=== PATIENT | female | born 1955 | race American Indian/Alaskan Native ===

== ENCOUNTER 2017-12-22 17:10 | Emergency (ER) | payer OTHER ==
[2017-12-22] MEDS ORDERED: ASPIRIN PO ONE (17:39)
[2017-12-22 17:43] VITALS: BP 216/93
[2017-12-22 18:08] LABS: Basophils # (Auto) 0.1 K/mm3 (0.0-0.1); Basophils % (Auto) 1.4 % (0.0-1.8); Eosinophils # (Auto) 0.1 K/mm3 (0.0-0.4); Eosinophils % (Auto) 1.8 % (0.0-4.3); Hematocrit 32.2 % (30.3-42.9); Hemoglobin 10.6 gm/dl (10.1-14.3); Lymphocytes # (Auto) 1.7 K/mm3 (1.2-5.4); Lymphocytes % (Auto) 33.8 % (13.4-35.0); Mean Corpuscular HGB Conc 33 % (30-34); Mean Corpuscular Hemoglobin 28 pg (28-32); Mean Corpuscular Volume 86 fl (79-97); Monocytes # (Auto) 0.5 K/mm3 (0.0-0.8); Monocytes % (Auto) 9.8 % (0.0-7.3); Platelet Count 282 K/mm3 (140-440); Red Blood Count 3.75 M/mm3 (3.65-5.03); Red Cell Distribution Width 16.8 % (13.2-15.2)
[2017-12-22 18:19] LABS: BUN/Creatinine Ratio 14; Blood Urea Nitrogen 19 mg/dL (7-17); Calcium 9.1 mg/dL (8.4-10.2); Hemolysis Index 19
[2017-12-22] MEDS ORDERED: CATAPRES PO ONE (18:42)
[2017-12-22 19:23] LABS: Alanine Aminotransferase 9 units/L (7-56)
[2017-12-22 19:31] LABS: Bilirubin,Direct < 0.2 mg/dL (0-0.2)
--- NOTE | 2017-12-22 19:33 | XRay Report ---
FINAL REPORT EXAM: XR CHEST ROUTINE 2V HISTORY: hypertension TECHNIQUE: Two view chest PA and lateral PRIORS: None. FINDINGS: Cardiac and mediastinal contours are unremarkable. No focal pulmonary infiltrate is identified. No pleural fluid collection seen. Pulmonary vasculature is unremarkable. IMPRESSION: Negative two-view chest
--- NOTE | 2017-12-22 21:24 | Emergency Department Report ---
ED General Adult HPI - General Chief complaint: High BP Stated complaint: HIGH BLOOD PRESSURE Time Seen by Provider: 12/22/17 21:01 Source: patient Mode of arrival: Ambulatory Limitations: No Limitations - History of Present Illness Initial comments: Patient presents to emergency department with a chief complaint of high blood pressure. Patient states she was at her primary care physician's office today had an appointment around 4:30 for routine follow-up when they noticed her blood pressure was 230/100. Patient states normally her blood pressure is 180/ 90. One of her blood pressure medications was recently stopped secondary to the recall on that medication specifically thus the reason the patient thinks her blood pressure was elevated today. Patient denies any chest pain, abdominal pain, headache, blurred vision, weakness. Radiation: non-radiation Severity scale (0 -10): 0 Improves with: none Associated Symptoms: denies other symptoms Treatments Prior to Arrival: none - Related Data Allergies Allergy/AdvReac Type Severity Reaction Status Date / Time No Known Allergies Allergy Verified 12/22/17 17:38 ED Review of Systems ROS: Stated complaint: HIGH BLOOD PRESSURE Other details as noted in HPI Comment: All other systems reviewed and negative Constitutional: denies: chills, fever Eyes: denies: eye pain, eye discharge, vision change ENT: denies: ear pain, throat pain Respiratory: denies: cough, shortness of breath, wheezing Cardiovascular: denies: chest pain, palpitations Endocrine: no symptoms reported Gastrointestinal: denies: abdominal pain, nausea, diarrhea Genitourinary: denies: urgency, dysuria, discharge Musculoskeletal: denies: back pain, joint swelling, arthralgia Skin: denies: rash, lesions Neurological: denies: headache, weakness, paresthesias Psychiatric: denies: anxiety, depression Hematological/Lymphatic: denies: easy bleeding, easy bruising ED Past Medical Hx - Past Medical History Hx Hypertension: Yes - Surgical History Past Surgical History?: No - Social History Smoking Status: Never Smoker Substance Use Type: None ED Physical Exam - General Limitations: No Limitations General appearance: alert, in no apparent distress - Head Head exam: Present: atraumatic, normocephalic - Eye Eye exam: Present: normal appearance - ENT ENT exam: Present: mucous membranes moist - Neck Neck exam: Present: normal inspection - Respiratory Respiratory exam: Present: normal lung sounds bilaterally. Absent: respiratory distress, wheezes, rales, rhonchi - Cardiovascular Cardiovascular Exam: Present: regular rate, normal rhythm. Absent: systolic murmur, diastolic murmur, rubs, gallop - GI/Abdominal GI/Abdominal exam: Present: soft, normal bowel sounds. Absent: distended, tenderness - Extremities Exam Extremities exam: Present: normal inspection - Back Exam Back exam: Present: normal inspection - Neurological Exam Neurological exam: Present: alert, oriented X3, CN II-XII intact, normal gait. Absent: motor sensory deficit - Psychiatric Psychiatric exam: Present: normal affect, normal mood - Skin Skin exam: Present: warm, dry, intact, normal color. Absent: rash ED Course Vital Signs 12/22/17 12/22/17 17:39 18:47 Temperature 97.7 F Pulse Rate 73 73 Respiratory 16 Rate Blood Pressure 216/93 216/93 O2 Sat by Pulse 96 Oximetry ED Medical Decision Making - Lab Data Result diagrams: 12/22/17 17:52 12/22/17 17:52 - EKG Data -: EKG Interpreted by Me EKG shows normal: sinus rhythm - EKG Data Interpretation: no acute changes, normal EKG - Medical Decision Making Discussed with patient since she was not have any symptoms and was just started on a third medication for BP it would be best for her to follow up with her primary care physician or see a certified driver examiner Critical care attestation.: If time is entered above; I have spent that time in minutes in the direct care of this critically ill patient, excluding procedure time. ED Disposition Clinical Impression: Hypertension Disposition: - TO HOME OR SELFCARE Is pt being admited?: No Does the pt Need Aspirin: No Condition: Stable Instructions: Hypertension (ED) Referrals: MALAIKA DIANE MD [Staff Physician] - 3-5 Days EMMANUEL DEMPSEY MD [Referring] - 3-5 Days RENATO RUSSELL MD [Staff Physician] - 3-5 Days Time of Disposition: 21:25
== END 2017-12-22 21:47 | disposition home or self-care (01) ==
LOC: ED 17:10
DX: I10 Essential (primary) hypertension (principal)
CPT/HCPCS: 36415; 71046; 80048; 80074; 83880; 84484; 85025; 93005; 93010

== ENCOUNTER 2021-01-04 16:11 | Inpatient (IN) | payer OTHER ==
[2021-01-04] MEDS ORDERED: cloNIDine 0.2 MG TAB PO ONE (19:04)
--- NOTE | 2021-01-04 22:03 | Emergency Department Report ---
HPI - General Chief Complaint: High BP Time Seen by Provider: 01/04/21 21:25 - HPI HPI: This is a 65-year-old -Chinese female presents to the emergency department, sent in by her PCP Dr. Mendiola, for evaluation of hypertensive issues and acute kidney injury. The patient does have a history of hypertension and was previously on losartan 100 mg, labetalol 200 mg twice daily, and nifedipine. The patient says that she was switched from nifedipine to hydralazine about 1 month ago by her software support technician, Dr. Vidal. Patient says that over that time her blood pressure has continued to elevate and be uncontrolled. When the patient went in to see Dr. Mendiola today regarding her hypertensive issues, she had taken her labetalol and her hydralazine, but was still found to have extremely elevated blood pressure. Patient was found to have a blood pressure of 263/127 in triage. 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 Patient denies any chest pain, headache, but does admit to some shortness of breath that occurs with exertion. There was a note sent by Dr. Mendiola requesting that the patient be admitted to the hospital for evaluation of her hypertensive crisis, and he would like the patient to have a nephrology and cardiology evaluation. His note states that the patient is to be seen by Dr. Barr and the patient concurs that they are switching nephrology services. Her creatinine went from 0.9 up to 2.77 over the last 2 months. For cardiology, the note asks for an evaluation from Dr. Schrader, or [facility] cardiology. ED Past Medical Hx - Past Medical History Previous Medical History?: Yes Hx Hypertension: Yes Hx Diabetes: Yes - Surgical History Past Surgical History?: Yes Additional Surgical History: gastric bypass - Social History Smoking Status: Never Smoker Substance Use Type: None ED Review of Systems ROS: Stated complaint: HYPERTENSIVE Other details as noted in HPI Comment: All other systems reviewed and negative Constitutional: denies: fever Eyes: denies: eye pain, vision change ENT: denies: ear pain, throat pain Respiratory: SOB with exertion. denies: cough Cardiovascular: denies: chest pain, edema Gastrointestinal: denies: abdominal pain, vomiting Genitourinary: denies: dysuria, discharge Musculoskeletal: denies: back pain, arthralgia Skin: denies: rash, lesions Neurological: denies: headache, weakness Physical Exam - Physical Exam Vital Signs: Vital Signs 01/04/21 16:45 Temperature 98.3 F Pulse Rate 84 Respiratory 18 Rate Blood Pressure 263/127 [Right] O2 Sat by Pulse 98 Oximetry Physical Exam: GENERAL: The patient is well-developed well-nourished. HENT: Normocephalic. Atraumatic. Patient has moist mucous membranes. EYES: Extraocular motions are intact. NECK: Supple. Trachea is midline. CHEST/LUNGS: Coarse breath sounds. No tachypnea or accessory muscle use. There is no respiratory distress noted. HEART/CARDIOVASCULAR: Regular. There is no tachycardia. There is no murmur. ABDOMEN: Abdomen is soft, nontender. Patient has normal bowel sounds. Morbidly obese habitus. SKIN: Skin is warm and dry. NEURO: The patient is awake, alert, and oriented. The patient is cooperative. The patient has no focal neurologic deficits. Normal speech. MUSCULOSKELETAL: There is no tenderness or deformity. There is no limitation range of motion. ED Course Vital Signs 01/04/21 16:45 Temperature 98.3 F Pulse Rate 84 Respiratory 18 Rate Blood Pressure 263/127 [Right] O2 Sat by Pulse 98 Oximetry ED Medical Decision Making - Lab Data Result diagrams: 01/04/21 22:00 01/04/21 22:00 Lab Results 01/04/21 01/04/21 Range/Units 22:00 22:00 WBC 4.4 L (4.5-11.0) K/mm3 RBC 2.97 L (3.65-5.03) M/mm3 Hgb 8.9 L (10.1-14.3) gm/dl Hct 27.5 L (30.3-42.9) % MCV 93 (79-97) fl MCH 30 (28-32) pg MCHC 32 (30-34) % RDW 20.4 H (13.2-15.2) % Plt Count 190 (140-440) K/mm3 Lymph % (Auto) 29.8 (13.4-35.0) % [place] % (Auto) 13.5 H (0.0-7.3) % Eos % (Auto) 3.5 (0.0-4.3) % Baso % (Auto) 1.9 H (0.0-1.8) % Lymph # (Auto) 1.3 (1.2-5.4) K/mm3 [place] # (Auto) 0.6 (0.0-0.8) K/mm3 Eos # (Auto) 0.2 (0.0-0.4) K/mm3 Baso # (Auto) 0.1 (0.0-0.1) K/mm3 Seg Neutrophils % 51.3 (40.0-70.0) % Seg Neutrophils # 2.3 (1.8-7.7) K/mm3 Sodium 143 (137-145) mmol/L Potassium 3.9 (3.6-5.0) mmol/L Chloride 108.0 H (98-107) mmol/L Carbon Dioxide 18 L (22-30) mmol/L Anion Gap 21 mmol/L BUN 24 H (7-17) mg/dL Creatinine 3.0 H (0.6-1.2) mg/dL Estimated GFR 19 ml/min BUN/Creatinine Ratio 8 % Glucose 102 H (65-100) mg/dL Calcium 8.7 (8.4-10.2) mg/dL Total Bilirubin 0.20 (0.1-1.2) mg/dL AST 16 (5-40) units/L ALT 7 (7-56) units/L Alkaline Phosphatase 71 (35-129) units/L Troponin T < 0.010 (0.00-0.029) ng/mL NT-Pro-B Natriuret Pep 5093 H (0-900) pg/mL Total Protein 6.1 L (6.3-8.2) g/dL Albumin 3.7 L (3.9-5) g/dL Albumin/Globulin Ratio 1.5 % - EKG Data -: EKG Interpreted by Ri EKG shows normal: sinus rhythm, axis, intervals, QRS complexes, ST-T waves Rate: normal - EKG Data When compared to previous EKG there are: previous EKG unavailable Interpretation: normal EKG - Radiology Data Radiology results: report reviewed CHEST 1 VIEW 01/04/2021 10:05 PM INDICATION / CLINICAL INFORMATION: SOB. COMPARISON: 12/22/2017 FINDINGS: SUPPORT DEVICES: None. HEART / MEDIASTINUM: There is mild cardiomegaly. LUNGS / PLEURA: No focal lung consolidation. Bilateral small pleural effusions. No pneumothorax. ADDITIONAL FINDINGS: No significant additional findings. IMPRESSION: 1. Cardiomegaly. 2 Bilateral small pleural effusions. - Medical Decision Making This patient was sent in by her PCP for evaluation of accelerated and uncontrolled blood pressure and renal insufficiency/failure. The patient prese nts with a systolic blood pressure of 263. She complains of some shortness of breath with exertion that has been going on over the past few weeks. EKG does not show any morphology consistent with ST elevation myocardial infarction. Chest x-ray shows cardiomegaly with small bilateral pleural effusions. Patient's labs shows anemia with hemoglobin of 8.9, renal insufficiency/failure with a creatinine of 3 and GFR of 19, and elevated proBNP of greater than 5000. With the cardiomegaly, pleural effusions, elevated proBNP, there is concern the patient has developed CHF. She was given Catapres 0.2 mg, 20 mg of hydralazine, and 20 mg of labetalol, with almost no improvement in her blood pressure. For this reason she has been placed on a Cardene drip. At the request of her PCP, Dr. Mendiola, a nephrology consult has been placed for Dr. Barr and a cardiology consult has been placed for [facility]. The patient has been accepted for admission by the hospitalist, Dr. Salmeron. Critical Care Time: Yes Critical care time in (mins) excluding proc time.: 35 Critical care attestation.: If time is entered above; I have spent that time in minutes in the direct care of this critically ill patient, excluding procedure time. Critical care time was spent on this patient in doing her initial evaluation, multiple reeval uations, ordering and interpretation of labs and imaging, multiple antihypertensive medications given followed by a drip, and multiple discussions with the patient. Critical Care Time: 35 minutes ED Disposition Clinical Impression: Accelerated hypertension CHF (congestive heart failure) Qualifiers: Heart failure type: unspecified Heart failure chronicity: unspecified Qualified Code(s): I50.9 - Heart failure, unspecified Acute renal failure Qualifiers: Acute renal failure type: unspecified Qualified Code(s): N17.9 - Acute kidney failure, unspecified Disposition: OP ADMIT IP TO THIS HOSP Is pt being admited?: Yes Condition: Serious Time of Disposition: 00:32
[2021-01-04 22:10] LABS: Basophils # (Auto) 0.1 K/mm3 (0.0-0.1); Basophils % (Auto) 1.9 % (0.0-1.8); Eosinophils # (Auto) 0.2 K/mm3 (0.0-0.4); Eosinophils % (Auto) 3.5 % (0.0-4.3); Hematocrit 27.5 % (30.3-42.9); Hemoglobin 8.9 gm/dl (10.1-14.3); Lymphocytes # (Auto) 1.3 K/mm3 (1.2-5.4); Lymphocytes % (Auto) 29.8 % (13.4-35.0); Mean Corpuscular HGB Conc 32 % (30-34); Mean Corpuscular Volume 93 fl (79-97); Monocytes # (Auto) 0.6 K/mm3 (0.0-0.8); Monocytes % (Auto) 13.5 % (0.0-7.3); Platelet Count 190 K/mm3 (140-440); Red Blood Count 2.97 M/mm3 (3.65-5.03); Red Cell Distribution Width 20.4 % (13.2-15.2)
[2021-01-04] MEDS ORDERED: hydrALAZINE 20 MG/1 ML INJ IV ONE ×2 (22:10→23:05)
--- NOTE | 2021-01-04 22:10 | XRay Report ---
CHEST 1 VIEW 01/04/2021 10:05 PM INDICATION / CLINICAL INFORMATION: SOB. COMPARISON: 12/22/2017 FINDINGS: SUPPORT DEVICES: None. HEART / MEDIASTINUM: There is mild cardiomegaly. LUNGS / PLEURA: No focal lung consolidation. Bilateral small pleural effusions. No pneumothorax. ADDITIONAL FINDINGS: No significant additional findings. IMPRESSION: 1. Cardiomegaly. 2 Bilateral small pleural effusions. Signer Name: Stephen Schaffer MD Signed: 01/04/2021 10:06 PM Workstation Name: [id number]
[2021-01-04 22:43] LABS: Alanine Aminotransferase 7 units/L (7-56); Albumin 3.7 g/dL (3.9-5); BUN/Creatinine Ratio 8; Blood Urea Nitrogen 24 mg/dL (7-17); Calcium 8.7 mg/dL (8.4-10.2); Hemolysis Index 35
[2021-01-05] MEDS ORDERED: niCARdipine 50 MG in SODIUM CHLORIDE 0.9% 250ML 230 ML IV SCH (01:00)
[2021-01-05] MEDS ORDERED: ALBUTEROL 2.5 MG/3 ML NEBU IH PRN (02:13)
[2021-01-05] MEDS ORDERED: ACETAMINOPHEN 325 MG TAB PO PRN (02:13)
[2021-01-05] MEDS ORDERED: oxyCODONE /ACETAMINOPHEN 5-325MG TAB PO PRN (02:13)
[2021-01-05] MEDS ORDERED: HYDROmorphone 1 MG/1 ML INJ IV PRN (02:13)
[2021-01-05] MEDS ORDERED: DEXTROSE 50% IN WATER (25GM) 50 ML SYRINGE IV PRN (02:13)
[2021-01-05] MEDS ORDERED: ONDANSETRON 4 MG/2 ML INJ IV PRN (02:13)
[2021-01-05] MEDS ORDERED: NITROGLYCERIN 0.4 MG TAB SUBL SL PRN (02:18)
--- NOTE | 2021-01-05 02:25 | History and Physical Report ---
History of Present Illness Date of examination: 01/05/21 Date of admission: 01/05/21 00:34 Chief complaint: Accelerated hypertension History of present illness: 65-year-old female with past medical history of hypertension, diabetes and DVT was sent to the emergency room by PCP Dr. Mendiola because of high blood pressure, BP was 256/83 and kidney injury. The patient has history of hypertension and was previously on losartan 100 mg, labetalol 200 mg twice daily, and nifedipine. The patient says that she was switched from nifedipine to hydralazine about 1 month ago by her security advisor, Dr. Vidal. Patient says that over that time her blood pressure has continued to elevate and be uncontrolled. When the patient went in to see Dr. Mendiola today regarding her hypertensive issues, she had taken her labetalol and her hydralazine, but was still found to have extremely elevated blood pressure. Patient was found to have a blood pressure of 263/127 in triage. The patient also has a past medical history of pwn-zilfyzl-wonegrwlz diabetes, and a history of DVT for which she is anticoagulated on Eliquis. Patient denies any chest pain, headache, but does admit to some shortness of breath that occurs with exertion. There was a note sent by Dr. Mendiola requesting that the patient be admitted to the hospital for evaluation of her hypertensive crisis, and he would like the patient to have a nephrology and cardiology evaluation. His note states that the patient is to be seen by Dr. Barr and the patient concurs that they are switching nephrology services. Her creatinine went from 0.9 up to 2.77 over the last 2 months. For cardiology, the note asks for an evaluation from Dr. Schrader, or [facility] cardiology. In the ER patient is found to have BUN of 24 and creatinine 3.0, proBNP 5093 and troponin 0 0.010. Patient chest x-ray showed cardiomegaly bilateral small pleural effusion. Please do the med rec when available Past History Past Medical History: diabetes, DVT, hypertension Medications and Allergies Allergies Allergy/AdvReac Type Severity Reaction Status Date / Time No Known Allergies Allergy Verified 12/22/17 17:38 Active Meds: Active Medications Acetaminophen (Acetaminophen 325 Mg Tab) 650 mg PO Q4H PRN PRN Reason: Pain MILD(1-3)/Fever >100.5/ALVARADO Albuterol (Albuterol 2.5 Mg/3 Ml Nebu) 2.5 mg IH Q4HRT PRN PRN Reason: Shortness Of Breath Albuterol/Ipratropium (Ipratropium/Albuterol Sulfate 3 Ml Ampul.Neb) 1 ampul IH Q6HRT FLOR Dextrose (Dextrose 50% In Water (25gm) 50 Ml Syringe) 50 ml IV Q30MIN PRN; Protocol PRN Reason: Hypoglycemia Famotidine (Famotidine 20 Mg Tab) 20 mg PO BID FLOR Hydralazine HCl (Hydralazine 20 Mg/1 Ml Inj) 10 mg IV Q6H PRN PRN Reason: Blood Pressure Hydralazine HCl (Hydralazine 25 Mg Tab) 50 mg PO BID FLOR Hydromorphone HCl (Hydromorphone 1 Mg/1 Ml Inj) 0.5 mg IV Q3H PRN PRN Reason: Pain , Severe (7-10) Nicardipine HCl 50 mg/ Sodium (Chloride) 250 mls @ 25 mls/hr IV TITR FLOR; Protocol Last Titration: 01/05/21 01:19 Dose: 7.5 mg/hr, 37.5 mls/hr Documented by: Insulin Human Lispro (Insulin Lispro 100 Unit/Ml) 0 unit SUB-Q ACHS FLOR; Protocol Nitroglycerin (Nitroglycerin 0.4 Mg Tab Subl) 0.4 mg SL .Q5MIN PRN PRN Reason: Chest Pain Ondansetron HCl (Ondansetron 4 Mg/2 Ml Inj) 4 mg IV Q8H PRN PRN Reason: Nausea And Vomiting Oxycodone/Acetaminophen (Oxycodone /Acetaminophen 5-325mg Tab) 1 tab PO Q6H PRN PRN Reason: Pain, Moderate (4-6) Sodium Chloride (Sodium Chloride 0.9% 10 Ml Flush Syringe) 10 ml IV BID FLOR Sodium Chloride (Sodium Chloride 0.9% 10 Ml Flush Syringe) 10 ml IV PRN PRN PRN Reason: LINE FLUSH Review of Systems Cardiovascular: shortness of breath, dyspnea on exertion Respiratory: shortness of breath, dyspnea on exertion Exam - Constitutional Vitals: Temp Pulse Resp BP Pulse Ox 98.3 F 87 19 190/65 97 01/04/21 16:45 01/05/21 02:01 01/05/21 02:01 01/05/21 02:01 01/05/21 02:01 General appearance: Present: no acute distress, well-nourished - EENT Eyes: Present: PERRL ENT: hearing intact, clear oral mucosa - Neck Neck: Present: supple, normal ROM - Respiratory Respiratory effort: normal Respiratory: bilateral: diminished - Cardiovascular Heart Sounds: Present: S1 & S2. Absent: rub, click - Extremities Extremities: pulses symmetrical Extremity abnormal: edema Peripheral Pulses: within normal limits - Abdominal General gastrointestinal: Present: soft, non-tender, non-distended, normal bowel sounds Female genitourinary: Present: normal - Integumentary Integumentary: Present: clear, warm, dry - Musculoskeletal Musculoskeletal: gait normal, strength equal bilaterally - Psychiatric Psychiatric: appropriate mood/affect, intact judgment & insight - Neurologic Neurologic: CNII-XII intact, moves all extremities HEART Score - HEART Score Troponin: Troponin T < 0.010 ng/mL (0.00-0.029) 01/04/21 22:00 Results - Labs CBC & Chem 7: 01/04/21 22:00 01/04/21 22:00 Labs: Laboratory Last Values WBC 4.4 K/mm3 (4.5-11.0) L 01/04/21 22:00 RBC 2.97 M/mm3 (3.65-5.03) L 01/04/21 22:00 Hgb 8.9 gm/dl (10.1-14.3) L 01/04/21 22:00 Hct 27.5 % (30.3-42.9) L 01/04/21 22:00 MCV 93 fl (79-97) 01/04/21 22:00 MCH 30 pg (28-32) 01/04/21 22:00 MCHC 32 % (30-34) 01/04/21 22:00 RDW 20.4 % (13.2-15.2) H 01/04/21 22:00 Plt Count 190 K/mm3 (140-440) 01/04/21 22:00 Lymph % (Auto) 29.8 % (13.4-35.0) 01/04/21 22:00 [place] % (Auto) 13.5 % (0.0-7.3) H 01/04/21 22:00 Eos % (Auto) 3.5 % (0.0-4.3) 01/04/21 22:00 Baso % (Auto) 1.9 % (0.0-1.8) H 01/04/21 22:00 Lymph # (Auto) 1.3 K/mm3 (1.2-5.4) 01/04/21 22:00 [place] # (Auto) 0.6 K/mm3 (0.0-0.8) 01/04/21 22:00 Eos # (Auto) 0.2 K/mm3 (0.0-0.4) 01/04/21 22:00 Baso # (Auto) 0.1 K/mm3 (0.0-0.1) 01/04/21 22:00 Seg Neutrophils % 51.3 % (40.0-70.0) 01/04/21 22:00 Seg Neutrophils # 2.3 K/mm3 (1.8-7.7) 01/04/21 22:00 Sodium 143 mmol/L (137-145) 01/04/21 22:00 Potassium 3.9 mmol/L (3.6-5.0) 01/04/21 22:00 Chloride 108.0 mmol/L (98-107) H 01/04/21 22:00 Carbon Dioxide 18 mmol/L (22-30) L 01/04/21 22:00 Anion Gap 21 mmol/L 01/04/21 22:00 BUN 24 mg/dL (7-17) H 01/04/21 22:00 Creatinine 3.0 mg/dL (0.6-1.2) H 01/04/21 22:00 Estimated GFR 19 ml/min 01/04/21 22:00 BUN/Creatinine Ratio 8 % 01/04/21 22:00 Glucose 102 mg/dL (65-100) H 01/04/21 22:00 Calcium 8.7 mg/dL (8.4-10.2) 01/04/21 22:00 Total Bilirubin 0.20 mg/dL (0.1-1.2) 01/04/21 22:00 AST 16 units/L (5-40) 01/04/21 22:00 ALT 7 units/L (7-56) 01/04/21 22:00 Alkaline Phosphatase 71 units/L (35-129) 01/04/21 22:00 Troponin T < 0.010 ng/mL (0.00-0.029) 01/04/21 22:00 NT-Pro-B Natriuret Pep 5093 pg/mL (0-900) H 01/04/21 22:00 Total Protein 6.1 g/dL (6.3-8.2) L 01/04/21 22:00 Albumin 3.7 g/dL (3.9-5) L 01/04/21 22:00 Albumin/Globulin Ratio 1.5 % 01/04/21 22:00 - Imaging and Cardiology Chest x-ray: report reviewed Assessment and Plan VTE prophylaxis?: Mechanical Plan of care discussed with patient/family: Yes - Patient Problems (1) Accelerated hypertension Current Visit: Yes Status: Acute Plan to address problem: Admit the patient to the ICU. Cardene drip as per protocol. Hydralazine 10 mg IV every 6 hours as needed. Hydralazine 50 mg p.o. twice daily. We will continue the home medication. We also do echocardiogram. Will consult nephrology as well as cardiology for evaluation. Recheck CBC BMP in the morning (2) Acute renal failure Current Visit: Yes Status: Acute Qualifiers: Acute renal failure type: unspecified Qualified Code(s): N17.9 - Acute kidney failure, unspecified Plan to address problem: Avoid nephrotoxic drug. Renally dose medication. Renal ultrasound. consult and notified nephrology for evaluation. Recheck CBC BMP in the morning. (3) CHF (congestive heart failure) Current Visit: Yes Status: Acute Qualifiers: Heart failure type: unspecified Heart failure chronicity: unspecified Qualified Code(s): I50.9 - Heart failure, unspecified Plan to address problem: Fluid restriction. Maintain input output. Daily weight. Avoid RICK inhibitor because of renal failure. Echocardiogram. Lasix 20 milligrams IV x1 dose. Echocardiogram. Will consult cardiology and nephrology for evaluation. (4) Diabetes Current Visit: Yes Status: Acute Plan to address problem: We will put the patient on 1800 kcal ADA diet. Humalog sliding scale Accu-Chek before meals and at bedtime with moderate dose coverage. Diabetic education. (5) DVT prophylaxis Current Visit: Yes Status: Acute Plan to address problem: SCD for DVT prophylaxis because of high blood pressure. We continue the home medication. Pepcid 20 mg p.o. twice daily for GI prophylaxis. Patient is a full code
[2021-01-05] MEDS ORDERED: FUROSEMIDE 20 MG/2 ML INJ IV ONE (02:29)
[2021-01-05] MEDS: INSULIN LISPRO 100 UNIT/ML SUB-Q SCH ×4 (07:55→22:27)
[2021-01-05] MEDS: IPRATROPIUM/ALBUTEROL SULFATE 3 ML AMPUL.NEB IH SCH ×3 (08:32→20:55)
[2021-01-05 09:19] LABS: Hemoglobin 8.6 gm/dl (10.1-14.3); Mean Corpuscular HGB Conc 33 % (30-34); Mean Corpuscular Volume 91 fl (79-97); Platelet Count 189 K/mm3 (140-440); Red Blood Count 2.87 M/mm3 (3.65-5.03)
[2021-01-05 09:40] LABS: Red Cell Distribution Width 20.3 % (13.2-15.2)
[2021-01-05 09:41] LABS: Calcium 8.8 mg/dL (8.4-10.2)
[2021-01-05] MEDS ORDERED: FAMOTIDINE 20 MG TAB PO SCH (10:00)
[2021-01-05] MEDS ORDERED: hydrALAZINE 25 MG TAB PO SCH ×3 (10:00→14:00)
--- NOTE | 2021-01-05 10:12 | Electrocardiograph Report ---
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
--- NOTE | 2021-01-05 11:15 | Consultation ---
History of Present Illness - Reason for Consult Consult date: 01/05/21 acute renal failure, accelerated hypertension Requesting physician: HILL JAIMES - History of Present Illness This is a 65 yo F with past medical history of Hypertension, Type 2 DM, h/o DVT on anticoagulation, who presents to ER after sent by Dr Mendiola for uncontrolled hypertension. BP in ER was as high as 265/173mmHg, pt was initiated on cardene gtt. Labs showed elevated BUN/Cr at 26/3.1mg/dl. Renal consult was requested for management of THANH/uncontrolled HTN. As per pt she has been treated with losartan 100 mg, labetalol 200 mg twice daily, and nifedipine, then nifedipine was switched to hydralazine without significant response of BP. Reportedly pt's Cr freddie from 0.9mg/dl to 2.77mg/dl within last 2 months, pt was seen by another telephone switchboard operator prior to this admission and was initiated on some THANH work up. Pt does not know results of the work up at this time. She did not have renal biopsy in the past. Denies recent NSAIDs use or IV contrast exposure. Past History Past Medical History: diabetes, DVT, hypertension Medications and Allergies Allergies Allergy/AdvReac Type Severity Reaction Status Date / Time No Known Allergies Allergy Verified 12/22/17 17:38 Home Medications Medication Instructions Recorded Confirmed Last Taken Type Apixaban [Eliquis] 5 mg PO BID 01/05/21 01/05/21 Unknown History Ferrous Sulfate [Iron 325 MG] 325 mg PO BID 01/05/21 01/05/21 Unknown History Losartan [Cozaar] 100 mg PO QDAY 01/05/21 01/05/21 Unknown History Pravastatin [Pravachol] 40 mg PO QHS 01/05/21 01/05/21 Unknown History glipiZIDE [Glucotrol] 5 mg PO QDAY 01/05/21 01/05/21 Unknown History labetaloL [Labetalol 200mg TAB] 200 mg PO BID 01/05/21 01/05/21 Unknown History Active Meds: Active Medications Acetaminophen (Acetaminophen 325 Mg Tab) 650 mg PO Q4H PRN PRN Reason: Pain MILD(1-3)/Fever >100.5/ALVARADO Albuterol (Albuterol 2.5 Mg/3 Ml Nebu) 2.5 mg IH Q4HRT PRN PRN Reason: Shortness Of Breath Albuterol/Ipratropium (Ipratropium/Albuterol Sulfate 3 Ml Ampul.Neb) 1 ampul IH Q6HRT [facility] Last Admin: 01/05/21 08:32 Dose: 1 ampul Documented by: Dextrose (Dextrose 50% In Water (25gm) 50 Ml Syringe) 50 ml IV Q30MIN PRN; Protocol PRN Reason: Hypoglycemia Famotidine (Famotidine 10 Mg Tab) 10 mg PO BID [facility] Hydralazine HCl (Hydralazine 20 Mg/1 Ml Inj) 10 mg IV Q6H PRN PRN Reason: SBP >/=165; DBP >/=100 Hydralazine HCl (Hydralazine 100 Mg Tab) 100 mg PO Q8HR [facility] Hydromorphone HCl (Hydromorphone 1 Mg/1 Ml Inj) 0.5 mg IV Q3H PRN PRN Reason: Pain , Severe (7-10) Nicardipine HCl 50 mg/ Sodium (Chloride) 250 mls @ 25 mls/hr IV TITR [facility]; Protocol Last Titration: 01/05/21 04:56 Dose: 5 mg/hr, 25 mls/hr Documented by: Insulin Human Lispro (Insulin Lispro 100 Unit/Ml) 0 unit SUB-Q ACHS [facility]; Protocol Last Admin: 01/05/21 07:55 Dose: Not Given Documented by: Labetalol HCl (Labetalol 100 Mg Tab) 300 mg PO BID [facility] Nitroglycerin (Nitroglycerin 0.4 Mg Tab Subl) 0.4 mg SL .Q5MIN PRN PRN Reason: Chest Pain Ondansetron HCl (Ondansetron 4 Mg/2 Ml Inj) 4 mg IV Q8H PRN PRN Reason: Nausea And Vomiting Oxycodone/Acetaminophen (Oxycodone /Acetaminophen 5-325mg Tab) 1 tab PO Q6H PRN PRN Reason: Pain, Moderate (4-6) Sodium Chloride (Sodium Chloride 0.9% 10 Ml Flush Syringe) 10 ml IV BID [facility] Sodium Chloride (Sodium Chloride 0.9% 10 Ml Flush Syringe) 10 ml IV PRN PRN PRN Reason: LINE FLUSH Spironolactone (Spironolactone 25 Mg Tab) 25 mg PO BID [facility] Review of Systems All systems: negative Constitutional: fatigue, weakness, malaise Exam - Vital Signs Vital signs: Vital Signs Temp Pulse Resp BP Pulse Ox 98.3 F 84 18 263/127 98 01/04/21 16:45 01/04/21 16:45 01/04/21 16:45 01/04/21 16:45 01/04/21 16:45 - General Appearance General appearance: well-developed, well-nourished, appears stated age EENT: ATNC, PERRL, mucous membranes moist Neck: Present: neck supple Respiratory: Clear to Ascultation Heart: regular, S1S2 Gastrointestinal: Present: normoactive bowel sounds Integumentary: no rash, other (no edema ) Neurologic: no focal deficit, alert and oriented x3, strength 5/5, CN 3-12 intact Psychiatric: mood/affect appropriate, cooperative Results - Lab Results 01/05/21 09:05 01/05/21 09:05 Most recent lab results Calcium 8.8 mg/dL (8.4-10.2) 01/05/21 09:05 Phosphorus 4.70 mg/dL (2.5-4.5) H 01/05/21 09:05 Magnesium 1.90 mg/dL (1.7-2.3) 01/05/21 09:05 Assessment and Plan - Patient Problems (1) Hypertensive emergency Current Visit: Yes Status: Acute Plan to address problem: cont BP control with cardene, target < 160/80mmHg within 6hr and normotension within 24hr. Transition to po BP meds, pt initiated on hydralazine 100mg po tid and labetalol 300mg bid, will add spironolactone 25mg po bid for treatment of resistant hypertension. hold RICK-I/ARB in the setting of THANH. Check TSH, cortisol, Donaldo/plasma renin activity (2) Acute renal failure Current Visit: Yes Status: Acute Qualifiers: Acute renal failure type: unspecified Qualified Code(s): N17.9 - Acute kidney failure, unspecified Plan to address problem: suspect THANH secondary to malignant hypertension, to rule out thrombotic microangiopathy in the setting of hypertensive emergency. Will check UA, urine lytes and urine P/Cr ratio, if significant proteinuria/hematuria is present and progressive decline in eGFR is noted, will consider renal biopsy. Cont supportive care for THANH avoid ,nephrotoxins, NSAIDs, IV contrast (3) Metabolic acidosis Current Visit: Yes Status: Acute Plan to address problem: hyperchloremic met acidosis in the setting of THANH. If serum CO2 continues to decline and BP is better controlled, will consider po Na bicarb (4) Type 2 diabetes mellitus with diabetic chronic kidney disease Current Visit: Yes Status: Acute Plan to address problem: DM management as per primary attending
[2021-01-05] MEDS: FAMOTIDINE 10 MG TAB PO SCH ×2 (11:33→22:22)
--- NOTE | 2021-01-05 12:19 | Consultation ---
History of Present Illness - Reason for Consult Consult date: 01/05/21 Hypertensive Urgency/Emergency Requesting physician: HILL JAIMES - History of Present Illness 65 y/o female sent to the ED via Dr. Mendiola from his office for BP control and to change renal providers. Despite multiple changes to therapy BP still not controlled and patient states that she is compliant with therapy. She also has worsening renal function. Past History Past Medical History: diabetes, DVT, hypertension Medications and Allergies Allergies Allergy/AdvReac Type Severity Reaction Status Date / Time No Known Allergies Allergy Verified 12/22/17 17:38 Home Medications Medication Instructions Recorded Confirmed Last Taken Type Apixaban [Eliquis] 5 mg PO BID 01/05/21 01/05/21 Unknown History Ferrous Sulfate [Iron 325 MG] 325 mg PO BID 01/05/21 01/05/21 Unknown History Losartan [Cozaar] 100 mg PO QDAY 01/05/21 01/05/21 Unknown History Pravastatin [Pravachol] 40 mg PO QHS 01/05/21 01/05/21 Unknown History glipiZIDE [Glucotrol] 5 mg PO QDAY 01/05/21 01/05/21 Unknown History labetaloL [Labetalol 200mg TAB] 200 mg PO BID 01/05/21 01/05/21 Unknown History Active Meds: Active Medications Acetaminophen (Acetaminophen 325 Mg Tab) 650 mg PO Q4H PRN PRN Reason: Pain MILD(1-3)/Fever >100.5/ALVARADO Albuterol (Albuterol 2.5 Mg/3 Ml Nebu) 2.5 mg IH Q4HRT PRN PRN Reason: Shortness Of Breath Albuterol/Ipratropium (Ipratropium/Albuterol Sulfate 3 Ml Ampul.Neb) 1 ampul IH Q6HRT [facility] Last Admin: 01/05/21 08:32 Dose: 1 ampul Documented by: Dextrose (Dextrose 50% In Water (25gm) 50 Ml Syringe) 50 ml IV Q30MIN PRN; Protocol PRN Reason: Hypoglycemia Famotidine (Famotidine 10 Mg Tab) 10 mg PO BID [facility] Last Admin: 01/05/21 11:33 Dose: 10 mg Documented by: Ferrous Sulfate (Ferrous Sulfate 325 Mg Tab) 325 mg PO BID [facility] Hydralazine HCl (Hydralazine 20 Mg/1 Ml Inj) 10 mg IV Q6H PRN PRN Reason: SBP >/=165; DBP >/=100 Hydralazine HCl (Hydralazine 100 Mg Tab) 100 mg PO Q8HR [facility] Hydromorphone HCl (Hydromorphone 1 Mg/1 Ml Inj) 0.5 mg IV Q3H PRN PRN Reason: Pain , Severe (7-10) Nicardipine HCl 50 mg/ Sodium (Chloride) 250 mls @ 25 mls/hr IV TITR [facility]; Protocol Last Titration: 01/05/21 04:56 Dose: 5 mg/hr, 25 mls/hr Documented by: Insulin Human Lispro (Insulin Lispro 100 Unit/Ml) 0 unit SUB-Q ACHS [facility]; Protocol Last Admin: 01/05/21 07:55 Dose: Not Given Documented by: Labetalol HCl (Labetalol 100 Mg Tab) 300 mg PO BID [facility] Last Admin: 01/05/21 11:32 Dose: 300 mg Documented by: Nitroglycerin (Nitroglycerin 0.4 Mg Tab Subl) 0.4 mg SL .Q5MIN PRN PRN Reason: Chest Pain Ondansetron HCl (Ondansetron 4 Mg/2 Ml Inj) 4 mg IV Q8H PRN PRN Reason: Nausea And Vomiting Oxycodone/Acetaminophen (Oxycodone /Acetaminophen 5-325mg Tab) 1 tab PO Q6H PRN PRN Reason: Pain, Moderate (4-6) Pravastatin Sodium (Pravastatin 40 Mg Tab) 40 mg PO QHS [facility] Sodium Chloride (Sodium Chloride 0.9% 10 Ml Flush Syringe) 10 ml IV BID [facility] Last Admin: 01/05/21 11:37 Dose: 10 ml Documented by: Sodium Chloride (Sodium Chloride 0.9% 10 Ml Flush Syringe) 10 ml IV PRN PRN PRN Reason: LINE FLUSH Spironolactone (Spironolactone 25 Mg Tab) 25 mg PO BID [facility] Exam - Constitutional Vitals: Temp Pulse Resp BP Pulse Ox 98.3 F 80 16 173/64 96 01/04/21 16:45 01/05/21 11:32 01/05/21 10:01 01/05/21 11:32 01/05/21 10:01 Results - Labs CBC & Chem 7: 01/06/21 10:46 01/06/21 04:33 Labs: Abnormal lab results 01/04/21 01/04/21 01/05/21 Range/Units 22:00 22:00 09:05 WBC 4.4 L (4.5-11.0) K/mm3 RBC 2.97 L 2.87 L (3.65-5.03) M/mm3 Hgb 8.9 L 8.6 L (10.1-14.3) gm/dl Hct 27.5 L 26.0 L (30.3-42.9) % RDW 20.4 H 20.3 H (13.2-15.2) % [place] % (Auto) 13.5 H (0.0-7.3) % Baso % (Auto) 1.9 H (0.0-1.8) % Sodium (137-145) mmol/L Chloride 108.0 H (98-107) mmol/L Carbon Dioxide 18 L (22-30) mmol/L BUN 24 H (7-17) mg/dL Creatinine 3.0 H (0.6-1.2) mg/dL Glucose 102 H (65-100) mg/dL Phosphorus (2.5-4.5) mg/dL NT-Pro-B Natriuret Pep 5093 H (0-900) pg/mL Total Protein 6.1 L (6.3-8.2) g/dL Albumin 3.7 L (3.9-5) g/dL 01/05/21 Range/Units 09:05 WBC (4.5-11.0) K/mm3 RBC (3.65-5.03) M/mm3 Hgb (10.1-14.3) gm/dl Hct (30.3-42.9) % RDW (13.2-15.2) % [place] % (Auto) (0.0-7.3) % Baso % (Auto) (0.0-1.8) % Sodium 147 H (137-145) mmol/L Chloride 110.1 H (98-107) mmol/L Carbon Dioxide 19 L (22-30) mmol/L BUN 26 H (7-17) mg/dL Creatinine 3.1 H (0.6-1.2) mg/dL Glucose (65-100) mg/dL Phosphorus 4.70 H (2.5-4.5) mg/dL NT-Pro-B Natriuret Pep (0-900) pg/mL Total Protein (6.3-8.2) g/dL Albumin (3.9-5) g/dL - Imaging and Cardiology Chest x-ray: image reviewed (cardiomegaly with small bilateral pleural effusions) Assessment and Plan 65 y/o obese female with known HTN admitted with Hypertensive Urgency and worsening renal disease 1. Agree with cardene drip 2. Await new renal evaluation so that oral therapy can be started to help control BP with hopes of weaning drip off 3. Anticoagulation for prior history of VTE 4. Weight loss CCT 31 minutes.
[2021-01-05] MEDS: SPIRONOLACTONE 25 MG TAB PO SCH ×2 (12:59→22:21)
--- NOTE | 2021-01-05 13:01 | Consultation ---
History of Present Illness Consult date: 01/05/21 Consult reason: hypertension History of present illness: Patient is 65 y/o female with pmhx of HTN, DM, HFpEF and renal insufficiency who came to the ED after for hypertensive issues after being sent by her PCP, Dr. Mendiola. The patient reports that her nephrologists switched from nifedipine to hydralazine about one month ago. She reports since that time her BP has been elevated and that she has noticed swelling in her legs. In the ED the patient was found to have a BP of 263/127 and patient was started on a nicardipine gtt. Patient denies chest pain, headache, nausea, vomiting, diaphoresis. She admits to SOB with exertion. Cardiology is consulted for the hypertension. Past History Past Medical History: diabetes, DVT, hypertension Past Surgical History: Other (gastric bypass) Social history: denies: smoking, alcohol abuse Family history: no significant family history Medications and Allergies Allergies Allergy/AdvReac Type Severity Reaction Status Date / Time No Known Allergies Allergy Verified 12/22/17 17:38 Home Medications Medication Instructions Recorded Confirmed Last Taken Type Apixaban [Eliquis] 5 mg PO BID 01/05/21 01/05/21 Unknown History Ferrous Sulfate [Iron 325 MG] 325 mg PO BID 01/05/21 01/05/21 Unknown History Losartan [Cozaar] 100 mg PO QDAY 01/05/21 01/05/21 Unknown History Pravastatin [Pravachol] 40 mg PO QHS 01/05/21 01/05/21 Unknown History glipiZIDE [Glucotrol] 5 mg PO QDAY 01/05/21 01/05/21 Unknown History labetaloL [Labetalol 200mg TAB] 200 mg PO BID 01/05/21 01/05/21 Unknown History Active Meds: Active Medications Acetaminophen (Acetaminophen 325 Mg Tab) 650 mg PO Q4H PRN PRN Reason: Pain MILD(1-3)/Fever >100.5/ALVARADO Albuterol (Albuterol 2.5 Mg/3 Ml Nebu) 2.5 mg IH Q4HRT PRN PRN Reason: Shortness Of Breath Albuterol/Ipratropium (Ipratropium/Albuterol Sulfate 3 Ml Ampul.Neb) 1 ampul IH Q6HRT [facility] Last Admin: 01/05/21 08:32 Dose: 1 ampul Documented by: Dextrose (Dextrose 50% In Water (25gm) 50 Ml Syringe) 50 ml IV Q30MIN PRN; Protocol PRN Reason: Hypoglycemia Famotidine (Famotidine 10 Mg Tab) 10 mg PO BID [facility] Last Admin: 01/05/21 11:33 Dose: 10 mg Documented by: Ferrous Sulfate (Ferrous Sulfate 325 Mg Tab) 325 mg PO BID [facility] Hydralazine HCl (Hydralazine 20 Mg/1 Ml Inj) 10 mg IV Q6H PRN PRN Reason: SBP >/=165; DBP >/=100 Hydralazine HCl (Hydralazine 100 Mg Tab) 100 mg PO Q8HR [facility] Hydromorphone HCl (Hydromorphone 1 Mg/1 Ml Inj) 0.5 mg IV Q3H PRN PRN Reason: Pain , Severe (7-10) Nicardipine HCl 50 mg/ Sodium (Chloride) 250 mls @ 25 mls/hr IV TITR [facility]; Protocol Last Titration: 01/05/21 04:56 Dose: 5 mg/hr, 25 mls/hr Documented by: Insulin Human Lispro (Insulin Lispro 100 Unit/Ml) 0 unit SUB-Q ACHS [facility]; Protocol Last Admin: 01/05/21 11:46 Dose: Not Given Documented by: Labetalol HCl (Labetalol 100 Mg Tab) 300 mg PO BID [facility] Last Admin: 01/05/21 11:32 Dose: 300 mg Documented by: Nitroglycerin (Nitroglycerin 0.4 Mg Tab Subl) 0.4 mg SL .Q5MIN PRN PRN Reason: Chest Pain Ondansetron HCl (Ondansetron 4 Mg/2 Ml Inj) 4 mg IV Q8H PRN PRN Reason: Nausea And Vomiting Oxycodone/Acetaminophen (Oxycodone /Acetaminophen 5-325mg Tab) 1 tab PO Q6H PRN PRN Reason: Pain, Moderate (4-6) Pravastatin Sodium (Pravastatin 40 Mg Tab) 40 mg PO QHS [facility] Sodium Chloride (Sodium Chloride 0.9% 10 Ml Flush Syringe) 10 ml IV BID [facility] Last Admin: 01/05/21 11:37 Dose: 10 ml Documented by: Sodium Chloride (Sodium Chloride 0.9% 10 Ml Flush Syringe) 10 ml IV PRN PRN PRN Reason: LINE FLUSH Spironolactone (Spironolactone 25 Mg Tab) 25 mg PO BID [facility] Review of Systems All systems: negative Constitutional: no weight loss, no weight gain, no fever, no chills, no sweats Ears, nose, mouth and throat: no nasal congestion, no nasal discharge, no sinus pressure, no sinus pain Cardiovascular: edema, shortness of breath, dyspnea on exertion, no chest pain, no orthopnea, no palpitations, no rapid/irregular heart beat, no syncope Respiratory: shortness of breath, dyspnea on exertion, no cough, no cough with sputum, no excessive sputum, no hemoptysis Gastrointestinal: no abdominal pain, no nausea, no vomiting, no diarrhea Musculoskeletal: no neck stiffness, no neck pain, no shooting arm pain, no arm numbness/tingling, no low back pain Integumentary: no rash, no pruritis, no redness Neurological: no head injury, no transient paralysis, no paralysis, no weakness Psychiatric: no anxiety, no memory loss Endocrine: no cold intolerance, no heat intolerance Hematologic/Lymphatic: no easy bruising, no easy bleeding Physical Examination Last Vital Signs Temp 98.3 F 01/04/21 16:45 Pulse 76 01/05/21 12:59 Resp 20 01/05/21 12:01 BP 184/74 01/05/21 12:01 Pulse Ox 98 01/05/21 12:01 General appearance: no acute distress HEENT: Positive: PERRL Neck: Positive: neck supple, trachea midline Cardiac: Positive: Reg Rate and Rhythm, S1/S2 Lungs: Positive: clear to auscultation, Normal Breath Sounds Neuro: Positive: Grossly Intact Abdomen: Positive: Soft, Active Bowel Sounds Extremities: Present: upper extr. pulses, lower extr. pulses. Absent: edema Results 01/05/21 09:05 01/05/21 09:05 Cardiac Enzymes 01/04/21 Range/Units 22:00 AST 16 (5-40) units/L CBC 01/04/21 01/05/21 Range/Units 22:00 09:05 WBC 4.4 L 5.6 (4.5-11.0) K/mm3 RBC 2.97 L 2.87 L (3.65-5.03) M/mm3 Hgb 8.9 L 8.6 L (10.1-14.3) gm/dl Hct 27.5 L 26.0 L (30.3-42.9) % Plt Count 190 189 (140-440) K/mm3 Lymph # (Auto) 1.3 (1.2-5.4) K/mm3 [place] # (Auto) 0.6 (0.0-0.8) K/mm3 Eos # (Auto) 0.2 (0.0-0.4) K/mm3 Baso # (Auto) 0.1 (0.0-0.1) K/mm3 Comprehensive Metabolic Panel 01/04/21 01/05/21 Range/Units 22:00 09:05 Sodium 143 147 H (137-145) mmol/L Potassium 3.9 3.8 (3.6-5.0) mmol/L Chloride 108.0 H 110.1 H (98-107) mmol/L Carbon Dioxide 18 L 19 L (22-30) mmol/L BUN 24 H 26 H (7-17) mg/dL Creatinine 3.0 H 3.1 H (0.6-1.2) mg/dL Glucose 102 H 96 (65-100) mg/dL Calcium 8.7 8.8 (8.4-10.2) mg/dL AST 16 (5-40) units/L ALT 7 (7-56) units/L Alkaline Phosphatase 71 (35-129) units/L Total Protein 6.1 L (6.3-8.2) g/dL Albumin 3.7 L (3.9-5) g/dL - Imaging and Cardiology Echo: report reviewed EKG: report reviewed, image reviewed EKG interpretations - Telemetry EKG Rhythm: Sinus Rhythm - EKG Sinus rhythms and dysrhythmias: sinus rhythm Assessment and Plan Hypertensive Emergency * EKG sinus 76. Trops negative x1 patient denies chest pain, diaphoresis, nausea vomiting * Patient sinus 90 on monitor * Optimize hypertensive regimen: increase hydralazine 100mg PO q8, initiate labetolol 300mg PO BID. Recommend weaning nicardipine gtt. * Echo 01/05/2021-EF 55 to 60%, mild left ventricular hypertrophy, mild diastolic dysfunction. Rule right ventricular systolic function is normal. Left atrium is mildly dilated, right atrium is normal in size. THANH Renal Insufficiency * Patient has history of renal insufficiency and recently changed BP meds. Creatinine=3.0->3.1 * Nephrology consulted HFpEF * BNP is 5093, patient is near Euvolemia with mild BLE edmea, no crackles or rhales upon auscultattion, no orthopnea. * GDMT: BB, ASA, Statin, RICK/ARB. Hold RICK/ARB due to THANH. Patient seen in conjunction with Dr. Schrader who agrees with this plan. Will continue to follow - Patient Problems (1) Accelerated hypertension Current Visit: Yes Status: Acute (2) Acute renal failure Current Visit: Yes Status: Acute Qualifiers: Acute renal failure type: unspecified Qualified Code(s): N17.9 - Acute kidney failure, unspecified (3) DVT prophylaxis Current Visit: Yes Status: Acute (4) Diabetes Current Visit: Yes Status: Acute
[2021-01-05] MEDS: hydrALAZINE 100 MG TAB PO SCH ×2 (14:42→23:16)
[2021-01-05] MEDS: hydrALAZINE 20 MG/1 ML INJ IV PRN (16:40)
--- NOTE | 2021-01-05 16:50 | Event Note ---
Date: 01/05/21 This is a 65-year-old female with HTN, DM, DVT x2 over 20 years ago with a family history of DVTs on lifelong anticoagulation who presented to the emergency department on 01/05 with accelerated hypertension and acute kidney injury by her PCP. Work-up in the emergency department revealed a BUN/creatinine of 24/3 (creatinine was 0.92 months ago), proBNP of 5093 and CXR revealed cardiomegaly with small bilateral pleural effusions. Patient received Lasix, hydralazine, labetalol in the emergency department for hypertension and was eventually started on a Cardene drip. On presentation patient blood pressure was 257/87. Patient was admitted to the hospitalist service with acute kidney injury and hypertensive urgency with consults to [facility], cardiology and nephrology. 01/05: Patient was able to be weaned off of Cardene drip and blood pressure was low to be better controlled with p.o. medications and as needed. Patient was downgraded from ICU to telemetry. This morning patient had slightly worsening metabolic acidosis, BUN/creatinine, hyperchloremia and has slight hypernatremia. This is a 65-year-old female with HTN, DM, DVT x2/20 years ago from history of DVTs on lifelong anticoagulation who presented with hypertensive urgency, acute kidney injury. Past medical history: DM, HTN, DVT x2, over 20 years ago with family history of DVTs, for anticoagulation with Eliquis Past surgical history: none Social history: Non-smoker, nondrinker Past family history: DVTs Home medications include: Ferrous sulfate 325 mg, glipizide 5 mg, pravastatin 40 mg p.o. at bedtime, labetalol 200 mg p.o. twice daily, losartan 100 mg p.o. daily, Eliquis 5 mg p.o. twice daily Neuro: NAD -Reorientation as needed -Avoid delirium -Aspiration and fall precautions Cardio: Hypertensive urgency, HFpEF (EF 55 to 60% in 2020), h/o HTN -Cardiology consulted, appreciate recommendations -S/p Cardene drip -Currently on hydralazine, labetalol -Blood Pressure monitoring per protocol -12/2020 echocardiogram shows mild left ventricular hypertrophy, EF 55 to 60% -Remote telemetry -S/p Lasix in the ED Respiratory: NAD -Pulmonary hygiene -Supplemental oxygen as needed GI: NAD -PPI -BR: Colace : Acute kidney injury -Nephrology consulted, appreciate recommendations -Spironolactone -Avoid nephrotoxic medications -Renally dose medications -Daily weights -Strict intake and output -Renal ultrasound pending Endo: h/o DM -CC renal cardiac diet -SSI -Hypoglycemia protocol -Hbg A1C 5.8 -Accu-Cheks AC at bedtime -Avoid hypoglycemia ID: [id number] -Monitor for signs symptoms of infection Heme: H/O anemia -Resume home iron -Trend CBC -Transfuse for hemoglobin less than 7 -Heparin subcu, SCDs to bilateral LE while in bed The high probability of a clinically significant, sudden or life threatening deterioration of the [cardio] system(s) required my full and direct attention, intervention and personal management. The aggregate critical care time was [60] minutes. This time is in addition to time spent performing reported procedures but includes the following: [x] Data Review and interpretation [x] Patient assessment and monitoring of vital signs [x] Documentation [x] Medication orders and management
[2021-01-05] MEDS ORDERED: hydrALAZINE 20 MG/1 ML INJ IV ONE (20:52)
[2021-01-05 21:33] LABS: Bilirubin,Urine NEG (Negative); Blood,Urine SM (Negative); Color,Urine Yellow (Yellow); Creatinine,Urine 146.4 mg/dL (0.1-20.0); Mucus,Urine FEW /HPF; Urobilinogen,Urine < 2.0 mg/dL (<2.0)
[2021-01-05 21:34] LABS: Protein,Urine >500 mg/dL (Negative); WBC,Urine > 182.0 /HPF (0.0-6.0)
[2021-01-05] MEDS: DOCUSATE SODIUM 100 MG CAP PO SCH (22:04)
[2021-01-05] MEDS: FERROUS SULFATE 325 MG TAB PO SCH (22:05)
[2021-01-05] MEDS: PRAVASTATIN 40 MG TAB PO SCH (22:22)
[2021-01-06] MEDS ORDERED: hydrALAZINE 20 MG/1 ML INJ IV ONE (00:38)
[2021-01-06] MEDS ORDERED: niCARdipine 50 MG in SODIUM CHLORIDE 0.9% 250ML 230 ML IV SCH (01:00)
[2021-01-06] MEDS: IPRATROPIUM/ALBUTEROL SULFATE 3 ML AMPUL.NEB IH SCH ×2 (02:27→08:33)
[2021-01-06 05:32] LABS: Eosinophils # (Auto) 0.1 K/mm3 (0.0-0.4); Eosinophils % (Auto) 2.6 % (0.0-4.3); Hematocrit 24.1 % (30.3-42.9); Hemoglobin 7.9 gm/dl (10.1-14.3); Lymphocytes # (Auto) 1.3 K/mm3 (1.2-5.4); Lymphocytes % (Auto) 26.3 % (13.4-35.0); Mean Corpuscular HGB Conc 33 % (30-34); Mean Corpuscular Volume 91 fl (79-97); Monocytes # (Auto) 0.6 K/mm3 (0.0-0.8); Monocytes % (Auto) 11.9 % (0.0-7.3); Platelet Count 187 K/mm3 (140-440); Red Blood Count 2.64 M/mm3 (3.65-5.03); Red Cell Distribution Width 20.1 % (13.2-15.2)
[2021-01-06] MEDS: hydrALAZINE 100 MG TAB PO SCH ×3 (05:47→22:12)
[2021-01-06 05:53] LABS: Albumin 2.9 g/dL (3.9-5); Calcium 7.9 mg/dL (8.4-10.2)
[2021-01-06] MEDS: INSULIN LISPRO 100 UNIT/ML SUB-Q SCH ×4 (07:59→21:55)
--- NOTE | 2021-01-06 08:55 | Progress Note ---
<HUMAIRA POLO - Last Filed: 01/06/21 08:55> Hospitalist Physical - Constitutional Vitals: Temp Pulse Resp BP Pulse Ox 98.8 F 82 11 L 189/71 99 01/05/21 20:45 01/06/21 08:01 01/06/21 08:01 01/06/21 08:01 01/06/21 08:01 General appearance: Present: no acute distress, well-nourished HEART Score - HEART Score Troponin: Troponin T < 0.010 ng/mL (0.00-0.029) 01/04/21 22:00 Results - Labs CBC & Chem 7: 01/06/21 04:33 01/06/21 04:33 Labs: Laboratory Last Values WBC 4.8 K/mm3 (4.5-11.0) 01/06/21 04:33 RBC 2.64 M/mm3 (3.65-5.03) L 01/06/21 04:33 Hgb 7.9 gm/dl (10.1-14.3) L 01/06/21 04:33 Hct 24.1 % (30.3-42.9) L 01/06/21 04:33 MCV 91 fl (79-97) 01/06/21 04:33 MCH 30 pg (28-32) 01/06/21 04:33 MCHC 33 % (30-34) 01/06/21 04:33 RDW 20.1 % (13.2-15.2) H 01/06/21 04:33 Plt Count 187 K/mm3 (140-440) 01/06/21 04:33 Lymph % (Auto) 26.3 % (13.4-35.0) 01/06/21 04:33 [place] % (Auto) 11.9 % (0.0-7.3) H 01/06/21 04:33 Eos % (Auto) 2.6 % (0.0-4.3) 01/06/21 04:33 Baso % (Auto) 1.0 % (0.0-1.8) 01/06/21 04:33 Lymph # (Auto) 1.3 K/mm3 (1.2-5.4) 01/06/21 04:33 [place] # (Auto) 0.6 K/mm3 (0.0-0.8) 01/06/21 04:33 Eos # (Auto) 0.1 K/mm3 (0.0-0.4) 01/06/21 04:33 Baso # (Auto) 0.0 K/mm3 (0.0-0.1) 01/06/21 04:33 Seg Neutrophils % 58.2 % (40.0-70.0) 01/06/21 04:33 Seg Neutrophils # 2.8 K/mm3 (1.8-7.7) 01/06/21 04:33 Sodium 144 mmol/L (137-145) 01/06/21 04:33 Potassium 3.6 mmol/L (3.6-5.0) 01/06/21 04:33 Chloride 110.9 mmol/L (98-107) H 01/06/21 04:33 Carbon Dioxide 19 mmol/L (22-30) L 01/06/21 04:33 Anion Gap 18 mmol/L 01/06/21 04:33 BUN 28 mg/dL (7-17) H 01/06/21 04:33 Creatinine 3.8 mg/dL (0.6-1.2) H 01/06/21 04:33 Estimated GFR 15 ml/min 01/06/21 04:33 BUN/Creatinine Ratio 7 % 01/06/21 04:33 Glucose 92 mg/dL (65-100) 01/06/21 04:33 POC Glucose 96 mg/dL (70-105) 01/06/21 07:47 Hemoglobin A1c 5.3 % (4-6) 01/05/21 09:05 Calcium 7.9 mg/dL (8.4-10.2) L 01/06/21 04:33 Phosphorus 4.70 mg/dL (2.5-4.5) H 01/05/21 09:05 Magnesium 1.90 mg/dL (1.7-2.3) 01/05/21 09:05 Total Bilirubin 0.20 mg/dL (0.1-1.2) 01/06/21 04:33 AST 11 units/L (5-40) 01/06/21 04:33 ALT 7 units/L (7-56) 01/06/21 04:33 Alkaline Phosphatase 60 units/L (35-129) 01/06/21 04:33 Lactate Dehydrogenase 188 units/L (91-180) H 01/06/21 04:33 Troponin T < 0.010 ng/mL (0.00-0.029) 01/04/21 22:00 NT-Pro-B Natriuret Pep 5093 pg/mL (0-900) H 01/04/21 22:00 Total Protein 5.7 g/dL (6.3-8.2) L 01/06/21 04:33 Albumin 2.9 g/dL (3.9-5) L 01/06/21 04:33 Albumin/Globulin Ratio 1.0 % 01/06/21 04:33 TSH 4.420 mlU/mL (0.270-4.200) H 01/06/21 04:33 Urine Color Yellow (Yellow) 01/05/21 Unknown Urine Turbidity Cloudy (Clear) 01/05/21 Unknown Urine pH 5.0 (5.0-7.0) 01/05/21 Unknown Ur Specific [place] 1.015 (1.003-1.030) 01/05/21 Unknown Urine Protein >500 mg/dL (Negative) 01/05/21 Unknown Urine Glucose (UA) 50 mg/dL (Negative) 01/05/21 Unknown Urine Ketones Tr mg/dL (Negative) 01/05/21 Unknown Urine Blood Sm (Negative) 01/05/21 Unknown Urine Nitrite Neg (Negative) 01/05/21 Unknown Urine Bilirubin Neg (Negative) 01/05/21 Unknown Urine Urobilinogen < 2.0 mg/dL (<2.0) 01/05/21 Unknown Ur Leukocyte Esterase Lg (Negative) 01/05/21 Unknown Urine WBC (Auto) > 182.0 /HPF (0.0-6.0) H 01/05/21 Unknown Urine RBC (Auto) 94.0 /HPF (0.0-6.0) 01/05/21 Unknown U Epithel Cells (Auto) 11.0 /HPF (0-13.0) 01/05/21 Unknown Urine WBC Clumps 3+ /HPF 01/05/21 Unknown Urine Mucus Few /HPF 01/05/21 Unknown Urine Yeast (Budding) 1+ /HPF 01/05/21 Unknown Urine Creatinine 146.4 mg/dL (0.1-20.0) H 01/05/21 Unknown Urine Sodium 67 mmol/L 01/05/21 Unknown Urine Total Protein 844 mg/dL (5-11.8) H 01/05/21 Unknown Active Medications - Current Medications Current Medications: Generic Name Dose Route Start Last Admin Trade Name Freq PRN Reason Stop Dose Admin Acetaminophen 650 mg 01/05/21 02:13 Acetaminophen 325 Mg Tab PO Q4H PRN Pain MILD(1-3)/Fever >100.5/ALVARADO Albuterol 2.5 mg 01/05/21 02:13 Albuterol 2.5 Mg/3 Ml Nebu IH Q4HRT PRN Shortness Of Breath Albuterol/Ipratropium 1 ampul 01/05/21 08:00 01/06/21 08:33 Ipratropium/Albuterol Sulfate 3 Ml Ampul.Neb IH 1 ampul Q6HRT FLOR Administration Aspirin 81 mg 01/06/21 10:00 Aspirin 81 Mg Tab Chew PO QDAY FLOR Clonidine HCl 0.1 mg 01/06/21 10:00 Clonidine 0.1 Mg Tab PO Q12HR FLOR Dextrose 50 ml 01/05/21 02:13 Dextrose 50% In Water (25gm) 50 Ml Syringe IV Q30MIN PRN Hypoglycemia Protocol Docusate Sodium 100 mg 01/05/21 22:00 01/05/21 22:04 Docusate Sodium 100 Mg Cap PO 100 mg BID FLOR Administration Famotidine 10 mg 01/05/21 10:00 01/05/21 22:22 Famotidine 10 Mg Tab PO 10 mg BID FLOR Administration Ferrous Sulfate 325 mg 01/05/21 22:00 01/05/21 22:05 Ferrous Sulfate 325 Mg Tab PO 325 mg BID FLOR Administration Hydralazine HCl 10 mg 01/05/21 02:18 01/05/21 16:40 Hydralazine 20 Mg/1 Ml Inj IV 10 mg Q6H PRN Administration SBP >/=165; DBP >/=100 Hydralazine HCl 100 mg 01/05/21 14:00 01/06/21 05:47 Hydralazine 100 Mg Tab PO 100 mg Q8HR FLOR Administration Hydromorphone HCl 0.5 mg 01/05/21 02:13 Hydromorphone 1 Mg/1 Ml Inj IV Q3H PRN Pain , Severe (7-10) Nicardipine HCl 50 mg/ Sodium 250 mls @ 25 mls/hr 01/06/21 01:00 01/06/21 06:15 Chloride IV 5 mg/hr TITR FLOR 25 mls/hr Titration Protocol 5 MG/HR Insulin Human Lispro 0 unit 01/05/21 07:30 01/06/21 07:59 Insulin Lispro 100 Unit/Ml SUB-Q Not Given ACHS FLOR Protocol Labetalol HCl 300 mg 01/05/21 10:00 01/05/21 22:04 Labetalol 100 Mg Tab PO 300 mg BID FLOR Administration Nitroglycerin 0.4 mg 01/05/21 02:18 Nitroglycerin 0.4 Mg Tab Subl SL .Q5MIN PRN Chest Pain Ondansetron HCl 4 mg 01/05/21 02:13 Ondansetron 4 Mg/2 Ml Inj IV Q8H PRN Nausea And Vomiting Oxycodone/Acetaminophen 1 tab 01/05/21 02:13 Oxycodone /Acetaminophen 5-325mg Tab PO Q6H PRN Pain, Moderate (4-6) Pravastatin Sodium 40 mg 01/05/21 22:00 01/05/21 22:22 Pravastatin 40 Mg Tab PO 40 mg QHS FLOR Administration Sodium Chloride 10 ml 01/05/21 10:00 01/05/21 22:03 Sodium Chloride 0.9% 10 Ml Flush Syringe IV 10 ml BID FLOR Administration Sodium Chloride 10 ml 01/05/21 02:13 Sodium Chloride 0.9% 10 Ml Flush Syringe IV PRN PRN LINE FLUSH Spironolactone 25 mg 01/05/21 10:00 01/05/21 22:21 Spironolactone 25 Mg Tab PO 25 mg BID FLOR Administration Nutrition/Malnutrition Assess - Dietary Evaluation Nutrition/Malnutrition Findings: Nutrition Notes Start: 01/05/21 07:36 Freq: Status: Active Protocol: Document 01/05/21 07:36 YURI (Rec: 01/05/21 07:38 YURI [id number]) Nutrition Notes Need for Assessment generated from: MD Order Initial or Follow up Brief Note Current Diagnosis CKD(stage I-IV),Diabetes, Hypertension,Heart Failure Other Pertinent Diagnosis DVT Current Diet Cardiac, Consistent CHO Subjective/Other Information MD consult for diet education. Pt on hold in ED. 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 Neuro: NAD -Reorientation as needed -Avoid delirium -Aspiration and fall precautions Cardio: Hypertensive urgency, HFpEF (EF 55 to 60% in 2020), h/o HTN -Cardiology consulted, appreciate recommendations -Currently on Cardene gtt -Current antihypertensive regimen: Labetalol, Hydralazine, Clonidine -Blood Pressure monitoring per protocol -12/2020 echocardiogram shows mild left ventricular hypertrophy, EF 55 to 60% -Remote telemetry -S/p Lasix in the ED -Avoid RICK/ARB in setting of THANH Respiratory: NAD -Pulmonary hygiene -Supplemental oxygen as needed GI: NAD -CC cardiac renal diet -PPI -BR: Colace : Acute kidney injury -Nephrology consulted, appreciate recommendations -Spironolactone per nephrology -Avoid nephrotoxic medications -Renally dose medications -Daily weights -Strict intake and output -Renal ultrasound pending -Renal biopsy pending -Steroids per nephro Endo: h/o DM -CC renal cardiac diet -SSI -Hypoglycemia protocol -Hbg A1C 5.8 -Accu-Cheks AC at bedtime -Avoid hypoglycemia ID: [id number] -Monitor for signs symptoms of infection Heme: H/O anemia -Resume home iron -Trend CBC -Transfuse for hemoglobin less than 7 -Epogen per nephrology -Heparin subcu, SCDs to bilateral LE while in bed -Started on heparin drip and discontinued home Eliquis due to need for renal biopsy. The high probability of a clinically significant, sudden or life threatening deterioration of the [cardio] system(s) required my full and direct attention, intervention and personal management. The aggregate critical care time was [60] minutes. This time is in addition to time spent performing reported procedures but includes the following: [x] Data Review and interpretation [x] Patient assessment and monitoring of vital signs [x] Documentation [x] Medication orders and management Disposition Plan: icu Total Time Spent with Patient (Minutes): 60 History Interval history: This is a 65-year-old female with HTN, DM, DVT x2 over 20 years ago with a family history of DVTs on lifelong anticoagulation who presented to the emergency department on 01/05 with accelerated hypertension and acute kidney injury by her PCP. Work-up in the emergency department revealed a BUN/creatinine of 24/3 (creatinine was 0.92 months ago), proBNP of 5093 and CXR revealed cardiomegaly with small bilateral pleural effusions. Patient received Lasix, hydralazine, labetalol in the emergency department for hypertension and was eventually started on a Cardene drip. On presentation patient blood pressure was 257/87. Patient was admitted to the hospitalist service with acute kidney injury and hypertensive urgency with consults to [facility], cardiology and nephrology. 01/05: Patient was able to be weaned off of Cardene drip and blood pressure was low to be better controlled with p.o. medications and as needed. Patient was downgraded from ICU to telemetry. This morning patient had slightly worsening metabolic acidosis, BUN/creatinine, hyperchloremia and has slight hypernatremia. 01/06: Patient was restarted on Cardene drip overnight due to persistent hypertension, p.o. medications were adjusted. Renal will hold off HD for now. Patient switched to heparin drip for pending renal biopsy from her [facility]. Spoke to receded this afternoon and patient was taken off of Cardene and we will continue to monitor for 2-3 more hours before downgrading. Patient complains of bilateral upper extremity swelling and pain and given history bilateral upper extremity Doppler ultrasound ordered to rule out DVT. Patient's blood pressure cuff at the time my examination of this morning was on her leg and I explained to her that the blood pressure readings will be higher on her leg however she insists that it would be on her leg due to pain in her upper extremities presumably from blood pressure cuff. Hospitalist Physical - Constitutional Vitals: Temp Pulse Resp BP Pulse Ox 98.6 F 64 14 142/67 98 01/06/21 07:30 01/06/21 14:31 01/06/21 14:31 01/06/21 14:31 01/06/21 14:31 - EENT Eyes: Present: PERRL, EOM intact ENT: hearing intact, clear oral mucosa, dentition normal - Neck Neck: Present: supple, normal ROM - Respiratory Respiratory effort: normal HEART Score - HEART Score Troponin: Troponin T < 0.010 ng/mL (0.00-0.029) 01/04/21 22:00 Results - Labs CBC & Chem 7: 01/06/21 10:46 01/06/21 04:33 Labs: Laboratory Last Values WBC 4.8 K/mm3 (4.5-11.0) 01/06/21 04:33 RBC 2.64 M/mm3 (3.65-5.03) L 01/06/21 04:33 Hgb 7.9 gm/dl (10.1-14.3) L 01/06/21 10:46 Hct 24.2 % (30.3-42.9) L 01/06/21 10:46 MCV 91 fl (79-97) 01/06/21 04:33 MCH 30 pg (28-32) 01/06/21 04:33 MCHC 33 % (30-34) 01/06/21 04:33 RDW 20.1 % (13.2-15.2) H 01/06/21 04:33 Plt Count 200 K/mm3 (140-440) 01/06/21 10:46 Lymph % (Auto) 26.3 % (13.4-35.0) 01/06/21 04:33 [place] % (Auto) 11.9 % (0.0-7.3) H 01/06/21 04:33 Eos % (Auto) 2.6 % (0.0-4.3) 01/06/21 04:33 Baso % (Auto) 1.0 % (0.0-1.8) 01/06/21 04:33 Lymph # (Auto) 1.3 K/mm3 (1.2-5.4) 01/06/21 04:33 [place] # (Auto) 0.6 K/mm3 (0.0-0.8) 01/06/21 04:33 Eos # (Auto) 0.1 K/mm3 (0.0-0.4) 01/06/21 04:33 Baso # (Auto) 0.0 K/mm3 (0.0-0.1) 01/06/21 04:33 Seg Neutrophils % 58.2 % (40.0-70.0) 01/06/21 04:33 Seg Neutrophils # 2.8 K/mm3 (1.8-7.7) 01/06/21 04:33 PT 15.8 Sec. (12.2-14.9) H 01/06/21 10:46 INR 1.21 (0.87-1.13) H 01/06/21 10:46 APTT 24.0 Sec. (24.2-36.6) L 01/06/21 10:46 Sodium 144 mmol/L (137-145) 01/06/21 04:33 Potassium 3.6 mmol/L (3.6-5.0) 01/06/21 04:33 Chloride 110.9 mmol/L (98-107) H 01/06/21 04:33 Carbon Dioxide 19 mmol/L (22-30) L 01/06/21 04:33 Anion Gap 18 mmol/L 01/06/21 04:33 BUN 28 mg/dL (7-17) H 01/06/21 04:33 Creatinine 3.8 mg/dL (0.6-1.2) H 01/06/21 04:33 Estimated GFR 15 ml/min 01/06/21 04:33 BUN/Creatinine Ratio 7 % 01/06/21 04:33 Glucose 92 mg/dL (65-100) 01/06/21 04:33 POC Glucose 117 mg/dL (70-105) H 01/06/21 12:12 Hemoglobin A1c 5.3 % (4-6) 01/05/21 09:05 Calcium 7.9 mg/dL (8.4-10.2) L 01/06/21 04:33 Phosphorus 4.70 mg/dL (2.5-4.5) H 01/05/21 09:05 Magnesium 1.90 mg/dL (1.7-2.3) 01/05/21 09:05 Total Bilirubin 0.20 mg/dL (0.1-1.2) 01/06/21 04:33 AST 11 units/L (5-40) 01/06/21 04:33 ALT 7 units/L (7-56) 01/06/21 04:33 Alkaline Phosphatase 60 units/L (35-129) 01/06/21 04:33 Lactate Dehydrogenase 188 units/L (91-180) H 01/06/21 04:33 Troponin T < 0.010 ng/mL (0.00-0.029) 01/04/21 22:00 NT-Pro-B Natriuret Pep 5093 pg/mL (0-900) H 01/04/21 22:00 Total Protein 5.7 g/dL (6.3-8.2) L 01/06/21 04:33 Albumin 2.9 g/dL (3.9-5) L 01/06/21 04:33 Albumin/Globulin Ratio 1.0 % 01/06/21 04:33 TSH 4.420 mlU/mL (0.270-4.200) H 01/06/21 04:33 Urine Color Yellow (Yellow) 01/05/21 Unknown Urine Turbidity Cloudy (Clear) 01/05/21 Unknown Urine pH 5.0 (5.0-7.0) 01/05/21 Unknown Ur Specific [place] 1.015 (1.003-1.030) 01/05/21 Unknown Urine Protein >500 mg/dL (Negative) 01/05/21 Unknown Urine Glucose (UA) 50 mg/dL (Negative) 01/05/21 Unknown Urine Ketones Tr mg/dL (Negative) 01/05/21 Unknown Urine Blood Sm (Negative) 01/05/21 Unknown Urine Nitrite Neg (Negative) 01/05/21 Unknown Urine Bilirubin Neg (Negative) 01/05/21 Unknown Urine Urobilinogen < 2.0 mg/dL (<2.0) 01/05/21 Unknown Ur Leukocyte Esterase Lg (Negative) 01/05/21 Unknown Urine WBC (Auto) > 182.0 /HPF (0.0-6.0) H 01/05/21 Unknown Urine RBC (Auto) 94.0 /HPF (0.0-6.0) 01/05/21 Unknown U Epithel Cells (Auto) 11.0 /HPF (0-13.0) 01/05/21 Unknown Urine WBC Clumps 3+ /HPF 01/05/21 Unknown Urine Mucus Few /HPF 01/05/21 Unknown Urine Yeast (Budding) 1+ /HPF 01/05/21 Unknown Urine Creatinine 146.4 mg/dL (0.1-20.0) H 01/05/21 Unknown Urine Sodium 67 mmol/L 01/05/21 Unknown Urine Total Protein 844 mg/dL (5-11.8) H 01/05/21 Unknown Active Medications - Current Medications Current Medications: Generic Name Dose Route Start Last Admin Trade Name Freq PRN Reason Stop Dose Admin Acetaminophen 650 mg 01/05/21 02:13 Acetaminophen 325 Mg Tab PO Q4H PRN Pain MILD(1-3)/Fever >100.5/ALVARADO Albuterol 2.5 mg 01/05/21 02:13 Albuterol 2.5 Mg/3 Ml Nebu IH Q4HRT PRN Shortness Of Breath Clonidine HCl 0.2 mg 01/06/21 10:00 01/06/21 11:16 Clonidine 0.2 Mg Tab PO 0.2 mg Q12HR FLOR Administration Dextrose 50 ml 01/05/21 02:13 Dextrose 50% In Water (25gm) 50 Ml Syringe IV Q30MIN PRN Hypoglycemia Protocol Docusate Sodium 100 mg 01/05/21 22:00 01/06/21 11:00 Docusate Sodium 100 Mg Cap PO 100 mg BID FLOR Administration Famotidine 10 mg 01/05/21 10:00 01/06/21 12:48 Famotidine 10 Mg Tab PO 10 mg BID FLOR Administration Ferrous Sulfate 325 mg 01/05/21 22:00 01/06/21 11:16 Ferrous Sulfate 325 Mg Tab PO 325 mg BID FLOR Administration Heparin Sodium (Porcine) 3,600 unit 01/06/21 11:00 Heparin 10,000 Units/10 Ml Vial 40 unit/kg (3600 unit) IV Q6H PRN Anti-Xa Assay < 0.1 units/ml Hydralazine HCl 10 mg 01/05/21 02:18 01/05/21 16:40 Hydralazine 20 Mg/1 Ml Inj IV 10 mg Q6H PRN Administration SBP >/=165; DBP >/=100 Hydralazine HCl 100 mg 01/05/21 14:00 01/06/21 05:47 Hydralazine 100 Mg Tab PO 100 mg Q8HR FLOR Administration Hydromorphone HCl 0.5 mg 01/05/21 02:13 Hydromorphone 1 Mg/1 Ml Inj IV Q3H PRN Pain , Severe (7-10) Nicardipine HCl 50 mg/ Sodium 250 mls @ 25 mls/hr 01/06/21 01:00 01/06/21 12:49 Chloride IV 2.5 mg/hr TITR FLOR 12.5 mls/hr Titration Protocol 5 MG/HR Methylprednisolone Sodium 100 mls @ 200 mls/hr 01/06/21 11:00 01/06/21 11:30 Succinate 500 mg/ Sodium IV 01/09/21 10:59 200 mls/hr Chloride Q24HR FLOR Administration Heparin Sodium/Sodium Chloride 25,000 unit in 500 mls @ 27 mls/hr 01/06/21 11:00 Heparin/ 0.45% Nacl-25,000 Unit/500 Ml IV TITR FOLR Protocol 1,350 UNITS/HR Insulin Human Lispro 0 unit 01/05/21 07:30 01/06/21 12:15 Insulin Lispro 100 Unit/Ml SUB-Q Not Given ACHS FLOR Protocol Labetalol HCl 300 mg 01/05/21 10:00 01/06/21 11:16 Labetalol 100 Mg Tab PO 300 mg BID FLOR Administration Nitroglycerin 0.4 mg 01/05/21 02:18 Nitroglycerin 0.4 Mg Tab Subl SL .Q5MIN PRN Chest Pain Ondansetron HCl 4 mg 01/05/21 02:13 Ondansetron 4 Mg/2 Ml Inj IV Q8H PRN Nausea And Vomiting Oxycodone/Acetaminophen 1 tab 01/05/21 02:13 Oxycodone /Acetaminophen 5-325mg Tab PO Q6H PRN Pain, Moderate (4-6) Pravastatin Sodium 40 mg 01/05/21 22:00 01/05/21 22:22 Pravastatin 40 Mg Tab PO 40 mg QHS FLOR Administration Sodium Chloride 10 ml 01/05/21 10:00 01/06/21 11:17 Sodium Chloride 0.9% 10 Ml Flush Syringe IV 10 ml BID FLOR Administration Sodium Chloride 10 ml 01/05/21 02:13 Sodium Chloride 0.9% 10 Ml Flush Syringe IV PRN PRN LINE FLUSH Spironolactone 25 mg 01/05/21 10:00 01/06/21 11:00 Spironolactone 25 Mg Tab PO 25 mg BID FLOR Administration Nutrition/Malnutrition Assess - Dietary Evaluation Nutrition/Malnutrition Findings: Nutrition Notes Start: 01/05/21 07:3 6 Freq: Status: Active Protocol: Document 01/05/21 07:36 YURI (Rec: 01/05/21 07:38 YURI [id number]) Nutrition Notes Need for Assessment generated from: MD Order Initial or Follow up Brief Note Current Diagnosis CKD(stage I-IV),Diabetes, Hypertension,Heart Failure Other Pertinent Diagnosis DVT Current Diet Cardiac, Consistent CHO Subjective/Other Information MD consult for diet education. Pt on hold in ED. Nutrition Intervention Follow-Up By: 01/07/21 Additional Comments F/u: diet education
--- NOTE | 2021-01-06 09:51 | Progress Note ---
Assessment and Plan Hypertensive Emergency * EKG sinus 76. Trops negative x1 patient denies chest pain, diaphoresis, nausea vomiting * Patient sinus 82 on monitor * Optimize hypertensive regimen: continue hydralazine 100mg PO q8, labetolol 300mg PO BID. Increase clonidine 0.2mg PO BID. Recommend weaning nicardipine gtt. * Echo 01/05/2021-EF 55 to 60%, mild left ventricular hypertrophy, mild diastolic dysfunction. Rule right ventricular systolic function is normal. Left atrium is mildly dilated, right atrium is normal in size. THANH Acute renal failure * Patient has history of renal insufficiency and recently changed BP meds. Creatinine=3.0->3.1->3.8 * Nephrology consulted HFpEF * BNP is 5093, patient is near Euvolemia with mild BLE edmea, no crackles or rhales upon auscultattion, no orthopnea. * GDMT: BB, ASA, Statin, RICK/ARB. Hold RICK/ARB due to THANH. Patient seen in conjunction with Dr. Schrader who agrees with this plan. Will continue to follow - Patient Problems (1) Accelerated hypertension Current Visit: Yes Status: Acute (2) Acute renal failure Current Visit: Yes Status: Acute Qualifiers: Acute renal failure type: unspecified Qualified Code(s): N17.9 - Acute kidney failure, unspecified (3) DVT prophylaxis Current Visit: Yes Status: Acute (4) Diabetes Current Visit: Yes Status: Acute (5) Hypertensive emergency Current Visit: Yes Status: Acute (6) Metabolic acidosis Current Visit: Yes Status: Acute Subjective Date of service: 01/06/21 Principal diagnosis: Hypertensive emergency, Acute renal failure Interval history: Patient sitting in bed Report feeling well sinus 82 on monitor Objective Last Vital Signs Temp 98.6 F 01/06/21 07:30 Pulse 76 01/06/21 09:31 Resp 16 01/06/21 09:31 BP 155/62 01/06/21 09:31 Pulse Ox 98 01/06/21 09:31 - Physical Examination General: No Apparent Distress HEENT: Positive: PERRL Neck: Positive: neck supple Cardiac: Positive: Reg Rate and Rhythm, S1/S2 Lungs: Positive: Normal Breath Sounds Neuro: Positive: Grossly Intact Abdomen: Positive: Soft, Active Bowel Sounds Skin: Positive: Bruising (right upper extremity) Extremities: Present: upper extr. pulses, lower extr. pulses. Absent: edema - Labs and Meds Cardiac Enzymes 01/06/21 01/06/21 Range/Units 04:33 04:33 AST 11 (5-40) units/L Lactate Dehydrogenase 188 H (91-180) units/L CBC 01/06/21 Range/Units 04:33 WBC 4.8 (4.5-11.0) K/mm3 RBC 2.64 L (3.65-5.03) M/mm3 Hgb 7.9 L (10.1-14.3) gm/dl Hct 24.1 L (30.3-42.9) % Plt Count 187 (140-440) K/mm3 Lymph # (Auto) 1.3 (1.2-5.4) K/mm3 [place] # (Auto) 0.6 (0.0-0.8) K/mm3 Eos # (Auto) 0.1 (0.0-0.4) K/mm3 Baso # (Auto) 0.0 (0.0-0.1) K/mm3 Comprehensive Metabolic Panel 01/06/21 Range/Units 04:33 Sodium 144 (137-145) mmol/L Potassium 3.6 (3.6-5.0) mmol/L Chloride 110.9 H (98-107) mmol/L Carbon Dioxide 19 L (22-30) mmol/L BUN 28 H (7-17) mg/dL Creatinine 3.8 H (0.6-1.2) mg/dL Glucose 92 (65-100) mg/dL Calcium 7.9 L (8.4-10.2) mg/dL AST 11 (5-40) units/L ALT 7 (7-56) units/L Alkaline Phosphatase 60 (35-129) units/L Total Protein 5.7 L (6.3-8.2) g/dL Albumin 2.9 L (3.9-5) g/dL - Imaging and Cardiology EKG: report reviewed, image reviewed Echo: report reviewed - Telemetry EKG Rhythm: Sinus Rhythm - EKG Sinus rhythms and dysrhythmias: sinus rhythm
[2021-01-06] MEDS ORDERED: ASPIRIN 81 MG TAB CHEW PO SCH (10:00)
[2021-01-06] MEDS ORDERED: cloNIDine 0.1 MG TAB PO SCH (10:00)
--- NOTE | 2021-01-06 10:09 | Progress Note ---
Assessment and Plan - Patient Problems (1) Acute renal failure Current Visit: Yes Status: Acute Qualifiers: Acute renal failure type: unspecified Qualified Code(s): N17.9 - Acute kidney failure, unspecified Plan to address problem: DD for THANH incl. malignant hypertension, rule out thrombotic microangiopathy in the setting of hypertensive emergency. Urine protein/cr ratio was measured to be > 5.7g/g, nephrotic range proteinuria, along with e/o hematuria and leukocyturia, given also progressive renal failure there is high suspicion for acute rapidly progressive glomerulonephritis. check ANCA, Anti GBM Ab, JESS, C3/4, hep B/C panel, SPEP. We need to obtain renal biopsy for tissue diagnosis, however pt is currently on anticoagulation with eliquis. Discussed with primary attending to switch to heparin gtt and hold ASA, will arrange renal biopsy with IR. Steroid pulse with IV solumedrol 500mg daily x 3 days. Cont supportive care for THANH avoid ,nephrotoxins, NSAIDs, IV contrast. Will monitor lytes/renal parameters closely and make further recommendations (2) Hypertensive emergency Current Visit: Yes Status: Acute Plan to address problem: cont BP control with cardene, target normotension. Transition to po BP meds incl. hydralazine 100mg po tid and labetalol 300mg bid, spironolactone 25mg po bid and clonidine 0.2mg po bid. hold RICK-I/ARB in the setting of THANH. (3) Metabolic acidosis Current Visit: Yes Status: Acute Plan to address problem: hyperchloremic met acidosis in the setting of THANH. If serum CO2 continues to decline and BP is better controlled, will consider po Na bicarb (4) Type 2 diabetes mellitus with diabetic chronic kidney disease Current Visit: Yes Status: Acute Plan to address problem: DM management as per primary attending (5) Anemia in chronic illness Current Visit: Yes Status: Acute Plan to address problem: check iron panel/ferritin Subjective Date of service: 01/06/21 Principal diagnosis: Hypertensive emergency, Acute renal failure Interval history: Pt awake, alert, in no acute distress, she remains on cardene gtt for uncontrolled BP. Denies fever, chills, n/v/d, dysuria, SOB, CP, palpitations. Objective - Vital Signs Vital signs: Vital Signs - 12hr 01/05/21 01/05/21 01/05/21 22:04 22:21 23:01 Temperature Pulse Rate 82 80 77 Pulse Rate [ Bilateral] Respiratory 15 Rate Respiratory Rate [Bilateral ] Blood Pressure 212/76 228/78 237/81 O2 Sat by Pulse 99 Oximetry 01/05/21 01/05/21 01/06/21 23:31 23:39 00:01 Temperature Pulse Rate 74 73 76 Pulse Rate [ Bilateral] Respiratory 17 17 17 Rate Respiratory Rate [Bilateral ] Blood Pressure 232/80 237/81 235/78 O2 Sat by Pulse 98 98 98 Oximetry 01/06/21 01/06/21 01/06/21 00:31 00:44 01:01 Temperature Pulse Rate 72 72 69 Pulse Rate [ Bilateral] Respiratory 17 16 Rate Respiratory Rate [Bilateral ] Blood Pressure 212/79 215/74 208/74 O2 Sat by Pulse 97 97 Oximetry 01/06/21 01/06/21 01/06/21 01:07 01:31 01:45 Temperature Pulse Rate 72 70 68 Pulse Rate [ Bilateral] Respiratory 17 16 Rate Respiratory Rate [Bilateral ] Blood Pressure 214/72 193/70 214/72 O2 Sat by Pulse 98 98 Oximetry 01/06/21 01/06/21 01/06/21 02:01 02:15 02:28 Temperature Pulse Rate 66 73 Pulse Rate [ 89 Bilateral] Respiratory 15 16 Rate Respiratory 23 Rate [Bilateral ] Blood Pressure 227/68 184/68 O2 Sat by Pulse 98 98 Oximetry 01/06/21 01/06/21 01/06/21 02:31 02:45 03:01 Temperature Pulse Rate 75 81 94 H Pulse Rate [ Bilateral] Respiratory 14 14 17 Rate Respiratory Rate [Bilateral ] Blood Pressure 189/68 192/68 169/64 O2 Sat by Pulse 98 98 97 Oximetry 01/06/21 01/06/21 01/06/21 03:15 03:31 03:45 Temperature Pulse Rate 80 74 70 Pulse Rate [ Bilateral] Respiratory 14 18 17 Rate Respiratory Rate [Bilateral ] Blood Pressure 181/67 163/64 169/65 O2 Sat by Pulse 98 97 97 Oximetry 01/06/21 01/06/21 01/06/21 04:01 04:15 04:31 Temperature Pulse Rate 73 81 70 Pulse Rate [ Bilateral] Respiratory 17 19 13 Rate Respiratory Rate [Bilateral ] Blood Pressure 175/61 163/65 166/69 O2 Sat by Pulse 97 95 97 Oximetry 01/06/21 01/06/21 01/06/21 04:45 05:01 05:15 Temperature Pulse Rate 79 81 81 Pulse Rate [ Bilateral] Respiratory 17 17 15 Rate Respiratory Rate [Bilateral ] Blood Pressure 183/70 181/68 185/68 O2 Sat by Pulse 98 98 98 Oximetry 01/06/21 01/06/21 01/06/21 05:31 05:45 06:00 Temperature Pulse Rate 82 109 H 89 Pulse Rate [ Bilateral] Respiratory 19 28 H 20 Rate Respiratory Rate [Bilateral ] Blood Pressure 164/64 181/67 193/73 O2 Sat by Pulse 98 99 99 Oximetry 01/06/21 01/06/21 01/06/21 06:15 06:31 06:45 Temperature Pulse Rate 82 71 72 Pulse Rate [ Bilateral] Respiratory 17 16 16 Rate Respiratory Rate [Bilateral ] Blood Pressure 187/67 178/65 179/61 O2 Sat by Pulse 99 98 98 Oximetry 01/06/21 01/06/21 01/06/21 07:01 07:15 07:30 Temperature 98.6 F Pulse Rate 68 68 Pulse Rate [ Bilateral] Respiratory 16 15 Rate Respiratory Rate [Bilateral ] Blood Pressure 166/61 172/63 O2 Sat by Pulse 98 99 98 Oximetry 01/06/21 01/06/21 01/06/21 07:31 07:45 08:01 Temperature Pulse Rate 76 82 82 Pulse Rate [ Bilateral] Respiratory 19 19 11 L Rate Respiratory Rate [Bilateral ] Blood Pressure 158/59 175/67 189/71 O2 Sat by Pulse 97 99 99 Oximetry 01/06/21 01/06/21 01/06/21 08:15 08:31 08:45 Temperature Pulse Rate 71 79 80 Pulse Rate [ Bilateral] Respiratory 13 20 19 Rate Respiratory Rate [Bilateral ] Blood Pressure 177/69 181/68 181/67 O2 Sat by Pulse 99 99 99 Oximetry 01/06/21 01/06/21 01/06/21 09:01 09:15 09:31 Temperature Pulse Rate 80 73 76 Pulse Rate [ Bilateral] Respiratory 14 15 16 Rate Respiratory Rate [Bilateral ] Blood Pressure 179/71 174/65 155/62 O2 Sat by Pulse 99 100 98 Oximetry - General Appearance General appearance: well-developed, well-nourished, appears stated age EENT: ATNC, PERRL, mucous membranes moist Neck: no JVD Respiratory: Present: Clear to Ascultation Cardiology: regular, S1S2 Gastrointestinal: normoactive bowel sounds Integumentary: no rash, other (no edema ) Neurologic: no focal deficit, alert and oriented x3, strength 5/5, CN 3-12 intact Psychiatric: mood/affect appropriate, cooperative - Lab 01/06/21 04:33 01/06/21 04:33 Most recent lab results Calcium 7.9 mg/dL (8.4-10.2) L 01/06/21 04:33 Phosphorus 4.70 mg/dL (2.5-4.5) H 01/05/21 09:05 Magnesium 1.90 mg/dL (1.7-2.3) 01/05/21 09:05 Urine Creatinine 146.4 mg/dL (0.1-20.0) H 01/05/21 Unknown Urine Sodium 67 mmol/L 01/05/21 Unknown Urine Total Protein 844 mg/dL (5-11.8) H 01/05/21 Unknown Medications & Allergies - Medications Allergies/Adverse Reactions: Allergies No Known Allergies Allergy (Verified 12/22/17 17:38) Home Medications: Home Medications Medication Instructions Recorded Confirmed Last Taken Type Apixaban [Eliquis] 5 mg PO BID 01/05/21 01/05/21 Unknown History Ferrous Sulfate [Iron 325 MG] 325 mg PO BID 01/05/21 01/05/21 Unknown History Losartan [Cozaar] 100 mg PO QDAY 01/05/21 01/05/21 Unknown History Pravastatin [Pravachol] 40 mg PO QHS 01/05/21 01/05/21 Unknown History glipiZIDE [Glucotrol] 5 mg PO QDAY 01/05/21 01/05/21 Unknown History labetaloL [Labetalol 200mg TAB] 200 mg PO BID 01/05/21 01/05/21 Unknown History Active Medications: Generic Name Dose Route Start Last Admin Trade Name Freq PRN Reason Stop Dose Admin Acetaminophen 650 mg 01/05/21 02:13 Acetaminophen 325 Mg Tab PO Q4H PRN Pain MILD(1-3)/Fever >100.5/ALVARADO Albuterol 2.5 mg 01/05/21 02:13 Albuterol 2.5 Mg/3 Ml Nebu IH Q4HRT PRN Shortness Of Breath Albuterol/Ipratropium 1 ampul 01/05/21 08:00 01/06/21 08:33 Ipratropium/Albuterol Sulfate 3 Ml Ampul.Neb IH 1 ampul Q6HRT FLOR Administration Clonidine HCl 0.2 mg 01/06/21 10:00 Clonidine 0.2 Mg Tab PO Q12HR FLOR Dextrose 50 ml 01/05/21 02:13 Dextrose 50% In Water (25gm) 50 Ml Syringe IV Q30MIN PRN Hypoglycemia Protocol Docusate Sodium 100 mg 01/05/21 22:00 01/05/21 22:04 Docusate Sodium 100 Mg Cap PO 100 mg BID FLOR Administration Famotidine 10 mg 01/05/21 10:00 01/05/21 22:22 Famotidine 10 Mg Tab PO 10 mg BID FLOR Administration Ferrous Sulfate 325 mg 01/05/21 22:00 01/05/21 22:05 Ferrous Sulfate 325 Mg Tab PO 325 mg BID FLOR Administration Hydralazine HCl 10 mg 01/05/21 02:18 01/05/21 16:40 Hydralazine 20 Mg/1 Ml Inj IV 10 mg Q6H PRN Administration SBP >/=165; DBP >/=100 Hydralazine HCl 100 mg 01/05/21 14:00 01/06/21 05:47 Hydralazine 100 Mg Tab PO 100 mg Q8HR [facility]OR Administration Hydromorphone HCl 0.5 mg 01/05/21 02:13 Hydromorphone 1 Mg/1 Ml Inj IV Q3H PRN Pain , Severe (7-10) Nicardipine HCl 50 mg/ Sodium 250 mls @ 25 mls/hr 01/06/21 01:00 01/06/21 06:15 Chloride IV 5 mg/hr TITR FLOR 25 mls/hr Titration Protocol 5 MG/HR Methylprednisolone Sodium 100 mls @ 200 mls/hr 01/06/21 11:00 Succinate 500 mg/ Sodium IV 01/09/21 10:59 Chloride Q24HR [facility] Insulin Human Lispro 0 unit 01/05/21 07:30 01/06/21 07:59 Insulin Lispro 100 Unit/Ml SUB-Q Not Given ACHS [facility] Protocol Labetalol HCl 300 mg 01/05/21 10:00 01/05/21 22:04 Labetalol 100 Mg Tab PO 300 mg BID FLOR Administration Nitroglycerin 0.4 mg 01/05/21 02:18 Nitroglycerin 0.4 Mg Tab Subl SL .Q5MIN PRN Chest Pain Ondansetron HCl 4 mg 01/05/21 02:13 Ondansetron 4 Mg/2 Ml Inj IV Q8H PRN Nausea And Vomiting Oxycodone/Acetaminophen 1 tab 01/05/21 02:13 Oxycodone /Acetaminophen 5-325mg Tab PO Q6H PRN Pain, Moderate (4-6) Pravastatin Sodium 40 mg 01/05/21 22:00 01/05/21 22:22 Pravastatin 40 Mg Tab PO 40 mg QHS FLOR Administration Sodium Chloride 10 ml 01/05/21 10:00 01/05/21 22:03 Sodium Chloride 0.9% 10 Ml Flush Syringe IV 10 ml BID FLOR Administration Sodium Chloride 10 ml 01/05/21 02:13 Sodium Chloride 0.9% 10 Ml Flush Syringe IV PRN PRN LINE FLUSH Spironolactone 25 mg 01/05/21 10:00 01/05/21 22:21 Spironolactone 25 Mg Tab PO 25 mg BID FLOR Administration
[2021-01-06] MEDS ORDERED: HEPARIN 10,000 UNITS/10 ML VIAL IV PRN (11:00)
[2021-01-06] MEDS ORDERED: HEPARIN/ 0.45% NACL DRIP 25,000 UNIT/500 ML BAG IV SCH (11:00)
[2021-01-06] MEDS: DOCUSATE SODIUM 100 MG CAP PO SCH ×2 (11:00→22:13)
[2021-01-06] MEDS: SPIRONOLACTONE 25 MG TAB PO SCH ×2 (11:00→22:12)
[2021-01-06] MEDS: cloNIDine 0.2 MG TAB PO SCH ×2 (11:16→22:12)
[2021-01-06] MEDS: FERROUS SULFATE 325 MG TAB PO SCH ×2 (11:16→22:13)
[2021-01-06] MEDS: methylPREDNISolone Sod Suc 500 MG in SODIUM CHLORIDE 0.9% 100 ML IV SCH (11:30)
[2021-01-06 11:39] LABS: Hematocrit 24.2 % (30.3-42.9); Hemoglobin 7.9 gm/dl (10.1-14.3)
[2021-01-06 11:51] LABS: INR 1.21 (0.87-1.13)
[2021-01-06] MEDS: FAMOTIDINE 10 MG TAB PO SCH ×2 (12:48→22:13)
--- NOTE | 2021-01-06 12:56 | Progress Note ---
Assessment and Plan 65 y/o obese female with known HTN admitted with Hypertensive Urgency and worsening renal disease : stopped duonebs. WEan Cardene to off as tolerated. Agree with oral regimen and still has room for increases if needed. 1. Agree with cardene drip 2. Await new renal evaluation so that oral therapy can be started to help cont rol BP with hopes of weaning drip off 3. Anticoagulation for prior history of VTE 4. Weight loss CCT 31 minutes. Subjective Date of service: 01/06/21 Principal diagnosis: Hypertensive emergency, Acute renal failure Interval history: No acute events. Back on Cardene, but now at 2.5 Objective - Constitutional Vitals: Vital Signs - 12hr 01/06/21 01/06/21 01/06/21 01:01 01:07 01:31 Temperature Pulse Rate 69 72 70 Pulse Rate [ Bilateral] Respiratory 16 17 Rate Respiratory Rate [Bilateral ] Blood Pressure 208/74 214/72 193/70 O2 Sat by Pulse 97 98 Oximetry 01/06/21 01/06/21 01/06/21 01:45 02:01 02:15 Temperature Pulse Rate 68 66 73 Pulse Rate [ Bilateral] Respiratory 16 15 16 Rate Respiratory Rate [Bilateral ] Blood Pressure 214/72 227/68 184/68 O2 Sat by Pulse 98 98 98 Oximetry 01/06/21 01/06/21 01/06/21 02:28 02:31 02:45 Temperature Pulse Rate 75 81 Pulse Rate [ 89 Bilateral] Respiratory 14 14 Rate Respiratory 23 Rate [Bilateral ] Blood Pressure 189/68 192/68 O2 Sat by Pulse 98 98 Oximetry 01/06/21 01/06/21 01/06/21 03:01 03:15 03:31 Temperature Pulse Rate 94 H 80 74 Pulse Rate [ Bilateral] Respiratory 17 14 18 Rate Respiratory Rate [Bilateral ] Blood Pressure 169/64 181/67 163/64 O2 Sat by Pulse 97 98 97 Oximetry 01/06/21 01/06/21 01/06/21 03:45 04:01 04:15 Temperature Pulse Rate 70 73 81 Pulse Rate [ Bilateral] Respiratory 17 17 19 Rate Respiratory Rate [Bilateral ] Blood Pressure 169/65 175/61 163/65 O2 Sat by Pulse 97 97 95 Oximetry 01/06/21 01/06/21 01/06/21 04:31 04:45 05:01 Temperature Pulse Rate 70 79 81 Pulse Rate [ Bilateral] Respiratory 13 17 17 Rate Respiratory Rate [Bilateral ] Blood Pressure 166/69 183/70 181/68 O2 Sat by Pulse 97 98 98 Oximetry 01/06/21 01/06/21 01/06/21 05:15 05:31 05:45 Temperature Pulse Rate 81 82 109 H Pulse Rate [ Bilateral] Respiratory 15 19 28 H Rate Respiratory Rate [Bilateral ] Blood Pressure 185/68 164/64 181/67 O2 Sat by Pulse 98 98 99 Oximetry 01/06/21 01/06/21 01/06/21 06:00 06:15 06:31 Temperature Pulse Rate 89 82 71 Pulse Rate [ Bilateral] Respiratory 20 17 16 Rate Respiratory Rate [Bilateral ] Blood Pressure 193/73 187/67 178/65 O2 Sat by Pulse 99 99 98 Oximetry 01/06/21 01/06/21 01/06/21 06:45 07:01 07:15 Temperature Pulse Rate 72 68 68 Pulse Rate [ Bilateral] Respiratory 16 16 15 Rate Respiratory Rate [Bilateral ] Blood Pressure 179/61 166/61 172/63 O2 Sat by Pulse 98 98 99 Oximetry 01/06/21 01/06/21 01/06/21 07:30 07:31 07:45 Temperature 98.6 F Pulse Rate 76 82 Pulse Rate [ Bilateral] Respiratory 19 19 Rate Respiratory Rate [Bilateral ] Blood Pressure 158/59 175/67 O2 Sat by Pulse 98 97 99 Oximetry 01/06/21 01/06/21 01/06/21 08:01 08:15 08:31 Temperature Pulse Rate 82 71 79 Pulse Rate [ Bilateral] Respiratory 11 L 13 20 Rate Respiratory Rate [Bilateral ] Blood Pressure 189/71 177/69 181/68 O2 Sat by Pulse 99 99 99 Oximetry 01/06/21 01/06/21 01/06/21 08:45 09:01 09:15 Temperature Pulse Rate 80 80 73 Pulse Rate [ 80 Bilateral] Respiratory 19 14 15 Rate Respiratory 20 Rate [Bilateral ] Blood Pressure 181/67 179/71 174/65 O2 Sat by Pulse 99 99 100 Oximetry 01/06/21 01/06/21 01/06/21 09:31 09:45 10:01 Temperature Pulse Rate 76 78 78 Pulse Rate [ Bilateral] Respiratory 16 15 16 Rate Respiratory Rate [Bilateral ] Blood Pressure 155/62 164/62 155/62 O2 Sat by Pulse 98 99 97 Oximetry 01/06/21 01/06/2121 10:15 10:31 10:45 Temperature Pulse Rate 72 68 68 Pulse Rate [ Bilateral] Respiratory 16 16 15 Rate Respiratory Rate [Bilateral ] Blood Pressure 168/65 166/65 168/67 O2 Sat by Pulse 97 98 96 Oximetry 01/06/21 11:16 Temperature Pulse Rate 75 Pulse Rate [ Bilateral] Respiratory Rate Respiratory Rate [Bilateral ] Blood Pressure 180/66 O2 Sat by Pulse Oximetry - Labs CBC & Chem 7: 01/06/21 10:46 01/06/21 04:33 Labs: Abnormal lab results 01/05/21 01/05/21 01/06/21 Range/Units Unknown Unknown 04:33 RBC 2.64 L (3.65-5.03) M/mm3 Hgb 7.9 L (10.1-14.3) gm/dl Hct 24.1 L (30.3-42.9) % RDW 20.1 H (13.2-15.2) % Hawkins % (Auto) 11.9 H (0.0-7.3) % PT (12.2-14.9) Sec. INR (0.87-1.13) APTT (24.2-36.6) Sec. Chloride (98-107) mmol/L Carbon Dioxide (22-30) mmol/L BUN (7-17) mg/dL Creatinine (0.6-1.2) mg/dL POC Glucose (70-105) mg/dL Calcium (8.4-10.2) mg/dL Lactate Dehydrogenase (91-180) units/L Total Protein (6.3-8.2) g/dL Albumin (3.9-5) g/dL TSH (0.270-4.200) mlU/mL Urine WBC (Auto) > 182.0 H (0.0-6.0) /HPF Urine Creatinine 146.4 H (0.1-20.0) mg/dL Urine Total Protein 844 H (5-11.8) mg/dL 01/06/21 01/06/21 01/06/21 Range/Units 04:33 04:33 04:33 RBC (3.65-5.03) M/mm3 Hgb (10.1-14.3) gm/dl Hct (30.3-42.9) % RDW (13.2-15.2) % Hawkins % (Auto) (0.0-7.3) % PT (12.2-14.9) Sec. INR (0.87-1.13) APTT (24.2-36.6) Sec. Chloride 110.9 H (98-107) mmol/L Carbon Dioxide 19 L (22-30) mmol/L BUN 28 H (7-17) mg/dL Creatinine 3.8 H (0.6-1.2) mg/dL POC Glucose (70-105) mg/dL Calcium 7.9 L (8.4-10.2) mg/dL Lactate Dehydrogenase 188 H (91-180) units/L Total Protein 5.7 L (6.3-8.2) g/dL Albumin 2.9 L (3.9-5) g/dL TSH 4.420 H (0.270-4.200) mlU/mL Urine WBC (Auto) (0.0-6.0) /HPF Urine Creatinine (0.1-20.0) mg/dL Urine Total Protein (5-11.8) mg/dL 01/06/21 01/06/21 01/06/21 Range/Units 10:46 10:46 12:12 RBC (3.65-5.03) M/mm3 Hgb 7.9 L (10.1-14.3) gm/dl Hct 24.2 L (30.3-42.9) % RDW (13.2-15.2) % Hawkins % (Auto) (0.0-7.3) % PT 15.8 H (12.2-14.9) Sec. INR 1.21 H (0.87-1.13) APTT 24.0 L (24.2-36.6) Sec. Chloride (98-107) mmol/L Carbon Dioxide (22-30) mmol/L BUN (7-17) mg/dL Creatinine (0.6-1.2) mg/dL POC Glucose 117 H (70-105) mg/dL Calcium (8.4-10.2) mg/dL Lactate Dehydrogenase (91-180) units/L Total Protein (6.3-8.2) g/dL Albumin (3.9-5) g/dL TSH (0.270-4.200) mlU/mL Urine WBC (Auto) (0.0-6.0) /HPF Urine Creatinine (0.1-20.0) mg/dL Urine Total Protein (5-11.8) mg/dL Medications & Allergies - Medications Allergies/Adverse Reactions: Allergies No Known Allergies Allergy (Verified 12/22/17 17:38) Home Medications: Home Medications Medication Instructions Recorded Confirmed Last Taken Type Apixaban [Eliquis] 5 mg PO BID 01/05/21 01/05/21 Unknown History Ferrous Sulfate [Iron 325 MG] 325 mg PO BID 01/05/21 01/05/21 Unknown History Losartan [Cozaar] 100 mg PO QDAY 01/05/21 01/05/21 Unknown History Pravastatin [Pravachol] 40 mg PO QHS 01/05/21 01/05/21 Unknown History glipiZIDE [Glucotrol] 5 mg PO QDAY 01/05/21 01/05/21 Unknown History labetaloL [Labetalol 200mg TAB] 200 mg PO BID 01/05/21 01/05/21 Unknown History Active Medications: Generic Name Dose Route Start Last Admin Trade Name Freq PRN Reason Stop Dose Admin Acetaminophen 650 mg 01/05/21 02:13 Acetaminophen 325 Mg Tab PO Q4H PRN Pain MILD(1-3)/Fever >100.5/ALVARADO Albuterol 2.5 mg 01/05/21 02:13 Albuterol 2.5 Mg/3 Ml Nebu IH Q4HRT PRN Shortness Of Breath Albuterol/Ipratropium 1 ampul 01/05/21 08:00 01/06/21 08:33 Ipratropium/Albuterol Sulfate 3 Ml Ampul.Neb IH 1 ampul Q6HRT FLOR Administration Clonidine HCl 0.2 mg 01/06/21 10:00 01/06/21 11:16 Clonidine 0.2 Mg Tab PO 0.2 mg Q12HR [facility] Administration Dextrose 50 ml 01/05/21 02:13 Dextrose 50% In Water (25gm) 50 Ml Syringe IV Q30MIN PRN Hypoglycemia Protocol Docusate Sodium 100 mg 01/05/21 22:00 01/06/21 11:00 Docusate Sodium 100 Mg Cap PO 100 mg BID FLOR Administration Famotidine 10 mg 01/05/21 10:00 01/06/21 12:48 Famotidine 10 Mg Tab PO 10 mg BID FLOR Administration Ferrous Sulfate 325 mg 01/05/21 22:00 01/06/21 11:16 Ferrous Sulfate 325 Mg Tab PO 325 mg BID FLOR Administration Heparin Sodium (Porcine) 3,600 unit 01/06/21 11:00 Heparin 10,000 Units/10 Ml Vial 40 unit/kg (3600 unit) IV Q6H PRN Anti-Xa Assay < 0.1 units/ml Hydralazine HCl 10 mg 01/05/21 02:18 01/05/21 16:40 Hydralazine 20 Mg/1 Ml Inj IV 10 mg Q6H PRN Administration SBP >/=165; DBP >/=100 Hydralazine HCl 100 mg 01/05/21 14:00 01/06/21 05:47 Hydralazine 100 Mg Tab PO 100 mg Q8HR [facility]OR Administration Hydromorphone HCl 0.5 mg 01/05/21 02:13 Hydromorphone 1 Mg/1 Ml Inj IV Q3H PRN Pain , Severe (7-10) Nicardipine HCl 50 mg/ Sodium 250 mls @ 25 mls/hr 01/06/21 01:00 01/06/21 12:49 Chloride IV 2.5 mg/hr TITR [facility]OR 12.5 mls/hr Titration Protocol 5 MG/HR Methylprednisolone Sodium 100 mls @ 200 mls/hr 01/06/21 11:00 01/06/21 11:30 Succinate 500 mg/ Sodium IV 01/09/21 10:59 200 mls/hr Chloride Q24HR [facility] Administration Heparin Sodium/Sodium Chloride 25,000 unit in 500 mls @ 27 mls/hr 01/06/21 11:00 Heparin/ 0.45% Nacl-25,000 Unit/500 Ml IV TITR [facility] Protocol 1,350 UNITS/HR Insulin Human Lispro 0 unit 01/05/21 07:30 01/06/21 12:15 Insulin Lispro 100 Unit/Ml SUB-Q Not Given ACHS [facility] Protocol Labetalol HCl 300 mg 01/05/21 10:00 01/06/21 11:16 Labetalol 100 Mg Tab PO 300 mg BID FLOR Administration Nitroglycerin 0.4 mg 01/05/21 02:18 Nitroglycerin 0.4 Mg Tab Subl SL .Q5MIN PRN Chest Pain Ondansetron HCl 4 mg 08/10/21 02:13 Ondansetron 4 Mg/2 Ml Inj IV Q8H PRN Nausea And Vomiting Oxycodone/Acetaminophen 1 tab 01/05/21 02:13 Oxycodone /Acetaminophen 5-325mg Tab PO Q6H PRN Pain, Moderate (4-6) Pravastatin Sodium 40 mg 01/05/21 22:00 01/05/21 22:22 Pravastatin 40 Mg Tab PO 40 mg QHS FLOR Administration Sodium Chloride 10 ml 01/05/21 10:00 01/06/21 11:17 Sodium Chloride 0.9% 10 Ml Flush Syringe IV 10 ml BID FLOR Administration Sodium Chloride 10 ml 01/05/21 02:13 Sodium Chloride 0.9% 10 Ml Flush Syringe IV PRN PRN LINE FLUSH Spironolactone 25 mg 01/05/21 10:00 01/06/21 11:00 Spironolactone 25 Mg Tab PO 25 mg BID FLOR Administration HEART Score - HEART Score Troponin: Troponin T < 0.010 ng/mL (0.00-0.029) 01/04/21 22:00
[2021-01-06] MEDS ORDERED: IPRATROPIUM/ALBUTEROL SULFATE 3 ML AMPUL.NEB IH ONE (15:21)
--- NOTE | 2021-01-06 16:29 | Vascular Lab Report ---
DUPLEX DOPPLER UPPER EXTREMITY VENOUS, BILATERAL INDICATION / CLINICAL INFORMATION: c/o pain, swelling. TECHNIQUE: Duplex doppler imaging was performed through the veins of the left upper extremity using v enous compression and other maneuvers. COMPARISON: None available. FINDINGS: LEFT INTERNAL JUGULAR VEIN: Negative. LEFT SUBCLAVIAN VEIN: Negative. LEFT AXILLARY VEIN: Negative. LEFT BRACHIAL VEIN: Negative. LEFT FOREARM VEINS: Negative. LEFT BASILIC VEIN (SUPERFICIAL): Negative. RIGHT INTERNAL JUGULAR VEIN: Negative. RIGHT SUBCLAVIAN VEIN: Negative. RIGHT AXILLARY VEIN: Negative. RIGHT BRACHIAL VEIN: Negative. RIGHT FOREARM VEINS: Negative. RIGHT BASILIC VEIN (SUPERFICIAL): Negative. ADDITIONAL FINDINGS: None. IMPRESSION: 1. No sonographic evidence for DVT. Signer Name: Jeff Dutta Jr, MD Signed: 01/06/2021 4:25 PM Workstation Name: [id number]
[2021-01-06] MEDS: PRAVASTATIN 40 MG TAB PO SCH (22:13)
[2021-01-07] MEDS: hydrALAZINE 100 MG TAB PO SCH ×3 (05:50→22:54)
[2021-01-07] MEDS: cloNIDine 0.2 MG TAB PO SCH ×3 (08:34→22:54)
[2021-01-07] MEDS: INSULIN LISPRO 100 UNIT/ML SUB-Q SCH ×4 (08:51→22:55)
--- NOTE | 2021-01-07 09:59 | Progress Note ---
Assessment and Plan Hypertensive Emergency * EKG sinus 76. Trops negative x1 patient denies chest pain, diaphoresis, nausea vomiting * Patient sinus 67 on monitor * Optimize hypertensive regimen: continue hydralazine 100mg PO q8, labetolol 300mg PO BID, clonidine 0.2mg PO BID. Stop nicardipine gtt after biopsy. May resume if SBP>200 * Echo 01/05/2021-EF 55 to 60%, mild left ventricular hypertrophy, mild diastolic dysfunction. Rule right ventricular systolic function is normal. Left atrium is mildly dilated, right atrium is normal in size. THANH Acute renal failure * Patient has history of renal insufficiency and recently changed BP meds. Creatinine=3.0->3.1->3.8 * Patient to be going for renal biopsy * Nephrology following HFpEF * BNP is 5093, patient is near Euvolemia with mild BLE edmea, no crackles or rhales upon auscultattion, no orthopnea. * GDMT: BB, ASA, Statin, RICK/ARB. Hold RICK/ARB due to THANH. H/o DVT * Anticoagulated on Eliquis at home * Currently on Heparin gtt for renal biopsy. May resume Eliquis after biopsy and no further planned interventions Patient seen in conjunction with Dr. Schrader who agrees with this plan. Will continue to follow - Patient Problems (1) Accelerated hypertension Current Visit: Yes Status: Acute (2) Acute renal failure Current Visit: Yes Status: Acute Qualifiers: Acute renal failure type: unspecified Qualified Code(s): N17.9 - Acute kidney failure, unspecified (3) DVT prophylaxis Current Visit: Yes Status: Acute (4) Diabetes Current Visit: Yes Status: Acute (5) Hypertensive emergency Current Visit: Yes Status: Acute (6) Metabolic acidosis Current Visit: Yes Status: Acute Subjective Date of service: 01/07/21 Principal diagnosis: Hypertensive emergency, Acute renal failure Interval history: Patient resting in bed Report feeling well sinus 60s on monitor Objective Last Vital Signs Temp 98.6 F 01/06/21 07:30 Pulse 65 01/07/21 09:45 Resp 15 01/07/21 09:45 BP 170/68 01/07/21 09:45 Pulse Ox 100 01/07/21 09:45 - Physical Examination General: No Apparent Distress HEENT: Positive: PERRL Neck: Positive: neck supple Cardiac: Positive: Reg Rate and Rhythm, S1/S2 Lungs: Positive: Normal Breath Sounds Neuro: Positive: Grossly Intact Abdomen: Positive: Soft, Active Bowel Sounds Skin: Positive: Bruising (right upper extremity) Extremities: Present: upper extr. pulses, lower extr. pulses. Absent: edema - Labs and Meds Coagulation 01/06/21 Range/Units 10:46 PT 15.8 H (12.2-14.9) Sec. INR 1.21 H (0.87-1.13) APTT 24.0 L (24.2-36.6) Sec. CBC 01/06/21 Range/Units 10:46 Hgb 7.9 L (10.1-14.3) gm/dl Hct 24.2 L (30.3-42.9) % Plt Count 200 (140-440) K/mm3 - Imaging and Cardiology EKG: report reviewed, image reviewed Echo: report reviewed - Telemetry EKG Rhythm: Sinus Rhythm - EKG Sinus rhythms and dysrhythmias: sinus rhythm
[2021-01-07] MEDS ORDERED: methylPREDNISolone Sod Succinate 125 MG/2 ML INJ ONE (10:31)
[2021-01-07 10:49] LABS: Hematocrit 25.7 % (30.3-42.9); Hemoglobin 8.4 gm/dl (10.1-14.3); Mean Corpuscular HGB Conc 33 % (30-34); Mean Corpuscular Volume 91 fl (79-97); Platelet Count 187 K/mm3 (140-440); Red Blood Count 2.82 M/mm3 (3.65-5.03)
[2021-01-07 10:50] LABS: Red Cell Distribution Width 20.2 % (13.2-15.2)
[2021-01-07] MEDS: FAMOTIDINE 10 MG TAB PO SCH ×2 (10:54→22:55)
[2021-01-07] MEDS: FERROUS SULFATE 325 MG TAB PO SCH ×2 (10:54→22:54)
[2021-01-07] MEDS: DOCUSATE SODIUM 100 MG CAP PO SCH ×2 (10:54→22:54)
[2021-01-07] MEDS: amLODIPine 10 MG TAB PO SCH (10:55)
[2021-01-07 11:08] LABS: Calcium 8.9 mg/dL (8.4-10.2)
[2021-01-07] MEDS: SPIRONOLACTONE 25 MG TAB PO SCH ×2 (11:38→22:54)
[2021-01-07] MEDS: methylPREDNISolone Sod Suc 500 MG in SODIUM CHLORIDE 0.9% 100 ML IV SCH (12:19)
--- NOTE | 2021-01-07 12:46 | Progress Note ---
Assessment and Plan 65 y/o obese female with known HTN admitted with Hypertensive Urgency and worsening renal disease 01/07/21: consider increasing oral therapy to help with BP control. WEan Cardene off. Remains a border in the ED as no ICU beds available : stopped duonebs. WEan Cardene to off as tolerated. Agree with oral regimen and still has room for increases if needed. 1. Agree with cardene drip 2. Await new renal evaluation so that oral therapy can be started to help control BP with hopes of weaning drip off 3. Anticoagulation for prior history of VTE 4. Weight loss CCT 31 minutes. Subjective Date of service: 01/07/21 Principal diagnosis: Hypertensive emergency, Acute renal failure Interval history: Cardene restarted despite multiple oral medications. Objective - Constitutional Vitals: Vital Signs - 12hr 01/07/21 01/07/21 01/07/21 00:45 01:01 01:15 Pulse Rate 73 83 73 Respiratory 16 15 16 Rate Blood Pressure 182/65 196/66 196/66 O2 Sat by Pulse 98 99 99 Oximetry 01/07/21 01/07/21 01/07/21 01:31 01:45 02:01 Pulse Rate 74 70 71 Respiratory 12 15 17 Rate Blood Pressure 196/66 196/66 183/67 O2 Sat by Pulse 99 99 99 Oximetry 01/07/21 01/07/21 01/07/21 02:15 02:31 02:45 Pulse Rate 69 73 72 Respiratory 16 14 15 Rate Blood Pressure 183/67 183/67 183/67 O2 Sat by Pulse 99 99 99 Oximetry 01/07/21 01/07/21 01/07/21 02:59 03:01 03:15 Pulse Rate 70 66 Respiratory 15 15 Rate Blood Pressure 187/66 187/66 O2 Sat by Pulse 99 99 98 Oximetry 01/07/21 01/07/21 01/07/21 03:31 03:45 04:01 Pulse Rate 67 67 64 Respiratory 16 16 15 Rate Blood Pressure 187/66 187/66 169/58 O2 Sat by Pulse 98 98 98 Oximetry 01/07/21 01/07/21 01/07/21 04:15 04:31 04:45 Pulse Rate 66 72 78 Respiratory 16 16 16 Rate Blood Pressure 187/66 187/66 187/66 O2 Sat by Pulse 98 99 99 Oximetry 01/07/21 01/07/2101/07/21 05:01 05:15 05:31 Pulse Rate 66 72 71 Respiratory 15 14 13 Rate Blood Pressure 184/69 169/58 169/58 O2 Sat by Pulse 100 99 99 Oximetry 01/07/21 01/07/21 01/07/21 05:45 06:01 06:15 Pulse Rate 76 70 64 Respiratory 19 15 13 Rate Blood Pressure 184/69 193/71 193/71 O2 Sat by Pulse 100 100 99 Oximetry 01/07/21 01/07/21 01/07/21 06:31 06:45 07:01 Pulse Rate 61 65 66 Respiratory 14 15 15 Rate Blood Pressure 193/71 193/71 179/67 O2 Sat by Pulse 99 98 99 Oximetry 01/07/21 01/07/21 01/07/21 07:15 07:31 07:45 Pulse Rate 65 59 L 63 Respiratory 15 14 14 Rate Blood Pressure 179/67 179/67 179/67 O2 Sat by Pulse 99 98 99 Oximetry 01/07/21 01/07/21 01/07/21 08:01 08:15 08:31 Pulse Rate 63 65 74 Respiratory 13 14 14 Rate Blood Pressure 181/65 181/65 181/65 O2 Sat by Pulse 100 100 100 Oximetry 01/07/21 01/07/21 01/07/21 08:34 08:45 09:01 Pulse Rate 66 67 68 Respiratory 16 14 Rate Blood Pressure 181/65 181/65 170/68 O2 Sat by Pulse 100 100 Oximetry 01/07/21 01/07/21 01/07/21 09:15 09:31 09:45 Pulse Rate 65 62 65 Respiratory 14 14 15 Rate Blood Pressure 170/68 170/68 170/68 O2 Sat by Pulse 99 99 100 Oximetry 01/07/21 01/07/21 01/07/21 10:01 10:55 11:27 Pulse Rate 98 H 65 63 Respiratory 29 H Rate Blood Pressure 166/58 153/36 153/56 O2 Sat by Pulse 99 Oximetry 01/07/21 11:38 Pulse Rate 64 Respiratory Rate Blood Pressure 153/56 O2 Sat by Pulse Oximetry - Labs CBC & Chem 7: 01/07/21 09:53 01/07/21 09:53 Labs: Abnormal lab results 01/06/21 01/06/21 01/06/21 Range/Units 17:38 21:11 21:50 RBC (3.65-5.03) M/mm3 Hgb (10.1-14.3) gm/dl Hct (30.3-42.9) % RDW (13.2-15.2) % Heparin Anti-Xa Level 1.66 H (0.3-0.7) U.I./ml Chloride (98-107) mmol/L Carbon Dioxide (22-30) mmol/L BUN (7-17) mg/dL Creatinine (0.6-1.2) mg/dL Glucose (65-100) mg/dL POC Glucose 161 H 185 H (70-105) mg/dL Phosphorus (2.5-4.5) mg/dL 01/07/21 01/07/21 01/07/21 Range/Units 07:56 09:53 09:53 RBC 2.82 L (3.65-5.03) M/mm3 Hgb 8.4 L (10.1-14.3) gm/dl Hct 25.7 L (30.3-42.9) % RDW 20.2 H (13.2-15.2) % Heparin Anti-Xa Level (0.3-0.7) U.I./ml Chloride 108.0 H (98-107) mmol/L Carbon Dioxide 19 L (22-30) mmol/L BUN 41 H (7-17) mg/dL Creatinine 4.0 H (0.6-1.2) mg/dL Glucose 160 H (65-100) mg/dL POC Glucose 145 H (70-105) mg/dL Phosphorus 5.90 H (2.5-4.5) mg/dL 01/07/21 Range/Units 12:36 RBC (3.65-5.03) M/mm3 Hgb (10.1-14.3) gm/dl Hct (30.3-42.9) % RDW (13.2-15.2) % Heparin Anti-Xa Level (0.3-0.7) U.I./ml Chloride (98-107) mmol/L Carbon Dioxide (22-30) mmol/L BUN (7-17) mg/dL Creatinine (0.6-1.2) mg/dL Glucose (65-100) mg/dL POC Glucose 163 H (70-105) mg/dL Phosphorus (2.5-4.5) mg/dL Medications & Allergies - Medications Allergies/Adverse Reactions: Allergies No Known Allergies Allergy (Verified 12/22/17 17:38) Home Medications: Home Medications Medication Instructions Recorded Confirmed Last Taken Type Apixaban [Eliquis] 5 mg PO BID 01/05/21 01/05/21 Unknown History Ferrous Sulfate [Iron 325 MG] 325 mg PO BID 01/05/21 01/05/21 Unknown History Losartan [Cozaar] 100 mg PO QDAY 01/05/21 01/05/21 Unknown History Pravastatin [Pravachol] 40 mg PO QHS 01/05/21 01/05/21 Unknown History glipiZIDE [Glucotrol] 5 mg PO QDAY 01/05/21 01/05/21 Unknown History labetaloL [Labetalol 200mg TAB] 200 mg PO BID 01/05/21 01/05/21 Unknown History Active Medications: Generic Name Dose Route Start Last Admin Trade Name Freq PRN Reason Stop Dose Admin Acetaminophen 650 mg 01/05/21 02:13 Acetaminophen 325 Mg Tab PO Q4H PRN Pain MILD(1-3)/Fever >100.5/ALVARADO Albuterol 2.5 mg 01/05/21 02:13 Albuterol 2.5 Mg/3 Ml Nebu IH Q4HRT PRN Shortness Of Breath Amlodipine Besylate 10 mg 01/07/21 10:00 01/07/21 10:55 Amlodipine 10 Mg Tab PO 10 mg QDAY FLOR Administration Clonidine HCl 0.2 mg 01/07/21 08:00 01/07/21 08:34 Clonidine 0.2 Mg Tab PO 0.2 mg Q8HR FLOR Administration Dextrose 50 ml 01/05/21 02:13 Dextrose 50% In Water (25gm) 50 Ml Syringe IV Q30MIN PRN Hypoglycemia Protocol Docusate Sodium 100 mg 01/05/21 22:00 01/07/21 10:54 Docusate Sodium 100 Mg Cap PO 100 mg BID FLOR Administration Famotidine 10 mg 01/05/21 10:00 01/07/21 10:54 Famotidine 10 Mg Tab PO 10 mg BID FLOR Administration Ferrous Sulfate 325 mg 01/05/21 22:00 01/07/21 10:54 Ferrous Sulfate 325 Mg Tab PO 325 mg BID FLOR Administration Heparin Sodium (Porcine) 3,600 unit 01/06/21 11:00 01/06/21 14:54 Heparin 10,000 Units/10 Ml Vial 40 unit/kg (3600 unit) 3,600 unit IV Administration Q6H PRN Anti-Xa Assay < 0.1 units/ml Hydralazine HCl 10 mg 01/05/21 02:18 01/05/21 16:40 Hydralazine 20 Mg/1 Ml Inj IV 10 mg Q6H PRN Administration SBP >/=165; DBP >/=100 Hydralazine HCl 100 mg 01/05/21 14:00 01/07/21 05:50 Hydralazine 100 Mg Tab PO 100 mg Q8HR FLOR Administration Hydromorphone HCl 0.5 mg 01/05/21 02:13 Hydromorphone 1 Mg/1 Ml Inj IV Q3H PRN Pain , Severe (7-10) Nicardipine HCl 50 mg/ Sodium 250 mls @ 25 mls/hr 01/06/21 01:00 01/06/21 12:49 Chloride IV 01/07/21 18:00 2.5 mg/hr TITR FLOR 12.5 mls/hr Titration Protocol 5 MG/HR Methylprednisolone Sodium 100 mls @ 200 mls/hr 01/06/21 11:00 01/07/21 12:19 Succinate 500 mg/ Sodium IV 01/09/21 10:59 200 mls/hr Chloride Q24HR FLOR Administration Heparin Sodium/Sodium Chloride 25,000 unit in 500 mls @ 27 mls/hr 01/06/21 11:00 01/07/21 04:50 Heparin/ 0.45% Nacl-25,000 Unit/500 Ml IV 1,170 units/hr TITR FLOR 23.4 mls/hr Titration Protocol 1,350 UNITS/HR Insulin Glargine 5 units 01/07/21 22:00 Insulin Glargine 100 Units/Ml SUB-Q QHS [facility] Insulin Human Lispro 0 unit 01/05/21 07:30 01/07/21 08:51 Insulin Lispro 100 Unit/Ml SUB-Q Not Given ACHS [facility] Protocol Labetalol HCl 300 mg 01/05/21 10:00 01/07/21 11:27 Labetalol 100 Mg Tab PO 300 mg BID FLOR Administration Nitroglycerin 0.4 mg 01/05/21 02:18 Nitroglycerin 0.4 Mg Tab Subl SL .Q5MIN PRN Chest Pain Ondansetron HCl 4 mg 01/05/21 02:13 Ondansetron 4 Mg/2 Ml Inj IV Q8H PRN Nausea And Vomiting Oxycodone/Acetaminophen 1 tab 01/05/21 02:13 Oxycodone /Acetaminophen 5-325mg Tab PO Q6H PRN Pain, Moderate (4-6) Pravastatin Sodium 40 mg 01/05/21 22:00 01/06/21 22:13 Pravastatin 40 Mg Tab PO 40 mg QHS FLOR Administration Sodium Chloride 10 ml 01/05/21 10:00 01/07/21 12:19 Sodium Chloride 0.9% 10 Ml Flush Syringe IV Not Given BID FLOR Sodium Chloride 10 ml 01/05/21 02:13 Sodium Chloride 0.9% 10 Ml Flush Syringe IV PRN PRN LINE FLUSH Spironolactone 25 mg 01/05/21 10:00 01/07/21 11:38 Spironolactone 25 Mg Tab PO 25 mg BID FLOR Administration HEART Score - HEART Score Troponin: Troponin T < 0.010 ng/mL (0.00-0.029) 01/04/21 22:00
[2021-01-07] MEDS ORDERED: HYDROmorphone 1 MG/1 ML INJ IV ONE ×2 (13:32→14:00)
[2021-01-07] MEDS ORDERED: ONDANSETRON 4 MG/2 ML INJ IV ONE (13:33)
--- NOTE | 2021-01-07 15:50 | Cat Scan Report ---
CT-GUIDED BIOPSY RENAL LEFT INDICATION : THANH, nephrotic range proteinuria rule out acute GN. COMPARISON: None PROCEDURE: The risks (including but not limited to bleeding and infection) and benefits were explain ed to the patient and informed consent was obtained. All CT scans at this location are performed usi ng CT dose reduction for ALARA by means of automated exposure control. A time out procedure was performed. The procedure site was prepped and draped in the usual sterile f ashion and lidocaine was used for local anesthesia. Anxiolysis was accomplished with IV Dilaudid and Zofran. Using CT guidance, a 17-gauge introducer needle was advanced to the inferior pole of the left kidney. 2 separate 1.3 cm 18-gauge core biopsies were obtained for pathologic analysis. Follow-up scan graham downingtes no evidence for postbiopsy hemorrhage. The patient tolerated the procedure well with no complications. IMPRESSION: Successful CT-guided biopsy at the inferior pole of the left kidney. Signer Name: Jeff Dutta Jr, MD Signed: 01/07/2021 3:46 PM Workstation Name: [id number]
--- NOTE | 2021-01-07 16:47 | Progress Note ---
Assessment and Plan - Patient Problems (1) Acute renal failure Current Visit: Yes Status: Acute Qualifiers: Acute renal failure type: unspecified Qualified Code(s): N17.9 - Acute kidney failure, unspecified Plan to address problem: DD for THANH incl. malignant hypertension, rule out thrombotic microangiopathy in the setting of hypertensive emergency. Urine protein/cr ratio was measured to be > 5.7g/g, nephrotic range proteinuria, along with e/o hematuria and leukocyturia, given also progressive renal failure there is high suspicion for acute rapidly progressive glomerulonephritis. check ANCA, Anti GBM Ab, JESS, C3/4, hep B/C panel, SPEP. We need to obtain renal biopsy for tissue diagnosis, however pt is currently on anticoagulation with eliquis. Discussed with primary attending to switch to heparin gtt and hold ASA, plan for renal biopsy by IR today. ordered steroid pulse with IV solumedrol 500mg daily x 3 days. Cont supportive care for THANH avoid ,nephrotoxins, NSAIDs, IV contrast. Will monitor lytes/renal parameters closely and make further recommendations (2) Hypertensive emergency Current Visit: Yes Status: Acute Plan to address problem: cont BP control with cardene, target normotension. Transition to po BP meds incl. hydralazine 100mg po tid and labetalol 300mg bid, spironolactone 25mg po bid, clonidine 0.2mg po bid, added amlodipine 10mg po qd. hold RICK-I/ARB in the setting of THANH. (3) Metabolic acidosis Current Visit: Yes Status: Acute Plan to address problem: hyperchloremic met acidosis in the setting of THANH. If serum CO2 continues to decline and BP is better controlled, will consider po Na bicarb (4) Type 2 diabetes mellitus with diabetic chronic kidney disease Current Visit: Yes Status: Acute Plan to address problem: DM management as per primary attending (5) Anemia in chronic illness Current Visit: Yes Status: Acute Plan to address problem: check iron panel/ferritin Subjective Date of service: 01/07/21 Principal diagnosis: Hypertensive emergency, Acute renal failure Interval history: Pt awake, alert, in no acute distress, she remains on cardene gtt for uncontrolled BP. Denies fever, chills, n/v/d, dysuria, SOB, CP, palpitations. Objective - Vital Signs Vital signs: Vital Signs - 12hr 01/07/21 01/07/21 01/07/21 05:01 05:15 05:31 Temperature [ Post-Procedure] Pulse Rate 66 72 71 Pulse Rate [ Intra-Procedure ] Pulse Rate [ Post-Procedure] Pulse Rate [Pre -Procedure] Respiratory 15 14 13 Rate Respiratory Rate [Intra- Procedure] Respiratory Rate [Post- Procedure] Respiratory Rate [Pre- Procedure] Blood Pressure 184/69 169/58 169/58 Blood Pressure [Intra- Procedure] Blood Pressure [Post-Procedure ] Blood Pressure [Pre-Procedure] O2 Sat by Pulse 100 99 99 Oximetry O2 Sat by Pulse Oximetry [ Intra-Procedure ] O2 Sat by Pulse Oximetry [Post -Procedure] O2 Sat by Pulse Oximetry [Pre- Procedure] 01/07/21 01/07/21 01/07/21 05:45 06:01 06:15 Temperature [ Post-Procedure] Pulse Rate 76 70 64 Pulse Rate [ Intra-Procedure ] Pulse Rate [ Post-Procedure] Pulse Rate [Pre -Procedure] Respiratory 19 15 13 Rate Respiratory Rate [Intra- Procedure] Respiratory Rate [Post- Procedure] Respiratory Rate [Pre- Procedure] Blood Pressure 184/69 193/71 193/71 Blood Pressure [Intra- Procedure] Blood Pressure [Post-Procedure ] Blood Pressure [Pre-Procedure] O2 Sat by Pulse 100 100 99 Oximetry O2 Sat by Pulse Oximetry [ Intra-Procedure ] O2 Sat by Pulse Oximetry [Post -Procedure] O2 Sat by Pulse Oximetry [Pre- Procedure] 01/07/21 01/07/21 01/07/21 06:31 06:45 07:01 Temperature [ Post-Procedure] Pulse Rate 61 65 66 Pulse Rate [ Intra-Procedure ] Pulse Rate [ Post-Procedure] Pulse Rate [Pre -Procedure] Respiratory 14 15 15 Rate Respiratory Rate [Intra- Procedure] Respiratory Rate [Post- Procedure] Respiratory Rate [Pre- Procedure] Blood Pressure 193/71 193/71 179/67 Blood Pressure [Intra- Procedure] Blood Pressure [Post-Procedure ] Blood Pressure [Pre-Procedure] O2 Sat by Pulse 99 98 99 Oximetry O2 Sat by Pulse Oximetry [ Intra-Procedure ] O2 Sat by Pulse Oximetry [Post -Procedure] O2 Sat by Pulse Oximetry [Pre- Procedure] 01/07/21 01/07/21 01/07/21 07:15 07:31 07:45 Temperature [ Post-Procedure] Pulse Rate 65 59 L 63 Pulse Rate [ Intra-Procedure ] Pulse Rate [ Post-Procedure] Pulse Rate [Pre -Procedure] Respiratory 15 14 14 Rate Respiratory Rate [Intra- Procedure] Respiratory Rate [Post- Procedure] Respiratory Rate [Pre- Procedure] Blood Pressure 179/67 179/67 179/67 Blood Pressure [Intra- Procedure] Blood Pressure [Post-Procedure ] Blood Pressure [Pre-Procedure] O2 Sat by Pulse 99 98 99 Oximetry O2 Sat by Pulse Oximetry [ Intra-Procedure ] O2 Sat by Pulse Oximetry [Post -Procedure] O2 Sat by Pulse Oximetry [Pre- Procedure] 01/07/21 01/07/21 01/07/21 08:01 08:15 08:31 Temperature [ Post-Procedure] Pulse Rate 63 65 74 Pulse Rate [ Intra-Procedure ] Pulse Rate [ Post-Procedure] Pulse Rate [Pre -Procedure] Respiratory 13 14 14 Rate Respiratory Rate [Intra- Procedure] Respiratory Rate [Post- Procedure] Respiratory Rate [Pre- Procedure] Blood Pressure 181/65 181/65 181/65 Blood Pressure [Intra- Procedure] Blood Pressure [Post-Procedure ] Blood Pressure [Pre-Procedure] O2 Sat by Pulse 100 100 100 Oximetry O2 Sat by Pulse Oximetry [ Intra-Procedure ] O2 Sat by Pulse Oximetry [Post -Procedure] O2 Sat by Pulse Oximetry [Pre- Procedure] 01/07/21 01/07/21 01/07/21 08:34 08:45 09:01 Temperature [ Post-Procedure] Pulse Rate 66 67 68 Pulse Rate [ Intra-Procedure ] Pulse Rate [ Post-Procedure] Pulse Rate [Pre -Procedure] Respiratory 16 14 Rate Respiratory Rate [Intra- Procedure] Respiratory Rate [Post- Procedure] Respiratory Rate [Pre- Procedure] Blood Pressure 181/65 181/65 170/68 Blood Pressure [Intra- Procedure] Blood Pressure [Post-Procedure ] Blood Pressure [Pre-Procedure] O2 Sat by Pulse 100 100 Oximetry O2 Sat by Pulse Oximetry [ Intra-Procedure ] O2 Sat by Pulse Oximetry [Post -Procedure] O2 Sat by Pulse Oximetry [Pre- Procedure] 01/07/21 01/07/21 01/07/21 09:15 09:31 09:45 Temperature [ Post-Procedure] Pulse Rate 65 62 65 Pulse Rate [ Intra-Procedure ] Pulse Rate [ Post-Procedure] Pulse Rate [Pre -Procedure] Respiratory 14 14 15 Rate Respiratory Rate [Intra- Procedure] Respiratory Rate [Post- Procedure] Respiratory Rate [Pre- Procedure] Blood Pressure 170/68 170/68 170/68 Blood Pressure [Intra- Procedure] Blood Pressure [Post-Procedure ] Blood Pressure [Pre-Procedure] O2 Sat by Pulse 99 99 100 Oximetry O2 Sat by Pulse Oximetry [ Intra-Procedure ] O2 Sat by Pulse Oximetry [Post -Procedure] O2 Sat by Pulse Oximetry [Pre- Procedure] 01/07/21 01/07/21 01/07/21 10:01 10:55 11:27 Temperature [ Post-Procedure] Pulse Rate 98 H 65 63 Pulse Rate [ Intra-Procedure ] Pulse Rate [ Post-Procedure] Pulse Rate [Pre -Procedure] Respiratory 29 H Rate Respiratory Rate [Intra- Procedure] Respiratory Rate [Post- Procedure] Respiratory Rate [Pre- Procedure] Blood Pressure 166/58 153/36 153/56 Blood Pressure [Intra- Procedure] Blood Pressure [Post-Procedure ] Blood Pressure [Pre-Procedure] O2 Sat by Pulse 99 Oximetry O2 Sat by Pulse Oximetry [ Intra-Procedure ] O2 Sat by Pulse Oximetry [Post -Procedure] O2 Sat by Pulse Oximetry [Pre- Procedure] 01/07/21 01/07/21 01/07/21 11:38 13:30 14:00 Temperature [ Post-Procedure] Pulse Rate 64 Pulse Rate [ Intra-Procedure ] Pulse Rate [ 54 L Post-Procedure] Pulse Rate [Pre 77 -Procedure] Respiratory Rate Respiratory Rate [Intra- Procedure] Respiratory 11 L Rate [Post- Procedure] Respiratory 16 Rate [Pre- Procedure] Blood Pressure 153/56 Blood Pressure [Intra- Procedure] Blood Pressure 150/63 [Post-Procedure ] Blood Pressure 172/65 [Pre-Procedure] O2 Sat by Pulse Oximetry O2 Sat by Pulse 100 Oximetry [ Intra-Procedure ] O2 Sat by Pulse 95 Oximetry [Post -Procedure] O2 Sat by Pulse 100 100 Oximetry [Pre- Procedure] 01/07/21 01/07/21 01/07/21 14:36 14:40 14:46 Temperature [ Post-Procedure] Pulse Rate Pulse Rate [ 68 66 65 Intra-Procedure ] Pulse Rate [ Post-Procedure] Pulse Rate [Pre -Procedure] Respiratory Rate Respiratory 14 16 16 Rate [Intra- Procedure] Respiratory Rate [Post- Procedure] Respiratory Rate [Pre- Procedure] Blood Pressure Blood Pressure 166/65 170/64 170/64 [Intra- Procedure] Blood Pressure [Post-Procedure ] Blood Pressure [Pre-Procedure] O2 Sat by Pulse Oximetry O2 Sat by Pulse 100 100 100 Oximetry [ Intra-Procedure ] O2 Sat by Pulse Oximetry [Post -Procedure] O2 Sat by Pulse 100 100 100 Oximetry [Pre- Procedure] 01/07/21 01/07/21 01/07/21 14:52 14:57 15:15 Temperature [ 98.5 F Post-Procedure] Pulse Rate Pulse Rate [ 63 Intra-Procedure ] Pulse Rate [ 61 56 L Post-Procedure] Pulse Rate [Pre -Procedure] Respiratory Rate Respiratory 15 Rate [Intra- Procedure] Respiratory 16 13 Rate [Post- Procedure] Respiratory Rate [Pre- Procedure] Blood Pressure Blood Pressure 161/60 [Intra- Procedure] Blood Pressure 153/59 [Post-Procedure ] Blood Pressure [Pre-Procedure] O2 Sat by Pulse Oximetry O2 Sat by Pulse 100 100 100 Oximetry [ Intra-Procedure ] O2 Sat by Pulse 100 95 Oximetry [Post -Procedure] O2 Sat by Pulse 100 100 100 Oximetry [Pre- Procedure] 01/07/21 01/07/21 01/07/21 15:30 15:45 16:00 Temperature [ Post-Procedure] Pulse Rate Pulse Rate [ Intra-Procedure ] Pulse Rate [ 56 L 52 L 55 L Post-Procedure] Pulse Rate [Pre -Procedure] Respiratory Rate Respiratory Rate [Intra- Procedure] Respiratory 12 14 12 Rate [Post- Procedure] Respiratory Rate [Pre- Procedure] Blood Pressure Blood Pressure [Intra- Procedure] Blood Pressure 142/59 139/54 138/59 [Post-Procedure ] Blood Pressure [Pre-Procedure] O2 Sat by Pulse Oximetry O2 Sat by Pulse 100 95 97 Oximetry [ Intra-Procedure ] O2 Sat by Pulse 95 95 96 Oximetry [Post -Procedure] O2 Sat by Pulse 100 95 96 Oximetry [Pre- Procedure] - General Appearance General appearance: well-developed, well-nourished, appears stated age EENT: ATNC, PERRL, mucous membranes moist Neck: no JVD Respiratory: Present: Clear to Ascultation Cardiology: regular, S1S2 Gastrointestinal: normoactive bowel sounds Integumentary: no rash, other (+ edema ) Neurologic: no focal deficit, alert and oriented x3, strength 5/5, CN 3-12 intact Psychiatric: mood/affect appropriate, cooperative - Lab 01/07/21 09:53 01/07/21 09:53 Most recent lab results Calcium 8.9 mg/dL (8.4-10.2) 01/07/21 09:53 Phosphorus 5.90 mg/dL (2.5-4.5) H 01/07/21 09:53 Magnesium 2.20 mg/dL (1.7-2.3) 01/07/21 09:53 Urine Creatinine 146.4 mg/dL (0.1-20.0) H 01/05/21 Unknown Urine Sodium 67 mmol/L 01/05/21 Unknown Urine Total Protein 844 mg/dL (5-11.8) H 01/05/21 Unknown Medications & Allergies - Medications Allergies/Adverse Reactions: Allergies No Known Allergies Allergy (Verified 12/22/17 17:38) Home Medications: Home Medications Medication Instructions Recorded Confirmed Last Taken Type Apixaban [Eliquis] 5 mg PO BID 01/05/21 01/05/21 Unknown History Ferrous Sulfate [Iron 325 MG] 325 mg PO BID 01/05/21 01/05/21 Unknown History Losartan [Cozaar] 100 mg PO QDAY 01/05/21 01/05/21 Unknown History Pravastatin [Pravachol] 40 mg PO QHS 01/05/21 01/05/21 Unknown History glipiZIDE [Glucotrol] 5 mg PO QDAY 01/05/21 01/05/21 Unknown History labetaloL [Labetalol 200mg TAB] 200 mg PO BID 01/05/21 01/05/21 Unknown History Active Medications: Generic Name Dose Route Start Last Admin Trade Name Freq PRN Reason Stop Dose Admin Acetaminophen 650 mg 01/05/21 02:13 Acetaminophen 325 Mg Tab PO Q4H PRN Pain MILD(1-3)/Fever >100.5/ALVARADO Albuterol 2.5 mg 01/05/21 02:13 Albuterol 2.5 Mg/3 Ml Nebu IH Q4HRT PRN Shortness Of Breath Amlodipine Besylate 10 mg 01/07/21 10:00 01/07/21 10:55 Amlodipine 10 Mg Tab PO 10 mg QDAY FLOR Administration Clonidine HCl 0.2 mg 01/07/21 08:00 01/07/21 14:02 Clonidine 0.2 Mg Tab PO Not Given Q8HR FLOR Dextrose 50 ml 01/05/21 02:13 Dextrose 50% In Water (25gm) 50 Ml Syringe IV Q30MIN PRN Hypoglycemia Protocol Docusate Sodium 100 mg 01/05/21 22:00 01/07/21 10:54 Docusate Sodium 100 Mg Cap PO 100 mg BID FLOR Administration Famotidine 10 mg 01/05/21 10:00 01/07/21 10:54 Famotidine 10 Mg Tab PO 10 mg BID FLOR Administration Ferrous Sulfate 325 mg 01/05/21 22:00 01/07/21 10:54 Ferrous Sulfate 325 Mg Tab PO 325 mg BID FLOR Administration Heparin Sodium (Porcine) 3,600 unit 01/06/21 11:00 01/06/21 14:54 Heparin 10,000 Units/10 Ml Vial 40 unit/kg (3600 unit) 3,600 unit IV Administration Q6H PRN Anti-Xa Assay < 0.1 units/ml Hydralazine HCl 10 mg 01/05/21 02:18 01/05/21 16:40 Hydralazine 20 Mg/1 Ml Inj IV 10 mg Q6H PRN Administration SBP >/=165; DBP >/=100 Hydralazine HCl 100 mg 01/05/21 14:00 01/07/21 14:02 Hydralazine 100 Mg Tab PO Not Given Q8HR FLOR Hydromorphone HCl 0.5 mg 01/05/21 02:13 Hydromorphone 1 Mg/1 Ml Inj IV Q3H PRN Pain , Severe (7-10) Nicardipine HCl 50 mg/ Sodium 250 mls @ 25 mls/hr 01/06/21 01:00 01/06/21 12:49 Chloride IV 01/07/21 18:00 2.5 mg/hr TITR FLOR 12.5 mls/hr Titration Protocol 5 MG/HR Methylprednisolone Sodium 100 mls @ 200 mls/hr 01/06/21 11:00 01/07/21 12:19 Succinate 500 mg/ Sodium IV 01/09/21 10:59 200 mls/hr Chloride Q24HR FLOR Administration Heparin Sodium/Sodium Chloride 25,000 unit in 500 mls @ 27 mls/hr 01/06/21 11:00 01/07/21 04:50 Heparin/ 0.45% Nacl-25,000 Unit/500 Ml IV 1,170 units/hr TITR FLOR 23.4 mls/hr Titration Protocol 1,350 UNITS/HR Insulin Glargine 5 units 01/07/21 22:00 Insulin Glargine 100 Units/Ml SUB-Q QHS FLOR Insulin Human Lispro 0 unit 01/05/21 07:30 01/07/21 16:37 Insulin Lispro 100 Unit/Ml SUB-Q Not Given ACHS [facility] Protocol Labetalol HCl 300 mg 01/05/21 10:00 01/07/21 11:27 Labetalol 100 Mg Tab PO 300 mg BID FLOR Administration Nitroglycerin 0.4 mg 01/05/21 02:18 Nitroglycerin 0.4 Mg Tab Subl SL .Q5MIN PRN Chest Pain Ondansetron HCl 4 mg 01/05/21 02:13 Ondansetron 4 Mg/2 Ml Inj IV Q8H PRN Nausea And Vomiting Oxycodone/Acetaminophen 1 tab 01/05/21 02:13 Oxycodone /Acetaminophen 5-325mg Tab PO Q6H PRN Pain, Moderate (4-6) Pravastatin Sodium 40 mg 01/05/21 22:00 01/06/21 22:13 Pravastatin 40 Mg Tab PO 40 mg QHS FLOR Administration Sodium Chloride 10 ml 01/05/21 10:00 01/07/21 12:19 Sodium Chloride 0.9% 10 Ml Flush Syringe IV Not Given BID FLOR Sodium Chloride 10 ml 01/05/21 02:13 Sodium Chloride 0.9% 10 Ml Flush Syringe IV PRN PRN LINE FLUSH Spironolactone 25 mg 01/05/21 10:00 01/07/21 11:38 Spironolactone 25 Mg Tab PO 25 mg BID FLOR Administration
--- NOTE | 2021-01-07 18:31 | Progress Note ---
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 Neuro: NAD -Reorientation as needed -Avoid delirium -Aspiration and fall precautions Cardio: Hypertensive urgency, HFpEF (EF 55 to 60% in 2020), h/o HTN -Cardiology consulted, appreciate recommendations -Wean cardene gtt -Per cardio Cardene gtt fo SBP>200 -Current antihypertensive regimen: Labetalol, Hydralazine, Clonidine -Blood Pressure monitoring per protocol -12/2020 echocardiogram shows mild left ventricular hypertrophy, EF 55 to 60% -Remote telemetry -S/p Lasix in the ED -Avoid RICK/ARB in setting of THANH Respiratory: NAD -Pulmonary hygiene -Supplemental oxygen as needed GI: NAD -CC cardiac renal diet -PPI -BR: Colace : Acute kidney injury -Nephrology consulted, appreciate recommendations -Spironolactone per nephrology -Avoid nephrotoxic medications -Renally dose medications -Daily weights -Strict intake and output -Renal ultrasound pending -Renal biopsy pending -Steroids per nephro Endo: h/o DM -CC renal cardiac diet -SSI -Hypoglycemia protocol -Hbg A1C 5.8 -Accu-Cheks AC at bedtime -Avoid hypoglycemia ID: [id number] -Monitor for signs symptoms of infection Heme: H/O anemia -Resume home iron -Trend CBC -Transfuse for hemoglobin less than 7 -Epogen per nephrology -SCDs to bilateral LE while in bed -Started on heparin drip and discontinued home Eliquis due to need for renal biopsy. The high probability of a clinically significant, sudden or life threatening deterioration of the [cardio] system(s) required my full and direct attention, intervention and personal management. The aggregate critical care time was [60] minutes. 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 Work-up in the emergency department revealed a BUN/creatinine of 24/3 (creatinine was 0.92 months ago), proBNP of 5093 and CXR revealed cardiomegaly with small bilateral pleural effusions. Patient received Lasix, hydralazine, labetalol in the emergency department for hypertension and was eventually started on a Cardene drip. On presentation patient blood pressure was 257/87. Patient was admitted to the hospitalist service with acute kidney injury and hypertensive urgency with consults to [facility], cardiology and nephrology. 01/05: Patient was able to be weaned off of Cardene drip and blood pressure was low to be better controlled with p.o. medications and as needed. Patient was downgraded from ICU to telemetry. This morning patient had slightly worsening metabolic acidosis, BUN/creatinine, hyperchloremia and has slight hypernatremia. 01/06: Patient was restarted on Cardene drip overnight due to persistent hypertension, p.o. medications were adjusted. Renal will hold off HD for now. Patient switched to heparin drip for pending renal biopsy from her [facility]. Spoke to receded this afternoon and patient was taken off of Cardene and we will continue to monitor for 2-3 more hours before downgrading. Patient complains of bilateral upper extremity swelling and pain and given history bilateral upper extremity Doppler ultrasound ordered to rule out DVT. Patient's blood pressure cuff at the time my examination of this morning was on her leg and I explained to her that the blood pressure readings will be higher on her leg however she insists that it would be on her leg due to pain in her upper extremities presumably from blood pressure cuff. 01/07: Patient had renal biopsy today, patient was restarted on clonidine overnight however cardiology states to only restart Cardene if SBP greater than 200. Patient currently on hydralazine 100 mg p.o. every 8, labetalol 300 mg p.o. twice daily, clonidine 0.2 mg twice daily Hospitalist Physical - Constitutional Vitals: Temp Pulse Resp BP Pulse Ox 98.5 F 55 L 12 138/59 96 01/07/21 15:15 01/07/21 16:00 01/07/21 16:00 01/07/21 16:00 01/07/21 16:00 General appearance: Present: no acute distress, well-nourished - EENT Eyes: Present: PERRL, EOM intact ENT: hearing intact, clear oral mucosa, dentition normal - Neck Neck: Present: supple, normal ROM - Respiratory Respiratory effort: normal Respiratory: bilateral: diminished - Cardiovascular Rhythm: regular Heart Sounds: Present: S1 & S2. Absent: systolic murmur, diastolic murmur - Extremities Extremities: no ischemia, pulses intact, pulses symmetrical, No edema, normal temperature, normal color Extremity abnormal: edema Peripheral Pulses: within normal limits - Abdominal General gastrointestinal: soft, non-tender, non-distended, normal bowel sounds - Integumentary Integumentary: Present: clear, warm, dry - Psychiatric Psychiatric: appropriate mood/affect - Neurologic Neurologic: CNII-XII intact, no focal deficits, moves all extremities - Allied Health Allied health notes reviewed: nursing, RT, social work HEART Score - HEART Score Troponin: Troponin T < 0.010 ng/mL (0.00-0.029) 01/04/21 22:00 Results - Labs CBC & Chem 7: 01/07/21 09:53 01/07/21 09:53 Labs: Laboratory Last Values WBC 6.0 K/mm3 (4.5-11.0) 01/07/21 09:53 RBC 2.82 M/mm3 (3.65-5.03) L 01/07/21 09:53 Hgb 8.4 gm/dl (10.1-14.3) L 01/07/21 09:53 Hct 25.7 % (30.3-42.9) L 01/07/21 09:53 MCV 91 fl (79-97) 01/07/21 09:53 MCH 30 pg (28-32) 01/07/21 09:53 MCHC 33 % (30-34) 01/07/21 09:53 RDW 20.2 % (13.2-15.2) H 01/07/21 09:53 Plt Count 187 K/mm3 (140-440) 01/07/21 09:53 Lymph % (Auto) 26.3 % (13.4-35.0) 01/06/21 04:33 [place] % (Auto) 11.9 % (0.0-7.3) H 01/06/21 04:33 Eos % (Auto) 2.6 % (0.0-4.3) 01/06/21 04:33 Baso % (Auto) 1.0 % (0.0-1.8) 01/06/21 04:33 Lymph # (Auto) 1.3 K/mm3 (1.2-5.4) 01/06/21 04:33 [place] # (Auto) 0.6 K/mm3 (0.0-0.8) 01/06/21 04:33 Eos # (Auto) 0.1 K/mm3 (0.0-0.4) 01/06/21 04:33 Baso # (Auto) 0.0 K/mm3 (0.0-0.1) 01/06/21 04:33 Seg Neutrophils % 58.2 % (40.0-70.0) 01/06/21 04:33 Seg Neutrophils # 2.8 K/mm3 (1.8-7.7) 01/06/21 04:33 PT 15.8 Sec. (12.2-14.9) H 01/06/21 10:46 INR 1.21 (0.87-1.13) H 01/06/21 10:46 APTT 24.0 Sec. (24.2-36.6) L 01/06/21 10:46 Heparin Anti-Xa Level 0.95 U.I./ml (0.3-0.7) H 01/07/21 09:53 Sodium 145 mmol/L (137-145) 01/07/21 09:53 Potassium 4.5 mmol/L (3.6-5.0) D 01/07/21 09:53 Chloride 108.0 mmol/L (98-107) H 01/07/21 09:53 Carbon Dioxide 19 mmol/L (22-30) L 01/07/21 09:53 Anion Gap 23 mmol/L 01/07/21 09:53 BUN 41 mg/dL (7-17) H 01/07/21 09:53 Creatinine 4.0 mg/dL (0.6-1.2) H 01/07/21 09:53 Estimated GFR 14 ml/min 01/07/21 09:53 BUN/Creatinine Ratio 10 % 01/07/21 09:53 Glucose 160 mg/dL (65-100) H 01/07/21 09:53 POC Glucose 146 mg/dL (70-105) H 01/07/21 17:08 Hemoglobin A1c 5.3 % (4-6) 01/05/21 09:05 Calcium 8.9 mg/dL (8.4-10.2) 01/07/21 09:53 Phosphorus 5.90 mg/dL (2.5-4.5) H 01/07/21 09:53 Magnesium 2.20 mg/dL (1.7-2.3) 01/07/21 09:53 Total Bilirubin 0.20 mg/dL (0.1-1.2) 01/06/21 04:33 AST 11 units/L (5-40) 01/06/21 04:33 ALT 7 units/L (7-56) 01/06/21 04:33 Alkaline Phosphatase 60 units/L (35-129) 01/06/21 04:33 Lactate Dehydrogenase 188 units/L (91-180) H 01/06/21 04:33 Troponin T < 0.010 ng/mL (0.00-0.029) 01/04/21 22:00 NT-Pro-B Natriuret Pep 5093 pg/mL (0-900) H 01/04/21 22:00 Total Protein 5.7 g/dL (6.3-8.2) L 01/06/21 04:33 Albumin 2.9 g/dL (3.9-5) L 01/06/21 04:33 Albumin/Globulin Ratio 1.0 % 01/06/21 04:33 TSH 4.420 mlU/mL (0.270-4.200) H 01/06/21 04:33 Free T4 1.19 ng/dL (0.76-1.46) 01/06/21 10:46 Urine Color Yellow (Yellow) 01/05/21 Unknown Urine Turbidity Cloudy (Clear) 01/05/21 Unknown Urine pH 5.0 (5.0-7.0) 01/05/21 Unknown Ur Specific [place] 1.015 (1.003-1.030) 01/05/21 Unknown Urine Protein >500 mg/dL (Negative) 01/05/21 Unknown Urine Glucose (UA) 50 mg/dL (Negative) 01/05/21 Unknown Urine Ketones Tr mg/dL (Negative) 01/05/21 Unknown Urine Blood Sm (Negative) 01/05/21 Unknown Urine Nitrite Neg (Negative) 01/05/21 Unknown Urine Bilirubin Neg (Negative) 01/05/21 Unknown Urine Urobilinogen < 2.0 mg/dL (<2.0) 01/05/21 Unknown Ur Leukocyte Esterase Lg (Negative) 01/05/21 Unknown Urine WBC (Auto) > 182.0 /HPF (0.0-6.0) H 01/05/21 Unknown Urine RBC (Auto) 94.0 /HPF (0.0-6.0) 01/05/21 Unknown U Epithel Cells (Auto) 11.0 /HPF (0-13.0) 01/05/21 Unknown Urine WBC Clumps 3+ /HPF 01/05/21 Unknown Urine Mucus Few /HPF 01/05/21 Unknown Urine Yeast (Budding) 1+ /HPF 01/05/21 Unknown Urine Creatinine 146.4 mg/dL (0.1-20.0) H 01/05/21 Unknown Urine Sodium 67 mmol/L 01/05/21 Unknown Urine Total Protein 844 mg/dL (5-11.8) H 01/05/21 Unknown Hep Bs Antigen Nonreactive (Negative) 01/06/21 10:46 Hepatitis C Antibody Non-reactive (NonReactive) 01/06/21 10:46 Active Medications - Current Medications Current Medications: Generic Name Dose Route Start Last Admin Trade Name Freq PRN Reason Stop Dose Admin Acetaminophen 650 mg 01/05/21 02:13 Acetaminophen 325 Mg Tab PO Q4H PRN Pain MILD(1-3)/Fever >100.5/ALVARADO Albuterol 2.5 mg 01/05/21 02:13 Albuterol 2.5 Mg/3 Ml Nebu IH Q4HRT PRN Shortness Of Breath Amlodipine Besylate 10 mg 01/07/21 10:00 01/07/21 10:55 Amlodipine 10 Mg Tab PO 10 mg QDAY FLOR Administration Clonidine HCl 0.2 mg 01/07/21 08:00 01/07/21 14:02 Clonidine 0.2 Mg Tab PO Not Given Q8HR FLOR Dextrose 50 ml 01/05/21 02:13 Dextrose 50% In Water (25gm) 50 Ml Syringe IV Q30MIN PRN Hypoglycemia Protocol Docusate Sodium 100 mg 01/05/21 22:00 01/07/21 10:54 Docusate Sodium 100 Mg Cap PO 100 mg BID FLOR Administration Famotidine 10 mg 01/05/21 10:00 01/07/21 10:54 Famotidine 10 Mg Tab PO 10 mg BID FLOR Administration Ferrous Sulfate 325 mg 01/05/21 22:00 01/07/21 10:54 Ferrous Sulfate 325 Mg Tab PO 325 mg BID FLOR Administration Heparin Sodium (Porcine) 3,600 unit 01/06/21 11:00 01/06/21 14:54 Heparin 10,000 Units/10 Ml Vial 40 unit/kg (3600 unit) 3,600 unit IV Administration Q6H PRN Anti-Xa Assay < 0.1 units/ml Hydralazine HCl 10 mg 01/05/21 02:18 01/05/21 16:40 Hydralazine 20 Mg/1 Ml Inj IV 10 mg Q6H PRN Administration SBP >/=165; DBP >/=100 Hydralazine HCl 100 mg 01/05/21 14:00 01/07/21 14:02 Hydralazine 100 Mg Tab PO Not Given Q8HR [facility] Hydromorphone HCl 0.5 mg 01/05/21 02:13 Hydromorphone 1 Mg/1 Ml Inj IV Q3H PRN Pain , Severe (7-10) Methylprednisolone Sodium 100 mls @ 200 mls/hr 01/06/21 11:00 01/07/21 12:19 Succinate 500 mg/ Sodium IV 01/09/21 10:59 200 mls/hr Chloride Q24HR FLOR Administration Heparin Sodium/Sodium Chloride 25,000 unit in 500 mls @ 27 mls/hr 01/06/21 11:00 01/07/21 04:50 Heparin/ 0.45% Nacl-25,000 Unit/500 Ml IV 1,170 units/hr TITR FLOR 23.4 mls/hr Titration Protocol 1,350 UNITS/HR Insulin Glargine 5 units 01/07/21 22:00 Insulin Glargine 100 Units/Ml SUB-Q QHS [facility] Insulin Human Lispro 0 unit 01/05/21 07:30 01/07/21 16:37 Insulin Lispro 100 Unit/Ml SUB-Q Not Given ACHS [facility] Protocol Labetalol HCl 300 mg 01/05/21 10:00 01/07/21 11:27 Labetalol 100 Mg Tab PO 300 mg BID FLOR Administration Nitroglycerin 0.4 mg 01/05/21 02:18 Nitroglycerin 0.4 Mg Tab Subl SL .Q5MIN PRN Chest Pain Ondansetron HCl 4 mg 01/05/21 02:13 Ondansetron 4 Mg/2 Ml Inj IV Q8H PRN Nausea And Vomiting Oxycodone/Acetaminophen 1 tab 01/05/21 02:13 Oxycodone /Acetaminophen 5-325mg Tab PO Q6H PRN Pain, Moderate (4-6) Pravastatin Sodium 40 mg 01/05/21 22:00 01/06/21 22:13 Pravastatin 40 Mg Tab PO 40 mg QHS FLOR Administration Sodium Chloride 10 ml 01/05/21 10:00 01/07/21 12:19 Sodium Chloride 0.9% 10 Ml Flush Syringe IV Not Given BID FLOR Sodium Chloride 10 ml 01/05/21 02:13 Sodium Chloride 0.9% 10 Ml Flush Syringe IV PRN PRN LINE FLUSH Spironolactone 25 mg 01/05/21 10:00 01/07/21 11:38 Spironolactone 25 Mg Tab PO 25 mg BID FLOR Administration Nutrition/Malnutrition Assess - Dietary Evaluation Nutrition/Malnutrition Findings: Nutrition Notes Start: 01/05/21 07:36 Freq: Status: Active Protocol: Document 01/05/21 07:36 (Rec: 01/05/21 07:38 [id number]) Nutrition Notes Need for Assessment generated from: MD Order Initial or Follow up Brief Note Current Diagnosis CKD(stage I-IV),Diabetes, Hypertension,Heart Failure Other Pertinent Diagnosis DVT Current Diet Cardiac, Consistent CHO Subjective/Other Information MD consult for diet education. Pt on hold in ED. Nutrition Intervention Follow-Up By: 01/08/21 Additional Comments F/u: diet education
[2021-01-07] MEDS: INSULIN GLARGINE 100 UNITS/ML SUB-Q SCH (22:55)
[2021-01-07] MEDS: PRAVASTATIN 40 MG TAB PO SCH (22:55)
[2021-01-08 05:13] LABS: Hematocrit 25.2 % (30.3-42.9); Hemoglobin 8.3 gm/dl (10.1-14.3); Lymphocytes # (Auto) 0.6 K/mm3 (1.2-5.4); Lymphocytes % (Auto) 8.7 % (13.4-35.0); Mean Corpuscular HGB Conc 33 % (30-34); Mean Corpuscular Volume 91 fl (79-97); Monocytes # (Auto) 0.2 K/mm3 (0.0-0.8); Monocytes % (Auto) 2.6 % (0.0-7.3); Platelet Count 167 K/mm3 (140-440); Red Blood Count 2.75 M/mm3 (3.65-5.03)
[2021-01-08 05:19] LABS: Calcium 8.6 mg/dL (8.4-10.2)
[2021-01-08] MEDS: cloNIDine 0.2 MG TAB PO SCH ×3 (06:20→22:26)
[2021-01-08] MEDS: hydrALAZINE 100 MG TAB PO SCH ×3 (06:20→22:26)
--- NOTE | 2021-01-08 07:50 | Progress Note ---
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 Neuro: NAD -Reorientation as needed -Avoid delirium -Aspiration and fall precautions Cardio: Hypertensive emergency, HFpEF (EF 55 to 60% in 2020), h/o HTN -Cardiology consulted, appreciate recommendations -Cardene drip has been off since yesterday. -Per cardio Cardene gtt fo SBP>200 -Current antihypertensive regimen: Labetalol, Hydralazine, Clonidine -Blood Pressure monitoring per protocol -12/2020 echocardiogram shows mild left ventricular hypertrophy, EF 55 to 60% -Remote telemetry -S/p Lasix in the ED -Avoid RICK/ARB in setting of THANH Respiratory: NAD -Pulmonary hygiene -Supplemental oxygen as needed GI: NAD -CC cardiac renal diet -PPI -BR: Colace : Acute kidney injury, Nephrotic Syndrome s/p renal biopsy -urine protein to creatinine ratio demonstrates nephrotic range proteinuria -Ongoing work-up right now for acute rapidly progressive glomerulonephritis. -Nephrology following -Spironolactone per nephrology -Avoid nephrotoxic medications -Renally dose medications -Daily weights -Strict intake and output -Renal ultrasound pending - s/p -Renal biopsy on 01/08 -Steroids x3 days per nephro Endo: h/o DM -CC renal cardiac diet -SSI -Hypoglycemia protocol -Hbg A1C 5.8 -Accu-Cheks AC at bedtime -Avoid hypoglycemia ID: [id number] -Monitor for signs symptoms of infection Heme: H/O anemia -Resume home iron -Trend CBC -Transfuse for hemoglobin less than 7 -Epogen per nephrology -SCDs to bilateral LE while in bed -Started on heparin drip and discontinued home Eliquis due to need for renal biopsy. The high probability of a clinically significant, sudden or life threatening deterioration of the [cardio] system(s) required my full and direct attention, intervention and personal management. The aggregate critical care time was [60] minutes. 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 Work-up in the emergency department revealed a BUN/creatinine of 24/3 (creatinine was 0.92 months ago), proBNP of 5093 and CXR revealed cardiomegaly with small bilateral pleural effusions. Patient received Lasix, hydralazine, labetalol in the emergency department for hypertension and was eventually started on a Cardene drip. On presentation patient blood pressure was 257/87. Patient was admitted to the hospitalist service with acute kidney injury and hypertensive urgency with consults to [facility], cardiology and nephrology. 01/05: Patient was able to be weaned off of Cardene drip and blood pressure was low to be better controlled with p.o. medications and as needed. Patient was downgraded from ICU to telemetry. This morning patient had slightly worsening metabolic acidosis, BUN/creatinine, hyperchloremia and has slight hypernatremia. 01/06: Patient was restarted on Cardene drip overnight due to persistent hypertension, p.o. medications were adjusted. Renal will hold off HD for now. Patient switched to heparin drip for pending renal biopsy from her Eliis. Spoke to receded this afternoon and patient was taken off of Cardene and we will continue to monitor for 2-3 more hours before downgrading. Patient complains of bilateral upper extremity swelling and pain and given history bilateral upper extremity Doppler ultrasound ordered to rule out DVT. Patient's blood pressure cuff at the time my examination of this morning was on her leg and I explained to her that the blood pressure readings will be higher on her leg however she insists that it would be on her leg due to pain in her upper extremities presumably from blood pressure cuff. 01/07: Patient had renal biopsy today, patient was restarted on clonidine overnight however cardiology states to only restart Cardene if SBP greater than 200. Patient currently on hydralazine 100 mg p.o. every 8, labetalol 300 mg p .o. twice daily, clonidine 0.2 mg twice daily 01/08: Doing well on encounter this morning. No acute complaints. Patient did state that she is not producing much urine. Patient was off of Cardene ov ernight, blood pressures considerably under better control. Site of CT-guided biopsy examined, no hematoma or acute drainage appreciated. Today's day 3 of IV steroids. eGFR continues to decline. Nephrology spoke with patient regarding hemodialysis and she is agreeable if the acute indication arises. Hospitalist Physical - Physical exam Narrative exam: General appearance: well-developed, well-nourished, appears stated age, obese EENT: ATNC, PERRL, mucous membranes moist Neck: no JVD Respiratory: Present: Clear to Ascultation Cardiology: regular, S1S2 Gastrointestinal: normoactive bowel sounds, obese Integumentary: no rash, other (+ edema b/l LE ) Neurologic: no focal deficit, alert and oriented x3, strength 5/5, CN 3-12 intact Psychiatric: mood/affect appropriate, cooperative - Constitutional Vitals: Temp Pulse Resp BP Pulse Ox 98.5 F 64 13 162/80 100 01/07/21 15:15 01/08/21 06:20 01/08/21 06:15 01/08/21 06:20 01/08/21 06:15 General appearance: Present: no acute distress, well-nourished HEART Score - HEART Score Troponin: Troponin T < 0.010 ng/mL (0.00-0.029) 01/04/21 22:00 Results - Labs CBC & Chem 7: 01/08/21 04:38 01/08/21 04:38 Labs: Laboratory Last Values WBC 7.4 K/mm3 (4.5-11.0) 01/08/21 04:38 RBC 2.75 M/mm3 (3.65-5.03) L 01/08/21 04:38 Hgb 8.3 gm/dl (10.1-14.3) L 01/08/21 04:38 Hct 25.2 % (30.3-42.9) L 01/08/21 04:38 MCV 91 fl (79-97) 01/08/21 04:38 MCH 30 pg (28-32) 01/08/21 04:38 MCHC 33 % (30-34) 01/08/21 04:38 RDW 20.0 % (13.2-15.2) H 01/08/21 04:38 Plt Count 167 K/mm3 (140-440) 01/08/21 04:38 Lymph % (Auto) 8.7 % (13.4-35.0) L 01/08/21 04:38 [place] % (Auto) 2.6 % (0.0-7.3) 01/08/21 04:38 Eos % (Auto) 0.0 % (0.0-4.3) 01/08/21 04:38 Baso % (Auto) 0.0 % (0.0-1.8) 01/08/21 04:38 Lymph # (Auto) 0.6 K/mm3 (1.2-5.4) L 01/08/21 04:38 [place] # (Auto) 0.2 K/mm3 (0.0-0.8) 01/08/21 04:38 Eos # (Auto) 0.0 K/mm3 (0.0-0.4) 01/08/21 04:38 Baso # (Auto) 0.0 K/mm3 (0.0-0.1) 01/08/21 04:38 Seg Neutrophils % 88.7 % (40.0-70.0) H 01/08/21 04:38 Seg Neutrophils # 6.6 K/mm3 (1.8-7.7) 01/08/21 04:38 PT 15.8 Sec. (12.2-14.9) H 01/06/21 10:46 INR 1.21 (0.87-1.13) H 01/06/21 10:46 APTT 24.0 Sec. (24.2-36.6) L 01/06/21 10:46 Heparin Anti-Xa Level 0.95 U.I./ml (0.3-0.7) H 01/07/21 09:53 Sodium 142 mmol/L (137-145) 01/08/21 04:38 Potassium 4.6 mmol/L (3.6-5.0) 01/08/21 04:38 Chloride 106.1 mmol/L (98-107) 01/08/21 04:38 Carbon Dioxide 20 mmol/L (22-30) L 01/08/21 04:38 Anion Gap 21 mmol/L 01/08/21 04:38 BUN 54 mg/dL (7-17) H 01/08/21 04:38 Creatinine 4.9 mg/dL (0.6-1.2) H 01/08/21 04:38 Estimated GFR 11 ml/min 01/08/21 04:38 BUN/Creatinine Ratio 11 % 01/08/21 04:38 Glucose 170 mg/dL (65-100) H 01/08/21 04:38 POC Glucose 182 mg/dL (70-105) H 01/07/21 22:23 Hemoglobin A1c 5.3 % (4-6) 01/05/21 09:05 Calcium 8.6 mg/dL (8.4-10.2) 01/08/21 04:38 Phosphorus 5.90 mg/dL (2.5-4.5) H 01/07/21 09:53 Magnesium 2.20 mg/dL (1.7-2.3) 01/07/21 09:53 Total Bilirubin 0.20 mg/dL (0.1-1.2) 01/06/21 04:33 AST 11 units/L (5-40) 01/06/21 04:33 ALT 7 units/L (7-56) 01/06/21 04:33 Alkaline Phosphatase 60 units/L (35-129) 01/06/21 04:33 Lactate Dehydrogenase 188 units/L (91-180) H 01/06/21 04:33 Troponin T < 0.010 ng/mL (0.00-0.029) 01/04/21 22:00 NT-Pro-B Natriuret Pep 5093 pg/mL (0-900) H 01/04/21 22:00 Total Protein 5.7 g/dL (6.3-8.2) L 01/06/21 04:33 Albumin 2.9 g/dL (3.9-5) L 01/06/21 04:33 Albumin/Globulin Ratio 1.0 % 01/06/21 04:33 TSH 4.420 mlU/mL (0.270-4.200) H 01/06/21 04:33 Free T4 1.19 ng/dL (0.76-1.46) 01/06/21 10:46 Urine Color Yellow (Yellow) 01/05/21 Unknown Urine Turbidity Cloudy (Clear) 01/05/21 Unknown Urine pH 5.0 (5.0-7.0) 01/05/21 Unknown Ur Specific Strawberry 1.015 (1.003-1.030) 01/05/21 Unknown Urine Protein >500 mg/dL (Negative) 01/05/21 Unknown Urine Glucose (UA) 50 mg/dL (Negative) 01/05/21 Unknown Urine Ketones Tr mg/dL (Negative) 01/05/21 Unknown Urine Blood Sm (Negative) 01/05/21 Unknown Urine Nitrite Neg (Negative) 01/05/21 Unknown Urine Bilirubin Neg (Negative) 01/05/21 Unknown Urine Urobilinogen < 2.0 mg/dL (<2.0) 01/05/21 Unknown Ur Leukocyte Esterase Lg (Negative) 01/05/21 Unknown Urine WBC (Auto) > 182.0 /HPF (0.0-6.0) H 01/05/21 Unknown Urine RBC (Auto) 94.0 /HPF (0.0-6.0) 01/05/21 Unknown U Epithel Cells (Auto) 11.0 /HPF (0-13.0) 01/05/21 Unknown Urine WBC Clumps 3+ /HPF 01/05/21 Unknown Urine Mucus Few /HPF 01/05/21 Unknown Urine Yeast (Budding) 1+ /HPF 01/05/21 Unknown Urine Creatinine 146.4 mg/dL (0.1-20.0) H 01/05/21 Unknown Urine Sodium 67 mmol/L 01/05/21 Unknown Urine Total Protein 844 mg/dL (5-11.8) H 01/05/21 Unknown Hep Bs Antigen Nonreactive (Negative) 01/06/21 10:46 Hepatitis C Antibody Non-reactive (NonReactive) 01/06/21 10:46 Active Medications - Current Medications Current Medications: Generic Name Dose Route Start Last Admin Trade Name Freq PRN Reason Stop Dose Admin Acetaminophen 650 mg 01/05/21 02:13 Acetaminophen 325 Mg Tab PO Q4H PRN Pain MILD(1-3)/Fever >100.5/ALVARADO Albuterol 2.5 mg 01/05/21 02:13 Albuterol 2.5 Mg/3 Ml Nebu IH Q4HRT PRN Shortness Of Breath Amlodipine Besylate 10 mg 01/07/21 10:00 01/07/21 10:55 Amlodipine 10 Mg Tab PO 10 mg QDAY FLOR Administration Clonidine HCl 0.2 mg 01/07/21 08:00 01/08/21 06:20 Clonidine 0.2 Mg Tab PO 0.2 mg Q8HR FLOR Administration Dextrose 50 ml 01/05/21 02:13 Dextrose 50% In Water (25gm) 50 Ml Syringe IV Q30MIN PRN Hypoglycemia Protocol Docusate Sodium 100 mg 01/05/21 22:00 01/07/21 22:54 Docusate Sodium 100 Mg Cap PO 100 mg BID FLOR Administration Famotidine 10 mg 01/05/21 10:00 01/07/21 22:55 Famotidine 10 Mg Tab PO 10 mg BID FLOR Administration Ferrous Sulfate 325 mg 01/05/21 22:00 01/07/21 22:54 Ferrous Sulfate 325 Mg Tab PO 325 mg BID FLOR Administration Heparin Sodium (Porcine) 3,600 unit 01/06/21 11:00 01/06/21 14:54 Heparin 10,000 Units/10 Ml Vial 40 unit/kg (3600 unit) 3,600 unit IV Administration Q6H PRN Anti-Xa Assay < 0.1 units/ml Hydralazine HCl 10 mg 01/05/21 02:18 01/05/21 16:40 Hydralazine 20 Mg/1 Ml Inj IV 10 mg Q6H PRN Administration SBP >/=165; DBP >/=100 Hydralazine HCl 100 mg 01/05/21 14:00 01/08/21 06:20 Hydralazine 100 Mg Tab PO 100 mg Q8HR FLOR Administration Hydromorphone HCl 0.5 mg 01/05/21 02:13 Hydromorphone 1 Mg/1 Ml Inj IV Q3H PRN Pain , Severe (7-10) Methylprednisolone Sodium 100 mls @ 200 mls/hr 01/06/21 11:00 01/07/21 12:19 Succinate 500 mg/ Sodium IV 01/09/21 10:59 200 mls/hr Chloride Q24HR FLOR Administration Heparin Sodium/Sodium Chloride 25,000 unit in 500 mls @ 27 mls/hr 01/06/21 11:00 01/07/21 04:50 Heparin/ 0.45% Nacl-25,000 Unit/500 Ml IV 1,170 units/hr TITR FLRO 23.4 mls/hr Titration Protocol 1,350 UNITS/HR Insulin Glargine 5 units 01/07/21 22:00 01/07/21 22:55 Insulin Glargine 100 Units/Ml SUB-Q 5 units QHS FLOR Administration Insulin Human Lispro 0 unit 01/05/21 07:30 01/07/21 22:55 Insulin Lispro 100 Unit/Ml SUB-Q 3 unit ACHS FLOR Administration Protocol Labetalol HCl 300 mg 01/05/21 10:00 01/07/21 22:55 Labetalol 100 Mg Tab PO 300 mg BID FLOR Administration Nitroglycerin 0.4 mg 01/05/21 02:18 Nitroglycerin 0.4 Mg Tab Subl SL .Q5MIN PRN Chest Pain Ondansetron HCl 4 mg 01/05/21 02:13 Ondansetron 4 Mg/2 Ml Inj IV Q8H PRN Nausea And Vomiting Oxycodone/Acetaminophen 1 tab 01/05/21 02:13 Oxycodone /Acetaminophen 5-325mg Tab PO Q6H PRN Pain, Moderate (4-6) Pravastatin Sodium 40 mg 01/05/21 22:00 01/07/21 22:55 Pravastatin 40 Mg Tab PO 40 mg QHS FLOR Administration Sodium Chloride 10 ml 01/05/21 10:00 01/07/21 22:55 Sodium Chloride 0.9% 10 Ml Flush Syringe IV 10 ml BID FLOR Administration Sodium Chloride 10 ml 01/05/21 02:13 Sodium Chloride 0.9% 10 Ml Flush Syringe IV PRN PRN LINE FLUSH Spironolactone 25 mg 01/05/21 10:00 01/07/21 22:54 Spironolactone 25 Mg Tab PO 25 mg BID FLOR Administration Nutrition/Malnutrition Assess - Dietary Evaluation Nutrition/Malnutrition Findings: Nutrition Notes Start: 01/05/21 07:36 Freq: Status: Active Protocol: Document 01/05/21 07:36 (Rec: 01/05/21 07:38 [email or web address]) Nutrition Notes Need for Assessment generated from: MD Order Initial or Follow up Brief Note Current Diagnosis CKD(stage I-IV),Diabetes, Hypertension,Heart Failure Other Pertinent Diagnosis DVT Current Diet Cardiac, Consistent CHO Subjective/Other Information MD consult for diet education. Pt on hold in ED. Nutrition Intervention Follow-Up By: 01/11/21 Additional Comments F/u: placement, diet education
[2021-01-08] MEDS: INSULIN LISPRO 100 UNIT/ML SUB-Q SCH ×4 (08:55→22:27)
[2021-01-08] MEDS: FERROUS SULFATE 325 MG TAB PO SCH ×2 (10:20→22:25)
[2021-01-08] MEDS: DOCUSATE SODIUM 100 MG CAP PO SCH ×2 (10:25→22:26)
[2021-01-08] MEDS: amLODIPine 10 MG TAB PO SCH (10:25)
--- NOTE | 2021-01-08 10:47 | Progress Note ---
Assessment and Plan - Patient Problems (1) Acute renal failure Current Visit: Yes Status: Acute Qualifiers: Acute renal failure type: unspecified Qualified Code(s): N17.9 - Acute kidney failure, unspecified Plan to address problem: DD for THANH incl. malignant hypertension, rule out thrombotic microangiopathy in the setting of hypertensive emergency. Urine protein/cr ratio was measured to be > 5.7g/g, nephrotic range proteinuria, along with e/o hematuria and leukocyturia, given also progressive renal failure there is high suspicion for acute rapidly progressive glomerulonephritis. check ANCA, Anti GBM Ab, JESS, C3/4, hep B/C panel, SPEP. S/p renal biopsy for tissue diagnosis on 01/07, res ults pending. Day 3 of IV solumedrol 500mg qd. No acute indication for renal replacement at present, however discussed need for HD if eGFR continues to decline rapidly, risks and benefits of HD discussed, pt is agreeable to HD if acute indications arise. Cont supportive care for THANH avoid ,nephrotoxins, NSAIDs, IV contrast. Will monitor lytes/renal parameters closely and make further recommendations (2) Hypertensive emergency Current Visit: Yes Status: Acute Plan to address problem: Cardene gtt discontinued this AM. Transition to po BP meds incl. hydralazine 100mg po tid and labetalol 300mg bid, spironolactone 25mg po bid, clonidine 0.2mg po bid, amlodipine 10mg po qd. hold RICK-I/ARB in the setting of THANH. (3) Metabolic acidosis Current Visit: Yes Status: Acute Plan to address problem: hyperchloremic met acidosis in the setting of THANH. If serum CO2 continues to decline and BP is better controlled, will consider po Na bicarb (4) Type 2 diabetes mellitus with diabetic chronic kidney disease Current Visit: Yes Status: Acute Plan to address problem: DM management as per primary attending (5) Anemia in chronic illness Current Visit: Yes Status: Acute Plan to address problem: check iron panel/ferritin Subjective Date of service: 01/08/21 Principal diagnosis: Hypertensive emergency, Acute renal failure Interval history: Pt awake, alert, in no acute distress, BP improved, pt is off cardene gtt this AM. Denies fever, chills, n/v/d, dysuria, SOB, CP, palpitations. S/p renal biopsy on 01/07 Objective - Vital Signs Vital signs: Vital Signs - 12hr 01/07/21 01/07/21 01/07/21 22:45 22:54 22:55 Pulse Rate 63 67 67 Respiratory 12 Rate Blood Pressure 152/62 153/69 153/69 O2 Sat by Pulse 100 Oximetry 01/07/21 01/07/21 01/07/21 23:01 23:15 23:31 Pulse Rate 58 L 59 L 56 L Respiratory 12 12 13 Rate Blood Pressure 159/62 152/62 152/62 O2 Sat by Pulse 100 100 100 Oximetry 01/07/21 01/08/21 01/08/21 23:45 00:01 00:15 Pulse Rate 59 L 58 L 59 L Respiratory 10 L 13 14 Rate Blood Pressure 152/62 167/73 167/73 O2 Sat by Pulse 100 99 100 Oximetry 01/08/21 01/08/21 01/08/21 00:21 00:31 00:45 Pulse Rate 55 L 55 L Respiratory 11 L 11 L Rate Blood Pressure 167/73 167/73 O2 Sat by Pulse 99 99 98 Oximetry 01/08/21 01/08/21 01/08/21 01:01 01:15 01:31 Pulse Rate 53 L 69 58 L Respiratory 11 L 14 28 H Rate Blood Pressure 135/60 135/60 135/60 O2 Sat by Pulse 98 99 100 Oximetry 01/08/21 01/08/21 01/08/21 01:45 02:01 02:15 Pulse Rate 57 L 57 L 58 L Respiratory 15 13 14 Rate Blood Pressure 135/60 151/61 151/61 O2 Sat by Pulse 100 99 99 Oximetry 01/08/21 01/08/21 01/08/21 02:31 02:45 03:01 Pulse Rate 57 L 54 L 56 L Respiratory 11 L 12 12 Rate Blood Pressure 151/61 151/61 141/55 O2 Sat by Pulse 98 98 98 Oximetry 01/08/21 01/08/21 01/08/21 03:15 03:31 03:45 Pulse Rate 58 L 58 L 57 L Respiratory 12 12 12 Rate Blood Pressure 141/55 141/55 141/55 O2 Sat by Pulse 98 98 98 Oximetry 01/08/21 01/08/21 01/08/21 04:01 04:15 04:31 Pulse Rate 53 L 53 L 55 L Respiratory 11 L 11 L 11 L Rate Blood Pressure 147/58 147/58 147/58 O2 Sat by Pulse 99 99 99 Oximetry 01/08/21 01/08/21 01/08/21 04:45 05:01 05:15 Pulse Rate 58 L 58 L 58 L Respiratory 13 11 L 13 Rate Blood Pressure 147/58 151/59 151/59 O2 Sat by Pulse 100 100 99 Oximetry 01/08/21 01/08/21 01/08/21 05:31 05:45 06:01 Pulse Rate 58 L 61 60 Respiratory 12 16 15 Rate Blood Pressure 151/59 151/59 162/60 O2 Sat by Pulse 99 100 100 Oximetry 01/08/21 01/08/21 01/08/21 06:15 06:20 06:31 Pulse Rate 58 L 64 58 L Respiratory 13 13 Rate Blood Pressure 162/60 162/80 162/60 O2 Sat by Pulse 100 99 Oximetry 01/08/21 01/08/21 01/08/21 06:45 07:01 07:15 Pulse Rate 67 55 L 56 L Respiratory 10 L 12 15 Rate Blood Pressure 162/60 162/61 162/61 O2 Sat by Pulse 99 99 98 Oximetry 01/08/21 01/08/21 01/08/21 07:31 07:45 08:01 Pulse Rate 61 64 56 L Respiratory 12 8 L 13 Rate Blood Pressure 162/61 162/61 164/61 O2 Sat by Pulse 99 100 100 Oximetry 01/08/21 01/08/21 01/08/21 08:15 08:30 08:31 Pulse Rate 53 L 57 L Respiratory 10 L 12 Rate Blood Pressure 164/61 164/61 O2 Sat by Pulse 98 98 100 Oximetry 01/08/21 08:45 Pulse Rate 64 Respiratory 10 L Rate Blood Pressure 164/61 O2 Sat by Pulse 100 Oximetry - General Appearance General appearance: well-developed, well-nourished, appears stated age, obese EENT: ATNC, PERRL, mucous membranes moist Neck: no JVD Respiratory: Present: Clear to Ascultation Cardiology: regular, S1S2 Gastrointestinal: normoactive bowel sounds, obese Integumentary: no rash, other (+ edema b/l LE ) Neurologic: no focal deficit, alert and oriented x3, strength 5/5, CN 3-12 intact Psychiatric: mood/affect appropriate, cooperative - Lab 01/08/21 04:38 01/08/21 04:38 Most recent lab results Calcium 8.6 mg/dL (8.4-10.2) 01/08/21 04:38 Phosphorus 5.90 mg/dL (2.5-4.5) H 01/07/21 09:53 Magnesium 2.20 mg/dL (1.7-2.3) 01/07/21 09:53 Urine Creatinine 146.4 mg/dL (0.1-20.0) H 01/05/21 Unknown Urine Sodium 67 mmol/L 01/05/21 Unknown Urine Total Protein 844 mg/dL (5-11.8) H 01/05/21 Unknown Medications & Allergies - Medications Allergies/Adverse Reactions: Allergies No Known Allergies Allergy (Verified 12/22/17 17:38) Home Medications: Home Medications Medication Instructions Recorded Confirmed Last Taken Type Apixaban [Eliquis] 5 mg PO BID 01/05/21 01/05/21 Unknown History Ferrous Sulfate [Iron 325 MG] 325 mg PO BID 01/05/21 01/05/21 Unknown History Losartan [Cozaar] 100 mg PO QDAY 01/05/21 01/05/21 Unknown History Pravastatin [Pravachol] 40 mg PO QHS 01/05/21 01/05/21 Unknown History glipiZIDE [Glucotrol] 5 mg PO QDAY 01/05/21 01/05/21 Unknown History labetaloL [Labetalol 200mg TAB] 200 mg PO BID 01/05/21 01/05/21 Unknown History Active Medications: Generic Name Dose Route Start Last Admin Trade Name Freq PRN Reason Stop Dose Admin Acetaminophen 650 mg 01/05/21 02:13 Acetaminophen 325 Mg Tab PO Q4H PRN Pain MILD(1-3)/Fever >100.5/ALVARADO Albuterol 2.5 mg 01/05/21 02:13 Albuterol 2.5 Mg/3 Ml Nebu IH Q4HRT PRN Shortness Of Breath Amlodipine Besylate 10 mg 01/07/21 10:00 01/07/21 10:55 Amlodipine 10 Mg Tab PO 10 mg QDAY FLOR Administration Clonidine HCl 0.2 mg 01/07/21 08:00 01/08/21 06:20 Clonidine 0.2 Mg Tab PO 0.2 mg Q8HR FLOR Administration Dextrose 50 ml 01/05/21 02:13 Dextrose 50% In Water (25gm) 50 Ml Syringe IV Q30MIN PRN Hypoglycemia Protocol Docusate Sodium 100 mg 01/05/21 22:00 01/07/21 22:54 Docusate Sodium 100 Mg Cap PO 100 mg BID FLOR Administration Famotidine 10 mg 01/05/21 10:00 01/07/21 22:55 Famotidine 10 Mg Tab PO 10 mg BID FLOR Administration Ferrous Sulfate 325 mg 01/05/21 22:00 01/07/21 22:54 Ferrous Sulfate 325 Mg Tab PO 325 mg BID FLOR Administration Heparin Sodium (Porcine) 3,600 unit 01/06/21 11:00 01/06/21 14:54 Heparin 10,000 Units/10 Ml Vial 40 unit/kg (3600 unit) 3,600 unit IV Administration Q6H PRN Anti-Xa Assay < 0.1 units/ml Hydralazine HCl 10 mg 01/05/21 02:18 01/05/21 16:40 Hydralazine 20 Mg/1 Ml Inj IV 10 mg Q6H PRN Administration SBP >/=165; DBP >/=100 Hydralazine HCl 100 mg 01/05/21 14:00 01/08/21 06:20 Hydralazine 100 Mg Tab PO 100 mg Q8HR FLOR Administration Hydromorphone HCl 0.5 mg 01/05/21 02:13 Hydromorphone 1 Mg/1 Ml Inj IV Q3H PRN Pain , Severe (7-10) Methylprednisolone Sodium 100 mls @ 200 mls/hr 01/06/21 11:00 01/07/21 12:19 Succinate 500 mg/ Sodium IV 01/09/21 10:59 200 mls/hr Chloride Q24HR FLOR Administration Heparin Sodium/Sodium Chloride 25,000 unit in 500 mls @ 27 mls/hr 01/06/21 11:00 01/07/21 04:50 Heparin/ 0.45% Nacl-25,000 Unit/500 Ml IV 1,170 units/hr TITR FLOR 23.4 mls/hr Titration Protocol 1,350 UNITS/HR Insulin Glargine 5 units 01/07/21 22:00 01/07/21 22:55 Insulin Glargine 100 Units/Ml SUB-Q 5 units QHS FLOR Administration Insulin Human Lispro 0 unit 01/05/21 07:30 01/08/21 08:55 Insulin Lispro 100 Unit/Ml SUB-Q 3 unit ACHS FLOR Administration Protocol Labetalol HCl 300 mg 01/05/21 10:00 01/07/21 22:55 Labetalol 100 Mg Tab PO 300 mg BID FLOR Administration Nitroglycerin 0.4 mg 01/05/21 02:18 Nitroglycerin 0.4 Mg Tab Subl SL .Q5MIN PRN Chest Pain Ondansetron HCl 4 mg 01/05/21 02:13 Ondansetron 4 Mg/2 Ml Inj IV Q8H PRN Nausea And Vomiting Oxycodone/Acetaminophen 1 tab 01/05/21 02:13 Oxycodone /Acetaminophen 5-325mg Tab PO Q6H PRN Pain, Moderate (4-6) Pravastatin Sodium 40 mg 01/05/21 22:00 01/07/21 22:55 Pravastatin 40 Mg Tab PO 40 mg QHS FLOR Administration Sodium Chloride 10 ml 01/05/21 10:00 01/07/21 22:55 Sodium Chloride 0.9% 10 Ml Flush Syringe IV 10 ml BID FLOR Administration Sodium Chloride 10 ml 01/05/21 02:13 Sodium Chloride 0.9% 10 Ml Flush Syringe IV PRN PRN LINE FLUSH Spironolactone 25 mg 01/05/21 10:00 01/07/21 22:54 Spironolactone 25 Mg Tab PO 25 mg BID FLOR Administration
--- NOTE | 2021-01-08 10:51 | Progress Note ---
Assessment and Plan 65 y/o obese female with known HTN admitted with Hypertensive Urgency and worsening renal disease 01/08/21: On no oxygen, BP improved and off drip. Will sign off. Call if questions. Please down grade from IMCU/ICU 01/07/21: consider increasing oral therapy to help with BP control. WEan Cardene off. Remains a border in the ED as no ICU beds available : stopped duonebs. WEan Cardene to off as tolerated. Agree with oral regimen and still has room for increases if needed. 1. Agree with cardene drip 2. Await new renal evaluation so that oral therapy can be started to help control BP with hopes of weaning drip off 3. Anticoagulation for prior history of VTE 4. Weight loss CCT 31 minutes. Subjective Date of service: 01/08/21 Principal diagnosis: Hypertensive emergency, Acute renal failure Interval history: Off cardene drip now. Now on room air. Objective - Constitutional Vitals: Vital Signs - 12hr 01/07/21 01/07/21 01/07/21 22:54 22:55 23:01 Pulse Rate 67 67 58 L Respiratory 12 Rate Blood Pressure 153/69 153/69 159/62 O2 Sat by Pulse 100 Oximetry 01/07/21 01/07/21 01/07/21 23:15 23:31 23:45 Pulse Rate 59 L 56 L 59 L Respiratory 12 13 10 L Rate Blood Pressure 152/62 152/62 152/62 O2 Sat by Pulse 100 100 100 Oximetry 01/08/21 01/08/21 01/08/21 00:01 00:15 00:21 Pulse Rate 58 L 59 L Respiratory 13 14 Rate Blood Pressure 167/73 167/73 O2 Sat by Pulse 99 100 99 Oximetry 01/08/21 01/08/21 01/08/21 00:31 00:45 01:01 Pulse Rate 55 L 55 L 53 L Respiratory 11 L 11 L 11 L Rate Blood Pressure 167/73 167/73 135/60 O2 Sat by Pulse 99 98 98 Oximetry 01/08/21 01/08/21 01/08/21 01:15 01:31 01:45 Pulse Rate 69 58 L 57 L Respiratory 14 28 H 15 Rate Blood Pressure 135/60 135/60 135/60 O2 Sat by Pulse 99 100 100 Oximetry 01/08/21 01/08/21 01/08/21 02:01 02:15 02:31 Pulse Rate 57 L 58 L 57 L Respiratory 13 14 11 L Rate Blood Pressure 151/61 151/61 151/61 O2 Sat by Pulse 99 99 98 Oximetry 01/08/21 01/08/21 01/08/21 02:45 03:01 03:15 Pulse Rate 54 L 56 L 58 L Respiratory 12 12 12 Rate Blood Pressure 151/61 141/55 141/55 O2 Sat by Pulse 98 98 98 Oximetry 01/08/21 01/08/21 01/08/21 03:31 03:45 04:01 Pulse Rate 58 L 57 L 53 L Respiratory 12 12 11 L Rate Blood Pressure 141/55 141/55 147/58 O2 Sat by Pulse 98 98 99 Oximetry 01/08/21 01/08/21 01/08/21 04:15 04:31 04:45 Pulse Rate 53 L 55 L 58 L Respiratory 11 L 11 L 13 Rate Blood Pressure 147/58 147/58 147/58 O2 Sat by Pulse 99 99 100 Oximetry 01/08/21 01/08/21 01/08/21 05:01 05:15 05:31 Pulse Rate 58 L 58 L 58 L Respiratory 11 L 13 12 Rate Blood Pressure 151/59 151/59 151/59 O2 Sat by Pulse 100 99 99 Oximetry 01/08/21 01/08/21 01/08/21 05:45 06:01 06:15 Pulse Rate 61 60 58 L Respiratory 16 15 13 Rate Blood Pressure 151/59 162/60 162/60 O2 Sat by Pulse 100 100 100 Oximetry 01/08/21 01/08/21 01/08/21 06:20 06:31 06:45 Pulse Rate 64 58 L 67 Respiratory 13 10 L Rate Blood Pressure 162/80 162/60 162/60 O2 Sat by Pulse 99 99 Oximetry 01/08/21 01/08/21 01/08/21 07:01 07:15 07:31 Pulse Rate 55 L 56 L 61 Respiratory 12 15 12 Rate Blood Pressure 162/61 162/61 162/61 O2 Sat by Pulse 99 98 99 Oximetry 01/08/21 01/08/21 01/08/21 07:45 08:01 08:15 Pulse Rate 64 56 L 53 L Respiratory 8 L 13 10 L Rate Blood Pressure 162/61 164/61 164/61 O2 Sat by Pulse 100 100 98 Oximetry 01/08/21 01/08/21 01/08/21 08:30 08:31 08:45 Pulse Rate 57 L 64 Respiratory 12 10 L Rate Blood Pressure 164/61 164/61 O2 Sat by Pulse 98 100 100 Oximetry 01/08/21 01/08/21 01/08/21 09:05 09:07 09:09 Pulse Rate 65 67 66 Respiratory 13 10 L 14 Rate Blood Pressure 159/66 159/66 159/66 O2 Sat by Pulse 100 100 100 Oximetry 01/08/21 01/08/21 01/08/21 09:11 09:13 09:15 Pulse Rate 65 67 63 Respiratory 13 11 L 11 L Rate Blood Pressure 159/66 159/66 159/66 O2 Sat by Pulse 94 100 100 Oximetry 01/08/21 01/08/21 01/08/21 09:17 09:19 09:21 Pulse Rate 64 64 61 Respiratory 12 11 L 12 Rate Blood Pressure 159/66 159/66 159/66 O2 Sat by Pulse 100 100 99 Oximetry 01/08/21 01/08/21 01/08/21 09:23 09:25 09:27 Pulse Rate 67 64 69 Respiratory 13 14 21 Rate Blood Pressure 159/66 159/66 159/66 O2 Sat by Pulse 98 98 95 Oximetry 01/08/21 01/08/21 01/08/21 09:29 09:31 09:33 Pulse Rate 58 L 56 L 58 L Respiratory 13 13 14 Rate Blood Pressure 159/66 159/66 159/66 O2 Sat by Pulse 100 99 99 Oximetry 01/08/21 01/08/21 01/08/21 09:35 09:37 09:39 Pulse Rate 60 58 L 57 L Respiratory 14 13 13 Rate Blood Pressure 159/66 159/66 159/66 O2 Sat by Pulse 99 99 98 Oximetry 01/08/21 01/08/21 01/08/21 09:41 09:43 09:45 Pulse Rate 57 L 59 L 58 L Respiratory 12 10 L 12 Rate Blood Pressure 159/66 159/66 159/66 O2 Sat by Pulse 98 97 98 Oximetry 01/08/21 01/08/21 01/08/21 09:47 09:49 09:51 Pulse Rate 55 L 58 L 57 L Respiratory 12 14 12 Rate Blood Pressure 159/66 159/66 159/66 O2 Sat by Pulse 98 97 98 Oximetry 01/08/21 01/08/21 01/08/21 09:53 09:55 09:57 Pulse Rate 57 L 63 65 Respiratory 12 11 L 17 Rate Blood Pressure 143/55 143/55 143/55 O2 Sat by Pulse 98 99 100 Oximetry 01/08/21 01/08/21 01/08/21 09:59 10:01 10:03 Pulse Rate 68 61 57 L Respiratory 12 14 13 Rate Blood Pressure 143/55 143/55 143/55 O2 Sat by Pulse 99 100 100 Oximetry 01/08/21 01/08/21 01/08/21 10:05 10:07 10:09 Pulse Rate 54 L 61 61 Respiratory 12 15 9 L Rate Blood Pressure 143/55 143/55 143/55 O2 Sat by Pulse 100 100 100 Oximetry 01/08/21 01/08/21 01/08/21 10:11 10:13 10:15 Pulse Rate 57 L 66 69 Respiratory 13 15 10 L Rate Blood Pressure 143/55 143/55 143/55 O2 Sat by Pulse 100 100 98 Oximetry 01/08/21 01/08/21 01/08/21 10:17 10:19 10:21 Pulse Rate 64 60 55 L Respiratory 13 15 12 Rate Blood Pressure 143/55 143/55 143/55 O2 Sat by Pulse 100 100 100 Oximetry 01/08/21 01/08/21 01/08/21 10:23 10:25 10:27 Pulse Rate 54 L 55 L 55 L Respiratory 12 12 12 Rate Blood Pressure 143/55 143/55 143/55 O2 Sat by Pulse 100 100 100 Oximetry 01/08/21 01/08/21 01/08/21 10:29 10:31 10:33 Pulse Rate 58 L 64 63 Respiratory 12 14 12 Rate Blood Pressure 143/55 143/55 143/55 O2 Sat by Pulse 100 100 100 Oximetry 01/08/21 01/08/21 01/08/21 10:35 10:37 10:39 Pulse Rate 61 59 L 56 L Respiratory 13 13 12 Rate Blood Pressure 143/55 143/55 143/55 O2 Sat by Pulse 99 100 100 Oximetry 01/08/21 01/08/21 10:41 10:43 Pulse Rate 55 L 58 L Respiratory 13 14 Rate Blood Pressure 143/55 143/55 O2 Sat by Pulse 100 100 Oximetry - Labs CBC & Chem 7: 01/08/21 04:38 01/08/21 04:38 Labs: Abnormal lab results 01/07/21 01/07/21 01/07/21 Range/Units 09:53 09:53 09:53 RBC 2.82 L (3.65-5.03) M/mm3 Hgb 8.4 L (10.1-14.3) gm/dl Hct 25.7 L (30.3-42.9) % RDW 20.2 H (13.2-15.2) % Lymph % (Auto) (13.4-35.0) % Lymph # (Auto) (1.2-5.4) K/mm3 Seg Neutrophils % (40.0-70.0) % Heparin Anti-Xa Level 0.95 H (0.3-0.7) U.I./ml Chloride 108.0 H (98-107) mmol/L Carbon Dioxide 19 L (22-30) mmol/L BUN 41 H (7-17) mg/dL Creatinine 4.0 H (0.6-1.2) mg/dL Glucose 160 H (65-100) mg/dL POC Glucose (70-105) mg/dL Phosphorus 5.90 H (2.5-4.5) mg/dL 01/07/21 01/07/21 01/07/21 Range/Units 12:36 17:08 22:23 RBC (3.65-5.03) M/mm3 Hgb (10.1-14.3) gm/dl Hct (30.3-42.9) % RDW (13.2-15.2) % Lymph % (Auto) (13.4-35.0) % Lymph # (Auto) (1.2-5.4) K/mm3 Seg Neutrophils % (40.0-70.0) % Heparin Anti-Xa Level (0.3-0.7) U.I./ml Chloride (98-107) mmol/L Carbon Dioxide (22-30) mmol/L BUN (7-17) mg/dL Creatinine (0.6-1.2) mg/dL Glucose (65-100) mg/dL POC Glucose 163 H 146 H 182 H (70-105) mg/dL Phosphorus (2.5-4.5) mg/dL 01/08/21 01/08/21 01/08/21 Range/Units 04:38 04:38 08:46 RBC 2.75 L (3.65-5.03) M/mm3 Hgb 8.3 L (10.1-14.3) gm/dl Hct 25.2 L (30.3-42.9) % RDW 20.0 H (13.2-15.2) % Lymph % (Auto) 8.7 L (13.4-35.0) % Lymph # (Auto) 0.6 L (1.2-5.4) K/mm3 Seg Neutrophils % 88.7 H (40.0-70.0) % Heparin Anti-Xa Level (0.3-0.7) U.I./ml Chloride (98-107) mmol/L Carbon Dioxide 20 L (22-30) mmol/L BUN 54 H (7-17) mg/dL Creatinine 4.9 H (0.6-1.2) mg/dL Glucose 170 H (65-100) mg/dL POC Glucose 171 H (70-105) mg/dL Phosphorus (2.5-4.5) mg/dL Medications & Allergies - Medications Allergies/Adverse Reactions: Allergies No Known Allergies Allergy (Verified 12/22/17 17:38) Home Medications: Home Medications Medication Instructions Recorded Confirmed Last Taken Type Apixaban [Eliquis] 5 mg PO BID 01/05/21 01/05/21 Unknown History Ferrous Sulfate [Iron 325 MG] 325 mg PO BID 01/05/21 01/05/21 Unknown History Losartan [Cozaar] 100 mg PO QDAY 01/05/21 01/05/21 Unknown History Pravastatin [Pravachol] 40 mg PO QHS 01/05/21 01/05/21 Unknown History glipiZIDE [Glucotrol] 5 mg PO QDAY 01/05/21 01/05/21 Unknown History labetaloL [Labetalol 200mg TAB] 200 mg PO BID 01/05/21 01/05/21 Unknown History Active Medications: Generic Name Dose Route Start Last Admin Trade Name Freq PRN Reason Stop Dose Admin Acetaminophen 650 mg 01/05/21 02:13 Acetaminophen 325 Mg Tab PO Q4H PRN Pain MILD(1-3)/Fever >100.5/ALVARADO Albuterol 2.5 mg 01/05/21 02:13 Albuterol 2.5 Mg/3 Ml Nebu IH Q4HRT PRN Shortness Of Breath Amlodipine Besylate 10 mg 01/07/21 10:00 01/07/21 10:55 Amlodipine 10 Mg Tab PO 10 mg QDAY FLOR Administration Clonidine HCl 0.2 mg 01/07/21 08:00 01/08/21 06:20 Clonidine 0.2 Mg Tab PO 0.2 mg Q8HR FLOR Administration Dextrose 50 ml 01/05/21 02:13 Dextrose 50% In Water (25gm) 50 Ml Syringe IV Q30MIN PRN Hypoglycemia Protocol Docusate Sodium 100 mg 01/05/21 22:00 01/07/21 22:54 Docusate Sodium 100 Mg Cap PO 100 mg BID FLOR Administration Famotidine 10 mg 01/05/21 10:00 01/07/21 22:55 Famotidine 10 Mg Tab PO 10 mg BID FLOR Administration Ferrous Sulfate 325 mg 01/05/21 22:00 01/07/21 22:54 Ferrous Sulfate 325 Mg Tab PO 325 mg BID FLOR Administration Heparin Sodium (Porcine) 3,600 unit 01/06/21 11:00 01/06/21 14:54 Heparin 10,000 Units/10 Ml Vial 40 unit/kg (3600 unit) 3,600 unit IV Administration Q6H PRN Anti-Xa Assay < 0.1 units/ml Hydralazine HCl 10 mg 01/05/21 02:18 01/05/21 16:40 Hydralazine 20 Mg/1 Ml Inj IV 10 mg Q6H PRN Administration SBP >/=165; DBP >/=100 Hydralazine HCl 100 mg 01/05/21 14:00 01/08/21 06:20 Hydralazine 100 Mg Tab PO 100 mg Q8HR FLOR Administration Hydromorphone HCl 0.5 mg 01/05/21 02:13 Hydromorphone 1 Mg/1 Ml Inj IV Q3H PRN Pain , Severe (7-10) Methylprednisolone Sodium 100 mls @ 200 mls/hr 01/06/21 11:00 01/07/21 12:19 Succinate 500 mg/ Sodium IV 01/09/21 10:59 200 mls/hr Chloride Q24HR FLOR Administration Heparin Sodium/Sodium Chloride 25,000 unit in 500 mls @ 27 mls/hr 01/06/21 11:00 01/07/21 04:50 Heparin/ 0.45% Nacl-25,000 Unit/500 Ml IV 1,170 units/hr TITR FLOR 23.4 mls/hr Titration Protocol 1,350 UNITS/HR Insulin Glargine 5 units 01/07/21 22:00 01/07/21 22:55 Insulin Glargine 100 Units/Ml SUB-Q 5 units QHS FLOR Administration Insulin Human Lispro 0 unit 01/05/21 07:30 01/08/21 08:55 Insulin Lispro 100 Unit/Ml SUB-Q 3 unit ACHS FLOR Administration Protocol Labetalol HCl 300 mg 01/05/21 10:00 01/07/21 22:55 Labetalol 100 Mg Tab PO 300 mg BID FLOR Administration Nitroglycerin 0.4 mg 01/05/21 02:18 Nitroglycerin 0.4 Mg Tab Subl SL .Q5MIN PRN Chest Pain Ondansetron HCl 4 mg 01/05/21 02:13 Ondansetron 4 Mg/2 Ml Inj IV Q8H PRN Nausea And Vomiting Oxycodone/Acetaminophen 1 tab 01/05/21 02:13 Oxycodone /Acetaminophen 5-325mg Tab PO Q6H PRN Pain, Moderate (4-6) Pravastatin Sodium 40 mg 01/05/21 22:00 01/07/21 22:55 Pravastatin 40 Mg Tab PO 40 mg QHS FLOR Administration Sodium Chloride 10 ml 01/05/21 10:00 01/07/21 22:55 Sodium Chloride 0.9% 10 Ml Flush Syringe IV 10 ml BID FLOR Administration Sodium Chloride 10 ml 01/05/21 02:13 Sodium Chloride 0.9% 10 Ml Flush Syringe IV PRN PRN LINE FLUSH Spironolactone 25 mg 01/05/21 10:00 01/07/21 22:54 Spironolactone 25 Mg Tab PO 25 mg BID FLOR Administration HEART Score - HEART Score Troponin: Troponin T < 0.010 ng/mL (0.00-0.029) 01/04/21 22:00
--- NOTE | 2021-01-08 11:59 | Progress Note ---
Assessment and Plan Hypertensive Emergency * EKG sinus 76. Trops negative x1 patient denies chest pain, diaphoresis, nausea vomiting * Patient sinus 60s on monitor * Optimize hypertensive regimen: continue hydralazine 100mg PO q8, labetolol 300mg PO BID, clonidine 0.2mg PO BID. Stop nicardipine gtt after biopsy. May resume if SBP>200 * Echo 01/05/2021-EF 55 to 60%, mild left ventricular hypertrophy, mild diastolic dysfunction. Rule right ventricular systolic function is normal. Left atrium is mildly dilated, right atrium is normal in size. * Patient BP improving 143/55 THANH Acute renal failure * Patient has history of renal insufficiency and recently changed BP meds. Creatinine=3.0->3.1->3.8->4.0->4.9 * Patient had renal biopsy yesterday * Nephrology following HFpEF * BNP is 5093 at admission, patient is near Euvolemia with mild BLE edmea, no crackles or rhales upon auscultattion, no orthopnea. * GDMT: BB, ASA, Statin, RICK/ARB. Hold RICK/ARB due to THANH. H/o DVT * Anticoagulated on Eliquis at home * Currently on Heparin gtt. May resume Eliquis after biopsy and no further planned interventions Patient may follow up with Dr. Schrader, [facility], on 12/17/2020 at 1:15pm at our [place] location. Patient seen in conjunction with Dr. Schrader who agrees with this plan. Will see as needed over weekend - Patient Problems (1) Accelerated hypertension Current Visit: Yes Status: Acute (2) Acute renal failure Current Visit: Yes Status: Acute Qualifiers: Acute renal failure type: unspecified Qualified Code(s): N17.9 - Acute kidney failure, unspecified (3) DVT prophylaxis Current Visit: Yes Status: Acute (4) Diabetes Current Visit: Yes Status: Acute (5) Hypertensive emergency Current Visit: Yes Status: Acute (6) Metabolic acidosis Current Visit: Yes Status: Acute Subjective Date of service: 01/08/21 Principal diagnosis: Hypertensive emergency, Acute renal failure Interval history: Patient resting in bed with no complaints and states feeling well Sinus 60s on monitor Objective Last Vital Signs Temp 98.5 F 01/07/21 15:15 Pulse 58 L 01/08/21 10:43 Resp 14 01/08/21 10:43 BP 143/55 01/08/21 10:43 Pulse Ox 100 01/08/21 10:43 - Physical Examination General: Appears Well, No Apparent Distress HEENT: Positive: PERRL Neck: Positive: neck supple Cardiac: Positive: Reg Rate and Rhythm Lungs: Positive: clear to auscultation, Normal Breath Sounds Neuro: Positive: Grossly Intact Abdomen: Positive: Soft, Active Bowel Sounds Skin: Positive: Bruising (right upper extremity) Extremities: Present: upper extr. pulses, lower extr. pulses. Absent: edema - Labs and Meds CBC 01/08/21 Range/Units 04:38 WBC 7.4 (4.5-11.0) K/mm3 RBC 2.75 L (3.65-5.03) M/mm3 Hgb 8.3 L (10.1-14.3) gm/dl Hct 25.2 L (30.3-42.9) % Plt Count 167 (140-440) K/mm3 Lymph # (Auto) 0.6 L (1.2-5.4) K/mm3 [place] # (Auto) 0.2 (0.0-0.8) K/mm3 Eos # (Auto) 0.0 (0.0-0.4) K/mm3 Baso # (Auto) 0.0 (0.0-0.1) K/mm3 Comprehensive Metabolic Panel 01/08/21 Range/Units 04:38 Sodium 142 (137-145) mmol/L Potassium 4.6 (3.6-5.0) mmol/L Chloride 106.1 (98-107) mmol/L Carbon Dioxide 20 L (22-30) mmol/L BUN 54 H (7-17) mg/dL Creatinine 4.9 H (0.6-1.2) mg/dL Glucose 170 H (65-100) mg/dL Calcium 8.6 (8.4-10.2) mg/dL - Imaging and Cardiology EKG: report reviewed, image reviewed Echo: report reviewed - Telemetry EKG Rhythm: Sinus Rhythm - EKG Sinus rhythms and dysrhythmias: sinus rhythm
[2021-01-08] MEDS: FAMOTIDINE 10 MG TAB PO SCH ×2 (13:57→22:26)
[2021-01-08] MEDS: SPIRONOLACTONE 25 MG TAB PO SCH ×2 (13:57→22:26)
[2021-01-08 18:08] LABS: Hematocrit 25.8 % (30.3-42.9); Hemoglobin 8.4 gm/dl (10.1-14.3); Mean Corpuscular HGB Conc 33 % (30-34); Mean Corpuscular Volume 91 fl (79-97); Platelet Count 184 K/mm3 (140-440); Red Blood Count 2.83 M/mm3 (3.65-5.03)
[2021-01-08 18:31] LABS: INR 1.02 (0.87-1.13); Partial Thromboplastin Time 21.3 Sec. (24.2-36.6)
[2021-01-08] MEDS: APIXABAN 2.5 MG TAB PO SCH (18:54)
[2021-01-08] MEDS: PRAVASTATIN 40 MG TAB PO SCH (22:26)
[2021-01-08] MEDS: INSULIN GLARGINE 100 UNITS/ML SUB-Q SCH (22:31)
[2021-01-09] MEDS: hydrALAZINE 100 MG TAB PO SCH ×3 (06:11→22:02)
[2021-01-09] MEDS: cloNIDine 0.2 MG TAB PO SCH ×3 (06:11→22:01)
[2021-01-09 07:51] LABS: Basophils % (Auto) 0.4 % (0.0-1.8); Hematocrit 24.9 % (30.3-42.9); Hemoglobin 8.2 gm/dl (10.1-14.3); Lymphocytes # (Auto) 0.5 K/mm3 (1.2-5.4); Lymphocytes % (Auto) 7.9 % (13.4-35.0); Mean Corpuscular HGB Conc 33 % (30-34); Mean Corpuscular Volume 91 fl (79-97); Monocytes # (Auto) 0.6 K/mm3 (0.0-0.8); Monocytes % (Auto) 8.5 % (0.0-7.3); Platelet Count 156 K/mm3 (140-440); Red Blood Count 2.75 M/mm3 (3.65-5.03); Red Cell Distribution Width 19.8 % (13.2-15.2)
[2021-01-09] MEDS: methylPREDNISolone Sod Suc 500 MG in SODIUM CHLORIDE 0.9% 100 ML IV SCH ×2 (07:51→17:13)
[2021-01-09 08:15] LABS: Albumin 3.1 g/dL (3.9-5); Calcium 7.9 mg/dL (8.4-10.2)
--- NOTE | 2021-01-09 12:12 | Progress Note ---
Assessment and Plan - Patient Problems (1) Acute renal failure Current Visit: Yes Status: Acute Qualifiers: Acute renal failure type: unspecified Qualified Code(s): N17.9 - Acute kidney failure, unspecified Plan to address problem: concerned for possible RPGN in the setting of worsening renal failure, microscopic hematuria, and proteinuria. Serologic workup ordered, pending results at this time. S/P renal biopsy on 01/07. Pending results. Completed three day course of pulse dose steroids. No acute indications for renal replacement therapy today, but discussed with patient that if renal function continues to worsen over the weekend, will have vascular surgery consulted for permcath placement and plan to start dialysis next week, possibly Monday. (2) Anemia in chronic illness Current Visit: Yes Status: Acute Plan to address problem: Transfuse to maintain Hgb >7.0. (3) Hypertensive emergency Current Visit: Yes Status: Acute Plan to address problem: Off cardene gtt, tolerating oral antihypertensive regimen. Overall blood pressures are stable at this time. Will continue to closely monitor. (4) Metabolic acidosis Current Visit: Yes Status: Acute Plan to address problem: In the setting of worsening renal failure. Will monitor closely. (5) Type 2 diabetes mellitus with diabetic chronic kidney disease Current Visit: Yes Status: Chronic Plan to address problem: Diabetes management per primary attending. Subjective Date of service: 01/09/21 Principal diagnosis: Hypertensive emergency, Acute renal failure Interval history: No acute complaints this am. Labs reviewed. S/P renal biopsy on 01/07. Pending results at this time. Serologic workup pending at this time. Objective - Vital Signs Vital signs: Vital Signs - 12hr 01/09/21 01/09/21 01/09/21 02:14 02:49 05:00 Temperature 98.3 F Pulse Rate 68 66 Respiratory Rate Blood Pressure Blood Pressure 124/48 [Right] O2 Sat by Pulse 96 97 Oximetry 01/09/21 01/09/21 06:11 08:26 Temperature 98.4 F Pulse Rate 64 60 Respiratory 18 Rate Blood Pressure 124/48 133/50 Blood Pressure [Right] O2 Sat by Pulse 98 Oximetry - General Appearance General appearance: well-developed, well-nourished, appears stated age EENT: ATNC Neck: no JVD, no thyromegaly Respiratory: Present: Clear to Ascultation, Normal Exam Cardiology: regular, S1S2 Gastrointestinal: normal, normoactive bowel sounds Integumentary: no rash, warm and dry Neurologic: no focal deficit, alert and oriented x3 Musculoskeletal: deferred Psychiatric: mood/affect appropriate, cooperative - Lab 01/09/21 07:13 01/09/21 07:13 Most recent lab results Calcium 7.9 mg/dL (8.4-10.2) L 01/09/21 07:13 Phosphorus 6.90 mg/dL (2.5-4.5) H 01/09/21 07:13 Magnesium 2.40 mg/dL (1.7-2.3) H 01/09/21 07:13 Urine Creatinine 146.4 mg/dL (0.1-20.0) H 01/05/21 Unknown Urine Sodium 67 mmol/L 01/05/21 Unknown Urine Total Protein 844 mg/dL (5-11.8) H 01/05/21 Unknown - Allied health notes Allied health notes reviewed: nursing Medications & Allergies - Medications Allergies/Adverse Reactions: Allergies No Known Allergies Allergy (Verified 12/22/17 17:38) Home Medications: Home Medications Medication Instructions Recorded Confirmed Last Taken Type Apixaban [Eliquis] 5 mg PO BID 01/05/21 01/05/21 Unknown History Ferrous Sulfate [Iron 325 MG] 325 mg PO BID 01/05/21 01/05/21 Unknown History Losartan [Cozaar] 100 mg PO QDAY 01/05/21 01/05/21 Unknown History Pravastatin [Pravachol] 40 mg PO QHS 01/05/21 01/05/21 Unknown History glipiZIDE [Glucotrol] 5 mg PO QDAY 01/05/21 01/05/21 Unknown History labetaloL [Labetalol 200mg TAB] 200 mg PO BID 01/05/21 01/05/21 Unknown History Active Medications: Generic Name Dose Route Start Last Admin Trade Name Freq PRN Reason Stop Dose Admin Acetaminophen 650 mg 01/05/21 02:13 Acetaminophen 325 Mg Tab PO Q4H PRN Pain MILD(1-3)/Fever >100.5/ALVARADO Albuterol 2.5 mg 01/05/21 02:13 Albuterol 2.5 Mg/3 Ml Nebu IH Q4HRT PRN Shortness Of Breath Amlodipine Besylate 10 mg 01/07/21 10:00 01/08/21 10:25 Amlodipine 10 Mg Tab PO 10 mg QDAY FLOR Administration Apixaban 2.5 mg 01/08/21 18:00 01/08/21 18:54 Apixaban 2.5 Mg Tab PO 2.5 mg Q12HR FLOR Administration Protocol Clonidine HCl 0.2 mg 01/07/21 08:00 01/09/21 06:11 Clonidine 0.2 Mg Tab PO 0.2 mg Q8HR FLOR Administration Dextrose 50 ml 01/05/21 02:13 Dextrose 50% In Water (25gm) 50 Ml Syringe IV Q30MIN PRN Hypoglycemia Protocol Docusate Sodium 100 mg 01/05/21 22:00 01/08/21 22:26 Docusate Sodium 100 Mg Cap PO 100 mg BID FLOR Administration Famotidine 10 mg 01/05/21 10:00 01/08/21 22:26 Famotidine 10 Mg Tab PO 10 mg BID FLOR Administration Ferrous Sulfate 325 mg 01/05/21 22:00 01/08/21 22:25 Ferrous Sulfate 325 Mg Tab PO 325 mg BID FLOR Administration Hydralazine HCl 10 mg 01/05/21 02:18 01/05/21 16:40 Hydralazine 20 Mg/1 Ml Inj IV 10 mg Q6H PRN Administration SBP >/=165; DBP >/=100 Hydralazine HCl 100 mg 01/05/21 14:00 01/09/21 06:11 Hydralazine 100 Mg Tab PO 100 mg Q8HR FLOR Administration Hydromorphone HCl 0.5 mg 01/05/21 02:13 Hydromorphone 1 Mg/1 Ml Inj IV Q3H PRN Pain , Severe (7-10) Insulin Glargine 5 units 01/07/21 22:00 01/08/21 22:31 Insulin Glargine 100 Units/Ml SUB-Q 5 units QHS FLOR Administration Insulin Human Lispro 0 unit 01/05/21 07:30 01/08/21 22:27 Insulin Lispro 100 Unit/Ml SUB-Q 3 unit ACHS FLOR Administration Protocol Labetalol HCl 300 mg 01/05/21 10:00 01/08/21 22:25 Labetalol 100 Mg Tab PO 300 mg BID FLOR Administration Nitroglycerin 0.4 mg 01/05/21 02:18 Nitroglycerin 0.4 Mg Tab Subl SL .Q5MIN PRN Chest Pain Ondansetron HCl 4 mg 01/05/21 02:13 Ondansetron 4 Mg/2 Ml Inj IV Q8H PRN Nausea And Vomiting Oxycodone/Acetaminophen 1 tab 01/05/21 02:13 Oxycodone /Acetaminophen 5-325mg Tab PO Q6H PRN Pain, Moderate (4-6) Pravastatin Sodium 40 mg 01/05/21 22:00 01/08/21 22:26 Pravastatin 40 Mg Tab PO 40 mg QHS FLOR Administration Sodium Chloride 10 ml 01/05/21 10:00 01/08/21 22:27 Sodium Chloride 0.9% 10 Ml Flush Syringe IV 10 ml BID FLOR Administration Sodium Chloride 10 ml 01/05/21 02:13 Sodium Chloride 0.9% 10 Ml Flush Syringe IV PRN PRN LINE FLUSH Spironolactone 25 mg 01/05/21 10:00 01/08/21 22:26 Spironolactone 25 Mg Tab PO 25 mg BID FLOR Administration
[2021-01-09] MEDS: FAMOTIDINE 10 MG TAB PO SCH ×2 (12:33→22:01)
[2021-01-09] MEDS: FERROUS SULFATE 325 MG TAB PO SCH ×2 (12:33→22:01)
[2021-01-09] MEDS: SPIRONOLACTONE 25 MG TAB PO SCH ×2 (12:33→22:01)
[2021-01-09] MEDS: DOCUSATE SODIUM 100 MG CAP PO SCH ×2 (12:34→22:01)
[2021-01-09] MEDS: amLODIPine 10 MG TAB PO SCH (12:34)
[2021-01-09] MEDS: APIXABAN 2.5 MG TAB PO SCH ×2 (12:34→22:02)
[2021-01-09] MEDS: INSULIN LISPRO 100 UNIT/ML SUB-Q SCH ×4 (12:38→22:03)
--- NOTE | 2021-01-09 13:21 | Progress Note ---
Assessment and Plan Assessment and plan: This is a 65-year-old female with HTN, DM, DVT x2 over 20 years ago with a family history of DVTs on lifelong anticoagulation who presented to the emergency department on 01/05 with accelerated hypertension and acute kidney injury by her PCP. Work-up in the emergency department revealed a BUN/creatinine of 24/3 (creatinine was 0.92 months ago), proBNP of 5093 and CXR revealed cardiomegaly with small bilateral pleural effusions. Patient received Lasix, hydralazine, labetalol in the emergency department for hypertension and was eventually started on a Cardene drip. On presentation patient blood pr essure was 257/87. Patient was admitted to the hospitalist service with acute kidney injury and hypertensive urgency with consults to [facility], cardiology and nephrology. Assessment and plan Neuro: NAD -Reorientation as needed -Avoid delirium -Aspiration and fall precautions Cardio: Hypertensive emergency, HFpEF (EF 55 to 60% in 2020), h/o HTN -Cardiology following -Current antihypertensive regimen: Labetalol, Hydralazine, Clonidine -Blood Pressure monitoring per protocol, has been well controlled since 01/08 -12/2020 echocardiogram shows mild left ventricular hypertrophy, EF 55 to 60% -Remote telemetry -S/p Lasix in the ED -Avoid RICK/ARB in setting of THANH Respiratory: NAD -Pulmonary hygiene -On room air currently GI: NAD -CC cardiac renal diet -PPI: Not indicated -BR: Colace : Acute kidney injury, Nephrotic Syndrome s/p renal biopsy -urine protein to creatinine ratio demonstrates nephrotic range proteinuria -Ongoing work-up right now for acute rapidly progressive glomerulonephritis. - s/p Renal biopsy on 01/08: Result pending Immunologic serologies pending -Steroids x3 days, completed on 01/08 -Nephrology following Endo: h/o DM -CC renal cardiac diet -SSI -Hypoglycemia protocol -Hbg A1C 5.8 -Accu-Cheks AC at bedtime -Avoid hypoglycemia ID: [id number] -Monitor for signs symptoms of infection Heme: H/O anemia, history of unprovoked DVT -Resume home iron -Trend CBC -Transfuse for hemoglobin less than 7 -Epogen per nephrology -SCDs to bilateral LE while in bed -Resumed home [facility] course to date: 01/05: Patient was able to be weaned off of Cardene drip and blood pressure was low to be better controlled with p.o. medications and as needed. Patient was downgraded from ICU to telemetry. This morning patient had slightly worsening metabolic acidosis, BUN/creatinine, hyperchloremia and has slight hypernatremia. 01/06: Patient was restarted on Cardene drip overnight due to persistent hypertension, p.o. medications were adjusted. Renal will hold off HD for now. Patient switched to heparin drip for pending renal biopsy from her Eliquis. Spoke to receded this afternoon and patient was taken off of Cardene and we will continue to monitor for 2-3 more hours before downgrading. Patient complains of bilateral upper extremity swelling and pain and given history bilateral upper extremity Doppler ultrasound ordered to rule out DVT. Patient's blood pressure cuff at the time my examination of this morning was on her leg and I explained to her that the blood pressure readings will be higher on her leg however she insists that it would be on her leg due to pain in her upper extremities presumably from blood pressure cuff. 01/07: Patient had renal biopsy today, patient was restarted on clonidine overnight however cardiology states to only restart Cardene if SBP greater than 200. Patient currently on hydralazine 100 mg p.o. every 8, labetalol 300 mg p.o. twice daily, clonidine 0.2 mg twice daily 01/08: Doing well on encounter this morning. No acute complaints. Patient did state that she is not producing much urine. Patient was off of Cardene overnight, blood pressures considerably under better control. Site of CT-guided biopsy examined, no hematoma or acute drainage appreciated. Today's day 3 of IV steroids. eGFR continues to decline. Nephrology spoke with patient regarding hemodialysis and she is agreeable if the acute indication arises. 01/09: Blood pressure has been normotensive for the last 48 hours. Awaiting results of kidney biopsy. Steroid course completed yesterday. Still producing urine output, no acute indication for hemodialysis yet however patient is agreeable should this be necessary. Nephrology aware. History Interval history: No acute complaints on encounter. Patient states that she is producing urine at this time and had no complaints of any hematuria or poor urine output. She denies any weakness, confusion, chest pain, shortness of breath. Overall she states that she is feeling well and anxious to hear about the results of the kidney biopsy. Remainder of ROS negative except for stated before Hospitalist Physical - Physical exam Narrative exam: General appearance: well-developed, well-nourished, appears stated age, obese EENT: ATNC, PERRL, mucous membranes moist Neck: no JVD Respiratory: Present: Clear to Ascultation Cardiology: regular, S1S2 Gastrointestinal: normoactive bowel sounds, obese Integumentary: no rash, other (+ edema b/l LE improving) Neurologic: no focal deficit, alert and oriented x3, strength 5/5, CN 3-12 intact Psychiatric: mood/affect appropriate, cooperative - Constitutional Vitals: Temp Pulse Resp BP Pulse Ox 98.3 F 62 18 129/53 98 01/09/21 11:15 01/09/21 11:15 01/09/21 11:15 01/09/21 11:15 01/09/21 11:15 General appearance: Present: no acute distress, well-nourished HEART Score - HEART Score Troponin: Troponin T < 0.010 ng/mL (0.00-0.029) 01/04/21 22:00 Results - Labs CBC & Chem 7: 01/09/21 07:13 01/09/21 07:13 Labs: Laboratory Last Values WBC 6.9 K/mm3 (4.5-11.0) 01/09/21 07:13 RBC 2.75 M/mm3 (3.65-5.03) L 01/09/21 07:13 Hgb 8.2 gm/dl (10.1-14.3) L 01/09/21 07:13 Hct 24.9 % (30.3-42.9) L 01/09/21 07:13 MCV 91 fl (79-97) 01/09/21 07:13 MCH 30 pg (28-32) 01/09/21 07:13 MCHC 33 % (30-34) 01/09/21 07:13 RDW 19.8 % (13.2-15.2) H 01/09/21 07:13 Plt Count 156 K/mm3 (140-440) 01/09/21 07:13 Lymph % (Auto) 7.9 % (13.4-35.0) L 01/09/21 07:13 [place] % (Auto) 8.5 % (0.0-7.3) H 01/09/21 07:13 Eos % (Auto) 0.0 % (0.0-4.3) 01/09/21 07:13 Baso % (Auto) 0.4 % (0.0-1.8) 01/09/21 07:13 Lymph # (Auto) 0.5 K/mm3 (1.2-5.4) L 01/09/21 07:13 [place] # (Auto) 0.6 K/mm3 (0.0-0.8) 01/09/21 07:13 Eos # (Auto) 0.0 K/mm3 (0.0-0.4) 01/09/21 07:13 Baso # (Auto) 0.0 K/mm3 (0.0-0.1) 01/09/21 07:13 Seg Neutrophils % 83.2 % (40.0-70.0) H 01/09/21 07:13 Seg Neutrophils # 5.7 K/mm3 (1.8-7.7) 01/09/21 07:13 PT 14.0 Sec. (12.2-14.9) 01/08/21 17:29 INR 1.02 (0.87-1.13) 01/08/21 17:29 APTT 21.3 Sec. (24.2-36.6) L 01/08/21 17:29 Heparin Anti-Xa Level 0.95 U.I./ml (0.3-0.7) H 01/07/21 09:53 Sodium 139 mmol/L (137-145) 01/09/21 07:13 Potassium 4.4 mmol/L (3.6-5.0) 01/09/21 07:13 Chloride 104.4 mmol/L (98-107) 01/09/21 07:13 Carbon Dioxide 19 mmol/L (22-30) L 01/09/21 07:13 Anion Gap 20 mmol/L 01/09/21 07:13 BUN 72 mg/dL (7-17) H 01/09/21 07:13 Creatinine 5.7 mg/dL (0.6-1.2) H 01/09/21 07:13 Estimated GFR 9 ml/min 01/09/21 07:13 BUN/Creatinine Ratio 13 % 01/09/21 07:13 Glucose 174 mg/dL (65-100) H 01/09/21 07:13 POC Glucose 188 mg/dL (70-105) H 01/09/21 11:20 Hemoglobin A1c 5.3 % (4-6) 01/05/21 09:05 Calcium 7.9 mg/dL (8.4-10.2) L 01/09/21 07:13 Phosphorus 6.90 mg/dL (2.5-4.5) H 01/09/21 07:13 Magnesium 2.40 mg/dL (1.7-2.3) H 01/09/21 07:13 Total Bilirubin 0.20 mg/dL (0.1-1.2) 01/09/21 07:13 AST 11 units/L (5-40) 01/09/21 07:13 ALT 7 units/L (7-56) 01/09/21 07:13 Alkaline Phosphatase 53 units/L (35-129) 01/09/21 07:13 Lactate Dehydrogenase 188 units/L (91-180) H 01/06/21 04:33 Troponin T < 0.010 ng/mL (0.00-0.029) 01/04/21 22:00 NT-Pro-B Natriuret Pep 5093 pg/mL (0-900) H 01/04/21 22:00 Total Protein 5.7 g/dL (6.3-8.2) L 01/09/21 07:13 Albumin 3.1 g/dL (3.9-5) L 01/09/21 07:13 Albumin/Globulin Ratio 1.2 % 01/09/21 07:13 TSH 4.420 mlU/mL (0.270-4.200) H 01/06/21 04:33 Free T4 1.19 ng/dL (0.76-1.46) 01/06/21 10:46 Total Cortisol 12.9 mcg/dL () 01/06/21 04:33 Urine Color Yellow (Yellow) 01/05/21 Unknown Urine Turbidity Cloudy (Clear) 01/05/21 Unknown Urine pH 5.0 (5.0-7.0) 01/05/21 Unknown Ur Specific [place] 1.015 (1.003-1.030) 01/05/21 Unknown Urine Protein >500 mg/dL (Negative) 01/05/21 Unknown Urine Glucose (UA) 50 mg/dL (Negative) 01/05/21 Unknown Urine Ketones Tr mg/dL (Negative) 01/05/21 Unknown Urine Blood Sm (Negative) 01/05/21 Unknown Urine Nitrite Neg (Negative) 01/05/21 Unknown Urine Bilirubin Neg (Negative) 01/05/21 Unknown Urine Urobilinogen < 2.0 mg/dL (<2.0) 01/05/21 Unknown Ur Leukocyte Esterase Lg (Negative) 01/05/21 Unknown Urine WBC (Auto) > 182.0 /HPF (0.0-6.0) H 01/05/21 Unknown Urine RBC (Auto) 94.0 /HPF (0.0-6.0) 01/05/21 Unknown U Epithel Cells (Auto) 11.0 /HPF (0-13.0) 01/05/21 Unknown Urine WBC Clumps 3+ /HPF 01/05/21 Unknown Urine Mucus Few /HPF 01/05/21 Unknown Urine Yeast (Budding) 1+ /HPF 01/05/21 Unknown Urine Creatinine 146.4 mg/dL (0.1-20.0) H 01/05/21 Unknown Urine Sodium 67 mmol/L 01/05/21 Unknown Urine Total Protein 844 mg/dL (5-11.8) H 01/05/21 Unknown Complement C3 127 mg/dL (83-193) 01/06/21 04:33 Complement C4 26 mg/dL (15-57) 01/06/21 04:33 Hep Bs Antigen Nonreactive (Negative) 01/06/21 10:46 Hepatitis C Antibody Non-reactive (NonReactive) 01/06/21 10:46 Franks/IV: Voiding Method Toilet Active Medications - Current Medications Current Medications: Generic Name Dose Route Start Last Admin Trade Name Freq PRN Reason Stop Dose Admin Acetaminophen 650 mg 01/05/21 02:13 Acetaminophen 325 Mg Tab PO Q4H PRN Pain MILD(1-3)/Fever >100.5/ALVARADO Albuterol 2.5 mg 01/05/21 02:13 Albuterol 2.5 Mg/3 Ml Nebu IH Q4HRT PRN Shortness Of Breath Amlodipine Besylate 10 mg 01/07/21 10:00 01/09/21 12:34 Amlodipine 10 Mg Tab PO 10 mg QDAY FLOR Administration Apixaban 2.5 mg 01/08/21 18:00 01/09/21 12:34 Apixaban 2.5 Mg Tab PO 2.5 mg Q12HR FLOR Administration Protocol Clonidine HCl 0.2 mg 01/07/21 08:00 01/09/21 06:11 Clonidine 0.2 Mg Tab PO 0.2 mg Q8HR FLOR Administration Dextrose 50 ml 01/05/21 02:13 Dextrose 50% In Water (25gm) 50 Ml Syringe IV Q30MIN PRN Hypoglycemia Protocol Docusate Sodium 100 mg 01/05/21 22:00 01/09/21 12:34 Docusate Sodium 100 Mg Cap PO 100 mg BID FLOR Administration Famotidine 10 mg 01/05/21 10:00 01/09/21 12:33 Famotidine 10 Mg Tab PO 10 mg BID FLOR Administration Ferrous Sulfate 325 mg 01/05/21 22:00 01/09/21 12:33 Ferrous Sulfate 325 Mg Tab PO 325 mg BID FLOR Administration Hydralazine HCl 10 mg 01/05/21 02:18 01/05/21 16:40 Hydralazine 20 Mg/1 Ml Inj IV 10 mg Q6H PRN Administration SBP >/=165; DBP >/=100 Hydralazine HCl 100 mg 01/05/21 14:00 01/09/21 06:11 Hydralazine 100 Mg Tab PO 100 mg Q8HR FLOR Administration Hydromorphone HCl 0.5 mg 01/05/21 02:13 Hydromorphone 1 Mg/1 Ml Inj IV Q3H PRN Pain , Severe (7-10) Insulin Glargine 5 units 01/07/21 22:00 01/08/21 22:31 Insulin Glargine 100 Units/Ml SUB-Q 5 units QHS FLOR Administration Insulin Human Lispro 0 unit 01/05/21 07:30 01/09/21 12:38 Insulin Lispro 100 Unit/Ml SUB-Q 3 unit ACHS FLOR Administration Protocol Labetalol HCl 300 mg 01/05/21 10:00 01/09/21 12:33 Labetalol 100 Mg Tab PO 300 mg BID FLOR Administration Nitroglycerin 0.4 mg 01/05/21 02:18 Nitroglycerin 0.4 Mg Tab Subl SL .Q5MIN PRN Chest Pain Ondansetron HCl 4 mg 01/05/21 02:13 Ondansetron 4 Mg/2 Ml Inj IV Q8H PRN Nausea And Vomiting Oxycodone/Acetaminophen 1 tab 01/05/21 02:13 Oxycodone /Acetaminophen 5-325mg Tab PO Q6H PRN Pain, Moderate (4-6) Pravastatin Sodium 40 mg 01/05/21 22:00 01/08/21 22:26 Pravastatin 40 Mg Tab PO 40 mg QHS FLOR Administration Sodium Chloride 10 ml 01/05/21 10:00 01/09/21 12:37 Sodium Chloride 0.9% 10 Ml Flush Syringe IV 10 ml BID FLOR Administration Sodium Chloride 10 ml 01/05/21 02:13 Sodium Chloride 0.9% 10 Ml Flush Syringe IV PRN PRN LINE FLUSH Spironolactone 25 mg 01/05/21 10:00 01/09/21 12:33 Spironolactone 25 Mg Tab PO 25 mg BID FLOR Administration Nutrition/Malnutrition Assess - Dietary Evaluation Nutrition/Malnutrition Findings: Nutrition Notes Start: 01/05/21 07:36 Freq: Status: Active Protocol: Document 01/05/21 07:36 (Rec: 01/05/21 07:38 [email or web address]) Nutrition Notes Need for Assessment generated from: MD Order Initial or Follow up Brief Note Current Diagnosis CKD(stage I-IV),Diabetes, Hypertension,Heart Failure Other Pertinent Diagnosis DVT Current Diet Cardiac, Consistent CHO Subjective/Other Information MD consult for diet education. Pt on hold in ED. Nutrition Intervention Follow-Up By: 01/11/21 Additional Comments F/u: placement, diet education
[2021-01-09] MEDS: PRAVASTATIN 40 MG TAB PO SCH (22:01)
[2021-01-09] MEDS: INSULIN GLARGINE 100 UNITS/ML SUB-Q SCH (22:09)
[2021-01-10 06:33] LABS: Hematocrit 23.8 % (30.3-42.9); Hemoglobin 7.8 gm/dl (10.1-14.3); Mean Corpuscular HGB Conc 33 % (30-34); Mean Corpuscular Volume 91 fl (79-97); Platelet Count 168 K/mm3 (140-440); Red Blood Count 2.62 M/mm3 (3.65-5.03); Red Cell Distribution Width 19.7 % (13.2-15.2)
[2021-01-10] MEDS: hydrALAZINE 100 MG TAB PO SCH ×3 (06:39→21:53)
[2021-01-10] MEDS: cloNIDine 0.2 MG TAB PO SCH ×3 (06:39→21:53)
[2021-01-10 06:47] LABS: Calcium 7.7 mg/dL (8.4-10.2)
[2021-01-10] MEDS: INSULIN LISPRO 100 UNIT/ML SUB-Q SCH ×4 (08:47→21:55)
[2021-01-10] MEDS: FAMOTIDINE 10 MG TAB PO SCH ×2 (09:57→21:53)
[2021-01-10] MEDS: APIXABAN 2.5 MG TAB PO SCH (09:58)
[2021-01-10] MEDS: SPIRONOLACTONE 25 MG TAB PO SCH ×2 (09:58→21:54)
[2021-01-10] MEDS: FERROUS SULFATE 325 MG TAB PO SCH ×2 (09:58→21:53)
[2021-01-10] MEDS: amLODIPine 10 MG TAB PO SCH (10:00)
[2021-01-10] MEDS: DOCUSATE SODIUM 100 MG CAP PO SCH ×2 (10:00→21:58)
--- NOTE | 2021-01-10 11:52 | Progress Note ---
Assessment and Plan - Patient Problems (1) Acute renal failure Current Visit: Yes Status: Acute Qualifiers: Acute renal failure type: unspecified Qualified Code(s): N17.9 - Acute kidney failure, unspecified Plan to address problem: concerned for possible RPGN in the setting of worsening renal failure, microscopic hematuria, and proteinuria. Serologic workup ordered, pending results at this time. S/P renal biopsy on 01/07. Pending results. Completed three day course of pulse dose steroids. No acute indications for renal replacement therapy today, but discussed with patient that as renal function continues to worsen over the weekend, will have vascular surgery consulted for permcath placement and plan to start dialysis possibly Monday/Monday. (2) Anemia in chronic illness Current Visit: Yes Status: Acute Plan to address problem: Transfuse to maintain Hgb >7.0. (3) Hypertensive emergency Current Visit: Yes Status: Acute Plan to address problem: Off cardene gtt, tolerating oral antihypertensive regimen. Overall blood pressures are stable at this time. Will continue to closely monitor. (4) Metabolic acidosis Current Visit: Yes Status: Acute Plan to address problem: In the setting of worsening renal failure. Will monitor closely. (5) Type 2 diabetes mellitus with diabetic chronic kidney disease Current Visit: Yes Status: Chronic Plan to address problem: Diabetes management per primary attending. Subjective Date of service: 01/10/21 Principal diagnosis: Hypertensive emergency, Acute renal failure Interval history: No acute changes, Slightly feeling lightheaded this am. Blood pressures are stable, considerably lower than initially on admission. Renal function continues to show worsening, and we will consult vascular surgery for permcath placement and plan to initiate dialysis either Monday or Monday. Objective - Vital Signs Vital signs: Vital Signs - 12hr 01/10/21 01/10/21 01/10/21 00:00 04:30 06:11 Temperature 97.7 F 97.6 F Pulse Rate 59 L 60 Respiratory 16 16 Rate Blood Pressure 122/43 124/49 O2 Sat by Pulse 97 98 96 Oximetry 01/10/21 01/10/21 01/10/21 07:18 07:19 09:57 Temperature 97.8 F Pulse Rate 60 61 Respiratory 20 Rate Blood Pressure 108/38 115/42 115/42 O2 Sat by Pulse 99 Oximetry 01/10/21 01/10/21 09:58 10:00 Temperature Pulse Rate 61 61 Respiratory Rate Blood Pressure 115/42 115/42 O2 Sat by Pulse Oximetry - General Appearance General appearance: well-developed, appears stated age EENT: ATNC Neck: no JVD Respiratory: Present: Clear to Ascultation, Normal Exam Cardiology: regular Gastrointestinal: normal, normoactive bowel sounds Integumentary: no rash, warm and dry Neurologic: no focal deficit Musculoskeletal: deferred Psychiatric: cooperative - Lab 01/10/21 05:03 01/10/21 05:03 Most recent lab results Calcium 7.7 mg/dL (8.4-10.2) L 01/10/21 05:03 Phosphorus 6.90 mg/dL (2.5-4.5) H 01/09/21 07:13 Magnesium 2.40 mg/dL (1.7-2.3) H 01/09/21 07:13 Urine Creatinine 146.4 mg/dL (0.1-20.0) H 01/05/21 Unknown Urine Sodium 67 mmol/L 01/05/21 Unknown Urine Total Protein 844 mg/dL (5-11.8) H 01/05/21 Unknown - Allied health notes Allied health notes reviewed: nursing Medications & Allergies - Medications Allergies/Adverse Reactions: Allergies No Known Allergies Allergy (Verified 12/22/17 17:38) Home Medications: Home Medications Medication Instructions Recorded Confirmed Last Taken Type Apixaban [Eliquis] 5 mg PO BID 01/05/21 01/05/21 Unknown History Ferrous Sulfate [Iron 325 MG] 325 mg PO BID 01/05/21 01/05/21 Unknown History Losartan [Cozaar] 100 mg PO QDAY 01/05/21 01/05/21 Unknown History Pravastatin [Pravachol] 40 mg PO QHS 01/05/21 01/05/21 Unknown History glipiZIDE [Glucotrol] 5 mg PO QDAY 01/05/21 01/05/21 Unknown History labetaloL [Labetalol 200mg TAB] 200 mg PO BID 01/05/21 01/05/21 Unknown History Active Medications: Generic Name Dose Route Start Last Admin Trade Name Freq PRN Reason Stop Dose Admin Acetaminophen 650 mg 01/05/21 02:13 Acetaminophen 325 Mg Tab PO Q4H PRN Pain MILD(1-3)/Fever >100.5/ALVARADO Albuterol 2.5 mg 01/05/21 02:13 Albuterol 2.5 Mg/3 Ml Nebu IH Q4HRT PRN Shortness Of Breath Amlodipine Besylate 10 mg 01/07/21 10:00 01/10/21 10:00 Amlodipine 10 Mg Tab PO 10 mg QDAY FLOR Administration Apixaban 5 mg 01/10/21 22:00 Apixaban 5 Mg Tab PO Q12HR FLOR Clonidine HCl 0.2 mg 01/07/21 08:00 01/10/21 06:39 Clonidine 0.2 Mg Tab PO 0.2 mg Q8HR FLOR Administration Dextrose 50 ml 01/05/21 02:13 Dextrose 50% In Water (25gm) 50 Ml Syringe IV Q30MIN PRN Hypoglycemia Protocol Docusate Sodium 100 mg 01/05/21 22:00 01/10/21 10:00 Docusate Sodium 100 Mg Cap PO 100 mg BID FLOR Administration Famotidine 10 mg 01/05/21 10:00 01/10/21 09:57 Famotidine 10 Mg Tab PO 10 mg BID FLOR Administration Ferrous Sulfate 325 mg 01/05/21 22:00 01/10/21 09:58 Ferrous Sulfate 325 Mg Tab PO 325 mg BID FLOR Administration Hydralazine HCl 10 mg 01/05/21 02:18 01/05/21 16:40 Hydralazine 20 Mg/1 Ml Inj IV 10 mg Q6H PRN Administration SBP >/=165; DBP >/=100 Hydralazine HCl 100 mg 01/05/21 14:00 01/10/21 06:39 Hydralazine 100 Mg Tab PO 100 mg Q8HR FLOR Administration Hydromorphone HCl 0.5 mg 01/05/21 02:13 Hydromorphone 1 Mg/1 Ml Inj IV Q3H PRN Pain , Severe (7-10) Insulin Glargine 5 units 01/07/21 22:00 01/09/21 22:09 Insulin Glargine 100 Units/Ml SUB-Q 5 units QHS FLOR Administration Insulin Human Lispro 0 unit 01/05/21 07:30 01/10/21 08:47 Insulin Lispro 100 Unit/Ml SUB-Q Not Given ACHS FLOR Protocol Labetalol HCl 300 mg 01/05/21 10:00 01/10/21 09:57 Labetalol 100 Mg Tab PO 300 mg BID FLOR Administration Nitroglycerin 0.4 mg 01/05/21 02:18 Nitroglycerin 0.4 Mg Tab Subl SL .Q5MIN PRN Chest Pain Ondansetron HCl 4 mg 01/05/21 02:13 Ondansetron 4 Mg/2 Ml Inj IV Q8H PRN Nausea And Vomiting Oxycodone/Acetaminophen 1 tab 01/05/21 02:13 Oxycodone /Acetaminophen 5-325mg Tab PO Q6H PRN Pain, Moderate (4-6) Pravastatin Sodium 40 mg 01/05/21 22:00 01/09/21 22:01 Pravastatin 40 Mg Tab PO 40 mg QHS FLOR Administration Sodium Chloride 10 ml 01/05/21 10:00 01/10/21 09:57 Sodium Chloride 0.9% 10 Ml Flush Syringe IV 10 ml BID FLOR Administration Sodium Chloride 10 ml 01/05/21 02:13 Sodium Chloride 0.9% 10 Ml Flush Syringe IV PRN PRN LINE FLUSH Spironolactone 25 mg 01/05/21 10:00 01/10/21 09:58 Spironolactone 25 Mg Tab PO 25 mg BID FLOR Administration
--- NOTE | 2021-01-10 12:09 | Progress Note ---
Assessment and Plan Assessment and plan: This is a 65-year-old female with HTN, DM, DVT x2 over 20 years ago with a family history of DVTs on lifelong anticoagulation who presented to the emergency department on 01/05 with accelerated hypertension and acute kidney injury by her PCP. Work-up in the emergency department revealed a BUN/creatinine of 24/3 (creatinine was 0.92 months ago), proBNP of 5093 and CXR revealed cardiomegaly with small bilateral pleural effusions. Patient received Lasix, hydralazine, labetalol in the emergency department for hypertension and was eventually started on a Cardene drip. On presentation patient blood pr essure was 257/87. Patient was admitted to the hospitalist service with acute kidney injury and hypertensive urgency with consults to [facility], cardiology and nephrology. Assessment and plan Neuro: NAD -Reorientation as needed -Avoid delirium -Aspiration and fall precautions Cardio: Hypertensive emergency, HFpEF (EF 55 to 60% in 2020), h/o HTN -Cardiology following -Current antihypertensive regimen: Labetalol, Hydralazine, Clonidine -Blood Pressure monitoring per protocol, has been well controlled since 01/08 -12/2020 echocardiogram shows mild left ventricular hypertrophy, EF 55 to 60% -Remote telemetry -S/p Lasix in the ED -Avoid RICK/ARB in setting of THANH Respiratory: NAD -Pulmonary hygiene -On room air currently GI: NAD -CC cardiac renal diet -PPI: Not indicated -BR: Colace : Acute kidney injury, Nephrotic Syndrome s/p renal biopsy -urine protein to creatinine ratio demonstrates nephrotic range proteinuria -Ongoing work-up right now for acute rapidly progressive glomerulonephritis. - s/p Renal biopsy on 01/08: Result pending Immunologic serologies pending -Steroids x3 days, completed on 01/08 -Nephrology following Vascular surgery consulted for Vas-Cath Endo: h/o DM -CC renal cardiac diet -SSI -Hypoglycemia protocol -Hbg A1C 5.8 -Accu-Cheks AC at bedtime -Avoid hypoglycemia ID: NAD -Monitor for signs symptoms of infection Heme: H/O anemia, history of unprovoked DVT -Resume home iron -Trend CBC -Transfuse for hemoglobin less than 7 -Epogen per nephrology -SCDs to bilateral LE while in bed -Resumed home [facility] course to date: 01/05: Patient was able to be weaned off of Cardene drip and blood pressure was low to be better controlled with p.o. medications and as needed. Patient was downgraded from ICU to telemetry. This morning patient had slightly worsening metabolic acidosis, BUN/creatinine, hyperchloremia and has slight hypernatremia. 01/06: Patient was restarted on Cardene drip overnight due to persistent hypertension, p.o. medications were adjusted. Renal will hold off HD for now. Patient switched to heparin drip for pending renal biopsy from her [facility] [place]. Spoke to receded this afternoon and patient was taken off of Cardene and we will continue to monitor for 2-3 more hours before downgrading. Patient complains of bilateral upper extremity swelling and pain and given history bilateral upper extremity Doppler ultrasound ordered to rule out DVT. Patient's blood pressure cuff at the time my examination of this morning was on her leg and I explained to her that the blood pressure readings will be higher on her leg however she insists that it would be on her leg due to pain in her upper extremities presumably from blood pressure cuff. 01/07: Patient had renal biopsy today, patient was restarted on clonidine overnight however cardiology states to only restart Cardene if SBP greater than 200. Patient currently on hydralazine 100 mg p.o. every 8, labetalol 300 mg p.o. twice daily, clonidine 0.2 mg twice daily 01/08: Doing well on encounter this morning. No acute complaints. Patient did state that she is not producing much urine. Patient was off of Cardene overnight, blood pressures considerably under better control. Site of CT-guided biopsy examined, no hematoma or acute drainage appreciated. Today's day 3 of IV steroids. eGFR continues to decline. Nephrology spoke with patient regarding hemodialysis and she is agreeable if the acute indication arises. 01/09: Blood pressure has been normotensive for the last 48 hours. Awaiting results of kidney biopsy. Steroid course completed yesterday. Still producing urine output but will likely need hemodialysis per nephrology 01/10: Plan for Vas-Cath placed by vascular surgery Monday or Monday. Patient will need hemodialysis started then. Biopsy results still pending. History Interval history: NO acute overnight events. No complaints on encounter. Hospitalist Physical - Physical exam Narrative exam: General appearance: well-developed, well-nourished, appears stated age, obese EENT: ATNC, PERRL, mucous membranes moist Neck: no JVD Respiratory: Present: Clear to Ascultation Cardiology: regular, S1S2 Gastrointestinal: normoactive bowel sounds, obese Integumentary: no rash Neurologic: no focal deficit, alert and oriented x3, strength 5/5, CN 3-12 intact Psychiatric: mood/affect appropriate, cooperative - Constitutional Vitals: Temp Pulse Resp BP Pulse Ox 97.8 F 61 20 115/42 99 01/10/21 07:18 01/10/21 10:00 01/10/21 07:18 01/10/21 10:00 01/10/21 07:18 General appearance: Present: no acute distress, well-nourished HEART Score - HEART Score Troponin: Troponin T < 0.010 ng/mL (0.00-0.029) 01/04/21 22:00 Results - Labs CBC & Chem 7: 01/10/21 05:03 01/10/21 05:03 Labs: Laboratory Last Values WBC 4.8 K/mm3 (4.5-11.0) 01/10/21 05:03 RBC 2.62 M/mm3 (3.65-5.03) L 01/10/21 05:03 Hgb 7.8 gm/dl (10.1-14.3) L 01/10/21 05:03 Hct 23.8 % (30.3-42.9) L 01/10/21 05:03 MCV 91 fl (79-97) 01/10/21 05:03 MCH 30 pg (28-32) 01/10/21 05:03 MCHC 33 % (30-34) 01/10/21 05:03 RDW 19.7 % (13.2-15.2) H 01/10/21 05:03 Plt Count 168 K/mm3 (140-440) 01/10/21 05:03 Lymph % (Auto) 7.9 % (13.4-35.0) L 01/09/21 07:13 Vance % (Auto) 8.5 % (0.0-7.3) H 01/09/21 07:13 Eos % (Auto) 0.0 % (0.0-4.3) 01/09/21 07:13 Baso % (Auto) 0.4 % (0.0-1.8) 01/09/21 07:13 Lymph # (Auto) 0.5 K/mm3 (1.2-5.4) L 01/09/21 07:13 Vance # (Auto) 0.6 K/mm3 (0.0-0.8) 01/09/21 07:13 Eos # (Auto) 0.0 K/mm3 (0.0-0.4) 01/09/21 07:13 Baso # (Auto) 0.0 K/mm3 (0.0-0.1) 01/09/21 07:13 Seg Neutrophils % 83.2 % (40.0-70.0) H 01/09/21 07:13 Seg Neutrophils # 5.7 K/mm3 (1.8-7.7) 01/09/21 07:13 PT 14.0 Sec. (12.2-14.9) 01/08/21 17:29 INR 1.02 (0.87-1.13) 01/08/21 17:29 APTT 21.3 Sec. (24.2-36.6) L 01/08/21 17:29 Heparin Anti-Xa Level 0.95 U.I./ml (0.3-0.7) H 01/07/21 09:53 Sodium 141 mmol/L (137-145) 01/10/21 05:03 Potassium 4.3 mmol/L (3.6-5.0) 01/10/21 05:03 Chloride 107.0 mmol/L (98-107) 01/10/21 05:03 Carbon Dioxide 19 mmol/L (22-30) L 01/10/21 05:03 Anion Gap 19 mmol/L 01/10/21 05:03 BUN 78 mg/dL (7-17) H 01/10/21 05:03 Creatinine 6.2 mg/dL (0.6-1.2) H 01/10/21 05:03 Estimated GFR 8 ml/min 01/10/21 05:03 BUN/Creatinine Ratio 13 % 01/10/21 05:03 Glucose 128 mg/dL (65-100) H 01/10/21 05:03 POC Glucose 140 mg/dL (70-105) H 01/10/21 12:03 Hemoglobin A1c 5.3 % (4-6) 01/05/21 09:05 Calcium 7.7 mg/dL (8.4-10.2) L 01/10/21 05:03 Phosphorus 6.90 mg/dL (2.5-4.5) H 01/09/21 07:13 Magnesium 2.40 mg/dL (1.7-2.3) H 01/09/21 07:13 Total Bilirubin 0.20 mg/dL (0.1-1.2) 01/09/21 07:13 AST 11 units/L (5-40) 01/09/21 07:13 ALT 7 units/L (7-56) 01/09/21 07:13 Alkaline Phosphatase 53 units/L (35-129) 01/09/21 07:13 Lactate Dehydrogenase 188 units/L (91-180) H 01/06/21 04:33 Troponin T < 0.010 ng/mL (0.00-0.029) 01/04/21 22:00 NT-Pro-B Natriuret Pep 5093 pg/mL (0-900) H 01/04/21 22:00 Total Protein 5.7 g/dL (6.3-8.2) L 01/09/21 07:13 Albumin 3.1 g/dL (3.9-5) L 01/09/21 07:13 Albumin/Globulin Ratio 1.2 % 01/09/21 07:13 TSH 4.420 mlU/mL (0.270-4.200) H 01/06/21 04:33 Free T4 1.19 ng/dL (0.76-1.46) 01/06/21 10:46 Total Cortisol 12.9 mcg/dL () 01/06/21 04:33 Urine Color Yellow (Yellow) 01/05/21 Unknown Urine Turbidity Cloudy (Clear) 01/05/21 Unknown Urine pH 5.0 (5.0-7.0) 01/05/21 Unknown Ur Specific [place] 1.015 (1.003-1.030) 01/05/21 Unknown Urine Protein >500 mg/dL (Negative) 01/05/21 Unknown Urine Glucose (UA) 50 mg/dL (Negative) 01/05/21 Unknown Urine Ketones Tr mg/dL (Negative) 01/05/21 Unknown Urine Blood Sm (Negative) 01/05/21 Unknown Urine Nitrite Neg (Negative) 01/05/21 Unknown Urine Bilirubin Neg (Negative) 01/05/21 Unknown Urine Urobilinogen < 2.0 mg/dL (<2.0) 01/05/21 Unknown Ur Leukocyte Esterase Lg (Negative) 01/05/21 Unknown Urine WBC (Auto) > 182.0 /HPF (0.0-6.0) H 01/05/21 Unknown Urine RBC (Auto) 94.0 /HPF (0.0-6.0) 01/05/21 Unknown U Epithel Cells (Auto) 11.0 /HPF (0-13.0) 01/05/21 Unknown Urine WBC Clumps 3+ /HPF 01/05/21 Unknown Urine Mucus Few /HPF 01/05/21 Unknown Urine Yeast (Budding) 1+ /HPF 01/05/21 Unknown Urine Creatinine 146.4 mg/dL (0.1-20.0) H 01/05/21 Unknown Urine Sodium 67 mmol/L 01/05/21 Unknown Urine Total Protein 844 mg/dL (5-11.8) H 01/05/21 Unknown Complement C3 127 mg/dL (83-193) 01/06/21 04:33 Complement C4 26 mg/dL (15-57) 01/06/21 04:33 Hep Bs Antigen Nonreactive (Negative) 01/06/21 10:46 Hepatitis C Antibody Non-reactive (NonReactive) 01/06/21 10:46 Franks/IV: Voiding Method Toilet Active Medications - Current Medications Current Medications: Generic Name Dose Route Start Last Admin Trade Name Freq PRN Reason Stop Dose Admin Acetaminophen 650 mg 01/05/21 02:13 Acetaminophen 325 Mg Tab PO Q4H PRN Pain MILD(1-3)/Fever >100.5/ALVARADO Albuterol 2.5 mg 01/05/21 02:13 Albuterol 2.5 Mg/3 Ml Nebu IH Q4HRT PRN Shortness Of Breath Amlodipine Besylate 10 mg 01/07/21 10:00 01/10/21 10:00 Amlodipine 10 Mg Tab PO 10 mg QDAY FLOR Administration Apixaban 5 mg 01/10/21 22:00 Apixaban 5 Mg Tab PO Q12HR FLOR Clonidine HCl 0.2 mg 01/07/21 08:00 01/10/21 06:39 Clonidine 0.2 Mg Tab PO 0.2 mg Q8HR FLOR Administration Dextrose 50 ml 01/05/21 02:13 Dextrose 50% In Water (25gm) 50 Ml Syringe IV Q30MIN PRN Hypoglycemia Protocol Docusate Sodium 100 mg 01/05/21 22:00 01/10/21 10:00 Docusate Sodium 100 Mg Cap PO 100 mg BID FLOR Administration Famotidine 10 mg 01/05/21 10:00 01/10/21 09:57 Famotidine 10 Mg Tab PO 10 mg BID FLOR Administration Ferrous Sulfate 325 mg 01/05/21 22:00 01/10/21 09:58 Ferrous Sulfate 325 Mg Tab PO 325 mg BID FLOR Administration Hydralazine HCl 10 mg 01/05/21 02:18 01/05/21 16:40 Hydralazine 20 Mg/1 Ml Inj IV 10 mg Q6H PRN Administration SBP >/=165; DBP >/=100 Hydralazine HCl 100 mg 01/05/21 14:00 01/10/21 06:39 Hydralazine 100 Mg Tab PO 100 mg Q8HR FLOR Administration Hydromorphone HCl 0.5 mg 01/05/21 02:13 Hydromorphone 1 Mg/1 Ml Inj IV Q3H PRN Pain , Severe (7-10) Insulin Glargine 5 units 01/07/21 22:00 01/09/21 22:09 Insulin Glargine 100 Units/Ml SUB-Q 5 units QHS FLOR Administration Insulin Human Lispro 0 unit 01/05/21 07:30 01/10/21 08:47 Insulin Lispro 100 Unit/Ml SUB-Q Not Given ACHS [facility] Protocol Labetalol HCl 300 mg 01/05/21 10:00 01/10/21 09:57 Labetalol 100 Mg Tab PO 300 mg BID FLOR Administration Nitroglycerin 0.4 mg 01/05/21 02:18 Nitroglycerin 0.4 Mg Tab Subl SL .Q5MIN PRN Chest Pain Ondansetron HCl 4 mg 01/05/21 02:13 Ondansetron 4 Mg/2 Ml Inj IV Q8H PRN Nausea And Vomiting Oxycodone/Acetaminophen 1 tab 01/05/21 02:13 Oxycodone /Acetaminophen 5-325mg Tab PO Q6H PRN Pain, Moderate (4-6) Pravastatin Sodium 40 mg 01/05/21 22:00 01/09/21 22:01 Pravastatin 40 Mg Tab PO 40 mg QHS FLOR Administration Sodium Chloride 10 ml 01/05/21 10:00 01/10/21 09:57 Sodium Chloride 0.9% 10 Ml Flush Syringe IV 10 ml BID FLOR Administration Sodium Chloride 10 ml 01/05/21 02:13 Sodium Chloride 0.9% 10 Ml Flush Syringe IV PRN PRN LINE FLUSH Spironolactone 25 mg 01/05/21 10:00 01/10/21 09:58 Spironolactone 25 Mg Tab PO 25 mg BID FLOR Administration Nutrition/Malnutrition Assess - Dietary Evaluation Nutrition/Malnutrition Findings: Nutrition Notes Start: 01/05/21 07:36 Freq: Status: Active Protocol: Document 01/05/21 07:36 (Rec: 01/05/21 07:38 [email or web address]) Nutrition Notes Need for Assessment generated from: MD Order Initial or Follow up Brief Note Current Diagnosis CKD(stage I-IV),Diabetes, Hypertension,Heart Failure Other Pertinent Diagnosis DVT Current Diet Cardiac, Consistent CHO Subjective/Other Information MD consult for diet education. Pt on hold in ED. Nutrition Intervention Follow-Up By: 01/11/21 Additional Comments F/u: placement, diet education
[2021-01-10 19:32] LABS: Myeloperoxidase Antibody <1.0 AI (<1.0)
[2021-01-10 20:33] LABS: ANA Screen, IFA Negative (Negative)
[2021-01-10] MEDS: PRAVASTATIN 40 MG TAB PO SCH (21:53)
[2021-01-10] MEDS: INSULIN GLARGINE 100 UNITS/ML SUB-Q SCH (21:55)
[2021-01-10] MEDS ORDERED: APIXABAN 5 MG TAB PO SCH (22:00)
[2021-01-11 03:07] LABS: Albumin 2.8 g/dL (3.8-4.8); Gamma Globulin 0.8 g/dL (0.8-1.7)
[2021-01-11] MEDS: hydrALAZINE 100 MG TAB PO SCH ×3 (05:02→21:58)
[2021-01-11] MEDS: cloNIDine 0.2 MG TAB PO SCH ×3 (05:03→21:57)
[2021-01-11] MEDS: INSULIN LISPRO 100 UNIT/ML SUB-Q SCH ×4 (08:48→22:01)
[2021-01-11] MEDS: DOCUSATE SODIUM 100 MG CAP PO SCH ×2 (09:05→21:57)
[2021-01-11] MEDS: FERROUS SULFATE 325 MG TAB PO SCH ×2 (09:05→21:57)
[2021-01-11] MEDS: SPIRONOLACTONE 25 MG TAB PO SCH ×2 (09:05→21:57)
[2021-01-11] MEDS: FAMOTIDINE 10 MG TAB PO SCH ×2 (09:05→21:57)
[2021-01-11] MEDS: amLODIPine 10 MG TAB PO SCH (09:06)
--- NOTE | 2021-01-11 10:56 | Electrocardiograph Report ---
[facility] Test Date: 2021-01-09 Test Time: 02:10:06 Pat Name: DAWN WILSON Department: Room: A480 1 Gender: F Rating Examiner: RENATA : 1955 Requested By: HUMAIRA POLO Order Number: [id number] Reading MD: Demetrius Correa Measurements Intervals [place] Rate: 59 P: -24 MT: 149 QRS: 23 QRSD: 88 T: 23 QT: 450 QTc: 446 Interpretive Statements Sinus bradycardia Probable left ventricular hypertrophy Compared to ECG 01/04/2021 22:11:21 No significant change noted. Electronically Signed On 01-11-2021 10:55:36 EDT by Demetrius Correa
[2021-01-11] MEDS ORDERED: HEPARIN/NS 5000 UNIT/500ML 500 ML IR ONE (11:16)
[2021-01-11] MEDS ORDERED: SODIUM CHLORIDE 0.9% 250ML 250 ML ONE (11:16)
[2021-01-11] MEDS ORDERED: HEPARIN 10,000 UNITS/10 ML VIAL ONE (11:16)
--- NOTE | 2021-01-11 11:20 | Progress Note ---
Assessment and Plan This is a 65-year-old female with HTN, DM, DVT x2 over 20 years ago with a family history of DVTs on lifelong anticoagulation who presented to the emergency department on 01/05 with accelerated hypertension and acute kidney injury by her PCP. Work-up in the emergency department revealed a BUN/creatinine of 24/3 (creatinine was 0.92 months ago), proBNP of 5093 and CXR revealed cardiomegaly with small bilateral pleural effusions. Patient received Lasix, hydralazine, labetalol in the emergency department for hypertension and was eventually started on a Cardene drip. On presentation patient blood pressure was 257/87. Patient was admitted to the hospitalist service with acute kidney injury and hypertensive urgency with consults to [facility], cardiology and nephrology. Assessment and plan Neuro: NAD -Reorientation as needed -Avoid delirium -Aspiration and fall precautions Cardio: Hypertensive emergency, HFpEF (EF 55 to 60% in 2020), h/o HTN -Cardiology following -Current antihypertensive regimen: Labetalol, Hydralazine, Clonidine -Blood Pressure monitoring per protocol, has been well controlled since 01/08 -12/2020 echocardiogram shows mild left ventricular hypertrophy, EF 55 to 60% -Remote telemetry -S/p Lasix in the ED -Avoid RICK/ARB in setting of THANH Respiratory: NAD -Pulmonary hygiene -On room air currently GI: NAD -CC cardiac renal diet -PPI: Not indicated -BR: Colace : Acute kidney injury, Nephrotic Syndrome s/p renal biopsy -urine protein to creatinine ratio demonstrates nephrotic range proteinuria -Ongoing work-up right now for acute rapidly progressive glomerulonephritis. - s/p Renal biopsy on 01/08: Result pending Immunologic serologies pending -Steroids x3 days, completed on 01/08 -Nephrology following Vascular surgery consulted for Vas-Cath Endo: h/o DM -CC renal cardiac diet -SSI -Hypoglycemia protocol -Hbg A1C 5.8 -Accu-Cheks AC at bedtime -Avoid hypoglycemia ID: NAD -Monitor for signs symptoms of infection Heme: H/O anemia, history of unprovoked DVT -Resume home iron -Trend CBC -Transfuse for hemoglobin less than 7 -Epogen per nephrology -SCDs to bilateral LE while in bed -Resumed home [facility] course to date: 01/05: Patient was able to be weaned off of Cardene drip and blood pressure was low to be better controlled with p.o. medications and as needed. Patient was downgraded from ICU to telemetry. This morning patient had slightly worsening metabolic acidosis, BUN/creatinine, hyperchloremia and has slight hypernatremia. 01/06: Patient was restarted on Cardene drip overnight due to persistent hypertension, p.o. medications were adjusted. Renal will hold off HD for now. Patient switched to heparin drip for pending renal biopsy from her [facility]. Spoke to receded this afternoon and patient was taken off of Cardene and we will continue to monitor for 2-3 more hours before downgrading. Patient complains of bilateral upper extremity swelling and pain and given history bilateral upper extremity Doppler ultrasound ordered to rule out DVT. Patient's blood pressure cuff at the time my examination of this morning was on her leg and I explained to her that the blood pressure readings will be higher on her leg however she in sists that it would be on her leg due to pain in her upper extremities presumably from blood pressure cuff. 01/07: Patient had renal biopsy today, patient was restarted on clonidine overnight however cardiology states to only restart Cardene if SBP greater than 200. Patient currently on hydralazine 100 mg p.o. every 8, labetalol 300 mg p.o. twice daily, clonidine 0.2 mg twice daily 01/08: Doing well on encounter this morning. No acute complaints. Patient did state that she is not producing much urine. Patient was off of Cardene overnight, blood pressures considerably under better control. Site of CT-guided biopsy examined, no hematoma or acute drainage appreciated. Today's day 3 of IV steroids. eGFR continues to decline. Nephrology spoke with patient regarding hemodialysis and she is agreeable if the acute indication arises. 01/09: Blood pressure has been normotensive for the last 48 hours. Awaiting results of kidney biopsy. Steroid course completed yesterday. Still producing urine output but will likely need hemodialysis per nephrology 01/10: Plan for Vas-Cath placed by vascular surgery Monday or Monday. Patient will need hemodialysis started then. Biopsy results still pending. Subjective Principal diagnosis: Hypertensive emergency, Acute renal failure Objective - Exam Narrative Exam: General appearance: well-developed, well-nourished, appears stated age, obese EENT: ATNC, PERRL, mucous membranes moist Neck: no JVD Respiratory: Present: Clear to Ascultation Cardiology: regular, S1S2 Gastrointestinal: normoactive bowel sounds, obese Integumentary: no rash Neurologic: no focal deficit, alert and oriented x3, strength 5/5, CN 3-12 intact Psychiatric: mood/affect appropriate, cooperative - Constitutional Vitals: Vital Signs - 12hr 01/11/21 01/11/21 01/11/21 04:38 07:33 10:00 Temperature 97.5 F L 97.8 F Pulse Rate 55 L 62 72 Pulse Rate [ 75 Apical] Respiratory 16 18 17 Rate Blood Pressure 136/45 149/55 O2 Sat by Pulse 98 98 98 Oximetry - Labs CBC & Chem 7: 01/10/21 05:03 01/11/21 04:07 Labs: Abnormal lab results 01/06/21 01/10/21 01/10/21 Range/Units 10:46 12:03 16:37 Creatinine (0.6-1.2) mg/dL POC Glucose 140 H 146 H (70-105) mg/dL Serum Total Protein 5.4 L (6.1-8.1) g/dL Albumin 2.8 L (3.8-4.8) g/dL PEP Interpretation see below H 01/10/21 01/11/21 01/11/21 Range/Units 20:02 04:07 07:32 Creatinine 6.4 H (0.6-1.2) mg/dL POC Glucose 166 H 122 H (70-105) mg/dL Serum Total Protein (6.1-8.1) g/dL Albumin (3.8-4.8) g/dL PEP Interpretation HEART Score - HEART Score Troponin: Troponin T < 0.010 ng/mL (0.00-0.029) 01/04/21 22:00
[2021-01-11] MEDS ORDERED: CLINDAMYCIN 600 MG/50 mL 600 MG/50 ML BAG IV ONE (11:45)
--- NOTE | 2021-01-11 11:50 | Progress Note ---
Assessment and Plan Hypertensive Emergency * EKG sinus 76. Trops negative x1 patient denies chest pain, diaphoresis, nausea vomiting * Patient sinus 60s on monitor * Optimize hypertensive regimen: continue hydralazine 100mg PO q8, labetolol 300mg PO BID, clonidine 0.2mg PO BID. Stop nicardipine gtt after biopsy. May resume if SBP>200 * Echo 01/05/2021-EF 55 to 60%, mild left ventricular hypertrophy, mild diastolic dysfunction. Rule right ventricular systolic function is normal. Left atrium is mildly dilated, right atrium is normal in size. * Patient BP has improved and been stable THANH Acute renal failure * Patient has history of renal insufficiency and recently changed BP meds. * Patient had renal biopsy * Nephrology following HFpEF * BNP is 5093 at admission, patient is near Euvolemia with mild BLE edmea, no crackles or rhales upon auscultattion, no orthopnea. * GDMT: BB, ASA, Statin, RICK/ARB. Hold RICK/ARB due to THANH. H/o DVT * Anticoagulated on Eliquis at home * Currently on Heparin gtt. May resume Eliquis after biopsy and no further planned interventions Patient is stable from a cardiac standpoint. Will see as needed Patient may follow up with Dr. Schrader, [facility], on 12/17/2020 at 1:15pm at our [place] location. Patient seen in conjunction with Dr. Schrader who agrees with this plan. - Patient Problems (1) Accelerated hypertension Current Visit: Yes Status: Acute (2) Acute renal failure Current Visit: Yes Status: Acute Qualifiers: Acute renal failure type: unspecified Qualified Code(s): N17.9 - Acute kidney failure, unspecified (3) DVT prophylaxis Current Visit: Yes Status: Acute (4) Diabetes Current Visit: Yes Status: Acute (5) Hypertensive emergency Current Visit: Yes Status: Acute (6) Metabolic acidosis Current Visit: Yes Status: Acute Subjective Date of service: 01/11/21 Principal diagnosis: Hypertensive emergency, Acute renal failure Interval history: Patient resting in bed with no complaints and reports feeling good Sinus 50s-60s on monitor Objective Last Vital Signs Temp 97.8 F 01/11/21 07:33 Pulse 75 01/11/21 10:00 Resp 17 01/11/21 10:00 BP 149/55 01/11/21 07:33 Pulse Ox 98 01/11/21 10:00 - Physical Examination General: Appears Well, No Apparent Distress HEENT: Positive: PERRL Neck: Positive: neck supple Cardiac: Positive: Reg Rate and Rhythm Lungs: Positive: Normal Breath Sounds Neuro: Positive: Grossly Intact Abdomen: Positive: Soft, Active Bowel Sounds Skin: Positive: Bruising (right upper extremity) Extremities: Present: upper extr. pulses, lower extr. pulses. Absent: edema - Labs and Meds Comprehensive Metabolic Panel 01/06/21 01/11/21 Range/Units 10:46 04:07 Creatinine 6.4 H (0.6-1.2) mg/dL Albumin 2.8 L (3.8-4.8) g/dL - Imaging and Cardiology EKG: report reviewed, image reviewed Echo: report reviewed - Telemetry EKG Rhythm: Sinus Rhythm - EKG Sinus rhythms and dysrhythmias: sinus rhythm - Allied health notes Allied health notes reviewed: nursing
[2021-01-11] MEDS: MIDAZOLAM 2 MG/2 ML INJ ONE ×4 (12:07→12:25)
[2021-01-11] MEDS: fentaNYL 100 MCG/2 ML INJ ONE ×4 (12:07→12:25)
[2021-01-11] MEDS: LIDOCAINE 1%/EPINEPHRINE 1:100,000 VIAL (20 ML) INFILTRATI ONE ×2 (12:08→12:16)
[2021-01-11] MEDS ORDERED: LIDOCAINE 1%/EPINEPHRINE 1:100,000 VIAL (20 ML) INFILTRATI ONE (12:22)
[2021-01-11] MEDS ORDERED: SODIUM CHLORIDE 0.9% 100 ML IV PRN ×2 (13:28→13:50)
--- NOTE | 2021-01-11 14:23 | Consultation ---
History of Present Illness - Reason for Consult Consult date: 01/11/[address] [facility] Requesting physician: IRLANDA GOMEZ - History of Present Illness 65-year-old -Beninese female with past medical history of Hypertension, Type 2 DM, h/o DVT on anticoagulation, who presents to ER after sent by Dr Mendiola for uncontrolled hypertension. BP in ER was as high as 265/173mmHg, pt was initiated on cardene gtt. Labs showed elevated BUN/Cr at 26/3.1mg/dl. Renal consult was requested for management of THANH/uncontrolled HTN. As per pt she has been treated with losartan 100 mg, labetalol 200 mg twice daily, and nifedipine, then nifedipine was switched to hydralazine without significant response of BP. Reportedly pt's Cr freddie from 0.9mg/dl to 2.77mg/dl within last 2 months, pt was seen by another prefinish operator prior to this admission and was initiated on some THANH work up. Pt does not know results of the work up at this time. She did not have renal biopsy in the past. Denies recent NSAIDs use or IV contrast exposure. During hospitalization, patient had a renal biopsy, and required pulsed dose of steroids and there is concern for rapidly progressing glomerulonephritis. Patient will need to start dialysis. Vascular has been consulted. Patient is right-handed. Discussed avoiding venipunctures, IVs, and blood pressure cuffs on the left upper extremity until patient's renal function returns, or in perpetuity with need for AV access creation. Past History Past Medical History: diabetes, DVT, hypertension Past Surgical History: Other (gastric bypass) Social history: denies: smoking, alcohol abuse Family history: no significant family history Medications and Allergies Allergies Allergy/AdvReac Type Severity Reaction Status Date / Time Penicillins AdvReac Hives Verified 01/11/21 12:49 Home Medications Medication Instructions Recorded Confirmed Last Taken Type Apixaban [Eliquis] 5 mg PO BID 01/05/21 01/05/21 Unknown History Ferrous Sulfate [Iron 325 MG] 325 mg PO BID 01/05/21 01/05/21 Unknown History Losartan [Cozaar] 100 mg PO QDAY 01/05/21 01/05/21 Unknown History Pravastatin [Pravachol] 40 mg PO QHS 01/05/21 01/05/21 Unknown History glipiZIDE [Glucotrol] 5 mg PO QDAY 01/05/21 01/05/21 Unknown History labetaloL [Labetalol 200mg TAB] 200 mg PO BID 01/05/21 01/05/21 Unknown History Active Meds: Active Medications Acetaminophen (Acetaminophen 325 Mg Tab) 650 mg PO Q4H PRN PRN Reason: Pain MILD(1-3)/Fever >100.5/ALVARADO Albuterol (Albuterol 2.5 Mg/3 Ml Nebu) 2.5 mg IH Q4HRT PRN PRN Reason: Shortness Of Breath Amlodipine Besylate (Amlodipine 10 Mg Tab) 10 mg PO QDAY [facility] Last Admin: 01/11/21 09:06 Dose: 10 mg Documented by: Clonidine HCl (Clonidine 0.2 Mg Tab) 0.2 mg PO Q8HR [facility] Last Admin: 01/11/21 05:03 Dose: Not Given Documented by: Dextrose (Dextrose 50% In Water (25gm) 50 Ml Syringe) 50 ml IV Q30MIN PRN; Protocol PRN Reason: Hypoglycemia Docusate Sodium (Docusate Sodium 100 Mg Cap) 100 mg PO BID [facility] Last Admin: 01/11/21 09:05 Dose: 100 mg Documented by: Famotidine (Famotidine 10 Mg Tab) 10 mg PO BID [facility] Last Admin: 01/11/21 09:05 Dose: 10 mg Documented by: Ferrous Sulfate (Ferrous Sulfate 325 Mg Tab) 325 mg PO BID [facility] Last Admin: 01/11/21 09:05 Dose: 325 mg Documented by: Hydralazine HCl (Hydralazine 20 Mg/1 Ml Inj) 10 mg IV Q6H PRN PRN Reason: SBP >/=165; DBP >/=100 Last Admin: 01/05/21 16:40 Dose: 10 mg Documented by: Hydralazine HCl (Hydralazine 100 Mg Tab) 100 mg PO Q8HR [facility] Last Admin: 01/11/21 05:02 Dose: Not Given Documented by: Hydromorphone HCl (Hydromorphone 1 Mg/1 Ml Inj) 0.5 mg IV Q3H PRN PRN Reason: Pain , Severe (7-10) Sodium Chloride (Nacl 0.9%) 100 mls @ 999 mls/hr IV TAMIKO PRN PRN Reason: Hypotension Sodium Chloride (Nacl 0.9%) 100 mls @ 999 mls/hr IV TAMIKO PRN PRN Reason: Hypotension Insulin Glargine (Insulin Glargine 100 Units/Ml) 5 units SUB-Q QHS [facility] Last Admin: 01/10/21 21:55 Dose: 5 units Documented by: Insulin Human Lispro (Insulin Lispro 100 Unit/Ml) 0 unit SUB-Q ACHS [facility]; Protocol Last Admin: 01/11/21 11:39 Dose: Not Given Documented by: Labetalol HCl (Labetalol 100 Mg Tab) 300 mg PO BID [facility] Last Admin: 01/11/21 09:05 Dose: 300 mg Documented by: Nitroglycerin (Nitroglycerin 0.4 Mg Tab Subl) 0.4 mg SL .Q5MIN PRN PRN Reason: Chest Pain Ondansetron HCl (Ondansetron 4 Mg/2 Ml Inj) 4 mg IV Q8H PRN PRN Reason: Nausea And Vomiting Oxycodone/Acetaminophen (Oxycodone /Acetaminophen 5-325mg Tab) 1 tab PO Q6H PRN PRN Reason: Pain, Moderate (4-6) Pravastatin Sodium (Pravastatin 40 Mg Tab) 40 mg PO QHS [facility] Last Admin: 01/10/21 21:53 Dose: 40 mg Documented by: Sodium Chloride (Sodium Chloride 0.9% 10 Ml Flush Syringe) 10 ml IV BID [facility] Last Admin: 01/11/21 09:06 Dose: 10 ml Documented by: Sodium Chloride (Sodium Chloride 0.9% 10 Ml Flush Syringe) 10 ml IV PRN PRN PRN Reason: LINE FLUSH Spironolactone (Spironolactone 25 Mg Tab) 25 mg PO BID [facility] Last Admin: 01/11/21 09:05 Dose: 25 mg Documented by: Review of Systems All systems: negative (see HPI) Exam - Constitutional Vitals: Temp Pulse Resp BP Pulse Ox 97.8 F 75 17 149/55 98 01/11/21 07:33 01/11/21 10:00 01/11/21 10:00 01/11/21 07:33 01/11/21 10:00 General appearance: Present: no acute distress - EENT Eyes: Present: EOM intact ENT: hearing intact - Respiratory Respiratory effort: normal - Psychiatric Psychiatric: appropriate mood/affect, cooperative Results - Labs CBC & Chem 7: 01/10/21 05:03 01/11/21 04:07 Labs: Abnormal lab results 01/06/21 01/10/21 01/10/21 Range/Units 10:46 16:37 20:02 Creatinine (0.6-1.2) mg/dL POC Glucose 146 H 166 H (70-105) mg/dL Serum Total Protein 5.4 L (6.1-8.1) g/dL Albumin 2.8 L (3.8-4.8) g/dL PEP Interpretation see below H 01/11/21 01/11/21 Range/Units 04:07 07:32 Creatinine 6.4 H (0.6-1.2) mg/dL POC Glucose 122 H (70-105) mg/dL Serum Total Protein (6.1-8.1) g/dL Albumin (3.8-4.8) g/dL PEP Interpretation Assessment and Plan 65-year-old female with 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 Discussed PermCath placement with patient. Held Eliquis last night. Can restart Eliquis tomorrow morning. Risks, benefits, and alternatives discussed with PermCath placement. Patient agrees with procedure. Avoid venipuncture, IV, and blood pressure cuff of left upper extremity. Vein mapping ordered. Follow-up in 2 weeks.
--- NOTE | 2021-01-11 14:25 | Progress Note ---
Assessment and Plan Assessment and plan: This is a 65-year-old female with HTN, DM, DVT x2 over 20 years ago with a family history of DVTs on lifelong anticoagulation who presented to the emergency department on 01/05 with accelerated hypertension and acute kidney injury by her PCP. Work-up in the emergency department revealed a BUN/creatinine of 24/3 (creatinine was 0.92 months ago), proBNP of 5093 and CXR revealed cardiomegaly with small bilateral pleural effusions. Patient received Lasix, hydralazine, labetalol in the emergency department for hypertension and was eventually started on a Cardene drip. On presentation patient blood pr essure was 257/87. Patient was admitted to the hospitalist service with acute kidney injury and hypertensive urgency with consults to [facility], cardiology and nephrology. Assessment and plan Neuro: NAD -Reorientation as needed -Avoid delirium -Aspiration and fall precautions Cardio: Hypertensive emergency, HFpEF (EF 55 to 60% in 2020), h/o HTN -Cardiology following -Current antihypertensive regimen: Labetalol, Hydralazine, Clonidine -Blood Pressure monitoring per protocol, has been well controlled since 01/08 -12/2020 echocardiogram shows mild left ventricular hypertrophy, EF 55 to 60% -Remote telemetry -S/p Lasix in the ED -Avoid RICK/ARB in setting of THANH Respiratory: NAD -Pulmonary hygiene -On room air currently GI: NAD -CC cardiac renal diet -PPI: Not indicated -BR: Colace : Acute kidney injury, Nephrotic Syndrome s/p renal biopsy -urine protein to creatinine ratio demonstrates nephrotic range proteinuria -Ongoing work-up right now for acute rapidly progressive glomerulonephritis. - s/p Renal biopsy on 01/08: Result pending Immunologic serologies pending -Steroids x3 days, completed on 01/08 -Nephrology following Vascular surgery consulted for Vas-Cath Endo: h/o DM -CC renal cardiac diet -SSI -Hypoglycemia protocol -Hbg A1C 5.8 -Accu-Cheks AC at bedtime -Avoid hypoglycemia ID: [id number] -Monitor for signs symptoms of infection Heme: H/O anemia, history of unprovoked DVT -Resume home iron -Trend CBC -Transfuse for hemoglobin less than 7 -Epogen per nephrology -SCDs to bilateral LE while in bed -Resumed home [facility] course to date: 01/05: Patient was able to be weaned off of Cardene drip and blood pressure was low to be better controlled with p.o. medications and as needed. Patient was downgraded from ICU to telemetry. This morning patient had slightly worsening metabolic acidosis, BUN/creatinine, hyperchloremia and has slight hypernatremia. 01/06: Patient was restarted on Cardene drip overnight due to persistent hypertension, p.o. medications were adjusted. Renal will hold off HD for now. Patient switched to heparin drip for pending renal biopsy from her [place]. Spoke to receded this afternoon and patient was taken off of Cardene and we will continue to monitor for 2-3 more hours before downgrading. Patient complains of bilateral upper extremity swelling and pain and given history bilateral upper extremity Doppler ultrasound ordered to rule out DVT. Patient's blood pressure cuff at the time my examination of this morning was on her leg and I explained to her that the blood pressure readings will be higher on her leg however she insists that it would be on her leg due to pain in her upper extremities presumably from blood pressure cuff. 01/07: Patient had renal biopsy today, patient was restarted on clonidine overnight however cardiology states to only restart Cardene if SBP greater than 200. Patient currently on hydralazine 100 mg p.o. every 8, labetalol 300 mg p.o. twice daily, clonidine 0.2 mg twice daily 01/08: Doing well on encounter this morning. No acute complaints. Patient did state that she is not producing much urine. Patient was off of Cardene overnight, blood pressures considerably under better control. Site of CT-guided biopsy examined, no hematoma or acute drainage appreciated. Today's day 3 of IV steroids. eGFR continues to decline. Nephrology spoke with patient regarding hemodialysis and she is agreeable if the acute indication arises. 01/09: Blood pressure has been normotensive for the last 48 hours. Awaiting results of kidney biopsy. Steroid course completed yesterday. Still producing urine output but will likely need hemodialysis per nephrology 01/10: Plan for Vas-Cath placed by vascular surgery Monday or Monday. Patient will need hemodialysis started then. Biopsy results still pending. 01/11: To Foreign Language Stenographer today for permacath placement. Biopsy results not resulted yet. Will await nephrology input. Patient has had acceptable blood pressures last few days. We will continue to monitor. History Interval history: NO acute overnight events. No complaints on encounter. Hospitalist Physical - Physical exam Narrative exam: General appearance: well-developed, well-nourished, appears stated age, obese EENT: ATNC, PERRL, mucous membranes moist Neck: no JVD Respiratory: Present: Clear to Ascultation Cardiology: regular, S1S2 Gastrointestinal: normoactive bowel sounds, obese Integumentary: no rash Neurologic: no focal deficit, alert and oriented x3, strength 5/5, CN 3-12 intact Psychiatric: mood/affect appropriate, cooperative - Constitutional Vitals: Temp Pulse Resp BP Pulse Ox 97.8 F 75 17 149/55 98 01/11/21 07:33 01/11/21 10:00 01/11/21 10:00 01/11/21 07:33 01/11/21 10:00 General appearance: Present: no acute distress, well-nourished HEART Score - HEART Score Troponin: Troponin T < 0.010 ng/mL (0.00-0.029) 01/04/21 22:00 Results - Labs CBC & Chem 7: 01/10/21 05:03 01/11/21 04:07 Labs: Laboratory Last Values WBC 4.8 K/mm3 (4.5-11.0) 01/10/21 05:03 RBC 2.62 M/mm3 (3.65-5.03) L 01/10/21 05:03 Hgb 7.8 gm/dl (10.1-14.3) L 01/10/21 05:03 Hct 23.8 % (30.3-42.9) L 01/10/21 05:03 MCV 91 fl (79-97) 01/10/21 05:03 MCH 30 pg (28-32) 01/10/21 05:03 MCHC 33 % (30-34) 01/10/21 05:03 RDW 19.7 % (13.2-15.2) H 01/10/21 05:03 Plt Count 168 K/mm3 (140-440) 01/10/21 05:03 Lymph % (Auto) 7.9 % (13.4-35.0) L 01/09/21 07:13 Nance % (Auto) 8.5 % (0.0-7.3) H 01/09/21 07:13 Eos % (Auto) 0.0 % (0.0-4.3) 01/09/21 07:13 Baso % (Auto) 0.4 % (0.0-1.8) 01/09/21 07:13 Lymph # (Auto) 0.5 K/mm3 (1.2-5.4) L 01/09/21 07:13 Nance # (Auto) 0.6 K/mm3 (0.0-0.8) 01/09/21 07:13 Eos # (Auto) 0.0 K/mm3 (0.0-0.4) 01/09/21 07:13 Baso # (Auto) 0.0 K/mm3 (0.0-0.1) 01/09/21 07:13 Seg Neutrophils % 83.2 % (40.0-70.0) H 01/09/21 07:13 Seg Neutrophils # 5.7 K/mm3 (1.8-7.7) 01/09/21 07:13 PT 14.0 Sec. (12.2-14.9) 01/08/21 17:29 INR 1.02 (0.87-1.13) 01/08/21 17:29 APTT 21.3 Sec. (24.2-36.6) L 01/08/21 17:29 Heparin Anti-Xa Level 0.95 U.I./ml (0.3-0.7) H 01/07/21 09:53 Sodium 141 mmol/L (137-145) 01/10/21 05:03 Potassium 4.3 mmol/L (3.6-5.0) 01/10/21 05:03 Chloride 107.0 mmol/L (98-107) 01/10/21 05:03 Carbon Dioxide 19 mmol/L (22-30) L 01/10/21 05:03 Anion Gap 19 mmol/L 01/10/21 05:03 BUN 78 mg/dL (7-17) H 01/10/21 05:03 Creatinine 6.4 mg/dL (0.6-1.2) H 01/11/21 04:07 Estimated GFR 8 ml/min 01/11/21 04:07 BUN/Creatinine Ratio 13 % 01/10/21 05:03 Glucose 128 mg/dL (65-100) H 01/10/21 05:03 POC Glucose 122 mg/dL (70-105) H 01/11/21 07:32 Hemoglobin A1c 5.3 % (4-6) 01/05/21 09:05 Calcium 7.7 mg/dL (8.4-10.2) L 01/10/21 05:03 Phosphorus 6.90 mg/dL (2.5-4.5) H 01/09/21 07:13 Magnesium 2.40 mg/dL (1.7-2.3) H 01/09/21 07:13 Total Bilirubin 0.20 mg/dL (0.1-1.2) 01/09/21 07:13 AST 11 units/L (5-40) 01/09/21 07:13 ALT 7 units/L (7-56) 01/09/21 07:13 Alkaline Phosphatase 53 units/L (35-129) 01/09/21 07:13 Lactate Dehydrogenase 188 units/L (91-180) H 01/06/21 04:33 Troponin T < 0.010 ng/mL (0.00-0.029) 01/04/21 22:00 NT-Pro-B Natriuret Pep 5093 pg/mL (0-900) H 01/04/21 22:00 Serum Total Protein 5.4 g/dL (6.1-8.1) L 01/06/21 10:46 Total Protein 5.7 g/dL (6.3-8.2) L 01/09/21 07:13 Albumin 3.1 g/dL (3.9-5) L 01/09/21 07:13 Albumin/Globulin Ratio 1.2 % 01/09/21 07:13 Httzy-6-Kirajwwyu 0.3 g/dL (0.2-0.3) 01/06/21 10:46 Xhart-0-Xgdmemymy 0.9 g/dL (0.5-0.9) 01/06/21 10:46 Beta Globulins 0.3 g/dL (0.2-0.5) 01/06/21 10:46 Gamma Globulins 0.8 g/dL (0.8-1.7) 01/06/21 10:46 Abnorm Protein Band 1 see below 01/06/21 10:46 PEP Interpretation see below H 01/06/21 10:46 TSH 4.420 mlU/mL (0.270-4.200) H 01/06/21 04:33 Free T4 1.19 ng/dL (0.76-1.46) 01/06/21 10:46 Total Cortisol 12.9 mcg/dL () 01/06/21 04:33 Urine Color Yellow (Yellow) 01/05/21 Unknown Urine Turbidity Cloudy (Clear) 01/05/21 Unknown Urine pH 5.0 (5.0-7.0) 01/05/21 Unknown Ur Specific [place] 1.015 (1.003-1.030) 01/05/21 Unknown Urine Protein >500 mg/dL (Negative) 01/05/21 Unknown Urine Glucose (UA) 50 mg/dL (Negative) 01/05/21 Unknown Urine Ketones Tr mg/dL (Negative) 01/05/21 Unknown Urine Blood Sm (Negative) 01/05/21 Unknown Urine Nitrite Neg (Negative) 01/05/21 Unknown Urine Bilirubin Neg (Negative) 01/05/21 Unknown Urine Urobilinogen < 2.0 mg/dL (<2.0) 01/05/21 Unknown Ur Leukocyte Esterase Lg (Negative) 01/05/21 Unknown Urine WBC (Auto) > 182.0 /HPF (0.0-6.0) H 01/05/21 Unknown Urine RBC (Auto) 94.0 /HPF (0.0-6.0) 01/05/21 Unknown U Epithel Cells (Auto) 11.0 /HPF (0-13.0) 01/05/21 Unknown Urine WBC Clumps 3+ /HPF 01/05/21 Unknown Urine Mucus Few /HPF 01/05/21 Unknown Urine Yeast (Budding) 1+ /HPF 01/05/21 Unknown Urine Creatinine 146.4 mg/dL (0.1-20.0) H 01/05/21 Unknown Urine Sodium 67 mmol/L 01/05/21 Unknown Urine Total Protein 844 mg/dL (5-11.8) H 01/05/21 Unknown JESS Screen Negative (Negative) 01/06/21 10:46 Proteinase 3 (PR3) Ab <1.0 AI (<1.0) 01/06/21 10:46 Myeloperoxidase Ab <1.0 AI (<1.0) 01/06/21 10:46 Complement C3 127 mg/dL (83-193) 01/06/21 04:33 Complement C4 26 mg/dL (15-57) 01/06/21 04:33 Hep Bs Antigen Nonreactive (Negative) 01/06/21 10:46 Hepatitis C Antibody Non-reactive (NonReactive) 01/06/21 10:46 Franks/IV: Voiding Method Toilet Active Medications - Current Medications Current Medications: Generic Name Dose Route Start Last Admin Trade Name Freq PRN Reason Stop Dose Admin Acetaminophen 650 mg 01/05/21 02:13 Acetaminophen 325 Mg Tab PO Q4H PRN Pain MILD(1-3)/Fever >100.5/ALVARADO Albuterol 2.5 mg 01/05/21 02:13 Albuterol 2.5 Mg/3 Ml Nebu IH Q4HRT PRN Shortness Of Breath Amlodipine Besylate 10 mg 01/07/21 10:00 01/11/21 09:06 Amlodipine 10 Mg Tab PO 10 mg QDAY [facility] Administration Clonidine HCl 0.2 mg 01/07/21 08:00 01/11/21 05:03 Clonidine 0.2 Mg Tab PO Not Given Q8HR FLOR Dextrose 50 ml 01/05/21 02:13 Dextrose 50% In Water (25gm) 50 Ml Syringe IV Q30MIN PRN Hypoglycemia Protocol Docusate Sodium 100 mg 01/05/21 22:00 01/11/21 09:05 Docusate Sodium 100 Mg Cap PO 100 mg BID [facility]OR Administration Famotidine 10 mg 01/05/21 10:00 01/11/21 09:05 Famotidine 10 Mg Tab PO 10 mg BID FLOR Administration Ferrous Sulfate 325 mg 01/05/21 22:00 01/11/21 09:05 Ferrous Sulfate 325 Mg Tab PO 325 mg BID [facility]OR Administration Hydralazine HCl 10 mg 01/05/21 02:18 01/05/21 16:40 Hydralazine 20 Mg/1 Ml Inj IV 10 mg Q6H PRN Administration SBP >/=165; DBP >/=100 Hydralazine HCl 100 mg 01/05/21 14:00 01/11/21 05:02 Hydralazine 100 Mg Tab PO Not Given Q8HR [facility] Hydromorphone HCl 0.5 mg 01/05/21 02:13 Hydromorphone 1 Mg/1 Ml Inj IV Q3H PRN Pain , Severe (7-10) Sodium Chloride 100 mls @ 999 mls/hr 01/11/21 13:28 Nacl 0.9% IV TAMIKO PRN Hypotension Sodium Chloride 100 mls @ 999 mls/hr 01/11/21 13:50 Nacl 0.9% IV TAMIKO PRN Hypotension Insulin Glargine 5 units 01/07/21 22:00 01/10/21 21:55 Insulin Glargine 100 Units/Ml SUB-Q 5 units QHS [facility] Administration Insulin Human Lispro 0 unit 01/05/21 07:30 01/11/21 11:39 Insulin Lispro 100 Unit/Ml SUB-Q Not Given ACHS [facility] Protocol Labetalol HCl 300 mg 01/05/21 10:00 01/11/21 09:05 Labetalol 100 Mg Tab PO 300 mg BID FLOR Administration Nitroglycerin 0.4 mg 01/05/21 02:18 Nitroglycerin 0.4 Mg Tab Subl SL .Q5MIN PRN Chest Pain Ondansetron HCl 4 mg 01/05/21 02:13 Ondansetron 4 Mg/2 Ml Inj IV Q8H PRN Nausea And Vomiting Oxycodone/Acetaminophen 1 tab 01/05/21 02:13 Oxycodone /Acetaminophen 5-325mg Tab PO Q6H PRN Pain, Moderate (4-6) Pravastatin Sodium 40 mg 01/05/21 22:00 01/10/21 21:53 Pravastatin 40 Mg Tab PO 40 mg QHS [facility] Administration Sodium Chloride 10 ml 01/05/21 10:00 01/11/21 09:06 Sodium Chloride 0.9% 10 Ml Flush Syringe IV 10 ml BID [facility] Administration Sodium Chloride 10 ml 01/05/21 02:13 Sodium Chloride 0.9% 10 Ml Flush Syringe IV PRN PRN LINE FLUSH Spironolactone 25 mg 01/05/21 10:00 01/11/21 09:05 Spironolactone 25 Mg Tab PO 25 mg BID [facility]OR Administration Nutrition/Malnutrition Assess - Dietary Evaluation Nutrition/Malnutrition Findings: Nutrition Notes Start: 01/05/21 07:36 Freq: Status: Active Protocol: Document 01/11/21 10:13 MARI (Rec: 01/11/21 10:17 MARI [id number]) Nutrition Notes Initial or Follow up Brief Note Current Diet NPO Labs/Tests A1C 5.3 POC Glu range since admission: 82-188 Subjective/Other Information Pt scheduled for Vas-Cath placement today for HD. She consumed 100% of two meals yesterday (cardiac/consistent CHO diet). BP been <140/90 since admission. Nutrition Intervention Revisit per MD consult or patient Sign Off request:
--- NOTE | 2021-01-11 14:29 | Operative Report ---
Operative Report Operative Report: EXAM: 1. Ultrasound-guided puncture of the right internal jugular vein 2. Fluoroscopic-guided placement of a right internal jugular tunneled cuffed hemodialysis catheter. DATE: 01/11/2021 INDICATION: End-stage renal disease requiring hemodialysis access MEDICATIONS: Please see nursing report for full details. DEVICES: 23 cm tip to cuff 15 Fr dual lumen hemodialysis catheter DRAG OUT WORKER: KEMI EVANGELISTA MD CONTRAST: None PROCEDURE: The risks, benefits, and alternatives were discussed and informed consent was obtained. The patient was transported to the angiography suite in satisfactory/stable condition and was transported onto the angiography table. The patient's right internal jugular vein was assessed with ultrasound and determined to be patent prior to procedure. The patient was prepped and draped in a sterile fashion. The puncture site was anesthetized. Under sonographic guidance, the right internal jugular vein was punctured with a 21-gauge micropuncture needle and a 0.018 inch wire was advanced into the inferior vena cava. The micropuncture needle was exchanged for a transitional dilator and the wire was retracted into the right atrium to bernabe intravascular distance. The wire and inner dilator were removed. 0.035 inch wire was advanced through the transitional dilator into the inferior vena cava. A suitable exit site was identified on the patient's chest inferior and lateral to the venotomy. The site was anesthetized with local anesthetic and the track was anesthetized. Dermatotomy was made. The PermCath was attached to the tunneling device and tunneled between the dermatotomy to the venotomy. Over the 0.035 inch wire, serial dilatation was performed with ultimate placement of a peel-away sheath. The catheter was advanced through the peel- away sheath after the wire was removed and positioned centrally under fluoroscopic guidance. The peel-away sheath was removed. 3-0 Vicryl suture was used to close the venotomy and Dermabond was then applied. 2-0 Ethilon suture was used to secure the catheter at the dermatotomy. The catheter was charged with heparin 1000 units/mL of space. Sterile dressing and Biopatch applied. The patient was transferred from the angiography suite back to the floor in stable condition. FINDINGS: 1. Excellent flow was obtained through the dialysis catheter with 20 mL syringes. 2. The catheter tip is in the right atrium. IMPRESSION: 1. Successful ultrasound and fluoroscopically guided placement of a right internal jugular tunneled cuffed hemodialysis catheter.
[2021-01-11 17:00] LABS: Hepatitis C Virus Antibody Non-Reactive (NonReactive)
[2021-01-11 17:31] LABS: Hepatitis B Surface Antigen Nonreactive (Negative)
--- NOTE | 2021-01-11 21:02 | Progress Note ---
Assessment and Plan - Patient Problems (1) Acute renal failure Current Visit: Yes Status: Acute Qualifiers: Acute renal failure type: unspecified Qualified Code(s): N17.9 - Acute kidney failure, unspecified Plan to address problem: concerned for possible RPGN in the setting of worsening renal failure, microscopic hematuria, and proteinuria. Serologic workup ordered, pending results at this time. Hepatitis serologies negative. S/P renal biopsy on 01/07. Pending results. Completed three day course of pulse dose steroids. Unfortunately, her kidney function kept worsening and so hemodialysis was initiated today via right IJ permacath. Patient tolerated treatment so far. We will dialyze again tomorrow. (2) Anemia in chronic illness Current Visit: Yes Status: Acute Plan to address problem: Erythropoietin on dialysis. (3) Hypertensive emergency Current Visit: Yes Status: Acute Plan to address problem: Blood pressure has improved. Follow-up blood pressure on current medications (4) Metabolic acidosis Current Visit: Yes Status: Acute Plan to address problem: Follow-up bicarbonate with correction with dialysis (5) Type 2 diabetes mellitus with diabetic chronic kidney disease Current Visit: Yes Status: Chronic Plan to address problem: Blood sugar management by primary attending. Subjective Date of service: 01/11/21 Principal diagnosis: Hypertensive emergency, Acute renal failure Interval history: Patient seen lying in bed this evening. I spoke with the dialysis nurse earlier today and gave her orders for dialysis. Patient has no complaints. She denies any chest pain, shortness of breath, nausea or vomiting or pain. Objective - Exam Narrative Exam: Middle-aged -[place] female lying in bed in no acute distress HEENT: NCAT, Neck: Supple, no venous distention. Right IJ permacath CVS: S1S2 RRR with no murmur, rub or gallop Chest: Clear to auscultation Abdomen: Protuberant, soft, nontender, no organomegaly, bowel sounds are present Extremities: No edema Neuro: Awake, alert no focal deficits - Vital Signs Vital signs: Vital Signs - 12hr 01/11/21 01/11/21 01/11/21 10:00 15:00 15:15 Temperature Pulse Rate 72 60 56 L Pulse Rate [ 75 Apical] Respiratory 17 Rate Blood Pressure 161/73 157/52 O2 Sat by Pulse 98 Oximetry O2 Sat by Pulse Oximetry [ Bilateral] 01/11/21 01/11/21 01/11/21 15:30 15:45 16:00 Temperature Pulse Rate 57 L 55 L 56 L Pulse Rate [ Apical] Respiratory Rate Blood Pressure 158/73 166/75 166/72 O2 Sat by Pulse Oximetry O2 Sat by Pulse Oximetry [ Bilateral] 01/11/21 01/11/21 01/11/21 16:15 16:30 16:45 Temperature Pulse Rate 55 L 55 L 55 L Pulse Rate [ Apical] Respiratory Rate Blood Pressure 165/77 160/73 177/79 O2 Sat by Pulse Oximetry O2 Sat by Pulse Oximetry [ Bilateral] 01/11/21 01/11/21 01/11/21 17:00 17:15 17:30 Temperature Pulse Rate 58 L 56 L 163 H Pulse Rate [ Apical] Respiratory Rate Blood Pressure 177/76 176/77 O2 Sat by Pulse Oximetry O2 Sat by Pulse Oximetry [ Bilateral] 01/11/21 01/11/21 01/11/21 17:45 17:54 18:00 Temperature 97.2 F L Pulse Rate 56 L 60 57 L Pulse Rate [ Apical] Respiratory 20 Rate Blood Pressure 169/74 141/61 176/81 O2 Sat by Pulse Oximetry O2 Sat by Pulse 92 Oximetry [ Bilateral] 01/11/21 19:34 Temperature 98.7 F Pulse Rate 64 Pulse Rate [ Apical] Respiratory 20 Rate Blood Pressure 154/62 O2 Sat by Pulse 99 Oximetry O2 Sat by Pulse Oximetry [ Bilateral] - Lab 01/10/21 05:03 01/11/21 04:07 Most recent lab results Calcium 7.7 mg/dL (8.4-10.2) L 01/10/21 05:03 Phosphorus 6.90 mg/dL (2.5-4.5) H 01/09/21 07:13 Magnesium 2.40 mg/dL (1.7-2.3) H 01/09/21 07:13 Urine Creatinine 146.4 mg/dL (0.1-20.0) H 01/05/21 Unknown Urine Sodium 67 mmol/L 01/05/21 Unknown Urine Total Protein 844 mg/dL (5-11.8) H 01/05/21 Unknown Medications & Allergies - Medications Allergies/Adverse Reactions: Allergies Penicillins Adverse Reaction (Verified 01/11/21 12:49) Hives SOB Home Medications: Home Medications Medication Instructions Recorded Confirmed Last Taken Type Apixaban [Eliquis] 5 mg PO BID 01/05/21 01/05/21 Unknown History Ferrous Sulfate [Iron 325 MG] 325 mg PO BID 01/05/21 01/05/21 Unknown History Losartan [Cozaar] 100 mg PO QDAY 01/05/21 01/05/21 Unknown History Pravastatin [Pravachol] 40 mg PO QHS 01/05/21 01/05/21 Unknown History glipiZIDE [Glucotrol] 5 mg PO QDAY 01/05/21 01/05/21 Unknown History labetaloL [Labetalol 200mg TAB] 200 mg PO BID 01/05/21 01/05/21 Unknown History Active Medications: Generic Name Dose Route Start Last Admin Trade Name Freq PRN Reason Stop Dose Admin Acetaminophen 650 mg 01/05/21 02:13 Acetaminophen 325 Mg Tab PO Q4H PRN Pain MILD(1-3)/Fever >100.5/ALVARADO Albuterol 2.5 mg 01/05/21 02:13 Albuterol 2.5 Mg/3 Ml Nebu IH Q4HRT PRN Shortness Of Breath Amlodipine Besylate 10 mg 01/07/21 10:00 01/11/21 09:06 Amlodipine 10 Mg Tab PO 10 mg QDAY FLOR Administration Clonidine HCl 0.2 mg 01/07/21 08:00 01/11/21 15:31 Clonidine 0.2 Mg Tab PO Not Given Q8HR FLOR Dextrose 50 ml 01/05/21 02:13 Dextrose 50% In Water (25gm) 50 Ml Syringe IV Q30MIN PRN Hypoglycemia Protocol Docusate Sodium 100 mg 01/05/21 22:00 01/11/21 09:05 Docusate Sodium 100 Mg Cap PO 100 mg BID FLOR Administration Famotidine 10 mg 01/05/21 10:00 01/11/21 09:05 Famotidine 10 Mg Tab PO 10 mg BID FLOR Administration Ferrous Sulfate 325 mg 01/05/21 22:00 01/11/21 09:05 Ferrous Sulfate 325 Mg Tab PO 325 mg BID FLOR Administration Hydralazine HCl 10 mg 01/05/21 02:18 01/05/21 16:40 Hydralazine 20 Mg/1 Ml Inj IV 10 mg Q6H PRN Administration SBP >/=165; DBP >/=100 Hydralazine HCl 100 mg 01/05/21 14:00 01/11/21 15:31 Hydralazine 100 Mg Tab PO Not Given Q8HR FLOR Hydromorphone HCl 0.5 mg 01/05/21 02:13 Hydromorphone 1 Mg/1 Ml Inj IV Q3H PRN Pain , Severe (7-10) Sodium Chloride 100 mls @ 999 mls/hr 01/11/21 13:28 Nacl 0.9% IV TAMIKO PRN Hypotension Sodium Chloride 100 mls @ 999 mls/hr 01/11/21 13:50 Nacl 0.9% IV TAMIKO PRN Hypotension Insulin Glargine 5 units 01/07/21 22:00 01/10/21 21:55 Insulin Glargine 100 Units/Ml SUB-Q 5 units QHS FLOR Administration Insulin Human Lispro 0 unit 01/05/21 07:30 01/11/21 17:18 Insulin Lispro 100 Unit/Ml SUB-Q Not Given ACHS [facility] Protocol Labetalol HCl 300 mg 01/05/21 10:00 01/11/21 09:05 Labetalol 100 Mg Tab PO 300 mg BID FLOR Administration Nitroglycerin 0.4 mg 01/05/21 02:18 Nitroglycerin 0.4 Mg Tab Subl SL .Q5MIN PRN Chest Pain Ondansetron HCl 4 mg 01/05/21 02:13 Ondansetron 4 Mg/2 Ml Inj IV Q8H PRN Nausea And Vomiting Oxycodone/Acetaminophen 1 tab 01/05/21 02:13 Oxycodone /Acetaminophen 5-325mg Tab PO Q6H PRN Pain, Moderate (4-6) Pravastatin Sodium 40 mg 01/05/21 22:00 01/10/21 21:53 Pravastatin 40 Mg Tab PO 40 mg QHS FLOR Administration Sodium Chloride 10 ml 01/05/21 10:00 01/11/21 09:06 Sodium Chloride 0.9% 10 Ml Flush Syringe IV 10 ml BID FLOR Administration Sodium Chloride 10 ml 01/05/21 02:13 Sodium Chloride 0.9% 10 Ml Flush Syringe IV PRN PRN LINE FLUSH Spironolactone 25 mg 01/05/21 10:00 01/11/21 09:05 Spironolactone 25 Mg Tab PO 25 mg BID FLOR Administration
[2021-01-11] MEDS: INSULIN GLARGINE 100 UNITS/ML SUB-Q SCH (21:57)
[2021-01-11] MEDS: PRAVASTATIN 40 MG TAB PO SCH (21:57)
[2021-01-12] MEDS: hydrALAZINE 100 MG TAB PO SCH ×3 (06:27→21:47)
[2021-01-12] MEDS: cloNIDine 0.2 MG TAB PO SCH ×3 (06:27→21:47)
[2021-01-12 06:53] LABS: Basophils % (Auto) 0.1 % (0.0-1.8); Eosinophils # (Auto) 0.1 K/mm3 (0.0-0.4); Hematocrit 23.4 % (30.3-42.9); Hemoglobin 7.7 gm/dl (10.1-14.3); Lymphocytes # (Auto) 1.3 K/mm3 (1.2-5.4); Lymphocytes % (Auto) 26.7 % (13.4-35.0); Mean Corpuscular HGB Conc 33 % (30-34); Mean Corpuscular Volume 89 fl (79-97); Monocytes # (Auto) 0.5 K/mm3 (0.0-0.8); Monocytes % (Auto) 11.4 % (0.0-7.3); Platelet Count 171 K/mm3 (140-440); Red Blood Count 2.62 M/mm3 (3.65-5.03); Red Cell Distribution Width 19.2 % (13.2-15.2)
[2021-01-12 07:20] LABS: Calcium 7.9 mg/dL (8.4-10.2)
[2021-01-12] MEDS: INSULIN LISPRO 100 UNIT/ML SUB-Q SCH ×4 (07:30→22:00)
--- NOTE | 2021-01-12 08:40 | Progress Note ---
Assessment and Plan - Patient Problems (1) Acute renal failure Current Visit: Yes Status: Acute Qualifiers: Acute renal failure type: unspecified Qualified Code(s): N17.9 - Acute kidney failure, unspecified Plan to address problem: concerned for possible RPGN in the setting of worsening renal failure, microscopic hematuria, and proteinuria. Serologic workup ordered, pending results at this time. Hepatitis serologies negative. S/P renal biopsy on 01/07. Pending results. Completed three day course of pulse dose steroids. Unfortunately, her kidney function kept worsening and so hemodialysis was initiated 01/11 via right IJ permacath. Patient tolerated treatments so far. We will dialyze again today. (2) Anemia in chronic illness Current Visit: Yes Status: Acute Plan to address problem: Erythropoietin on dialysis. (3) Hypertensive emergency Current Visit: Yes Status: Acute Plan to address problem: Blood pressure has improved. Follow-up blood pressure on current medications (4) Metabolic acidosis Current Visit: Yes Status: Acute Plan to address problem: Follow-up bicarbonate with correction with dialysis (5) Type 2 diabetes mellitus with diabetic chronic kidney disease Current Visit: Yes Status: Chronic Plan to address problem: Blood sugar management by primary attending. Subjective Date of service: 01/12/21 Principal diagnosis: Hypertensive emergency, Acute renal failure Interval history: Patient seen lying in bed this evening. Patient has no complaints. She denies any chest pain, shortness of breath, nausea or vomiting or pain. Objective - Exam Narrative Exam: Middle-aged -[place] Citizen female lying in bed in no acute distress HEENT: NCAT, Neck: Supple, no venous distention. Right IJ permacath CVS: S1S2 RRR with no murmur, rub or gallop Chest: Clear to auscultation Abdomen: Protuberant, soft, nontender, no organomegaly, bowel sounds are present Extremities: No edema Neuro: Awake, alert no focal deficits - Vital Signs Vital signs: Vital Signs - 12hr 01/11/21 01/11/21 01/11/21 22:00 23:09 23:17 Temperature 98.7 F Pulse Rate 69 65 Pulse Rate [ 6 L Apical] Respiratory 17 18 Rate Blood Pressure 171/67 O2 Sat by Pulse 98 99 Oximetry 01/12/21 01/12/21 01/12/21 04:08 06:27 08:23 Temperature 98.7 F 98.4 F Pulse Rate 70 68 68 Pulse Rate [ Apical] Respiratory 18 18 Rate Blood Pressure 141/56 148/63 141/51 O2 Sat by Pulse 96 97 Oximetry - Lab 01/12/21 05:08 01/12/21 05:08 Most recent lab results Calcium 7.9 mg/dL (8.4-10.2) L 01/12/21 05:08 Phosphorus 6.90 mg/dL (2.5-4.5) H 01/09/21 07:13 Magnesium 2.40 mg/dL (1.7-2.3) H 01/09/21 07:13 Urine Creatinine 146.4 mg/dL (0.1-20.0) H 01/05/21 Unknown Urine Sodium 67 mmol/L 01/05/21 Unknown Urine Total Protein 844 mg/dL (5-11.8) H 01/05/21 Unknown Medications & Allergies - Medications Allergies/Adverse Reactions: Allergies Penicillins Adverse Reaction (Verified 01/11/21 12:49) Hives SOB Home Medications: Home Medications Medication Instructions Recorded Confirmed Last Taken Type Apixaban [Eliquis] 5 mg PO BID 01/05/21 01/05/21 Unknown History Ferrous Sulfate [Iron 325 MG] 325 mg PO BID 01/05/21 01/05/21 Unknown History Losartan [Cozaar] 100 mg PO QDAY 01/05/21 01/05/21 Unknown History Pravastatin [Pravachol] 40 mg PO QHS 01/05/21 01/05/21 Unknown History glipiZIDE [Glucotrol] 5 mg PO QDAY 01/05/21 01/05/21 Unknown History labetaloL [Labetalol 200mg TAB] 200 mg PO BID 01/05/21 01/05/21 Unknown History Active Medications: Generic Name Dose Route Start Last Admin Trade Name Freq PRN Reason Stop Dose Admin Acetaminophen 650 mg 01/05/21 02:13 Acetaminophen 325 Mg Tab PO Q4H PRN Pain MILD(1-3)/Fever >100.5/ALVARADO Albuterol 2.5 mg 01/05/21 02:13 Albuterol 2.5 Mg/3 Ml Nebu IH Q4HRT PRN Shortness Of Breath Amlodipine Besylate 10 mg 01/07/21 10:00 01/11/21 09:06 Amlodipine 10 Mg Tab PO 10 mg QDAY FLOR Administration Clonidine HCl 0.2 mg 01/07/21 08:00 01/12/21 06:27 Clonidine 0.2 Mg Tab PO 0.2 mg Q8HR FLOR Administration Dextrose 50 ml 01/05/21 02:13 Dextrose 50% In Water (25gm) 50 Ml Syringe IV Q30MIN PRN Hypoglycemia Protocol Docusate Sodium 100 mg 01/05/21 22:00 01/11/21 21:57 Docusate Sodium 100 Mg Cap PO 100 mg BID FLOR Administration Famotidine 10 mg 01/05/21 10:00 01/11/21 21:57 Famotidine 10 Mg Tab PO 10 mg BID FLOR Administration Ferrous Sulfate 325 mg 01/05/21 22:00 01/11/21 21:57 Ferrous Sulfate 325 Mg Tab PO 325 mg BID FLOR Administration Hydralazine HCl 10 mg 01/05/21 02:18 01/05/21 16:40 Hydralazine 20 Mg/1 Ml Inj IV 10 mg Q6H PRN Administration SBP >/=165; DBP >/=100 Hydralazine HCl 100 mg 01/05/21 14:00 01/12/21 06:27 Hydralazine 100 Mg Tab PO 100 mg Q8HR FLOR Administration Hydromorphone HCl 0.5 mg 01/05/21 02:13 Hydromorphone 1 Mg/1 Ml Inj IV Q3H PRN Pain , Severe (7-10) Sodium Chloride 100 mls @ 999 mls/hr 01/11/21 13:28 Nacl 0.9% IV TAMIKO PRN Hypotension Sodium Chloride 100 mls @ 999 mls/hr 01/11/21 13:50 Nacl 0.9% IV TAMIKO PRN Hypotension Insulin Glargine 5 units 01/07/21 22:00 01/11/21 21:57 Insulin Glargine 100 Units/Ml SUB-Q 5 units QHS FLOR Administration Insulin Human Lispro 0 unit 01/05/21 07:30 01/11/21 22:01 Insulin Lispro 100 Unit/Ml SUB-Q Not Given ACHS [facility] Protocol Labetalol HCl 300 mg 01/05/21 10:00 01/11/21 21:57 Labetalol 100 Mg Tab PO 300 mg BID FLOR Administration Nitroglycerin 0.4 mg 01/05/21 02:18 Nitroglycerin 0.4 Mg Tab Subl SL .Q5MIN PRN Chest Pain Ondansetron HCl 4 mg 01/05/21 02:13 Ondansetron 4 Mg/2 Ml Inj IV Q8H PRN Nausea And Vomiting Oxycodone/Acetaminophen 1 tab 01/05/21 02:13 Oxycodone /Acetaminophen 5-325mg Tab PO Q6H PRN Pain, Moderate (4-6) Pravastatin Sodium 40 mg 01/05/21 22:00 01/11/21 21:57 Pravastatin 40 Mg Tab PO 40 mg QHS FLOR Administration Sodium Chloride 10 ml 01/05/21 10:00 01/11/21 21:57 Sodium Chloride 0.9% 10 Ml Flush Syringe IV 10 ml BID FLOR Administration Sodium Chloride 10 ml 01/05/21 02:13 Sodium Chloride 0.9% 10 Ml Flush Syringe IV PRN PRN LINE FLUSH Spironolactone 25 mg 01/05/21 10:00 01/11/21 21:57 Spironolactone 25 Mg Tab PO 25 mg BID FLOR Administration
[2021-01-12] MEDS: DOCUSATE SODIUM 100 MG CAP PO SCH ×2 (10:00→21:47)
[2021-01-12] MEDS: amLODIPine 10 MG TAB PO SCH (10:00)
[2021-01-12] MEDS: SPIRONOLACTONE 25 MG TAB PO SCH ×2 (10:00→21:47)
[2021-01-12] MEDS: FAMOTIDINE 10 MG TAB PO SCH ×2 (10:00→21:46)
--- NOTE | 2021-01-12 17:05 | Vascular Lab Report ---
DOPPLER ULTRASOUND UPPER EXTREMITY VENOUS MAPPING, BILATERAL INDICATION: esrd, vein mapping UE TECHNIQUE: Grayscale, color and spectral Doppler imaging of the venous system of the right and left upper extrem ities was performed. COMPARISON: None available. FINDINGS: RIGHT UPPER EXTREMITY: Subclavian Vein: Patent. Axillary Vein: Patent. Cephalic Vein (Diameter in mm): - Upper Arm: 0.2 - Mid Arm: 0.2 - Antecubital: 0.1 - Upper Forearm: 0.2 - Mid Forearm: 0.1 - Wrist: 0.1 Basilic Vein (Diameter in mm): - Upper Arm: 0.4 - Mid Arm: 0.5 - Antecubital: 0.3 - Upper Forearm: 0.3 - Mid Forearm: 0.2 - Wrist: 0.2 LEFT UPPER EXTREMITY: Subclavian Vein: Patent. Axillary Vein: Patent. Cephalic Vein (Diameter in mm): - Upper Arm: 0.1 - Mid Arm: 0.1 - Antecubital: 0.3 - Upper Forearm: 0.2 - Mid Forearm: 0.2 - Wrist: 0.1 Basilic Vein (Diameter in mm): - Upper Arm: 0.4 - Mid Arm: 0.3 - Antecubital: 0.2 - Upper Forearm: 0.2 - Mid Forearm: 0.1 - Wrist: 0.1 Additional Findings: Peak systolic velocity in the right radial artery is 135 cm/s and in the right brachial artery is 136 cm/s. Peak systolic velocity in the left radial artery is 137 cm/s and in the left brachial artery is 146 c m/s. Incidental note was made of premature bifurcation of the right radial and ulnar vessels at the level of the biceps near the antecubital fossa. IMPRESSION: 1. No sonographic evidence of deep venous thrombosis. 2. Upper extremity venous mapping as above. Signer Name: Ramses Coyle MD Signed: 01/12/2021 5:01 PM Workstation Name: [id number]
--- NOTE | 2021-01-12 17:55 | Progress Note ---
Assessment and Plan Assessment and plan: This is a 65-year-old female with HTN, DM, DVT x2 over 20 years ago with a family history of DVTs on lifelong anticoagulation who presented to the emergency department on 01/05 with accelerated hypertension and acute kidney injury by her PCP. Work-up in the emergency department revealed a BUN/creatinine of 24/3 (creatinine was 0.92 months ago), proBNP of 5093 and CXR revealed cardiomegaly with small bilateral pleural effusions. Patient received Lasix, hydralazine, labetalol in the emergency department for hypertension and was eventually started on a Cardene drip. On presentation patient blood pre ssure was 257/87. Patient was admitted to the hospitalist service with acute kidney injury and hypertensive urgency with consults to [facility], cardiology and nephrology. Assessment and plan -- Hypertensive emergency; present on admission Blood pressures moderate control Continue current antihypertensives, Labetalol, Hydralazine, Clonidine And as needed hydralazine Strongly advised to comply with medications diet and follow-up visits --HFpEF (EF 55 to 60% in 2020) diastolic congestive heart failure 12/2020 echocardiogram shows mild left ventricular hypertrophy, EF 55 to 60% Continue current antifailure medication, input output monitoring Low-sodium diet, cardiology following --Acute kidney injury, Nephrotic Syndrome s/p renal biopsy Initiated hemodialysis , HD per schedule HD catheter placement yesterday Nephrology following, HD per schedule Patient may need outpatient HD placement -- h/o type II DM ; Hbg A1C 5.8 Sliding scale coverage, ADA diet, long-acting insulin as needed Diabetic education, nutrition education prior to discharge --Heme: H/O anemia, Closely monitor H&H transfuse as needed Iron supplements, Epogen during HD Nephrology following --history of unprovoked DVT Continue home Eliquis Daily Hospital course to date: 01/05: Patient was able to be weaned off of Cardene drip and blood pressure was low to be better controlled with p.o. medications and as needed. Patient was downgraded from ICU to telemetry. This morning patient had slightly worsening metabolic acidosis, BUN/creatinine, hyperchloremia and has slight hypernatremia. 01/06: Patient was restarted on Cardene drip overnight due to persistent hypertension, p.o. medications were adjusted. Renal will hold off HD for now. Patient switched to heparin drip for pending renal biopsy from her Eliquis. Spoke to receded this afternoon and patient was taken off of Cardene and we will continue to monitor for 2-3 more hours before downgrading. Patient complains of bilateral upper extremity swelling and pain and given history bilateral upper extremity Doppler ultrasound ordered to rule out DVT. Patient's blood pressure cuff at the time my examination of this morning was on her leg and I explained to her that the blood pressure readings will be higher on her leg however she insists that it would be on her leg due to pain in her upper extremities presumably from blood pressure cuff. 01/07: Patient had renal biopsy today, patient was restarted on clonidine overnight however cardiology states to only restart Cardene if SBP greater than 200. Patient currently on hydralazine 100 mg p.o. every 8, labetalol 300 mg p.o. twice daily, clonidine 0.2 mg twice daily 01/08: Doing well on encounter this morning. No acute complaints. Patient did state that she is not producing much urine. Patient was off of Cardene overnight, blood pressures considerably under better control. Site of CT-guided biopsy examined, no hematoma or acute drainage appreciated. Today's day 3 of IV steroids. eGFR continues to decline. Nephrology spoke with patient regarding hemodialysis and she is agreeable if the acute indication arises. 01/09: Blood pressure has been normotensive for the last 48 hours. Awaiting results of kidney biopsy. Steroid course completed yesterday. Still producing urine output but will likely need hemodialysis per nephrology 01/10: Plan for Vas-Cath placed by vascular surgery Monday or Monday. Patient will need hemodialysis started then. Biopsy results still pending. 01/11: To Audience Development Manager today for permacath placement. Biopsy results not resulted yet. Will await nephrology input. Patient has had acceptable blood pressures last few days. We will continue to monitor. 01/12/2021; case management per HD placement if not already done Possible discharge in 1 to 2 days if stable History Interval history: I have seen and examined the patient at the bedside Patient received hemodialysis today No new complaints Vital signs noted Hospitalist Physical - Constitutional Vitals: Temp Pulse Resp BP Pulse Ox 98.3 F 70 18 167/47 98 01/12/21 15:55 01/12/21 15:55 01/12/21 15:55 01/12/21 15:55 01/12/21 15:55 General appearance: Present: no acute distress, well-nourished, obese - EENT Eyes: Present: PERRL, EOM intact - Neck Neck: Present: supple, normal ROM - Respiratory Respiratory effort: normal Respiratory: bilateral: diminished, negative: rales, rhonchi, wheezing - Cardiovascular Rhythm: regular Heart Sounds: Present: S1 & S2 - Extremities Extremities: no ischemia, No edema - Abdominal General gastrointestinal: soft, non-tender, non-distended, normal bowel sounds - Integumentary Integumentary: Present: clear, warm - Psychiatric Psychiatric: appropriate mood/affect, cooperative - Neurologic Neurologic: CNII-XII intact, moves all extremities HEART Score - HEART Score Troponin: Troponin T < 0.010 ng/mL (0.00-0.029) 01/04/21 22:00 Results - Labs CBC & Chem 7: 01/12/21 05:08 01/12/21 05:08 Labs: Laboratory Last Values WBC 4.8 K/mm3 (4.5-11.0) 01/12/21 05:08 RBC 2.62 M/mm3 (3.65-5.03) L 01/12/21 05:08 Hgb 7.7 gm/dl (10.1-14.3) L 01/12/21 05:08 Hct 23.4 % (30.3-42.9) L 01/12/21 05:08 MCV 89 fl (79-97) 01/12/21 05:08 MCH 29 pg (28-32) 01/12/21 05:08 MCHC 33 % (30-34) 01/12/21 05:08 RDW 19.2 % (13.2-15.2) H 01/12/21 05:08 Plt Count 171 K/mm3 (140-440) 01/12/21 05:08 Lymph % (Auto) 26.7 % (13.4-35.0) 01/12/21 05:08 [place] % (Auto) 11.4 % (0.0-7.3) H 01/12/21 05:08 Eos % (Auto) 3.0 % (0.0-4.3) 01/12/21 05:08 Baso % (Auto) 0.1 % (0.0-1.8) 01/12/21 05:08 Lymph # (Auto) 1.3 K/mm3 (1.2-5.4) 01/12/21 05:08 [place] # (Auto) 0.5 K/mm3 (0.0-0.8) 01/12/21 05:08 Eos # (Auto) 0.1 K/mm3 (0.0-0.4) 01/12/21 05:08 Baso # (Auto) 0.0 K/mm3 (0.0-0.1) 01/12/21 05:08 Seg Neutrophils % 58.8 % (40.0-70.0) 01/12/21 05:08 Seg Neutrophils # 2.8 K/mm3 (1.8-7.7) 01/12/21 05:08 PT 14.0 Sec. (12.2-14.9) 01/08/21 17:29 INR 1.02 (0.87-1.13) 01/08/21 17:29 APTT 21.3 Sec. (24.2-36.6) L 01/08/21 17:29 Heparin Anti-Xa Level 0.95 U.I./ml (0.3-0.7) H 01/07/21 09:53 Sodium 142 mmol/L (137-145) 01/12/21 05:08 Potassium 3.4 mmol/L (3.6-5.0) L D 01/12/21 05:08 Chloride 103.7 mmol/L (98-107) 01/12/21 05:08 Carbon Dioxide 24 mmol/L (22-30) 01/12/21 05:08 Anion Gap 18 mmol/L 01/12/21 05:08 BUN 43 mg/dL (7-17) H 01/12/21 05:08 Creatinine 4.1 mg/dL (0.6-1.2) H 01/12/21 05:08 Estimated GFR 13 ml/min 01/12/21 05:08 BUN/Creatinine Ratio 10 % 01/12/21 05:08 Glucose 101 mg/dL (65-100) H 01/12/21 05:08 POC Glucose 137 mg/dL (70-105) H 01/12/21 15:57 Hemoglobin A1c 5.3 % (4-6) 01/05/21 09:05 Calcium 7.9 mg/dL (8.4-10.2) L 01/12/21 05:08 Phosphorus 6.90 mg/dL (2.5-4.5) H 01/09/21 07:13 Magnesium 2.40 mg/dL (1.7-2.3) H 01/09/21 07:13 Total Bilirubin 0.20 mg/dL (0.1-1.2) 01/09/21 07:13 AST 11 units/L (5-40) 01/09/21 07:13 ALT 7 units/L (7-56) 01/09/21 07:13 Alkaline Phosphatase 53 units/L (35-129) 01/09/21 07:13 Lactate Dehydrogenase 188 units/L (91-180) H 01/06/21 04:33 Troponin T < 0.010 ng/mL (0.00-0.029) 01/04/21 22:00 NT-Pro-B Natriuret Pep 5093 pg/mL (0-900) H 01/04/21 22:00 Serum Total Protein 5.4 g/dL (6.1-8.1) L 01/06/21 10:46 Total Protein 5.7 g/dL (6.3-8.2) L 01/09/21 07:13 Albumin 3.1 g/dL (3.9-5) L 01/09/21 07:13 Albumin/Globulin Ratio 1.2 % 01/09/21 07:13 Nobdb-7-Qklskfmxa 0.3 g/dL (0.2-0.3) 01/06/21 10:46 Whvzg-7-Wosvokgfb 0.9 g/dL (0.5-0.9) 01/06/21 10:46 Beta Globulins 0.3 g/dL (0.2-0.5) 01/06/21 10:46 Gamma Globulins 0.8 g/dL (0.8-1.7) 01/06/21 10:46 Abnorm Protein Band 1 see below 01/06/21 10:46 PEP Interpretation see below H 01/06/21 10:46 TSH 4.420 mlU/mL (0.270-4.200) H 01/06/21 04:33 Free T4 1.19 ng/dL (0.76-1.46) 01/06/21 10:46 Total Cortisol 12.9 mcg/dL () 01/06/21 04:33 Urine Color Yellow (Yellow) 01/05/21 Unknown Urine Turbidity Cloudy (Clear) 01/05/21 Unknown Urine pH 5.0 (5.0-7.0) 01/05/21 Unknown Ur Specific [place] 1.015 (1.003-1.030) 01/05/21 Unknown Urine Protein >500 mg/dL (Negative) 01/05/21 Unknown Urine Glucose (UA) 50 mg/dL (Negative) 01/05/21 Unknown Urine Ketones Tr mg/dL (Negative) 01/05/21 Unknown Urine Blood Sm (Negative) 01/05/21 Unknown Urine Nitrite Neg (Negative) 01/05/21 Unknown Urine Bilirubin Neg (Negative) 01/05/21 Unknown Urine Urobilinogen < 2.0 mg/dL (<2.0) 01/05/21 Unknown Ur Leukocyte Esterase Lg (Negative) 01/05/21 Unknown Urine WBC (Auto) > 182.0 /HPF (0.0-6.0) H 01/05/21 Unknown Urine RBC (Auto) 94.0 /HPF (0.0-6.0) 01/05/21 Unknown U Epithel Cells (Auto) 11.0 /HPF (0-13.0) 01/05/21 Unknown Urine WBC Clumps 3+ /HPF 01/05/21 Unknown Urine Mucus Few /HPF 01/05/21 Unknown Urine Yeast (Budding) 1+ /HPF 01/05/21 Unknown Urine Creatinine 146.4 mg/dL (0.1-20.0) H 01/05/21 Unknown Urine Sodium 67 mmol/L 01/05/21 Unknown Urine Total Protein 844 mg/dL (5-11.8) H 01/05/21 Unknown JESS Screen Negative (Negative) 01/06/21 10:46 Proteinase 3 (PR3) Ab <1.0 AI (<1.0) 01/06/21 10:46 Myeloperoxidase Ab <1.0 AI (<1.0) 01/06/21 10:46 Complement C3 127 mg/dL (83-193) 01/06/21 04:33 Complement C4 26 mg/dL (15-57) 01/06/21 04:33 Hepatitis A IgM Ab Non-reactive (NonReactive) 01/11/21 15:18 Hep Bs Antigen Nonreactive (Negative) 01/11/21 15:18 Hep B Core IgM Ab Non-reactive (NonReactive) 01/11/21 15:18 Hepatitis C Antibody Non-reactive (NonReactive) 01/11/21 15:18 Franks/IV: Voiding Method Toilet Active Medications - Current Medications Current Medications: Generic Name Dose Route Start Last Admin Trade Name Freq PRN Reason Stop Dose Admin Acetaminophen 650 mg 01/05/21 02:13 Acetaminophen 325 Mg Tab PO Q4H PRN Pain MILD(1-3)/Fever >100.5/ALVARADO Albuterol 2.5 mg 01/05/21 02:13 Albuterol 2.5 Mg/3 Ml Nebu IH Q4HRT PRN Shortness Of Breath Amlodipine Besylate 10 mg 01/07/21 10:00 01/11/21 09:06 Amlodipine 10 Mg Tab PO 10 mg QDAY FLOR Administration Clonidine HCl 0.2 mg 01/07/21 08:00 01/12/21 06:27 Clonidine 0.2 Mg Tab PO 0.2 mg Q8HR FLOR Administration Dextrose 50 ml 01/05/21 02:13 Dextrose 50% In Water (25gm) 50 Ml Syringe IV Q30MIN PRN Hypoglycemia Protocol Docusate Sodium 100 mg 01/05/21 22:00 01/11/21 21:57 Docusate Sodium 100 Mg Cap PO 100 mg BID FLOR Administration Famotidine 10 mg 01/05/21 10:00 01/11/21 21:57 Famotidine 10 Mg Tab PO 10 mg BID FLOR Administration Ferrous Sulfate 325 mg 01/05/21 22:00 01/11/21 21:57 Ferrous Sulfate 325 Mg Tab PO 325 mg BID FLOR Administration Hydralazine HCl 10 mg 01/05/21 02:18 01/05/21 16:40 Hydralazine 20 Mg/1 Ml Inj IV 10 mg Q6H PRN Administration SBP >/=165; DBP >/=100 Hydralazine HCl 100 mg 01/05/21 14:00 01/12/21 06:27 Hydralazine 100 Mg Tab PO 100 mg Q8HR FLOR Administration Hydromorphone HCl 0.5 mg 01/05/21 02:13 Hydromorphone 1 Mg/1 Ml Inj IV Q3H PRN Pain , Severe (7-10) Sodium Chloride 100 mls @ 999 mls/hr 01/11/21 13:50 Nacl 0.9% IV TAMIKO PRN Hypotension Insulin Glargine 5 units 01/07/21 22:00 01/11/21 21:57 Insulin Glargine 100 Units/Ml SUB-Q 5 units QHS FLOR Administration Insulin Human Lispro 0 unit 01/05/21 07:30 01/11/21 22:01 Insulin Lispro 100 Unit/Ml SUB-Q Not Given ACHS [facility] Protocol Labetalol HCl 300 mg 01/05/21 10:00 01/11/21 21:57 Labetalol 100 Mg Tab PO 300 mg BID FLOR Administration Nitroglycerin 0.4 mg 01/05/21 02:18 Nitroglycerin 0.4 Mg Tab Subl SL .Q5MIN PRN Chest Pain Ondansetron HCl 4 mg 01/05/21 02:13 Ondansetron 4 Mg/2 Ml Inj IV Q8H PRN Nausea And Vomiting Oxycodone/Acetaminophen 1 tab 01/05/21 02:13 Oxycodone /Acetaminophen 5-325mg Tab PO Q6H PRN Pain, Moderate (4-6) Pravastatin Sodium 40 mg 01/05/21 22:00 01/11/21 21:57 Pravastatin 40 Mg Tab PO 40 mg QHS FLOR Administration Sodium Chloride 10 ml 01/05/21 10:00 01/11/21 21:57 Sodium Chloride 0.9% 10 Ml Flush Syringe IV 10 ml BID FLOR Administration Sodium Chloride 10 ml 01/05/21 02:13 Sodium Chloride 0.9% 10 Ml Flush Syringe IV PRN PRN LINE FLUSH Spironolactone 25 mg 01/05/21 10:00 01/11/21 21:57 Spironolactone 25 Mg Tab PO 25 mg BID FLOR Administration Nutrition/Malnutrition Assess - Dietary Evaluation Nutrition/Malnutrition Findings: Nutrition Notes Start: 01/05/21 07:36 Freq: Status: Active Protocol: Document 01/11/21 10:13 MARI (Rec: 01/11/21 10:17 MARI [id number]) Nutrition Notes Initial or Follow up Brief Note Current Diet NPO Labs/Tests A1C 5.3 POC Glu range since admission: 82-188 Subjective/Other Information Pt scheduled for Vas-Cath placement today for HD. She consumed 100% of two meals yesterday (cardiac/consistent CHO diet). BP been <140/90 since admission. Nutrition Intervention Revisit per MD consult or patient Sign Off request:
[2021-01-12] MEDS: FERROUS SULFATE 325 MG TAB PO SCH ×2 (19:11→21:46)
[2021-01-12] MEDS: PRAVASTATIN 40 MG TAB PO SCH (21:48)
[2021-01-12] MEDS: INSULIN GLARGINE 100 UNITS/ML SUB-Q SCH (22:00)
[2021-01-13] MEDS: hydrALAZINE 20 MG/1 ML INJ IV PRN ×2 (00:59→12:22)
[2021-01-13] MEDS: hydrALAZINE 100 MG TAB PO SCH ×3 (05:27→23:19)
[2021-01-13] MEDS: cloNIDine 0.2 MG TAB PO SCH ×3 (05:27→23:21)
[2021-01-13] MEDS: INSULIN LISPRO 100 UNIT/ML SUB-Q SCH ×4 (10:17→23:22)
[2021-01-13] MEDS: DOCUSATE SODIUM 100 MG CAP PO SCH ×2 (10:20→23:21)
[2021-01-13] MEDS: amLODIPine 10 MG TAB PO SCH (12:04)
[2021-01-13] MEDS: FAMOTIDINE 10 MG TAB PO SCH ×2 (12:04→23:20)
[2021-01-13] MEDS: FERROUS SULFATE 325 MG TAB PO SCH ×2 (12:04→23:20)
[2021-01-13] MEDS: SPIRONOLACTONE 25 MG TAB PO SCH ×2 (12:06→23:21)
[2021-01-13 14:41] LABS: Aldo/Plasma Renin Act Ratio 30.8 Ratio (0.9-28.9)
[2021-01-13] MEDS ORDERED: HYDROmorphone 1 MG/1 ML INJ ONE (15:04)
[2021-01-13] MEDS ORDERED: NEOSTIGMINE 10MG/10 ML INJ MDV ONE (15:20)
[2021-01-13] MEDS ORDERED: GLYCOPYRROLATE 0.4 MG/2 ML INJ ONE (15:20)
--- NOTE | 2021-01-13 18:41 | Progress Note ---
Assessment and Plan - Patient Problems (1) Chronic kidney disease, stage 5 Current Visit: Yes Status: Acute Plan to address problem: Concerned for possible RPGN in the setting of worsening renal failure, microscopic hematuria, and proteinuria. Serologic workup ordered, pending results at this time. Hepatitis serologies negative. 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 Renal recovery not likely given this etiology and the chronicity. Hemodialysis was initiated 01/11 via right IJ permacath. Patient tolerated treatments so far. We will dialyze again tomorrow. Arranging outpatient dialysis at [facility]. Consult vascular surgeon for AV fistula placement. (2) Anemia in chronic illness Current Visit: Yes Status: Acute Plan to address problem: Erythropoietin on dialysis. (3) Hypertensive emergency Current Visit: Yes Status: Acute Plan to address problem: Blood pressure is still fluctuating. Will change amlodipine to nifedipine. Follow blood pressure and adjusted medications (4) Metabolic acidosis Current Visit: Yes Status: Acute Plan to address problem: Follow-up bicarbonate with correction with dialysis (5) Type 2 diabetes mellitus with diabetic chronic kidney disease Current Visit: Yes Status: Chronic Plan to address problem: Blood sugar management by primary attending. Subjective Date of service: 01/13/21 Principal diagnosis: Hypertensive emergency, Acute renal failure Interval history: Patient seen lying in bed this afternoon. Patient has no complaints. 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 Renal recovery not likely given this etiology and the chronicity. Objective - Exam Narrative Exam: Middle-aged -[place] female lying in bed in no acute distress HEENT: NCAT, Neck: Supple, no venous distention. Right IJ permacath CVS: S1S2 RRR with no murmur, rub or gallop Chest: Clear to auscultation Abdomen: Protuberant, soft, nontender, no organomegaly, bowel sounds are present Extremities: No edema Neuro: Awake, alert no focal deficits - Vital Signs Vital signs: Vital Signs - 12hr 01/13/21 01/13/21 01/13/21 07:43 10:00 12:00 Temperature 98.2 F Pulse Rate 67 67 300 H Respiratory 18 Rate Blood Pressure 171/58 O2 Sat by Pulse 99 95 Oximetry 01/13/21 01/13/21 01/13/21 12:04 12:05 12:06 Temperature 97.6 F Pulse Rate 66 86 Respiratory 18 Rate Blood Pressure 194/73 194/73 O2 Sat by Pulse 97 Oximetry 01/13/21 01/13/21 12:22 16:15 Temperature 98.7 F Pulse Rate 70 72 Respiratory 18 Rate Blood Pressure 194/78 135/59 O2 Sat by Pulse 97 Oximetry - Lab 01/12/21 05:08 01/12/21 05:08 Most recent lab results Calcium 7.9 mg/dL (8.4-10.2) L 01/12/21 05:08 Phosphorus 6.90 mg/dL (2.5-4.5) H 01/09/21 07:13 Magnesium 2.40 mg/dL (1.7-2.3) H 01/09/21 07:13 Urine Creatinine 146.4 mg/dL (0.1-20.0) H 01/05/21 Unknown Urine Sodium 67 mmol/L 01/05/21 Unknown Urine Total Protein 844 mg/dL (5-11.8) H 01/05/21 Unknown Medications & Allergies - Medications Allergies/Adverse Reactions: Allergies Penicillins Adverse Reaction (Verified 01/11/21 12:49) Hives SOB Home Medications: Home Medications Medication Instructions Recorded Confirmed Last Taken Type Apixaban [Eliquis] 5 mg PO BID 01/05/21 01/05/21 Unknown History Ferrous Sulfate [Iron 325 MG] 325 mg PO BID 01/05/21 01/05/21 Unknown History Losartan [Cozaar] 100 mg PO QDAY 01/05/21 01/05/21 Unknown History Pravastatin [Pravachol] 40 mg PO QHS 01/05/21 01/05/21 Unknown History glipiZIDE [Glucotrol] 5 mg PO QDAY 01/05/21 01/05/21 Unknown History labetaloL [Labetalol 200mg TAB] 200 mg PO BID 01/05/21 01/05/21 Unknown History Active Medications: Generic Name Dose Route Start Last Admin Trade Name Freq PRN Reason Stop Dose Admin Acetaminophen 650 mg 01/05/21 02:13 Acetaminophen 325 Mg Tab PO Q4H PRN Pain MILD(1-3)/Fever >100.5/ALVARADO Albuterol 2.5 mg 01/05/21 02:13 Albuterol 2.5 Mg/3 Ml Nebu IH Q4HRT PRN Shortness Of Breath Amlodipine Besylate 10 mg 01/07/21 10:00 01/13/21 12:04 Amlodipine 10 Mg Tab PO 10 mg QDAY FLOR Administration Clonidine HCl 0.2 mg 01/07/21 08:00 01/13/21 05:27 Clonidine 0.2 Mg Tab PO 0.2 mg Q8HR FLOR Administration Dextrose 50 ml 01/05/21 02:13 Dextrose 50% In Water (25gm) 50 Ml Syringe IV Q30MIN PRN Hypoglycemia Protocol Docusate Sodium 100 mg 01/05/21 22:00 01/13/21 10:20 Docusate Sodium 100 Mg Cap PO Not Given BID FLOR Famotidine 10 mg 01/05/21 10:00 01/13/21 12:04 Famotidine 10 Mg Tab PO 10 mg BID FLOR Administration Ferrous Sulfate 325 mg 01/05/21 22:00 01/13/21 12:04 Ferrous Sulfate 325 Mg Tab PO 325 mg BID FLOR Administration Hydralazine HCl 10 mg 01/05/21 02:18 01/13/21 12:22 Hydralazine 20 Mg/1 Ml Inj IV 10 mg Q6H PRN Administration SBP >/=165; DBP >/=100 Hydralazine HCl 100 mg 01/05/21 14:00 01/13/21 05:27 Hydralazine 100 Mg Tab PO 100 mg Q8HR FLOR Administration Hydromorphone HCl 0.5 mg 01/05/21 02:13 Hydromorphone 1 Mg/1 Ml Inj IV Q3H PRN Pain , Severe (7-10) Sodium Chloride 100 mls @ 999 mls/hr 01/11/21 13:50 Nacl 0.9% IV TAMIKO PRN Hypotension Insulin Glargine 5 units 01/07/21 22:00 01/12/21 22:00 Insulin Glargine 100 Units/Ml SUB-Q Not Given QHS FLOR Insulin Human Lispro 0 unit 01/05/21 07:30 01/13/21 12:08 Insulin Lispro 100 Unit/Ml SUB-Q Not Given ACHS [facility] Protocol Labetalol HCl 300 mg 01/05/21 10:00 01/13/21 12:00 Labetalol 100 Mg Tab PO 300 mg BID FLOR Administration Nitroglycerin 0.4 mg 01/05/21 02:18 Nitroglycerin 0.4 Mg Tab Subl SL .Q5MIN PRN Chest Pain Ondansetron HCl 4 mg 01/05/21 02:13 Ondansetron 4 Mg/2 Ml Inj IV Q8H PRN Nausea And Vomiting Oxycodone/Acetaminophen 1 tab 01/05/21 02:13 Oxycodone /Acetaminophen 5-325mg Tab PO Q6H PRN Pain, Moderate (4-6) Pravastatin Sodium 40 mg 01/05/21 22:00 01/12/21 21:48 Pravastatin 40 Mg Tab PO 40 mg QHS FLOR Administration Sodium Chloride 10 ml 01/05/21 10:00 01/13/21 12:08 Sodium Chloride 0.9% 10 Ml Flush Syringe IV 10 ml BID FLOR Administration Sodium Chloride 10 ml 01/05/21 02:13 Sodium Chloride 0.9% 10 Ml Flush Syringe IV PRN PRN LINE FLUSH Spironolactone 25 mg 01/05/21 10:00 01/13/21 12:06 Spironolactone 25 Mg Tab PO 25 mg BID FLOR Administration
--- NOTE | 2021-01-13 18:58 | Progress Note ---
Assessment and Plan Assessment and plan: This is a 65-year-old female with HTN, DM, DVT x2 over 20 years ago with a family history of DVTs on lifelong anticoagulation who presented to the emergency department on 01/05 with accelerated hypertension and acute kidney injury by her PCP. Work-up in the emergency department revealed a BUN/creatinine of 24/3 (creatinine was 0.92 months ago), proBNP of 5093 and CXR revealed cardiomegaly with small bilateral pleural effusions. Patient received Lasix, hydralazine, labetalol in the emergency department for hypertension and was eventually started on a Cardene drip. On presentation patient blood pre ssure was 257/87. Patient was admitted to the hospitalist service with acute kidney injury and hypertensive urgency with consults to [facility], cardiology and nephrology. Assessment and plan -- Hypertensive emergency; present on admission Blood pressures moderate control Continue current antihypertensives, Labetalol, Hydralazine, Clonidine And as needed hydralazine Strongly advised to comply with medications diet and follow-up visits --HFpEF (EF 55 to 60% in 2020) diastolic congestive heart failure 12/2020 echocardiogram shows mild left ventricular hypertrophy, EF 55 to 60% Continue current antifailure medication, input output monitoring Low-sodium diet, cardiology following --Acute kidney injury, Nephrotic Syndrome s/p renal biopsy Initiated hemodialysis , HD per schedule HD catheter placement yesterday Nephrology following, HD per schedule Patient may need outpatient HD placement -- h/o type II DM ; Hbg A1C 5.8 Sliding scale coverage, ADA diet, long-acting insulin as needed Diabetic education, nutrition education prior to discharge --Heme: H/O anemia, Closely monitor H&H transfuse as needed Iron supplements, Epogen during HD Nephrology following --history of unprovoked DVT Continue home Eliquis Daily Hospital course to date: 01/05: Patient was able to be weaned off of Cardene drip and blood pressure was low to be better controlled with p.o. medications and as needed. Patient was downgraded from ICU to telemetry. This morning patient had slightly worsening metabolic acidosis, BUN/creatinine, hyperchloremia and has slight hypernatremia. 01/06: Patient was restarted on Cardene drip overnight due to persistent hypertension, p.o. medications were adjusted. Renal will hold off HD for now. Patient switched to heparin drip for pending renal biopsy from her Eliquis. Spoke to receded this afternoon and patient was taken off of Cardene and we will continue to monitor for 2-3 more hours before downgrading. Patient complains of bilateral upper extremity swelling and pain and given history bilateral upper extremity Doppler ultrasound ordered to rule out DVT. Patient's blood pressure cuff at the time my examination of this morning was on her leg and I explained to her that the blood pressure readings will be higher on her leg however she insists that it would be on her leg due to pain in her upper extremities presumably from blood pressure cuff. 01/07: Patient had renal biopsy today, patient was restarted on clonidine overnight however cardiology states to only restart Cardene if SBP greater than 200. Patient currently on hydralazine 100 mg p.o. every 8, labetalol 300 mg p.o. twice daily, clonidine 0.2 mg twice daily 01/08: Doing well on encounter this morning. No acute complaints. Patient did state that she is not producing much urine. Patient was off of Cardene overnight, blood pressures considerably under better control. Site of CT-guided biopsy examined, no hematoma or acute drainage appreciated. Today's day 3 of IV steroids. eGFR continues to decline. Nephrology spoke with patient regarding hemodialysis and she is agreeable if the acute indication arises. 01/09: Blood pressure has been normotensive for the last 48 hours. Awaiting results of kidney biopsy. Steroid course completed yesterday. Still producing urine output but will likely need hemodialysis per nephrology 01/10: Plan for Vas-Cath placed by vascular surgery Monday or Monday. Patient will need hemodialysis started then. Biopsy results still pending. 01/11: To [facility] today for permacath placement. Biopsy results not resulted yet. Will await nephrology input. Patient has had acceptable blood pressures last few days. We will continue to monitor. 01/12/2021; case management per HD placement if not already done Possible discharge in 1 to 2 days if stable 01/13/2021; outpatient HD placement per case management Request COVID-19 test History Interval history: Seen and examined the patient at the bedside Patient's chart and medications reviewed Patient is tolerating hemodialysis Case management to set up outpatient HD placement Hospitalist Physical - Constitutional Vitals: Temp Pulse Resp BP Pulse Ox 98.7 F 72 18 135/59 97 01/13/21 16:15 01/13/21 16:15 01/13/21 16:15 01/13/21 16:15 01/13/21 16:15 General appearance: Present: no acute distress, well-nourished, obese - EENT Eyes: Present: PERRL, EOM intact - Neck Neck: Present: supple, normal ROM - Respiratory Respiratory effort: normal Respiratory: bilateral: diminished, negative: rales, rhonchi, wheezing - Cardiovascular Rhythm: regular Heart Sounds: Present: S1 & S2 - Extremities Extremities: no ischemia, No edema - Abdominal General gastrointestinal: soft, non-tender, non-distended, normal bowel sounds - Integumentary Integumentary: Present: clear, warm - Psychiatric Psychiatric: appropriate mood/affect, cooperative - Neurologic Neurologic: CNII-XII intact, moves all extremities HEART Score - HEART Score Troponin: Troponin T < 0.010 ng/mL (0.00-0.029) 01/04/21 22:00 Results - Labs CBC & Chem 7: 01/12/21 05:08 01/12/21 05:08 Labs: Laboratory Last Values WBC 4.8 K/mm3 (4.5-11.0) 01/12/21 05:08 RBC 2.62 M/mm3 (3.65-5.03) L 01/12/21 05:08 Hgb 7.7 gm/dl (10.1-14.3) L 01/12/21 05:08 Hct 23.4 % (30.3-42.9) L 01/12/21 05:08 MCV 89 fl (79-97) 01/12/21 05:08 MCH 29 pg (28-32) 01/12/21 05:08 MCHC 33 % (30-34) 01/12/21 05:08 RDW 19.2 % (13.2-15.2) H 01/12/21 05:08 Plt Count 171 K/mm3 (140-440) 01/12/21 05:08 Lymph % (Auto) 26.7 % (13.4-35.0) 01/12/21 05:08 Cochran % (Auto) 11.4 % (0.0-7.3) H 01/12/21 05:08 Eos % (Auto) 3.0 % (0.0-4.3) 01/12/21 05:08 Baso % (Auto) 0.1 % (0.0-1.8) 01/12/21 05:08 Lymph # (Auto) 1.3 K/mm3 (1.2-5.4) 01/12/21 05:08 Cochran # (Auto) 0.5 K/mm3 (0.0-0.8) 01/12/21 05:08 Eos # (Auto) 0.1 K/mm3 (0.0-0.4) 01/12/21 05:08 Baso # (Auto) 0.0 K/mm3 (0.0-0.1) 01/12/21 05:08 Seg Neutrophils % 58.8 % (40.0-70.0) 01/12/21 05:08 Seg Neutrophils # 2.8 K/mm3 (1.8-7.7) 01/12/21 05:08 PT 14.0 Sec. (12.2-14.9) 01/08/21 17:29 INR 1.02 (0.87-1.13) 01/08/21 17:29 APTT 21.3 Sec. (24.2-36.6) L 01/08/21 17:29 Heparin Anti-Xa Level 0.95 U.I./ml (0.3-0.7) H 01/07/21 09:53 Sodium 142 mmol/L (137-145) 01/12/21 05:08 Potassium 3.4 mmol/L (3.6-5.0) L D 01/12/21 05:08 Chloride 103.7 mmol/L (98-107) 01/12/21 05:08 Carbon Dioxide 24 mmol/L (22-30) 01/12/21 05:08 Anion Gap 18 mmol/L 01/12/21 05:08 BUN 43 mg/dL (7-17) H 01/12/21 05:08 Creatinine 4.1 mg/dL (0.6-1.2) H 01/12/21 05:08 Estimated GFR 13 ml/min 01/12/21 05:08 BUN/Creatinine Ratio 10 % 01/12/21 05:08 Glucose 101 mg/dL (65-100) H 01/12/21 05:08 POC Glucose 150 mg/dL (70-105) H 01/13/21 16:13 Hemoglobin A1c 5.3 % (4-6) 01/05/21 09:05 Calcium 7.9 mg/dL (8.4-10.2) L 01/12/21 05:08 Phosphorus 6.90 mg/dL (2.5-4.5) H 01/09/21 07:13 Magnesium 2.40 mg/dL (1.7-2.3) H 01/09/21 07:13 Total Bilirubin 0.20 mg/dL (0.1-1.2) 01/09/21 07:13 AST 11 units/L (5-40) 01/09/21 07:13 ALT 7 units/L (7-56) 01/09/21 07:13 Alkaline Phosphatase 53 units/L (35-129) 01/09/21 07:13 Lactate Dehydrogenase 188 units/L (91-180) H 01/06/21 04:33 Troponin T < 0.010 ng/mL (0.00-0.029) 01/04/21 22:00 NT-Pro-B Natriuret Pep 5093 pg/mL (0-900) H 01/04/21 22:00 Serum Total Protein 5.4 g/dL (6.1-8.1) L 01/06/21 10:46 Total Protein 5.7 g/dL (6.3-8.2) L 01/09/21 07:13 Albumin 3.1 g/dL (3.9-5) L 01/09/21 07:13 Albumin/Globulin Ratio 1.2 % 01/09/21 07:13 Nteut-1-Jxccxbzcg 0.3 g/dL (0.2-0.3) 01/06/21 10:46 Hhkwp-8-Worobqnoz 0.9 g/dL (0.5-0.9) 01/06/21 10:46 Beta Globulins 0.3 g/dL (0.2-0.5) 01/06/21 10:46 Gamma Globulins 0.8 g/dL (0.8-1.7) 01/06/21 10:46 Abnorm Protein Band 1 see below 01/06/21 10:46 PEP Interpretation see below H 01/06/21 10:46 Renin 0.13 ng/mL/h (0.25-5.82) L 01/06/21 04:33 Aldosterone 4 ng/dL () 01/06/21 04:33 Aldosterone/Renin Dir 30.8 Ratio (0.9-28.9) H 01/06/21 04:33 TSH 4.420 mlU/mL (0.270-4.200) H 01/06/21 04:33 Free T4 1.19 ng/dL (0.76-1.46) 01/06/21 10:46 Total Cortisol 12.9 mcg/dL () 01/06/21 04:33 Urine Color Yellow (Yellow) 01/05/21 Unknown Urine Turbidity Cloudy (Clear) 01/05/21 Unknown Urine pH 5.0 (5.0-7.0) 01/05/21 Unknown Ur Specific [place]on 1.015 (1.003-1.030) 01/05/21 Unknown Urine Protein >500 mg/dL (Negative) 01/05/21 Unknown Urine Glucose (UA) 50 mg/dL (Negative) 01/05/21 Unknown Urine Ketones Tr mg/dL (Negative) 01/05/21 Unknown Urine Blood Sm (Negative) 01/05/21 Unknown Urine Nitrite Neg (Negative) 01/05/21 Unknown Urine Bilirubin Neg (Negative) 01/05/21 Unknown Urine Urobilinogen < 2.0 mg/dL (<2.0) 01/05/21 Unknown Ur Leukocyte Esterase Lg (Negative) 01/05/21 Unknown Urine WBC (Auto) > 182.0 /HPF (0.0-6.0) H 01/05/21 Unknown Urine RBC (Auto) 94.0 /HPF (0.0-6.0) 01/05/21 Unknown U Epithel Cells (Auto) 11.0 /HPF (0-13.0) 01/05/21 Unknown Urine WBC Clumps 3+ /HPF 01/05/21 Unknown Urine Mucus Few /HPF 01/05/21 Unknown Urine Yeast (Budding) 1+ /HPF 01/05/21 Unknown Urine Creatinine 146.4 mg/dL (0.1-20.0) H 01/05/21 Unknown Urine Sodium 67 mmol/L 01/05/21 Unknown Urine Total Protein 844 mg/dL (5-11.8) H 01/05/21 Unknown JESS Screen Negative (Negative) 01/06/21 10:46 Proteinase 3 (PR3) Ab <1.0 AI (<1.0) 01/06/21 10:46 Myeloperoxidase Ab <1.0 AI (<1.0) 01/06/21 10:46 Complement C3 127 mg/dL (83-193) 01/06/21 04:33 Complement C4 26 mg/dL (15-57) 01/06/21 04:33 Hepatitis A IgM Ab Non-reactive (NonReactive) 01/11/21 15:18 Hep Bs Antigen Nonreactive (Negative) 01/11/21 15:18 Hep B Core IgM Ab Non-reactive (NonReactive) 01/11/21 15:18 Hepatitis C Antibody Non-reactive (NonReactive) 01/11/21 15:18 Franks/IV: Voiding Method Toilet Active Medications - Current Medications Current Medications: Generic Name Dose Route Start Last Admin Trade Name Freq PRN Reason Stop Dose Admin Acetaminophen 650 mg 01/05/21 02:13 Acetaminophen 325 Mg Tab PO Q4H PRN Pain MILD(1-3)/Fever >100.5/ALVARADO Albuterol 2.5 mg 01/05/21 02:13 Albuterol 2.5 Mg/3 Ml Nebu IH Q4HRT PRN Shortness Of Breath Amlodipine Besylate 10 mg 01/07/21 10:00 01/13/21 12:04 Amlodipine 10 Mg Tab PO 10 mg QDAY FLOR Administration Clonidine HCl 0.2 mg 01/07/21 08:00 01/13/21 05:27 Clonidine 0.2 Mg Tab PO 0.2 mg Q8HR FLOR Administration Dextrose 50 ml 01/05/21 02:13 Dextrose 50% In Water (25gm) 50 Ml Syringe IV Q30MIN PRN Hypoglycemia Protocol Docusate Sodium 100 mg 01/05/21 22:00 01/13/21 10:20 Docusate Sodium 100 Mg Cap PO Not Given BID FLOR Famotidine 10 mg 01/05/21 10:00 01/13/21 12:04 Famotidine 10 Mg Tab PO 10 mg BID FLOR Administration Ferrous Sulfate 325 mg 01/05/21 22:00 01/13/21 12:04 Ferrous Sulfate 325 Mg Tab PO 325 mg BID FLOR Administration Hydralazine HCl 10 mg 01/05/21 02:18 01/13/21 12:22 Hydralazine 20 Mg/1 Ml Inj IV 10 mg Q6H PRN Administration SBP >/=165; DBP >/=100 Hydralazine HCl 100 mg 01/05/21 14:00 01/13/21 05:27 Hydralazine 100 Mg Tab PO 100 mg Q8HR FLOR Administration Hydromorphone HCl 0.5 mg 01/05/21 02:13 Hydromorphone 1 Mg/1 Ml Inj IV Q3H PRN Pain , Severe (7-10) Sodium Chloride 100 mls @ 999 mls/hr 01/11/21 13:50 Nacl 0.9% IV TAMIKO PRN Hypotension Insulin Glargine 5 units 01/07/21 22:00 01/12/21 22:00 Insulin Glargine 100 Units/Ml SUB-Q Not Given QHS [facility] Insulin Human Lispro 0 unit 01/05/21 07:30 01/13/21 12:08 Insulin Lispro 100 Unit/Ml SUB-Q Not Given ACHS [facility] Protocol Labetalol HCl 300 mg 01/05/21 10:00 01/13/21 12:00 Labetalol 100 Mg Tab PO 300 mg BID FLOR Administration Nitroglycerin 0.4 mg 01/05/21 02:18 Nitroglycerin 0.4 Mg Tab Subl SL .Q5MIN PRN Chest Pain Ondansetron HCl 4 mg 01/05/21 02:13 Ondansetron 4 Mg/2 Ml Inj IV Q8H PRN Nausea And Vomiting Oxycodone/Acetaminophen 1 tab 01/05/21 02:13 Oxycodone /Acetaminophen 5-325mg Tab PO Q6H PRN Pain, Moderate (4-6) Pravastatin Sodium 40 mg 01/05/21 22:00 01/12/21 21:48 Pravastatin 40 Mg Tab PO 40 mg QHS [facility] Administration Sodium Chloride 10 ml 01/05/21 10:00 01/13/21 12:08 Sodium Chloride 0.9% 10 Ml Flush Syringe IV 10 ml BID FLOR Administration Sodium Chloride 10 ml 01/05/21 02:13 Sodium Chloride 0.9% 10 Ml Flush Syringe IV PRN PRN LINE FLUSH Spironolactone 25 mg 01/05/21 10:00 01/13/21 12:06 Spironolactone 25 Mg Tab PO 25 mg BID FLOR Administration Nutrition/Malnutrition Assess - Dietary Evaluation Nutrition/Malnutrition Findings: Nutrition Notes Start: 01/05/21 07:36 Freq: Status: Active Protocol: Document 01/11/21 10:13 MARI (Rec: 01/11/21 10:17 MARI [id number]) Nutrition Notes Initial or Follow up Brief Note Current Diet NPO Labs/Tests A1C 5.3 POC Glu range since admission: 82-188 Subjective/Other Information Pt scheduled for Vas-Cath placement today for HD. She consumed 100% of two meals yesterday (cardiac/consistent CHO diet). BP been <140/90 since admission. Nutrition Intervention Revisit per MD consult or patient Sign Off request:
[2021-01-13] MEDS: PRAVASTATIN 40 MG TAB PO SCH (23:21)
[2021-01-13] MEDS: INSULIN GLARGINE 100 UNITS/ML SUB-Q SCH (23:22)
[2021-01-14] MEDS: cloNIDine 0.2 MG TAB PO SCH ×3 (05:39→21:44)
[2021-01-14] MEDS: hydrALAZINE 100 MG TAB PO SCH ×3 (05:39→21:44)
[2021-01-14 06:40] LABS: Hematocrit 25.3 % (30.3-42.9); Hemoglobin 8.3 gm/dl (10.1-14.3); Mean Corpuscular HGB Conc 33 % (30-34); Mean Corpuscular Volume 91 fl (79-97); Platelet Count 167 K/mm3 (140-440); Red Blood Count 2.78 M/mm3 (3.65-5.03); Red Cell Distribution Width 19.7 % (13.2-15.2)
[2021-01-14 07:02] LABS: Calcium 8.6 mg/dL (8.4-10.2)
--- NOTE | 2021-01-14 08:24 | Progress Note ---
Assessment and Plan - Patient Problems (1) Chronic kidney disease, stage 5 Current Visit: Yes Status: Acute Plan to address problem: Concerned for possible RPGN in the setting of worsening renal failure, microscopic hematuria, and proteinuria. Serologic workup ordered, pending results at this time. Hepatitis serologies negative. 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 Renal recovery not likely given this etiology and the chronicity. Hemodialysis was initiated 01/11 via right IJ permacath. Patient tolerated treatments so far. We will dialyze today. Arranging outpatient dialysis at [facility]. Vascular surgery consulted for AV fistula placement. (2) Anemia in chronic illness Current Visit: Yes Status: Acute Plan to address problem: Erythropoietin on dialysis. (3) Hypertensive emergency Current Visit: Yes Status: Acute Plan to address problem: Blood pressure is improving. Follow blood pressure on adjusted medications (4) Metabolic acidosis Current Visit: Yes Status: Acute Plan to address problem: Follow-up bicarbonate with correction with dialysis (5) Type 2 diabetes mellitus with diabetic chronic kidney disease Current Visit: Yes Status: Chronic Plan to address problem: Blood sugar management by primary attending. Subjective Date of service: 01/15/21 Principal diagnosis: Hypertensive emergency, Acute renal failure Interval history: Patient seen lying in bed this morning. Patient has no complaints. She denies any chest pain, shortness of breath, nausea or vomiting or pain. Objective - Exam Narrative Exam: Middle-aged -[place] female lying in bed in no acute distress HEENT: NCAT, Neck: Supple, no venous distention. Right IJ permacath CVS: S1S2 RRR with no murmur, rub or gallop Chest: Clear to auscultation Abdomen: Protuberant, soft, nontender, no organomegaly, bowel sounds are present Extremities: No edema Neuro: Awake, alert no focal deficits - Vital Signs Vital signs: Vital Signs - 12hr 01/13/21 01/13/21 01/14/21 20:39 23:54 01:36 Temperature 98.4 F Pulse Rate 70 70 Respiratory 18 Rate Blood Pressure 167/65 Blood Pressure [Right] O2 Sat by Pulse 95 95 Oximetry 01/14/21 04:55 Temperature 98.6 F Pulse Rate 68 Respiratory 18 Rate Blood Pressure Blood Pressure 151/68 [Right] O2 Sat by Pulse Oximetry - Lab 01/15/21 04:11 01/15/21 04:11 Most recent lab results Calcium 8.6 mg/dL (8.4-10.2) 01/14/21 05:17 Phosphorus 6.90 mg/dL (2.5-4.5) H 01/09/21 07:13 Magnesium 2.40 mg/dL (1.7-2.3) H 01/09/21 07:13 Urine Creatinine 146.4 mg/dL (0.1-20.0) H 01/05/21 Unknown Urine Sodium 67 mmol/L 01/05/21 Unknown Urine Total Protein 844 mg/dL (5-11.8) H 01/05/21 Unknown Medications & Allergies - Medications Allergies/Adverse Reactions: Allergies Penicillins Adverse Reaction (Verified 01/11/21 12:49) Hives SOB Home Medications: Home Medications Medication Instructions Recorded Confirmed Last Taken Type Apixaban [Eliquis] 5 mg PO BID 01/05/21 01/05/21 Unknown History Ferrous Sulfate [Iron 325 MG] 325 mg PO BID 01/05/21 01/05/21 Unknown History Losartan [Cozaar] 100 mg PO QDAY 01/05/21 01/05/21 Unknown History Pravastatin [Pravachol] 40 mg PO QHS 01/05/21 01/05/21 Unknown History glipiZIDE [Glucotrol] 5 mg PO QDAY 01/05/21 01/05/21 Unknown History labetaloL [Labetalol 200mg TAB] 200 mg PO BID 01/05/21 01/05/21 Unknown History Active Medications: Generic Name Dose Route Start Last Admin [facility] Reason Stop Dose Admin Acetaminophen 650 mg 01/05/21 02:13 Acetaminophen 325 Mg Tab PO Q4H PRN Pain MILD(1-3)/Fever >100.5/ALVARADO Albuterol 2.5 mg 01/05/21 02:13 Albuterol 2.5 Mg/3 Ml Nebu IH Q4HRT PRN Shortness Of Breath Clonidine HCl 0.2 mg 01/07/21 08:00 01/14/21 05:39 Clonidine 0.2 Mg Tab PO 0.2 mg Q8HR FLOR Administration Dextrose 50 ml 01/05/21 02:13 Dextrose 50% In Water (25gm) 50 Ml Syringe IV Q30MIN PRN Hypoglycemia Protocol Docusate Sodium 100 mg 01/05/21 22:00 01/13/21 23:21 Docusate Sodium 100 Mg Cap PO 100 mg BID FLOR Administration Famotidine 10 mg 01/05/21 10:00 01/13/21 23:20 Famotidine 10 Mg Tab PO 10 mg BID FLOR Administration Ferrous Sulfate 325 mg 01/05/21 22:00 01/13/21 23:20 Ferrous Sulfate 325 Mg Tab PO 325 mg BID FLOR Administration Hydralazine HCl 10 mg 01/05/21 02:18 01/13/21 12:22 Hydralazine 20 Mg/1 Ml Inj IV 10 mg Q6H PRN Administration SBP >/=165; DBP >/=100 Hydralazine HCl 100 mg 01/05/21 14:00 01/14/21 05:39 Hydralazine 100 Mg Tab PO 100 mg Q8HR FLOR Administration Hydromorphone HCl 0.5 mg 01/05/21 02:13 Hydromorphone 1 Mg/1 Ml Inj IV Q3H PRN Pain , Severe (7-10) Sodium Chloride 100 mls @ 999 mls/hr 01/11/21 13:50 Nacl 0.9% IV TAMIKO PRN Hypotension Insulin Glargine 5 units 01/07/21 22:00 01/13/21 23:22 Insulin Glargine 100 Units/Ml SUB-Q Not Given QHS [facility] Insulin Human Lispro 0 unit 01/05/21 07:30 01/13/21 23:22 Insulin Lispro 100 Unit/Ml SUB-Q Not Given ACHS [facility] Protocol Labetalol HCl 300 mg 01/05/21 10:00 01/13/21 23:20 Labetalol 100 Mg Tab PO 300 mg BID [facility] Administration Nifedipine 60 mg 01/14/21 10:00 Nifedipine Xl 30 Mg Tab PO DAILY [facility] Nitroglycerin 0.4 mg 01/05/21 02:18 Nitroglycerin 0.4 Mg Tab Subl SL .Q5MIN PRN Chest Pain Ondansetron HCl 4 mg 01/05/21 02:13 Ondansetron 4 Mg/2 Ml Inj IV Q8H PRN Nausea And Vomiting Oxycodone/Acetaminophen 1 tab 01/05/21 02:13 Oxycodone /Acetaminophen 5-325mg Tab PO Q6H PRN Pain, Moderate (4-6) Pravastatin Sodium 40 mg 01/05/21 22:00 01/13/21 23:21 Pravastatin 40 Mg Tab PO 40 mg QHS FLOR Administration Sodium Chloride 10 ml 01/05/21 10:00 01/13/21 23:22 Sodium Chloride 0.9% 10 Ml Flush Syringe IV 10 ml BID FLOR Administration Sodium Chloride 10 ml 01/05/21 02:13 Sodium Chloride 0.9% 10 Ml Flush Syringe IV PRN PRN LINE FLUSH Spironolactone 25 mg 01/05/21 10:00 01/13/21 23:21 Spironolactone 25 Mg Tab PO 25 mg BID FLOR Administration
[2021-01-14] MEDS ORDERED: SODIUM CHLORIDE 0.9% 100 ML IV PRN (08:26)
[2021-01-14] MEDS ORDERED: EPOETIN ALFA-EPBX 10,000 UNIT/1 ML VIAL IV PRN (08:26)
[2021-01-14] MEDS ORDERED: EPOETIN ALFA-EPBX 2,000 UNIT/1 ML INJ IV PRN (09:00)
[2021-01-14] MEDS ORDERED: EPOETIN ALFA-EPBX 20,000 UNIT/1 ML VIAL IV PRN (09:00)
[2021-01-14] MEDS: INSULIN LISPRO 100 UNIT/ML SUB-Q SCH ×4 (09:14→22:02)
[2021-01-14] MEDS ORDERED: NIFEdipine XL 30 MG TAB PO SCH (10:00)
[2021-01-14] MEDS: FERROUS SULFATE 325 MG TAB PO SCH ×2 (13:51→21:43)
[2021-01-14] MEDS: DOCUSATE SODIUM 100 MG CAP PO SCH ×3 (13:52→22:01)
[2021-01-14] MEDS: SPIRONOLACTONE 25 MG TAB PO SCH ×2 (13:52→21:44)
[2021-01-14] MEDS: FAMOTIDINE 10 MG TAB PO SCH ×2 (13:53→21:44)
--- NOTE | 2021-01-14 19:13 | Progress Note ---
Assessment and Plan Assessment and plan: This is a 65-year-old female with HTN, DM, DVT x2 over 20 years ago with a family history of DVTs on lifelong anticoagulation who presented to the emergency department on 01/05 with accelerated hypertension and acute kidney injury by her PCP. Work-up in the emergency department revealed a BUN/creatinine of 24/3 (creatinine was 0.92 months ago), proBNP of 5093 and CXR revealed cardiomegaly with small bilateral pleural effusions. Patient received Lasix, hydralazine, labetalol in the emergency department for hypertension and was eventually started on a Cardene drip. On presentation patient blood pre ssure was 257/87. Patient was admitted to the hospitalist service with acute kidney injury and hypertensive urgency with consults to [facility], cardiology and nephrology. Patient's blood pressures are reasonable level, receiving hemodialysis, case management setting up outpatient HD chair Most recent COVID-19 test today is negative. Patient is stable for discharge --Acute kidney injury, Nephrotic Syndrome s/p renal biopsy, HD catheter placement Initiated hemodialysis , HD per schedule Nephrology following, need outpatient HD chair Case management assisting with outpatient HD schedule --Hypertensive emergency; present on admission Blood pressures moderate control Continue current antihypertensives, And as needed hydralazine Advised to comply with medications diet and follow-up visits --HFpEF (EF 55 to 60% in 2020) diastolic congestive heart failure 12/2020 echocardiogram shows mild left ventricular hypertrophy, EF 55 to 60% Continue current antifailure medication, input output monitoring Low-sodium diet, cardiology following -- h/o type II DM ; Hbg A1C 5.8 Sliding scale coverage, ADA diet, long-acting insulin as needed Diabetic education, nutrition education prior to discharge --History of chronic anemia/due to ESRD Closely monitor H&H transfuse as needed Iron supplements, Epogen during HD Nephrology following --history of unprovoked DVT Continue home Eliquis We will closely monitor the patient and adjust management as needed Plan of care reviewed with the patient and her nurse DC planning per case management Stable for discharge, awaiting outpatient HD chair placement Daily Hospital course to date: 01/05: Patient was able to be weaned off of Cardene drip and blood pressure was low to be better controlled with p.o. medications and as needed. Patient was downgraded from ICU to telemetry. This morning patient had slightly worsening metabolic acidosis, BUN/creatinine, hyperchloremia and has slight hypernatremia. 01/06: Patient was restarted on Cardene drip overnight due to persistent hypertension, p.o. medications were adjusted. Renal will hold off HD for now. Patient switched to heparin drip for pending renal biopsy from her Eliquis. Spoke to receded this afternoon and patient was taken off of Cardene and we will continue to monitor for 2-3 more hours before downgrading. Patient complains of bilateral upper extremity swelling and pain and given history bilateral upper ex tremity Doppler ultrasound ordered to rule out DVT. Patient's blood pressure cuff at the time my examination of this morning was on her leg and I explained to her that the blood pressure readings will be higher on her leg however she insists that it would be on her leg due to pain in her upper extremities presumably from blood pressure cuff. 01/07: Patient had renal biopsy today, patient was restarted on clonidine overnight however cardiology states to only restart Cardene if SBP greater than 200. Patient currently on hydralazine 100 mg p.o. every 8, labetalol 300 mg p.o. twice daily, clonidine 0.2 mg twice daily 01/08: Doing well on encounter this morning. No acute complaints. Patient did state that she is not producing much urine. Patient was off of Cardene overnight, blood pressures considerably under better control. Site of CT-guided biopsy examined, no hematoma or acute drainage appreciated. Today's day 3 of IV steroids. eGFR continues to decline. Nephrology spoke with patient regarding hemodialysis and she is agreeable if the acute indication arises. 01/09: Blood pressure has been normotensive for the last 48 hours. Awaiting results of kidney biopsy. Steroid course completed yesterday. Still producing urine output but will likely need hemodialysis per nephrology 01/10: Plan for Vas-Cath placed by vascular surgery Monday or Monday. Patient will need hemodialysis started then. Biopsy results still pending. 01/11: To Wound Care Technician today for permacath placement. Biopsy results not resulted yet. Will await nephrology input. Patient has had acceptable blood pressures last few days. We will continue to monitor. 01/12/2021; case management per HD placement if not already done Possible discharge in 1 to 2 days if stable 01/13/2021; outpatient HD placement per case management Request COVID-19 test 01/14/2021; outpatient HD placement COVID-19 test 01/14/2021 is negative Patient is stable for discharge History Interval history: I have seen and examined the patient at the bedside Patient's chart and medications reviewed Patient feels slightly better, receiving HD per schedule Awaiting outpatient HD chair placement COVID-19 test done today is negative Vital signs reviewed Hospitalist Physical - Constitutional Vitals: Temp Pulse Resp BP Pulse Ox 98.2 F 71 18 159/61 97 01/14/21 15:43 01/14/21 15:43 01/14/21 15:43 01/14/21 15:43 01/14/21 15:43 General appearance: Present: no acute distress, well-nourished, obese - EENT Eyes: Present: PERRL, EOM intact - Neck Neck: Present: supple, normal ROM - Respiratory Respiratory effort: normal Respiratory: bilateral: diminished, negative: rales, rhonchi, wheezing - Cardiovascular Rhythm: regular Heart Sounds: Present: S1 & S2 - Extremities Extremities: no ischemia, No edema - Abdominal General gastrointestinal: soft, non-tender, non-distended, normal bowel sounds - Integumentary Integumentary: Present: clear, warm - Psychiatric Psychiatric: appropriate mood/affect, cooperative - Neurologic Neurologic: CNII-XII intact, moves all extremities HEART Score - HEART Score Troponin: Troponin T < 0.010 ng/mL (0.00-0.029) 01/04/21 22:00 Results - Labs CBC & Chem 7: 01/14/21 05:17 01/14/21 05:17 Labs: Laboratory Last Values WBC 4.8 K/mm3 (4.5-11.0) 01/14/21 05:17 RBC 2.78 M/mm3 (3.65-5.03) L 01/14/21 05:17 Hgb 8.3 gm/dl (10.1-14.3) L 01/14/21 05:17 Hct 25.3 % (30.3-42.9) L 01/14/21 05:17 MCV 91 fl (79-97) 01/14/21 05:17 MCH 30 pg (28-32) 01/14/21 05:17 MCHC 33 % (30-34) 01/14/21 05:17 RDW 19.7 % (13.2-15.2) H 01/14/21 05:17 Plt Count 167 K/mm3 (140-440) 01/14/21 05:17 Lymph % (Auto) 26.7 % (13.4-35.0) 01/12/21 05:08 Ritchie % (Auto) 11.4 % (0.0-7.3) H 01/12/21 05:08 Eos % (Auto) 3.0 % (0.0-4.3) 01/12/21 05:08 Baso % (Auto) 0.1 % (0.0-1.8) 01/12/21 05:08 Lymph # (Auto) 1.3 K/mm3 (1.2-5.4) 01/12/21 05:08 Ritchie # (Auto) 0.5 K/mm3 (0.0-0.8) 01/12/21 05:08 Eos # (Auto) 0.1 K/mm3 (0.0-0.4) 01/12/21 05:08 Baso # (Auto) 0.0 K/mm3 (0.0-0.1) 01/12/21 05:08 Seg Neutrophils % 58.8 % (40.0-70.0) 01/12/21 05:08 Seg Neutrophils # 2.8 K/mm3 (1.8-7.7) 01/12/21 05:08 PT 14.0 Sec. (12.2-14.9) 01/08/21 17:29 INR 1.02 (0.87-1.13) 01/08/21 17:29 APTT 21.3 Sec. (24.2-36.6) L 01/08/21 17:29 Heparin Anti-Xa Level 0.95 U.I./ml (0.3-0.7) H 01/07/21 09:53 Sodium 141 mmol/L (137-145) 01/14/21 05:17 Potassium 3.9 mmol/L (3.6-5.0) 01/14/21 05:17 Chloride 103.9 mmol/L (98-107) 01/14/21 05:17 Carbon Dioxide 26 mmol/L (22-30) 01/14/21 05:17 Anion Gap 15 mmol/L 01/14/21 05:17 BUN 28 mg/dL (7-17) H 01/14/21 05:17 Creatinine 3.8 mg/dL (0.6-1.2) H 01/14/21 05:17 Creatinine 3.9 mg/dL (0.6-1.2) H 01/14/21 05:17 Estimated GFR 14 ml/min 01/14/21 05:17 Estimated GFR 15 ml/min 01/14/21 05:17 BUN/Creatinine Ratio 7 % 01/14/21 05:17 Glucose 113 mg/dL (65-100) H 01/14/21 05:17 POC Glucose 128 mg/dL (70-105) H 01/14/21 16:42 Hemoglobin A1c 5.3 % (4-6) 01/05/21 09:05 Calcium 8.6 mg/dL (8.4-10.2) 01/14/21 05:17 Phosphorus 6.90 mg/dL (2.5-4.5) H 01/09/21 07:13 Magnesium 2.40 mg/dL (1.7-2.3) H 01/09/21 07:13 Total Bilirubin 0.20 mg/dL (0.1-1.2) 01/09/21 07:13 AST 11 units/L (5-40) 01/09/21 07:13 ALT 7 units/L (7-56) 01/09/21 07:13 Alkaline Phosphatase 53 units/L (35-129) 01/09/21 07:13 Lactate Dehydrogenase 188 units/L (91-180) H 01/06/21 04:33 Troponin T < 0.010 ng/mL (0.00-0.029) 01/04/21 22:00 NT-Pro-B Natriuret Pep 5093 pg/mL (0-900) H 01/04/21 22:00 Serum Total Protein 5.4 g/dL (6.1-8.1) L 01/06/21 10:46 Total Protein 5.7 g/dL (6.3-8.2) L 01/09/21 07:13 Albumin 3.1 g/dL (3.9-5) L 01/09/21 07:13 Albumin/Globulin Ratio 1.2 % 01/09/21 07:13 Xnerd-3-Bpooxyrov 0.3 g/dL (0.2-0.3) 01/06/21 10:46 Ylijs-6-Pgnpoxjxg 0.9 g/dL (0.5-0.9) 01/06/21 10:46 Beta Globulins 0.3 g/dL (0.2-0.5) 01/06/21 10:46 Gamma Globulins 0.8 g/dL (0.8-1.7) 01/06/21 10:46 Abnorm Protein Band 1 see below 01/06/21 10:46 PEP Interpretation see below H 01/06/21 10:46 Renin 0.13 ng/mL/h (0.25-5.82) L 01/06/21 04:33 Aldosterone 4 ng/dL () 01/06/21 04:33 Aldosterone/Renin Dir 30.8 Ratio (0.9-28.9) H 01/06/21 04:33 TSH 4.420 mlU/mL (0.270-4.200) H 01/06/21 04:33 Free T4 1.19 ng/dL (0.76-1.46) 01/06/21 10:46 Total Cortisol 12.9 mcg/dL () 01/06/21 04:33 Urine Color Yellow (Yellow) 01/05/21 Unknown Urine Turbidity Cloudy (Clear) 01/05/21 Unknown Urine pH 5.0 (5.0-7.0) 01/05/21 Unknown Ur Specific [place] 1.015 (1.003-1.030) 01/05/21 Unknown Urine Protein >500 mg/dL (Negative) 01/05/21 Unknown Urine Glucose (UA) 50 mg/dL (Negative) 01/05/21 Unknown Urine Ketones Tr mg/dL (Negative) 01/05/21 Unknown Urine Blood Sm (Negative) 01/05/21 Unknown Urine Nitrite Neg (Negative) 01/05/21 Unknown Urine Bilirubin Neg (Negative) 01/05/21 Unknown Urine Urobilinogen < 2.0 mg/dL (<2.0) 01/05/21 Unknown Ur Leukocyte Esterase Lg (Negative) 01/05/21 Unknown Urine WBC (Auto) > 182.0 /HPF (0.0-6.0) H 01/05/21 Unknown Urine RBC (Auto) 94.0 /HPF (0.0-6.0) 01/05/21 Unknown U Epithel Cells (Auto) 11.0 /HPF (0-13.0) 01/05/21 Unknown Urine WBC Clumps 3+ /HPF 01/05/21 Unknown Urine Mucus Few /HPF 01/05/21 Unknown Urine Yeast (Budding) 1+ /HPF 01/05/21 Unknown Urine Creatinine 146.4 mg/dL (0.1-20.0) H 01/05/21 Unknown Urine Sodium 67 mmol/L 01/05/21 Unknown Urine Total Protein 844 mg/dL (5-11.8) H 01/05/21 Unknown JESS Screen Negative (Negative) 01/06/21 10:46 Proteinase 3 (PR3) Ab <1.0 AI (<1.0) 01/06/21 10:46 Myeloperoxidase Ab <1.0 AI (<1.0) 01/06/21 10:46 Complement C3 127 mg/dL (83-193) 01/06/21 04:33 Complement C4 26 mg/dL (15-57) 01/06/21 04:33 Coronavirus (PCR) Negative (Negative) 01/14/21 Unknown Hepatitis A IgM Ab Non-reactive (NonReactive) 01/11/21 15:18 Hep Bs Antigen Nonreactive (Negative) 01/11/21 15:18 Hep B Core IgM Ab Non-reactive (NonReactive) 01/11/21 15:18 Hepatitis C Antibody Non-reactive (NonReactive) 01/11/21 15:18 Franks/IV: Voiding Method Toilet Active Medications - Current Medications Current Medications: Generic Name Dose Route Start Last Admin Trade Name Freq PRN Reason Stop Dose Admin Acetaminophen 650 mg 01/05/21 02:13 Acetaminophen 325 Mg Tab PO Q4H PRN Pain MILD(1-3)/Fever >100.5/ALVARADO Albuterol 2.5 mg 01/05/21 02:13 Albuterol 2.5 Mg/3 Ml Nebu IH Q4HRT PRN Shortness Of Breath Clonidine HCl 0.2 mg 01/07/21 08:00 01/14/21 13:59 Clonidine 0.2 Mg Tab PO 0.2 mg Q8HR FLOR Administration Dextrose 50 ml 01/05/21 02:13 Dextrose 50% In Water (25gm) 50 Ml Syringe IV Q30MIN PRN Hypoglycemia Protocol Docusate Sodium 100 mg 01/05/21 22:00 01/14/21 13:52 Docusate Sodium 100 Mg Cap PO 100 mg BID FLOR Administration Famotidine 10 mg 01/05/21 10:00 01/14/21 13:53 Famotidine 10 Mg Tab PO 10 mg BID FLOR Administration Ferrous Sulfate 325 mg 01/05/21 22:00 01/14/21 13:51 Ferrous Sulfate 325 Mg Tab PO 325 mg BID FLOR Administration Hydralazine HCl 10 mg 01/05/21 02:18 01/13/21 12:22 Hydralazine 20 Mg/1 Ml Inj IV 10 mg Q6H PRN Administration SBP >/=165; DBP >/=100 Hydralazine HCl 100 mg 01/05/21 14:00 01/14/21 13:59 Hydralazine 100 Mg Tab PO 100 mg Q8HR FLOR Administration Hydromorphone HCl 0.5 mg 01/05/21 02:13 Hydromorphone 1 Mg/1 Ml Inj IV Q3H PRN Pain , Severe (7-10) Sodium Chloride 100 mls @ 999 mls/hr 01/14/21 08:26 Nacl 0.9% IV TAMIKO PRN Hypotension Insulin Glargine 5 units 01/07/21 22:00 01/13/21 23:22 Insulin Glargine 100 Units/Ml SUB-Q Not Given QHS [facility] Insulin Human Lispro 0 unit 01/05/21 07:30 01/14/21 17:13 Insulin Lispro 100 Unit/Ml SUB-Q Not Given ACHS [facility] Protocol Labetalol HCl 300 mg 01/05/21 10:00 01/14/21 13:51 Labetalol 100 Mg Tab PO 300 mg BID [facility] Administration Nifedipine 60 mg 01/14/21 10:00 01/14/21 13:53 Nifedipine Xl 30 Mg Tab PO 60 mg DAILY [facility] Administration Nitroglycerin 0.4 mg 01/05/21 02:18 Nitroglycerin 0.4 Mg Tab Subl SL .Q5MIN PRN Chest Pain Ondansetron HCl 4 mg 01/05/21 02:13 Ondansetron 4 Mg/2 Ml Inj IV Q8H PRN Nausea And Vomiting Oxycodone/Acetaminophen 1 tab 01/05/21 02:13 Oxycodone /Acetaminophen 5-325mg Tab PO Q6H PRN Pain, Moderate (4-6) Pravastatin Sodium 40 mg 01/05/21 22:00 01/13/21 23:21 Pravastatin 40 Mg Tab PO 40 mg QHS FLOR Administration Sodium Chloride 10 ml 01/05/21 10:00 01/14/21 13:54 Sodium Chloride 0.9% 10 Ml Flush Syringe IV 10 ml BID FLOR Administration Sodium Chloride 10 ml 01/05/21 02:13 Sodium Chloride 0.9% 10 Ml Flush Syringe IV PRN PRN LINE FLUSH Spironolactone 25 mg 01/05/21 10:00 01/14/21 13:52 Spironolactone 25 Mg Tab PO 25 mg BID FLOR Administration Nutrition/Malnutrition Assess - Dietary Evaluation Nutrition/Malnutrition Findings: Nutrition Notes Start: 01/05/21 07:36 Freq: Status: Active Protocol: Document 01/11/21 10:13 AMRI (Rec: 01/11/21 10:17 MARI [id number]) Nutrition Notes Initial or Follow up Brief Note Current Diet NPO Labs/Tests A1C 5.3 POC Glu range since admission: 82-188 Subjective/Other Information Pt scheduled for Vas-Cath placement today for HD. She consumed 100% of two meals yesterday (cardiac/consistent CHO diet). BP been <140/90 since admission. Nutrition Intervention Revisit per MD consult or patient Sign Off request:
[2021-01-14] MEDS: PRAVASTATIN 40 MG TAB PO SCH (21:43)
[2021-01-14] MEDS: INSULIN GLARGINE 100 UNITS/ML SUB-Q SCH (22:01)
[2021-01-15] MEDS: hydrALAZINE 100 MG TAB PO SCH ×2 (05:30→13:01)
[2021-01-15] MEDS: cloNIDine 0.2 MG TAB PO SCH ×2 (05:30→13:00)
[2021-01-15 05:38] LABS: Hematocrit 25.2 % (30.3-42.9); Hemoglobin 8.4 gm/dl (10.1-14.3); Mean Corpuscular HGB Conc 33 % (30-34); Mean Corpuscular Volume 90 fl (79-97); Platelet Count 148 K/mm3 (140-440); Red Cell Distribution Width 19.5 % (13.2-15.2)
[2021-01-15 05:57] LABS: Calcium 7.8 mg/dL (8.4-10.2)
[2021-01-15 08:54] LABS: Anisocytosis 1+; Hypochromasia 1+; Platelet Estimate Consistent w Auto; Target Cells 1+; Total Cells Counted 100
--- NOTE | 2021-01-15 09:20 | Event Note ---
Date: 01/15/[address] Vidal regarding who was following patient in the office. We will transfer care to their service.
[2021-01-15] MEDS: INSULIN LISPRO 100 UNIT/ML SUB-Q SCH ×3 (09:28→18:12)
[2021-01-15] MEDS: FERROUS SULFATE 325 MG TAB PO SCH (09:29)
[2021-01-15] MEDS: FAMOTIDINE 10 MG TAB PO SCH (09:29)
[2021-01-15] MEDS: SPIRONOLACTONE 25 MG TAB PO SCH (09:29)
[2021-01-15] MEDS: DOCUSATE SODIUM 100 MG CAP PO SCH (09:30)
[2021-01-15] MEDS ORDERED: LOSARTAN 50 MG TAB PO SCH (10:00)
[2021-01-15] MEDS ORDERED: NIFEdipine XL 60 MG TAB PO SCH (10:00)
--- NOTE | 2021-01-15 15:36 | Discharge Summary ---
Providers - Providers Date of Admission: 01/05/21 00:34 Attending physician: VISHAL CHOI 01/05/21 00:21 Consult to Physician [CONS] Routine Comment: Consulting Provider: RENATO RUSSELL Physician Instructions: Reason For Exam: CHF, Accelerated HTN Consult to Physician [CONS] Routine Comment: Consulting Provider: AAYUSH CORDON Physician Instructions: Reason For Exam: Acute renal failure 01/05/21 02:14 Consult to Dietitian/Nutrition [CONS] Routine Physician Instructions: Reason For Exam: Reason for Consult: Diet education 01/10/21 11:48 Consult to Physician [CONS] Routine Comment: Consulting Provider: KEMI EVANGELISTA Physician Instructions: Reason For Exam: need for permcath 01/13/21 18:31 Consult to Physician [CONS] Routine Comment: Consulting Provider: CATARINA HOLGUIN Physician Instructions: Reason For Exam: evaluate patient with CKD for AVF 01/15/21 09:20 Consult to Physician [CONS] Routine Comment: Consulting Provider: HALINA VIDAL Physician Instructions: Reason For Exam: CKD to ESRD. Pt known to you 01/15/21 10:16 Consult to Case Management [CONS] Stat Services Needed at Discharge: Other Notified:: CM Additional Physician Instructions: Patient follows with [facility] nephrology. Sees Dr Viadl outpatient. Will need to be placed at one of the units the [facility] nephrologists round at. Thanks. Primary care physician: HEEL BURNISHER Hospitalization Condition: Serious Disposition: 30 STILL A PATIENT Exam - Constitutional Vitals: Temp Pulse Resp BP Pulse Ox 97.6 F 69 20 164/69 99 01/15/21 12:22 01/15/21 12:22 01/15/21 12:22 01/15/21 12:22 01/15/21 12:22 Plan Follow up with: PRIMARY CARE, [Primary Care Provider] - 3-5 Days Prescriptions: Spironolactone [Aldactone] 25 mg PO BID #60 tablet cloNIDine [Catapres] 0.2 mg PO Q8HR #90 tablet Losartan [Cozaar] 50 mg PO QDAY #30 tablet labetaloL [Labetalol 100mg TAB] 300 mg PO BID #60 tablet Pravastatin [Pravachol] 40 mg PO QHS #30 tablet NIFEdipine XL [Procardia Xl] 60 mg PO BID #60 tablet
[2021-01-15 16:51] VITALS: BP 149/68
== END 2021-01-15 19:06 | disposition short-term general hospital (02) | DRG 673 ==
LOC: ED 16:11 → CC1 01-05 00:34 → 3A 01-05 15:19 → 4A 01-05 21:04 → IMCU 01-06 02:26 → 4A 01-08 11:02
PROVIDERS: ADMIT Hospitalist; ATTEND Internal Medicine
PROC: 0TB13ZX Excision of Left Kidney, Percutaneous Approach, Diagnostic (ICD-10-PCS; 2021-01-07)
PROC: 5A1D70Z Performance of Urinary Filtration, Intermittent, Less than 6 Hours Per Day (ICD-10-PCS; principal; 2021-01-11)
PROC: 0JH63XZ Insertion of Tunneled Vascular Access Device into Chest Subcutaneous Tissue and Fascia, Percutaneous Approach (ICD-10-PCS; 2021-01-11)
PROC: 02H633Z Insertion of Infusion Device into Right Atrium, Percutaneous Approach (ICD-10-PCS; 2021-01-11)
PROC: B518ZZA Fluoroscopy of Superior Vena Cava, Guidance (ICD-10-PCS; 2021-01-11)
PROC: B543ZZA Ultrasonography of Right Jugular Veins, Guidance (ICD-10-PCS; 2021-01-11)
PROC: 5A1D70Z Performance of Urinary Filtration, Intermittent, Less than 6 Hours Per Day (ICD-10-PCS; 2021-01-12)
PROC: 5A1D70Z Performance of Urinary Filtration, Intermittent, Less than 6 Hours Per Day (ICD-10-PCS; 2021-01-14)
DX: N17.9 Acute kidney failure, unspecified (principal); I50.31 Acute diastolic (congestive) heart failure; E87.2 Acidosis; I16.1 Hypertensive emergency; I13.2 Hypertensive heart and chronic kidney disease with heart failure and with stage 5 chronic kidney disease, or end stage renal disease; E11.22 Type 2 diabetes mellitus with diabetic chronic kidney disease; Z20.822 Contact with and (suspected) exposure to COVID-19; N04.9 Nephrotic syndrome with unspecified morphologic changes; D63.1 Anemia in chronic kidney disease; N18.5 Chronic kidney disease, stage 5; R31.29 Other microscopic hematuria; R80.9 Proteinuria, unspecified; Z86.718 Personal history of other venous thrombosis and embolism; Z98.84 Bariatric surgery status; Z79.899 Other long term (current) drug therapy
CPT/HCPCS: 36415; 36558; 71045; 77001; 77012; 80048; 80053; 80074; 81001; 82088; 82533; 82565; 82570; 82962; 83036; 83520; 83615; 83735; 83880; 84100; 84156; 84165; 84300; 84439; 84443; 84484; 85007; 85014; 85018; 85025; 85027; 85049; 85520; 85610; 85730; 86021; 86038; 86160; 86706; 86803; 93005; 93306; 93970; 94640; 94644; 94760; G0378; A9270-GY; C1750; J0360; J0885; J1170; J1644; J1815; J1940; J2250; J2710; J2930; J3010; J7050; U0003

== ENCOUNTER 2021-02-17 05:55 | Day surgery (SDC) | payer OTHER ==
[2021-02-17] MEDS ORDERED: BACTERIOSTATIC SODIUM CHLORIDE 0.9% 30 ML VIAL INFILTRATI ONE (06:33)
[2021-02-17 07:05] LABS: Hematocrit 36.7 % (30.3-42.9); Hemoglobin 11.8 gm/dl (10.1-14.3); Mean Corpuscular HGB Conc 32 % (30-34); Mean Corpuscular Volume 94 fl (79-97); Platelet Count 196 K/mm3 (140-440); Red Cell Distribution Width 19.5 % (13.2-15.2)
[2021-02-17] MEDS ORDERED: SODIUM CHLORIDE 0.9% 1000 ML 1,000 ML ONE (07:06)
[2021-02-17] MEDS ORDERED: LIDOCAINE MPF (2%) 20 MG/1 ML VIAL 5 ML ONE (07:14)
[2021-02-17 07:17] LABS: Calcium 9.3 mg/dL (8.4-10.2)
[2021-02-17] MEDS ORDERED: BUPIVACAINE/PF (0.5%) 5 MG/1 ML 30 ML VIAL INFILTRATI ONE ×4 (07:28→08:47)
--- NOTE | 2021-02-17 07:36 | Anesthesia Day of Surgery ---
Anesthesia Day of Surgery - Day of Surgery Patient Examined: Yes Patient H&P Reviewed: Yes Patient is NPO: Yes
--- NOTE | 2021-02-17 07:36 | Anesthesia Consultation ---
Anesthesia Consult and Med Hx - Airway Anesthetic Teeth Evaluation: Good ROM Head & Neck: Adequate Mental/Hyoid Distance: Adequate Mallampati Class: Class III Intubation Access Assessment: Possibly Difficult - Pulmonary Exam CTA: Yes - Cardiac Exam Cardiac Exam: RRR - Pre-Operative Health Status ASA Pre-Surgery Classification: ASA3 Proposed Anesthetic Plan: MAC Nerve Block: IS - Pre-Anesthesia Comment Pre-Anesthesia Comments: Patient had DVT >10 years ago. Takes Eliquis. Last dose 02/15/21. - Pulmonary Hx Smoking: No Hx Asthma: No COPD: No Hx Pneumonia: No - Cardiovascular System Hx Hypertension: Yes (CONTROLLED WITH MEDS AND DIALYSIS) - Central Nervous System Hx Psychiatric Problems: No - Endocrine Hx End Stage Renal Disease: Yes Hx Non-Insulin Dependent Diabetes: Yes - Hematic Hx Anemia: Yes - Other Systems Hx Alcohol Use: Yes (WINE 2 TIMES A MONTH) Hx Substance Use: No Hx Cancer: No - Additional Comments Anesthesia Medical History Comments: No history of anesthetic complications
[2021-02-17] MEDS ORDERED: HEPARIN 10,000 UNITS/10 ML VIAL ONE (07:40)
[2021-02-17] MEDS ORDERED: SODIUM CHLORIDE P/F VIAL 10 ML 10 ML ONE (07:40)
[2021-02-17] MEDS ORDERED: SODIUM CHLORIDE 0.9% 500 ML 1,000 ML ONE (07:41)
[2021-02-17] MEDS ORDERED: rifAMPin 600 MG VIAL ONE (07:41)
[2021-02-17] MEDS ORDERED: LIDOCAINE 1%/EPINEPHRINE 1:100,000 VIAL (20 ML) INFILTRATI ONE (07:41)
[2021-02-17] MEDS ORDERED: MIDAZOLAM 2 MG/2 ML INJ ONE (07:42)
[2021-02-17] MEDS ORDERED: fentaNYL 100 MCG/2 ML INJ ONE (07:43)
[2021-02-17] MEDS ORDERED: LIDOCAINE (1%) 10 MG/1 ML VIAL 20 ML MDV ONE (07:45)
[2021-02-17] MEDS ORDERED: SODIUM CHLORIDE 0.9% 500 ML IVPB IRRIGATION ONE ×2 (08:47→08:50)
[2021-02-17] MEDS ORDERED: HEPARIN 10,000 UNIT/1 ML VIAL IR ONE ×2 (08:47→08:50)
[2021-02-17] MEDS ORDERED: SODIUM CHLORIDE 0.9% P/F 10 ML VIAL IV ONE (09:06)
[2021-02-17] MEDS ORDERED: rifAMPin 600 MG VIAL IV ONE (09:06)
[2021-02-17] MEDS ORDERED: SODIUM CHLORIDE 0.9% 1000 ML 1,000 ML IV SCH (09:30)
--- NOTE | 2021-02-17 10:24 | Short Stay Summary ---
Short Stay Documentation Date of service: 02/17/21 Narrative H&P: See H&P - History H&P: obtained from office - Allergies and Medications Current Medications: Allergies Penicillins Allergy (Verified 02/15/21 14:27) Hives SOB Home Medications Medication Instructions Recorded Confirmed Last Taken Type Apixaban [Eliquis] 5 mg PO BID 01/05/21 02/15/21 Unknown History Ferrous Sulfate [Iron 325 MG] 325 mg PO BID 01/05/21 02/15/21 Unknown History glipiZIDE [Glucotrol] 5 mg PO QDAY 01/05/21 02/15/21 Unknown History Losartan [Cozaar] 50 mg PO QDAY #30 tablet 01/15/21 02/15/21 Unknown Rx NIFEdipine XL [Procardia Xl] 60 mg PO BID #60 tablet 01/15/21 02/15/21 Unknown Rx Pravastatin [Pravachol] 40 mg PO QHS #30 tablet 01/15/21 02/15/21 Unknown Rx labetaloL [Labetalol 100mg TAB] 300 mg PO BID #60 tablet 01/15/21 02/15/21 Unknown Rx Active Medications Clindamycin HCl (Cleocin 900 Mg/50 Ml) 900 mg in 50 mls @ 100 mls/hr IV PREOP NR; Protocol Stop: 02/17/21 21:00 Sodium Chloride (Nacl 0.9% 1000 Ml) 1,000 mls @ 42 mls/hr IV PREOP FLOR Last Admin: 02/17/21 06:50 Dose: 42 mls/hr Documented by: - Brief post op/procedure progress note Date of procedure: 02/17/21 Pre-op diagnosis: End-Stage Renal Disease Post-op diagnosis: same Procedure: Creation of Left Brachial Artery to Left Axillary Vein Arteriovenous Graft Anesthesia: MAC, regional Surgeon: CATARINA HOLGUIN Estimated blood loss: minimal Pathology: none Condition: stable - Disposition Condition at discharge: Good Disposition: 01 HOME / SELF CARE / HOMELESS Short Stay Discharge Plan Activity: other (No heavy lifting with left arm for 2 weeks.) Wound: open to air, keep clean and dry, other (Okay to wash the left arm wounds with soap and water but do not soak in water for 2 weeks.) Follow up with: CATARINA HOLGUIN MD [Staff Physician] - 14 Days Prescriptions: HYDROcodone/APAP 5-325 [Dittmer 5/325] 1 each PO Q4HR PRN #30 tablet PRN Reason: Pain
--- NOTE | 2021-02-17 10:25 | Operative Report ---
Operative Report Operative Report: Date of procedure: 02/17/2021 Pre-operative diagnosis: End-Stage Renal Disease Post-operative diagnosis: Same Procedure(s): 1. Creation of Left Brachial Artery to Axillary Vein AV Graft with 6 mm Bovine Graft Artergraft Surgeon: Avinash Ferguson MD Bottomer Operator: None Anesthesia: Regional/MAC EBL: Minimal Counts: Correct Complications: None Condition: Stable Findings: Successful Creation of Left Arm AV Graft with Palpable Thrill and Palpable Radial Pulse at the Completion of the Case. Specimen: None Indication: The patient is a 65-year-old female with a history of end-stage renal disease who is currently on hemodialysis through a right internal jugular permacath. She is in need of long-term dialysis access and does not have adequate vein for creation of an arteriovenous fistula so she requires creation of an arteriovenous graft. She was given the risk, benefits, and alternative procedures and consented to the procedure. Description of Procedure: Prior to being transported to the operating room the patient had a regional block of the left arm performed. After the block was performed the patient was transported to the operating room and adequately sedated. The patient's left arm was then prepped and draped in normal sterile fashion. A longitudinal incision was made on the medial aspect of the arm just proximal to the antecubital crease and carried down to the brachial artery using sharp dissection. The brachial artery was dissected out circumferentially both proximally and distally and controlled with vessel loops. A second incision was created in longitudinal fashion on the medial aspect of the arm just distal to the axillary crease and carried down to the axillary vein using sharp dissection. Axillary vein was dissected out circumferentially and controlled with a vessel loop. I then used a Nicolle-Wick tunneler to tunnel from the brachial artery incision to the axillary vein incision and then pulled an 6 mm bovine through the tunnel. I infused with heparinized saline to ensure that it was not twisted or kinked. I put the brachial artery vessel loops on tension controlling the flow and then created an arteriotomy using an 11 blade and Albarran scissors. I beveled the graft and created an end-to-side anastomosis using 6-0 Prolene running fashion. I clamped the graft just proximal to the anastomosis and then released the vessel loops restoring flow in the brachial artery. I placed quick clot in incision to achieve hemostasis. I cut the proximal end of the graft to the appropriate length and beveled the graft in preparation for a venous anastomosis. I controlled the axillary vein a Satinsky clamp and created a venotomy using an 11 blade and Albarran scissors. I created an end to side anastomosis using a 6-0 Prolene in running fashion. Prior to completing the anastomosis I flushed the graft to ensure there was no thrombus and then completed the anastamosis. I released all clamps allowing flow into the AV graft which had an excellent thrill. I packed the wound with quick clot to achieve hemostasis. I closed both wounds in 2 layers using 3-0 Vicryl in running fashion in the deep dermal layer and 4-0 Monocryl in running fashion the subcuticular layer. I dressed both wounds with Dermabond. The patient tolerated the procedure well all sponge, needle, and instrument counts were correct. The patient was taken to recovery in stable condition.
[2021-02-17 12:15] VITALS: BP 141/78
--- NOTE | 2021-02-17 14:53 | Post Anesthesia Evaluation ---
- Post Anesthesia Evaluation Patient Participated: Yes Airway Patent: Yes Stable Respiratory Function: Yes Nausea/Vomiting: No Temp > 96.8F: Yes Pain Manageable: Yes Adequeate Hydration: Yes Anesthesia Complications: No Block Receding Appropriately: Yes Patient on Ventilator: No
== END 2021-02-17 12:25 | disposition home or self-care (01) ==
LOC: OR 05:55
PROVIDERS: ATTEND Surgery Vascular Surgery
DX: I13.2 Hypertensive heart and chronic kidney disease with heart failure and with stage 5 chronic kidney disease, or end stage renal disease (principal); N18.6 End stage renal disease; E11.22 Type 2 diabetes mellitus with diabetic chronic kidney disease; I50.9 Heart failure, unspecified; E87.2 Acidosis; D63.8 Anemia in other chronic diseases classified elsewhere; Z86.718 Personal history of other venous thrombosis and embolism; Z99.2 Dependence on renal dialysis; Z79.84 Long term (current) use of oral hypoglycemic drugs; Z79.899 Other long term (current) drug therapy; Z98.890 Other specified postprocedural states; Z20.822 Contact with and (suspected) exposure to COVID-19
CPT/HCPCS: 36415; 36830; 64415; 80048; 82962; 85027; C1768; J1644; J2250; J2704; J3010; J3490; J7030; J7040; U0003; 64450